=== PATIENT | female | born 1950 | race Caucasian/White ===

== ENCOUNTER 2022-01-26 11:25 | Outpatient (CLI) | payer MEDICARE, SELFPAY ==
--- NOTE | 2022-01-26 11:30 | CRLHL7_ITS ---
For Patients: As a result of the Century Cures Act, medical imaging exams and procedure reports are released immediately into your electronic medical record. You may view this report before your referring provider. If you have questions, please contact your health care provider. RIGHT BREAST SCREENING MAMMOGRAM WITH COMPUTER-AIDED DETECTION AND TOMOSYNTHESIS TECHNIQUE: CC and MLO views were obtained. These mammographic images have been obtained using full-field digital technique. These mammographic images were interpreted with the benefit of computer-aided detection. Breast Tomosynthesis was used in this interpretation. COMPARISON FILM: 01/25/2021, 01/13/2020. FINDINGS: There are scattered areas of fibroglandular density. IMPRESSION: There is no radiographic evidence for malignancy. ASSESSMENT: BI-RADS Category 1: Negative RECOMMENDATION: Routine screening mammogram in 1 year. A lay language report of this examination will be provided to the patient. Brooke Reyes M.D. Diagnostic/Breast Radiologist [email or web address]/[email or web address] PT/Dictated by: Brooke Reyes MD @ 01/31/2022 8:31:00 AM (Electronically Signed)
--- OUTSIDE RECORDS SUMMARY | 2022-01-26 11:37 | XMS_ITS | Encounter Summary ---
:1950 Author Organization [place] Address [address] [facility] [address] Care Team Providers Name Role Phone [facility] Primary Care Provider [phone] Marichuy Meyers MD Unavailable Reason for Visit Auth/Cert Specialty Diagnoses / Procedures Referred By Contact Refer red To Contact Gastroenterology Diagnoses Screen for colon cancer Screen for colon cancer [Z12.11] Endoscopy Procedures [facility] COLONOSCOPY W/WO BRUSH/WASH COLONOSCOPY [address] [place] [address] Phone: Fax: Referral ID Status Reason Start Date Expiration Date Visits Requ ested Visits Authorized [id number] 1 1 Encounter Details Date Type Department Care Team Description 01/06/2021 Surgery [facility] Endoscopy Gabriel Bell MD COLONOSCOPY [facility] [address] [facility] [address] [place] [address] [place] [address] (Wo rk) Surgery Details Date/Time Status Location OR Service Patient Class Case Case Trauma Class Type Case? 01/06/21 Posted GI [facility] Gastroenterology Outpatient 8:30 AM Panel 1 Procedure [facility] Anes Op Region Wound Class Commen ts COLONOSCOPY N/A Conscious Sedation Rectum II-Clean Contami nated Surgeon Surgeon Role Service Panel Gabriel Forde MD Primary Gastroenterology 1 Special Needs PS 12/22 ac (fv) documented in this encounter Social History Tobacco Use Types Packs/Day Years Used Date Smoking Tobacco: Former Cigarettes Quit : 07/03/2002 Smokeless Tobacco: Never Alcohol Use Standard Drinks/Week Comments Yes 0 (1 standard drink = 0.6 oz pure alcoho l) rare Sex Assigned at Date Recorded Not on file COVID-19 Exposure Response Date Recorded In the last month, have you been in contact with No / Unsure 01/06/2021 7:38 AM CDT someone who was confirmed or suspected to have Coronavirus / COVID-19? documented as of this encounter Last Filed Vital Signs Vital Sign Reading Time Taken Comments Blood Pressure 100/55 01/06/2021 9:00 AM CDT Pulse 83 01/06/2021 9:00 AM CDT Temperature 36.8 ??C (98.3 ??F) 01/06/2021 8:39 AM CDT Respiratory Rate 12 01/06/2021 9:00 AM CDT Oxygen Saturation 95% 01/06/2021 9:00 AM CDT Inhaled Oxygen Concentration - - Weight 64.4 kg (142 lb) 01/06/2021 8:23 AM CDT Height 149.9 cm (4' 11) 01/06/2021 8:23 AM CDT Body Mass Index 28.68 01/06/2021 8:23 AM CDT documented in this encounter Discharge Instructions Discharge InstructionsShakila Elias RN - 01/06/2021 9:08 AM CDT Images from the original note were not included. Understanding Diverticulosis and Diverticulitis Pouches or diverticula usually occur in the lower part of the colon called the sigmoid. Diverticulitis occurs when the pouches become inflamed. The colon (large intestine) is the last part of the digestive tract. It absorbs water from stool andchanges it from a liquid to a solid. In certain cases, small pouches called diverticula can form in the colon wall. This condition is called diverticulosis. The pouches can become infected. If this happens, it becomes a more serious problem called diverticulitis. These problems can be painful. But they can be managed. Managing Your Condition Diet changes or taking medications are often tried first. These may be enough to bring relief. If the case is bad, surgery may be done. You and your doctor can discuss the plan that is best for you. If You Have Diverticulosis Diet changes are often enough to control symptoms. The main changes are adding fiber (roughage) and drinking more water. Fiber absorbs water as it travels through your colon. This helps your stool staysoft and move smoothly. Water helps this process. If needed, you may be told to take pssy-zad-mmnplev stool softeners. To help relieve pain, antispasmodic medications may be prescribed. If You Have Diverticulitis Treatment depends on how bad your symptoms are. For mild symptoms: You may be put on a liquid diet for a short time. You may also be prescribed antibiotics. If these two steps relieve your symptoms, you may then be prescribed a high-fiber diet. If you still have symptoms, your doctor will discuss further treatment options with you. For severe symptoms: You may need to be admitted to the hospital. There, you can be given IV antibiotics and fluids. Once symptoms are under control, the above treatments may be tried. If these don???tcontrol your condition, your doctor may discuss the option of having surgery with you. [place] to Colon Health Help keep your colon healthy with a diet that includes plenty of high-fiber fruits, vegetables, and whole grains. Drink plenty of liquids like water and juice. Your doctor may also recommend avoiding seeds and nuts. ?? 1993-5944 Megan [facility], [address] [place], [place] [id number]. All rights reserved. This information is not intended as a substitute for professional medical care. Always follow your healthcare professional's instructions. Eating a High-Fiber Diet Fiber is what gives strength and structure to plants. Most grains, beans, vegetables, and fruits contain fiber. Foods rich in fiber are often low in calories and fat, and they fill you up more. They may also reduce your risks for certain health problems. To find out the amount of fiber in canned, packaged, or frozen foods, read the ???Nutrition Facts?? label. It tells you how much fiber is in a serving. Types of Fiber and Their Benefits There are two types of fiber: insoluble and soluble. They both aid digestion and help you maintain ahealthy weight. Insoluble fiber: This is found in whole grains, cereals, certain fruits and vegetables (such as apple skin, corn, and carrots). Insoluble fiber may prevent constipation and reduce the risk of certain types of cancer. Soluble fiber: This type of fiber is in oats, beans, and certain fruits and vegetables (such as strawberries and peas). Soluble fiber can reduce cholesterol (which may help lower the risk of heart disease), and helps control blood sugar levels. Look for High-Fiber Foods Whole-grain breads and cereals: Try to eat 6-8 ounces a day. Include wheat and oat bran cereals, whole-wheat muffins or toast, and corn tortillas in your meals. Fruits: Try to eat 2 cups a day. Apples, oranges, strawberries, pears, and bananas are good sources.(Note: Fruit juice is low in fiber.) Vegetables: Try to eat 3 cups a day. Add asparagus, carrots, broccoli, peas, and corn to your meals. Legumes (beans): One cup of cooked lentils gives you over 15 grams of fiber. Try navy beans, lentils, and chickpeas. Seeds: A small handful of seeds gives you about 3 grams of fiber. Try sunflower seeds. Keep Track of Your Fiber A healthy diet includes 31 grams of fiber a day if you have a 2,000-calorie diet. Keep track of how much fiber you eat. Start by reading food labels. Then eat a variety of foods high in fiber. Ask yourdoctor about supplemental fiber products. ?? [id number] [place] [address]. All rights reserved. This information is not intended as a substitute for professional medical care. Always follow your healthcare professional's instructions. documented in this encounter Medications at Time of Discharge Medication Sig Dispensed Refills Start Date End Date fluticasone-salmeterol INHAL 1 PUFF BY 180 each 1 06/10/19 21 (ADVAIR DISKUS) 250-50 MOUTH TWICE DAILY MCG/DOSE inhalerIndications: RINSE MOUTH AFTER Moderate persistent asthma EACH USE without complication albuterol (PROAIR Inhale 2 puffs 18 g 3 11/11/2020 HFA/PROVENTIL HFA/VENTOLIN into the lungs HFA) 108 (90 Base) MCG/ACT every 6 hours inhalerIndications: Moderate persistent asthma without complication pravastatin (PRAVACHOL) 10 TAKE 1 TABLET BY 90 tablet 3 07/21/2021 MG tabletIndications: MOUTH EVERY Hypercholesteremia EVENING documented as of this encounter H&P Notes Gabriel Forde MD - 01/06/2021 7:56 AM CDT Pre-Endoscopy History and Physical Jennifer Schwab Date of : 1950 Age: [age] year old Date of Procedure: 01/06/2021 Primary care provider: [facility] Type of Endoscopy: Colonoscopy with possible biopsy, possible polypectomy Reason for Procedure: screen Type of Anesthesia Anticipated: Conscious Sedation HPI: Jennifer is a 70 year old female who will be undergoing the above procedure. A history and physical has been performed. The patient's medications and allergies have been reviewed. The risks and benefits of the procedure and the sedation options and risks were discussed with thepatient. All questions were answered and informed consent was obtained. She denies a personal or family history of anesthesia complications or bleeding disorders. Patient Active Problem List Diagnosis ??? Moderate persistent asthma without complication ??? Hypercholesteremia ??? HX: breast cancer ??? Angiosarcoma of breast (H) ??? Family history of colon cancer No past medical history on file. No past surgical history on file. Social History Tobacco Use ??? Smoking status: Former Smoker Quit date: 07/03/2002 Years since quittin.5 ??? Smokeless tobacco: Never Used Substance Use Topics ??? Alcohol use: Yes Comment: rare Family History Problem Relation Age of Onset ??? Colon Cancer Mother 65 ??? Heart Failure Father ??? Cerebrovascular Disease Paternal Grandfather mult ??? Heart Disease Sister 60 ??? Hypertension Sister ??? Diabetes No family hx of Prior to Admission medications Medication Sig Start Date End Date Taking? Authorizing Provider albuterol (PROAIR HFA/PROVENTIL HFA/VENTOLIN HFA) 108 (90 Base) MCG/ACT inhaler Inhale 2 puffs into the lungs every 6 hours 11/11/20 Marichuy Meyers MD fluticasone-salmeterol (ADVAIR DISKUS) 250-50 MCG/DOSE inhaler INHAL 1 PUFF BY MOUTH TWICE DAILY RINSE MOUTH AFTER EACH USE 06/09/20 Marichuy Meyers MD pravastatin (PRAVACHOL) 10 MG tablet TAKE 1 TABLET BY MOUTH EVERY EVENING 06/09/20 Marichuy Meyers MD No Known Allergies REVIEW OF SYSTEMS: 5 point ROS negative except as noted above in HPI, including Gen., Resp., CV, GI & system review. PHYSICAL EXAM: There were no vitals taken for this visit. Estimated body mass index is 32.24 kg/m?? as calculated from the following: Height as of 06/09/20: 1.499 m (4' 11). Weight as of 06/09/20: 72.4 kg (159 lb 9.6 oz). GENERAL APPEARANCE: alert, and oriented MENTAL STATUS: alert AIRWAY EXAM: Mallampatti Class I (visualization of the soft palate, fauces, uvula, anterior and posterior pillars) RESP: lungs clear to auscultation - no rales, rhonchi or wheezes CV: regular rates and rhythm DIAGNOSTICS: Not indicated IMPRESSION ASA Class 2 - Mild systemic disease PLAN: Plan for Colonoscopy with possible biopsy, possible polypectomy. We discussed the risks, benefits and alternatives and the patient wished to proceed. The above has been forwarded to the consulting provider. Signed Electronically by: Gabriel Forde MD January 06, 2021 documented in this encounter Plan of Treatment Not on filedocumented as of this encounter Procedures Procedure Name Priority Date/Time Associated Diagnosis Comme nts COLONOSCOPY 01/06/2021 8:36 AM CDT Screen for colon c ancer Special Needs PS 12/22 ac (fv) COLONOSCOPY Routine 01/06/2021 8:34 AM CDT Resul ts for this procedure are in the results section . documented in this encounter Results COLONOSCOPY (01/06/2021 8:34 AM CDT) [facility] Method Time Signature COLONOSCOPY [facility] RADIOLOGY RESULTS Patient Name: Jennifer Schwab ? Procedure Date: 8:34 AM ? Accou nt Number: [id number] Date of : 1950 ?Admit Type: Out patient Age: 70 ? Gender: Female Attending MD: Gabriel brady MD ?? Total Sedation Time: 16_minutes continuous bedside 1:1 Instrument Name: 222 - Adult Colonoscope Procedure: ?Colonoscopy Indications: ?Screening patient at increased risk: Family history ?of colorectal cancer in multiple 1st-degree ?relatives Providers: ?Gabriel Forde MD ([facility]) Referring MD: ? Medicines: ?Midazo todd 1 mg IV, Fentanyl 50 micrograms IV Complications: ?No immediate complications. Procedure: ?Pre-Anesthesia Assessment: ?- Prior to the procedure, a History and Physical ?was performed, and patient medications and ?allergies were reviewed. The patient is competent. ?The risks and benefits of the procedure and the ?sedation options and risks were discussed with the ?patient. All questions were answered and informed ?consent was obtained. Patient identification and ?proposed procedure were verified by the physician. ?Mental Status Examination: alert and oriented. ?Airway Examination: normal oropharyngeal airway and ?neck mobility. Respiratory Examination: clear to ?auscultation. CV Examination: normal. Prophylactic ?Antibiotics: The patient does not require ?prophylactic antibiotics. Prior Anticoagulants: The ?patient has taken no previous anticoagulant or ?antiplatelet agents. ASA Grade Assessment: II - A ?patient with mild systemic disease. After reviewing ?the risks and benefits, the patient was deemed in ?satisfactory condition to undergo the procedure. ?The anesthesia plan was to use moderate sedation / ?analgesia (conscious sedation). Immediately prior ?to administration of medications, the patient was ?re-assessed for adequacy to receive sedatives. The ?heart rate, respiratory rate, oxygen saturations, ?blood pressure, adequacy of pulmonary ventilation, ?and response to care were monitored throughout the ?procedure. The physical status of the patient was ?re-assessed after the procedure. ?After obtaining informed consent, the colonoscope ?was passed under direct vision. Throughout the ?procedure, the patient's blood pressure, pulse, and ?oxygen saturations were monitored continuously. The ?[employer] Adult Colonoscope, Model # [id number], ?[place] # 222, SN # [id number] was introduced through ?the anus and advanced to the cecum, identified by ?appendiceal orifice and ileocecal valve. The ?colonoscopy was performed without difficulty. The ?patient tolerated the procedure well. The quality ?of the bowel preparat ion was good. ? Findings: ? The perianal and digital rectal examinations were nor mal. ? Many small and large- mouthed diverticula were found in the sigmoid colon. ? The exam was otherwise without abnormality on d irect and retroflexion ? views. ? Impression: ? - Diverticulosis in the sig moid colon. ?- The examination was otherwise normal on direct ?and retroflexion view s. ?- No specimens collec shaun. Recommendation: ? - Repeat colonoscopy in 5 years for surveillance. ? Procedure Code(s): ? --- Professional --- ? G0105, Colorectal cancer screening; colonoscopy on individual at high ? risk Diagnosis Code(s): ? --- Professional --- ? Z80.0, Family history of malignant neoplasm of digest shanique organs CPT copyright 2019 [employer]. All rights reserved. The codes documented in this report are prelimin kaylee and upon ironworker machine operator review may be revised to meet current compliance requirements. Electronically signed by Gabriel Forde MD Gabriel Forde MD 01/06/2021 9:08:19 AM I was physically present for the entire viewing portion of t he exam. Gabriel Forde MD Number of Addenda: 0 Note Initiated On: 01/06/2021 8:34 AM MRN: ?[id number] Procedure Date: ? 01/06/2021 8:34:55 AM Scope Withdrawal Time: 0 hours 7 minutes 37 seconds Total Procedure Duration: 0 hours 14 minutes 57 seconds Estimated Blood Loss: ? Scope In: 8:44:51 AM Scope Out: 8:59:48 AM Specimen (Source) Anatomical Collection Method Collection Time Re ceived Time Location / / Volume Laterality 01/06/2021 8:34 AM CDT Gabriel Forde MD PROCEDURES Performing Organization Address City/State/ZIP Code Phon e Number RADIOLOGY RESULTS documented in this encounter Visit Diagnoses Diagnosis Screen for colon cancer Special screening for malignant neoplasm s, colon documented in this encounter Administered Medications Inactive Administered Medications - up to 3 most recent administrations Medication Order MAR Action Action Date Dose Rate Site 0.9% sodium chloride BOLUS Intravenous, 500 mL, ONCE PRN, at 500 mL/hr, Administe r over 1 Hours, other, hypotension, Starting on Mon01/06/21 at 0755, For 1 d ose, Intra-procedure atropine injection 0.4 mg 0.4 mg, Intravenous, ONCE PRN, Bradycard ia, Starting on Mon01/06/21 at 0755, For 1 dose, Intra-procedure benzocaine 20% (HURRICAINE/TOPEX) 20 % s pray 0.5-2 mL 0.5-2 mL (1-4 spray), Mouth/Throat, ONCE PRN, moderate pain, Starting on Mon01/06/21 at 0755, For 1 dose, [place] throat with 1-4 sp rays 5 minutes prior to procedure., Intra-procedure EPINEPHrine (Anaphylaxis) (ADRENALIN) in jection (vial) 0.1 mg 0.1 mg, Submucosal, ONCE PRN, bleeding, Starting on 01/06/21 at 0755, For 1 dose, Via sclerotherapy injection needle. Not for dire ct undiluted intravenous injection (1mg/ml = 1:1000). Protect from light., Intr a-procedure fentaNYL (PF) (SUBLIMAZE) injection 25 m cg 25 mcg, Intravenous, EVERY 2 MIN PRN, moderate to ruel re pain, when verbally ordered by the prescriber during the procedure, Admini ster over 1-2 Minutes, Starting on Mon01/06/21 at 0800, For 24 hours, Cautio n: may have synergistic effect when used with midazolam (VERSED) . If inadequate response, may repeat up to maximum of 150 mcg total dose). Doses can be exceeded under direct oversight of patient by provider., Intra-procedure fentaNYL (PF) (SUBLIMAZE) injection 25-5 0 mcg Given 01/06/2021 8:43 AM CDT 50 mcg 25-50 mcg, Intravenous, ONCE WITHIN 24 HRS, Administer over 1-2 Minutes, On Mon01/06/21 at 0800, For 1 dose, Caution: may have synergistic effect when used with midazolam (VERSED). If inadequate response, may repeat 25 mcg IV slowly Q 2 minutes PRN pain (Maximum of 150 mcg total dose). Doses can be exceeded under direct oversight of patient by provider., Intra-procedure flumazenil (ROMAZICON) injection 0.2 mg 0.2 mg, Intravenous, EVERY 1 MIN PRN, be nzodiazepine reversal, over sedation, when verbally ordered by the prescriber during the procedur e , Administer over 1 Minutes, Starting on Mon01/06/21 at 075 5, For 48 hours, Give over 15 seconds. If inadequate response after 45 seconds, ma y repeat up to a MAX total dose of 1 mg). Continue monitoring until discharge criteria are met f or a minimum of 2 hours. Irritant. Use with caution in patients o n benzodiazepine therapy., Intra-procedure glucagon injection 0.5 mg 0.5 mg, Intravenous, ONCE PRN, other, gi motility, Sta rting on Mon01/06/21 at 0755, For 1 dose, Intra-procedure lidocaine (LMX4) kit Topical, EVERY 1 HOUR PRN, pain, with VA D insertion, Starting on Mon01/06/21 at 0825, Apply at least 30 minutes prior to VAD insertion in divided doses as needed for size of site for insertion. MAX Dose: 2.5 g (?? of 5 g tube) Do NOT give if patient has a history of allergy to any local anesthetic or any aisha product. Do NOT use both lidocaine intradermal/subcu taneous injection and the lidocaine cream on the same site., Pre-procedure lidocaine 1 % 0.1-1 mL 0.1-1 mL, Other, EVERY 1 HOUR PRN, mild pain with VAD insertion, Starting on Mon01/06/21 at 0825, MAX dose 1 mL subcutan eous OR intradermal along the side of the vein in divided doses as needed for VAD insertion. Do NOT give if patient has a history of allergy to any local anesthet ic or any aisha product. Do NOT use both lidocaine intradermal/subcutaneous injec tion and the lidocaine cream on the same site., Pre-procedure midazolam (VERSED) injection 0.5 mg 0.5 mg, Intravenous, Administer over 1-2 Minutes, EVERY 2 MIN PRN, sedation, when verbally ordered by the prescriber veronique ren the procedure, Starting on Mon01/06/21 at 0800, For 24 hours, Caution: when use d with opioids, may need lower doses. If inadequate response, may repeat until de sired sedative response (Maximum of 5 mg total dose). Doses can be exceeded under direct oversight of patient by provider. This drug may cause significant respirat ory depression. Monitor respiratory status and vital signs carefully for 1 hour after each dose., Intra-procedure midazolam (VERSED) injection 0.5-1 mg Given 01/06/2021 8:43 AM CDT 1 mg 0.5-1 mg, Intravenous, Administer over 1-2 Minutes, ONCE WITHIN 24 HRS, On Mon01/06/21 at 0800, For 1 dose, Caution: when used with opioids, may need lower doses. If inadequate response may repeat 0.5 mg IV slowly Q 2 minutes PRN sedation until desired response (Maximum of 5 mg total dose). Doses can be exceeded under direct oversight of patient by provider. This drug may cause significant respiratory depression. Monitor respiratory status and vital signs carefully for 1 hour after each dose., Intra-procedure ondansetron (ZOFRAN) injection 4 mg 4 mg, Intravenous, ONCE PRN, nausea, vomiting, Adminis ter over 2-5 Minutes, Starting on Mon01/06/21 at 0825, For 1 dose, Give in ENDO pre procedure prep area. Irritant., Pre-procedure simethicone (MYLICON) suspension 133 mg 133 mg, Oral, ONCE PRN, other, gas bubbl es, Starting on Mon01/06/21 at 0755, For 1 dose, Give via endoscope, Intra-procedure sodium chloride (PF) 0.9% PF flush 3 mL Given 01/06/2021 8:43 AM CDT 3 mLs 3 mL, Intracatheter, EVERY 8 HOURS, First dose on Mon01/06/21 at 0830, to lock peripheral IV dormant line, Pre-procedure sodium chloride (PF) 0.9% PF flush 3 mL 3 mL, Intracatheter, EVERY 1 MIN PRN, li ne flush, other, to ensure patency or to lock dormant line, Starting on Mon01/06/21 at 0825, P re-procedure documented in this encounter Active and Recently Administered Medications Times are shown in CDT. Scheduled Medication Order 01/04/2021 01/05/2021 01/06/2021 fentaNYL (PF) (SUBLIMAZE) injection 25-50 mcg (COMPLETED) 842 (Given - Provider: Clotilde Bueno RN) 25-50 mcg, Intravenous, ONCE WITHIN 24 H RS, Administer over 1-2 Minutes, On Mon01/06/21 at 0800, For 1 dose, Caution: may have synergistic effect when used with midazolam (VERSED). If inadequate respon se, may repeat 25 mcg IV slowly Q 2 angelica ragini PRN pain (Maximum of 150 mcg total dose). Doses can be exceeded under direct oversight of patient by provider., Intra-procedure midazolam (VERSED) injection 0.5-1 mg (COMPLETED) 842 (Given - Provider: Clotilde Bueno RN) 0.5-1 mg, Intravenous, Administer over 1 -2 Minutes, ONCE WITHIN 24 HRS, On Mon01/06/21 at 0800, For 1 dose, Caution: when used with opioids, may need lower doses. If inadequate response may repeat 0.5 mg IV slowly Q 2 minutes PRN sedation un til desired response (Maximum of 5 mg total dose). Doses can be exceeded under direct oversight of patient by provider. This drug may cause significant respirator y depression. Monitor respiratory status and vital signs carefully for 1 hour after each dose., Intra-procedure sodium chloride (PF) 0.9% PF flush 3 mL 0843 (Given - Provider: Clotilde Bueno RN) 3 mL, Intracatheter, EVERY 8 HOURS, Firs t dose on Mon01/06/21 at 0830, to lock peripheral IV dormant line, Pre-procedure PRN Medication Order 01/04/2021 01/05/2021 01/06/2021 0.9% sodium chloride BOLUS Intravenous, 500 mL, ONCE PRN, at 500 mL /hr, Administer over 1 Hours, other, hypotension, Starting on Mon01/06/21 at 0755, For 1 dose, Intra-procedure atropine injection 0.4 mg 0.4 mg, Intravenous, ONCE PRN, Bradycard ia, Starting on Mon01/06/21 at 0755, For 1 dose, Intra-procedure benzocaine 20% (HURRICAINE/TOPEX) 20 % spray 0.5-2 mL 0.5-2 mL (1-4 spray), Mouth/Throat, ONCE PRN, moderate pain, Starting on Mon01/06/21 at 0755, For 1 dose, [place] throat with 1-4 sprays 5 minutes prior to procedure., Intra-procedure EPINEPHrine (Anaphylaxis) (ADRENALIN) injection (vial) 0.1 mg 0.1 mg, Submucosal, ONCE PRN, bleeding, Starting on Mon01/06/21 at 0755, For 1 dose, Via sclerotherapy injection needle. Not for direct undiluted intravenous injection (1mg/ml = 1:1000). Protect from light., Intra-procedure fentaNYL (PF) (SUBLIMAZE) injection 25 mcg 25 mcg, Intravenous, EVERY 2 MIN PRN, mo derate to severe pain, when verbally ordered by the prescriber during the procedure, Administer over 1-2 Minutes, Starting on Mon01/06/21 at 0800, For 24 hours, Caution: may have synergistic effect whe n used with midazolam (VERSED) . If inadequate response, may repeat up to maximum of 150 mcg total dose). Doses can be exceeded under direct oversight of patient by provider., Intra-procedure flumazenil (ROMAZICON) injection 0.2 mg 0.2 mg, Intravenous, EVERY 1 MIN PRN, be nzodiazepine reversal, over sedation, when verbally ordered by the prescriber during the procedure , Administer over 1 Minutes, Starting on Mon01/06/21 at 0755, For 48 hours, Give over 15 seconds. If i nadequate response after 45 seconds, may repeat up to a MAX total dose of 1 mg). Continue monitoring until discharge criteria are met for a minimum of 2 hours. Ir ritant. Use with caution in patients on benzodiazepine therapy., Intra-procedure glucagon injection 0.5 mg 0.5 mg, Intravenous, ONCE PRN, other, gi motility, Starting on Mon01/06/21 at 0755, For 1 dose, Intra-procedure lidocaine (LMX4) kit Topical, EVERY 1 HOUR PRN, pain, with VA D insertion, Starting on Mon01/06/21 at 0825, Apply at least 30 minutes prior to VAD insertion in divided doses as needed for size of site for insertion. MAX Dos e: 2.5 g (?? of 5 g tube) Do NOT give if patient has a history of allergy to any local anesthetic or any aisha product. Do NOT use both lidocaine intradermal/subcutaneous injection and the lidocaine cream on the same site., Pre-procedure lidocaine 1 % 0.1-1 mL 0.1-1 mL, Other, EVERY 1 HOUR PRN, mild pain with VAD insertion, Starting on Mon01/06/21 at 0825, MAX dose 1 mL subcutaneous OR intradermal along the side of the vein in divided doses as needed for VAD insertion. Do NOT give if patient has a history of allergy to any local anesthetic or any aisha product. Do NOT use both lidocaine intradermal/subcutaneous injection and the lidocaine cream on the same site., Pre-procedure midazolam (VERSED) injection 0.5 mg 0.5 mg, Intravenous, Administer over 1-2 Minutes, EVERY 2 MIN PRN, sedation, when verbally ordered by the prescriber during the procedure, Starting on Mon01/06/21 at 0800, For 24 hours, Caution: when u sed with opioids, may need lower doses. If inadequate response, may repeat until desired sedative response (Maximum of 5 mg total dose). Doses can be exceeded under direct oversight of patient by provid er. This drug may cause significant resp iratory depression. Monitor respiratory status and vital signs carefully for 1 hour after each dose., Intra-procedure ondansetron (ZOFRAN) injection 4 mg 4 mg, Intravenous, ONCE PRN, nausea, vom iting, Administer over 2-5 Minutes, Starting on Mon01/06/21 at 0825, For 1 dose, Give in ENDO pre procedure prep area. Irritant., Pre-procedure simethicone (MYLICON) suspension 133 mg 133 mg, Oral, ONCE PRN, other, gas bubbl es, Starting on Mon01/06/21 at 0755, For 1 dose, Give via endoscope, Intra-procedure sodium chloride (PF) 0.9% PF flush 3 mL 3 mL, Intracatheter, EVERY 1 MIN PRN, li ne flush, other, to ensure patency or to lock dormant line, Starting on Mon01/06/21 at 0825, Pre-procedure documented in this encounter Care Teams Relationship Advisor Relationship Specialty Start Date End Date [facility] PCP - General Internal Medicine 07/03/19 [place] [address] [place], [place] [address] Marichuy Meeyrs MD Assigned PCP 06/13/19 [address] [facility] [address] [place], [place] [address] documented as of this encounter
--- OUTSIDE RECORDS SUMMARY | 2022-01-26 11:37 | XMS_ITS | Encounter Summary ---
:1950 Author Organization [place] Address [address] [place] [address] Care Team Providers Name Role Phone Clinic - [facility] Primary Care Provider [phone]- [phone] Marichuy Meyers MD Unavailable Reason for Visit Reason Comments Medication Refill Encounter Details Date Type Department Care Team Description 06/29/2021 Refill [facility] Dagoberto Meyers MD Medication Refill [place] [address] [place] [address] [place] [address] [place] [address] [phone] Social History Tobacco Use Types Packs/Day Years Used Date Smoking Tobacco: Former Cigarettes Quit : 07/03/2002 Smokeless Tobacco: Never Alcohol Use Standard Drinks/Week Comments Yes 0 (1 standard drink = 0.6 oz pure alcoho l) rare Sex Assigned at Date Recorded Not on file documented as of this encounter Miscellaneous Notes Telephone Encounter - Evy Cook RN - 07/20/2021 11:45 AM CDT Routing refill request to provider for review/approval because: Has upcoming appointment Next 5 appointments (look out 90 days) Oct 12, 2021 8:00 AM (Arrive by 7:40 AM) Annual Wellness Visit with Marichuy Meyers MD [facility] ([facility] ) [address] [facility] [address] Telephone Encounter - Rajani Viveros - 07/20/2021 11:07 AM CDT Future appointment scheduled. Please fill as able. Telephone Encounter - Jael Hunter RN - 06/30/2021 12:48 PM CDT Routing refill request to provider for review/approval because: Labs not current: no LDL on file Patient needs to be seen because it has been more than 1 year since last office visit. Jael Boyd RN, BSN Addendum Note - Rajani Viveros - 06/29/2021 12:12 AM CDT Addended by: RAJANI VIVEROS on: 07/20/2021 11:07 AM Modules accepted: Orders Addendum Note - Brittni Hernandez APRN CNP - 06/29/2021 12:12 AM CDT Addended by: BRITTNI HERNANDEZ on: 07/21/2021 09:37 AM Modules accepted: Orders documented in this encounter Plan of Treatment Not on filedocumented as of this encounter Visit Diagnoses Diagnosis Hypercholesteremia Pure hypercholesterolemia documented in this encounter Care Teams Continuing Education Dean Relationship Specialty Start Date End Date Clinic - [facility] PCP - General Internal Medicine 07/03/[address] [address] Marichuy Meyers MD Assigned PCP 06/13/[address] [place] [id number] documented as of this encounter
--- OUTSIDE RECORDS SUMMARY | 2022-01-26 11:37 | XMS_ITS | Encounter Summary ---
:1950 Author Organization [place] Address [address] [facility] [place] [address] Care Team Providers Name Role Phone [facility] Primary Care Provider +1- [phone] Marichuy Meyers MD Unavailable Encounter Details Date Type Department Care Team Description 01/03/2021 [facility] Gabriel Forde, Encounter for screening Hospital MD for other viral diseases [address] [place] [address] [facility] [phone] [place], [place] [address] (Wo rk) Social History Tobacco Use Types Packs/Day Years [...] / COVID-19? documented as of this encounter Plan of Treatment Not on filedocumented as of this encounter Procedures Procedure Name Priority Date/Time Associated Diagnosis Comme nts COVID-19 VIRUS Routine 01/03/2021 10:41 AM Encounter for Resul ts for this (CORONAVIRUS) BY CDT screening for other proc edure are in PCR viral diseases the results section. documented in this encounter Results Asymptomatic COVID-19 Virus (Coronavirus) by PCR Nose (01/03/2021 10:41 AM CDT) Analysis Performed At Patho logist Time Signature SARS CoV2 PCR Negative Negative 01/04/2021 [facility] 1:33 PM CDT LABORATORY Comment: NEGATIVE: SARS-CoV-2 (COVID-19) RNA not detected, presumed negative. Specimen Anatomical Collection Method Collection Time Receive d Time (Source) Location / / Volume Laterality Swab NASAL STRUCTURE / Non-blood 01/03/2021 10:41 2020 Unknown Collection / AM CDT 10:41 AM CDT Unknown Narrative [facility] - 01/04/2021 1:33 PM C DT Testing was performed using the lara SARS-CoV-2 assay on the lara Jasper0 System. This test should be ordered for the detection of SARS-CoV-2 in individuals who meet SARS- CoV-2 clinical and/or epidemiological criteria. Test performan ce is unknown in asymptomatic patients. This test is for in vitro diag nostic use under the FDA EUA for laboratories certified under CLIA to perform high and/or moderate complexity testing. This test has not be en FDA cleared or approved. A negative result does not rule out the pr esence of PCR inhibitors in the specimen or target RNA in concentrat ion below the limit of detection for the assay. The possibility of a false negative should be considered if the patient's recent ex posure or clinical presentation suggests COVID-19. This ragini t was validated by the [facility] Infectious Diseases Diag nostic Laboratory. This laboratory is certified under the [facility] Laboratory Improvement Amendments of 1988 (CLIA-88) as qualifie d to perform high and/or moderate complexity laboratory testing. Gabriel Forde MD LAB - MICRO GENERAL ORDERABL ES Performing Organization Address City/State/ZIP Code Phon e Number [facility] [place] [place] [address] [facility], [address] [facility] Infectious [place], [place] [phone] Diseases Diagnostic [phone], [facility] Lab (IDDL) [address] [facility], [address]297 documented in this encounter Visit Diagnoses Diagnosis Encounter for screening for other viral diseases documented in this encounter Care Teams Engraver Tender Relationship Specialty Start Date End Date Clinic - [facility] PCP - General Internal Medicine 07/03/19 [place] [address] [place], [place] [address] Marichuy Meyers MD Assigned PCP 06/13/19 [address] [facility] [address] [place], [place] [address] documented as of this encounter
--- OUTSIDE RECORDS SUMMARY | 2022-01-26 11:37 | XMS_ITS | Clinical Summary ---
:1950 Author Organization [place] Address [address] [facility] [place] [address] Care Team Providers Name Role Phone [facility] Primary Care Provider +1- [phone] Marichuy Meyers MD Unavailable Allergies No known active allergies Medications Medication Sig Dispensed Refills Start Date End Date Status fluticasone-salmeterol INHAL 1 PUFF BY 180 each 1 06/09/2020 Active (ADVAIR DISKUS) 250-50 MOUTH TWICE MCG/DOSE DAILY RINSE inhalerIndications: MOUTH AFTER Moderate persistent EACH USE asthma without complication PROAIR RESPICLICK 108 (90 INHALE 2 PUFFS 1 each 1 2 Active Base) MCG/ACT BY MOUTH EVERY inhalerIndications: 6 HOURS Moderate persistent NEEDED FOR asthma without WHEEZE OR FOR complication SHORTNESS OF BREATH albuterol (PROAIR Inhale 2 puffs 18 g 1 10/13/2021 Active HFA/PROVENTIL into the lungs HFA/VENTOLIN HFA) 108 (90 every 6 hours Base) MCG/ACT inhalerIndications: Moderate persistent asthma without complication pravastatin (PRAVACHOL) TAKE 1 TABLET 90 tablet 0 10/15/2021 Active 10 MG tabletIndications: BY MOUTH EVERY Hypercholesteremia DAY IN THE EVENING Active Problems Problem Noted Date Moderate persistent asthma without complication 2019 Hypercholesteremia 07/04/2019 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 Family history of colon cancer 07/04/2019 Immunizations Name Administration Dates Next Due COVID-19,PF,Moderna 06/21/2020, 05/24/2020 FLUAD(HD)65+ QUAD 12/11/2019 Influenza (intradermal) 01/23/2019 Pneumo Conj 13-V (2010&after) 11/06/2018 Pneumococcal 23 valent 11/09/2019 Pneumococcal, Unspecified 07/03/2009 TDAP Vaccine (Adacel) 11/09/2019 Tdap (Adult) Unspecified Formulation 01/25/2012 Zoster vaccine recombinant adjuvanted (SHINGRIX) 02/10/2020, 12/11/2019 Zoster vaccine, live 03/27/2009 Family History Medical History Relation Comments Heart Failure Father Colon Cancer Maternal Grandmother Colon Cancer Mother Cerebrovascular Disease Paternal Grandfather mult Heart Disease Sister Hypertension Sister Diabetes No family hx of Relation Status Comments Daughter 1 Alive Daughter 2 Alive Father (Age 85) Maternal Grandfather Maternal Grandmother (Age 99) Mother (Age 69) Paternal Grandfather (Age 84) Paternal Grandmother (Age 106) Sister Alive Son Social History Tobacco Use Types Packs/Day Years Used Date Smoking Tobacco: Former Cigarettes Quit : 07/03/2002 Smokeless Tobacco: Never Alcohol Use Standard Drinks/Week Comments Yes 0 (1 standard drink = 0.6 oz pure alcoho l) rare Sex Assigned at Date Recorded Not on file Last Filed Vital Signs Vital Sign Reading Time Taken Comments Blood Pressure 102/61 01/06/2021 9:30 AM CDT Pulse 74 01/06/2021 9:30 AM CDT Temperature 36.8 ??C (98.3 ??F) 01/06/2021 8:39 AM CDT Respiratory Rate 16 01/06/2021 9:30 AM CDT Oxygen Saturation 96% 01/06/2021 9:30 AM CDT Inhaled Oxygen Concentration - - Weight 64.4 kg (142 lb) 01/06/2021 8:23 AM CDT Height 149.9 cm (4' 11) 01/06/2021 8:23 AM CDT Body Mass Index 28.68 01/06/2021 8:23 AM CDT Plan of Treatment Health Maintenance Due Date Last Done Comments ANNUAL REVIEW OF HM ORDERS 1950 ASTHMA [address] PLAN 1950 [address] COLONOGRAPHY 1950 FIT-DNA (Cologuard) 1950 FIT 1950 FLEX SIG 1950 HEPATITIS B IMMUNIZATION (1 1950 of 3 - 3-dose series) HEPATITIS C SCREENING 1966 LUNG CANCER SCREENING 1998 ASTHMA CONTROL TEST 12/10/2020 06/09/2020, 07/04/2019 MEDICARE ANNUAL WELLNESS 06/09/2021 06/09/2020 VISIT COVID-19 Vaccine (5 - 10/20/2021 08/25/2021, 02/02/2021, Booster for Moderna series) 06/21/2020, Addition al history exists FALL RISK ASSESSMENT 10/12/2022 10/12/2021, 06/09/2020, 07/04/2019 MAMMO SCREENING 01/25/2023 01/25/2021, 01/13/2020 ADVANCE CARE PLANNING 06/09/2025 06/09/2020 LIPID 10/05/2026 10/05/2021 DTAP/TDAP/TD IMMUNIZATION 11/08/2029 11/09/2019, 01/25/2012 (3 - Td or Tdap) COLONOSCOPY 01/06/2031 01/06/2021, 01/06/2021 COLORECTAL CANCER SCREENING 01/06/2031 DEXA 08/28/2033 08/28/2018 Pneumococcal Vaccine: 65+ Completed 11/09/2019, 11/06/2018 , Years 07/03/2009 ZOSTER IMMUNIZATION Completed 02/10/2020, 12/11/2019, 03/27/2009 PHQ-2 (once per calendar Completed 10/12/2021, 06/09/2020, year) 07/04/2019 INFLUENZA VACCINE Completed 11/29/2021, 12/09/2020, 12/11/2019, Additional history exists IPV IMMUNIZATION Aged Out No longer eligi ble based on patient 's age to complete this topic MENINGITIS IMMUNIZATION Aged Out No longe r eligible based on patient 's age to complete this topic Insurance Payer Benefit Plan / Subscriber ID Effective Dates Phone Addre ss Type Group BCBS BCBS MEDICARE [id number] 2019-Liya [phone] [address] [address] Medicare [place] 0 [place] [address] Care Teams Metals Sales Representative Relationship Specialty Start Date End Date [facility] PCP - General Internal Medicine 07/03/19 [place] [address] [place] [address] Marichuy Meyers MD Assigned PCP 06/13/19 [address] [facility] [address] [place] [address]
--- OUTSIDE RECORDS SUMMARY | 2022-01-26 11:37 | XMS_ITS | Encounter Summary ---
:1950 Author Organization [place] Address [address] [facility] [place] [address] Care Team Providers Name Role Phone [facility] Primary Care Provider +1- [phone] Marichuy Meyers MD Unavailable Encounter Details Date Type Department Care Team Description 10/05/2021 [facility] Preventative health care Laboratory [address] [place] [address] Social History Tobacco Use Types Packs/Day Years Used Date Smoking Tobacco: Former Cigarettes Quit : 07/03/2002 Smokeless Tobacco: Never Alcohol Use Standard Drinks/Week Comments Yes 0 (1 standard drink = 0.6 oz pure alcoho l) rare Sex Assigned at Date Recorded Not on file COVID-19 Exposure Response Date Recorded In the last 10 days, have you been in contact with No / Unsu re 10/05/2021 8:02 AM CDT someone who was confirmed or suspected to have Coronavirus/COVID-19? documented as of this encounter Plan of Treatment Not on filedocumented as of this encounter Procedures Procedure Name Priority Date/Time Associated Diagnosis Comme nts CBC WITH PLATELETS AND Routine 10/05/2021 8:04 Preventative he alth Results for this DIFFERENTIAL AM CDT care procedure are i n the results section. CBC WITH PLATELETS & Routine 10/05/2021 8:04 Preventative heal th Results for this DIFFERENTIAL AM CDT care procedure are i n the results section. TSH WITH FREE T4 Routine 10/05/2021 8:04 Preventative health R esults for this REFLEX AM CDT care procedure are i n the results section. LIPID PROFILE Routine 10/05/2021 8:04 Preventative health Resu lts for this AM CDT care procedure are i n the results section. COMPREHENSIVE Routine 10/05/2021 8:04 Preventative health Resu lts for this METABOLIC PANEL AM CDT care procedure ar e in the results section. documented in this encounter Results (ABNORMAL) CBC with platelets and differential (10/05/2021 8:04 AM CDT) [facility] Method Time Signature WBC Count 7.8 4.0 - 10/05/2021 [facility] 11.0 8:17 AM CDT 10e3/uL RBC Count 4.49 3.80 - 10/05/2021 [facility] 5.20 8:17 AM CDT 10e6/uL Hemoglobin 15.8 (H) 11.7 - 10/05/2021 [facility] 15.7 g/dL 8:17 AM CDT Hematocrit 44.7 35.0 - 10/05/2021 [facility] 47.0 % 8:17 AM CDT MCV 100 78 - 100 10/05/2021 [facility] fL 8:17 AM CDT MCH 35.2 (H) 26.5 - 10/05/2021 [facility] 33.0 pg 8:17 AM CDT MCHC 35.3 31.5 - 10/05/2021 [facility] 36.5 g/dL 8:17 AM CDT RDW 12.6 10.0 - 10/05/2021 [facility] 15.0 % 8:17 AM CDT Platelet Count 248 150 - 450 10/05/2021 [facility] 10e3/uL 8:17 AM CDT % Neutrophils 65 % 10/05/2021 [facility] 8:17 AM CDT % Lymphocytes 23 % 10/05/2021 [facility] 8:17 AM CDT % Monocytes 8 % 10/05/2021 [facility] 8:17 AM CDT % Eosinophils 4 % 10/05/2021 [facility] 8:17 AM CDT % Basophils 1 % 10/05/2021 [facility] 8:17 AM CDT Absolute 5.0 1.6 - 8.3 10/05/2021 [facility] Neutrophils 10e3/uL 8:17 AM CDT Absolute 1.8 0.8 - 5.3 10/05/2021 [facility] Lymphocytes 10e3/uL 8:17 AM CDT Absolute 0.6 0.0 - 1.3 10/05/2021 [facility] Monocytes 10e3/uL 8:17 AM CDT Absolute 0.3 0.0 - 0.7 10/05/2021 [facility] Eosinophils 10e3/uL 8:17 AM CDT Absolute 0.0 0.0 - 0.2 10/05/2021 [facility] Basophils 10e3/uL 8:17 AM CDT Specimen Anatomical Collection Method / Collection Time Recei neida Time (Source) Location / Volume Laterality Blood BLOOD SPECIMEN / Venipuncture / 10/05/2021 8:04 2021 8:13 Unknown Unknown AM CDT AM CDT Marichuy Meyers MD LAB - BLOOD ORDERABLES Performing Organization Address City/State/ZIP Code Phon [place] [address] Lab [address] [facility] Lab (no room number, 1st floor of clinic) [place] [address], [facility] [address] [facility] Lab (no room number, 1st floor of clinic) Lipid Profile (Chol, Trig, HDL, LDL calc) (10/05/2021 8:04 AM CDT) [facility] Method Time Signature Cholesterol 161 <200 mg/dL 10/06/2021 [facility] 4:10 PM CDT Triglycerides 112 <150 mg/dL 10/06/2021 [facility] 4:10 PM CDT Direct Measure HDL 65 >=50 mg/dL 10/06/2021 [facility] 4:10 PM CDT LDL Cholesterol 74 <=100 10/06/2021 [facility] Calculated mg/dL 4:10 PM CDT Non HDL 96 <130 mg/dL 10/06/2021 [facility] Cholesterol 4:10 PM CDT Patient Fasting > Yes 10/06/2021 [facility] RY 8hrs? 4:10 PM CDT Specimen Anatomical Collection Method / Collection Time Recei neida Time (Source) Location / Volume Laterality Blood BLOOD SPECIMEN / Venipuncture / 10/05/2021 8:04 2021 8:13 Unknown Unknown AM CDT AM CDT Narrative [facility] - 10/06/2021 4:10 PM CDT Cholesterol Desirable: ??<200 mg/dL Triglycerides Normal: ??Less than 150 mg/dL Borderline High: ??150-199 mg/dL High: ??200-499 mg/dL Very High: ??Greater than or equal to 50 0 mg/dL Direct Measure HDL Female: ??Greater than or equal to 50 mg /dL Male: ??Greater than or equal to 40 mg/d L LDL Cholesterol Desirable: ??<100mg/dL Above Desirable: ??100-129 mg/dL Borderline High: ??130-159 mg/dL High: ??160-189 mg/dL Very High: ??>= 190 mg/dL Non HDL Cholesterol Desirable: ??130 mg/dL Above Desirable: ??130-159 mg/dL Borderline High: ??160-189 mg/dL High: ??190-219 mg/dL Very High: ??Greater than or equal to 22 0 mg/dL Marichuy Meyers MD LAB - BLOOD ORDERABLES Performing Organization Address City/[facility] [place] [address] [phone] Acute Care Lab [address] [place] [address]. Room # 2186 [place] [address], [facility] [phone] Room # 2186 [place], [place] [phone] [place] [facility] [address] Lab (no room number, 1st floor of clinic) TSH with free T4 reflex (10/05/2021 8:04 AM CDT) P athologist Signature TSH 1.87 0.40 - 4.00 10/06/2021 [facility] mU/L 4:23 PM CDT Specimen Anatomical Collection Method / Collection Time Recei neida Time (Source) Location / Volume Laterality Blood BLOOD SPECIMEN / Venipuncture / 10/05/2021 8:04 2021 8:13 Unknown Unknown AM CDT AM CDT Marichuy Meyers MD LAB - BLOOD ORDERABLES Performing Organization Address City/State/ZIP [facility] Phon e Number [facility] [place] [address] [phone] Acute Care Lab [address] [facility]. Room # 2186 [place] [address], [facility] [phone] Acute Care Lab [address] [facility]. Room # 2186 (ABNORMAL) Comprehensive metabolic panel (BMP + Alb, Alk Phos, ALT, AST, Total. Bili, TP) (10/05/2021 8:04 AM CDT) P athologist Signature Sodium 140 133 - 144 10/06/2021 [facility] mmol/L 4:21 PM CDT Potassium 4.7 3.4 - 5.3 10/06/2021 [facility] mmol/L 4:21 PM CDT Comment: Specimen slightly hemolyzed, po tassium may be falsely elevated. Chloride 111 (H) 94 - 109 mmol/L 10/06/2021 4:21 PM [facility] CDT Carbon Dioxide (CO2) 20 20 - 32 mmol/L 10/06/2021 4:2 1 PM [facility] CDT Anion Gap 9 3 - 14 mmol/L 10/06/2021 4:21 PM [facility] CDT Urea Nitrogen 12 7 - 30 mg/dL 10/06/2021 4:21 PM [facility] CDT Creatinine 0.53 0.52 - 1.04 mg/dL 10/06/2021 4:21 PM [facility] CDT Calcium 9.3 8.5 - 10.1 mg/dL 10/06/2021 4:21 PM [facility] CDT Glucose 77 70 - 99 mg/dL 10/06/2021 4:21 PM [facility] CDT Alkaline Phosphatase 77 40 - 150 U/L 10/06/2021 4:21 PM [facility] CDT AST 17 0 - 45 U/L 10/06/2021 4:21 PM [facility] CDT Comment: Specimen is hemolyzed which can falsely elevate AST. Analysis of a non-hemolyzed specimen may result in a l ower value. ALT 22 0 - 50 U/L 10/06/2021 4:21 PM CDT [facility] Protein Total 7.1 6.8 - 8.8 g/dL 10/06/2021 4:21 PM CD T [facility] Albumin 3.9 3.4 - 5.0 g/dL 10/06/2021 4:21 PM CDT [facility] Bilirubin Total 0.6 0.2 - 1.3 mg/dL 10/06/2021 4:21 PM CDT [facility] GFR Estimate >90 >60 mL/min/1.73m2 10/06/2021 4:21 PM CDT [facility] Comment: Effective March 16, 2021 eGF Rcr in adults is calculated using the 2020 CKD-EPI creatinine equation which includ es age and gender (Ching et al., NEJM, DOI: 10.1056/LCQCbc6509898) Specimen Anatomical Collection Method / Collection Time Recei neida Time (Source) Location / Volume Laterality Blood BLOOD SPECIMEN / Venipuncture / 10/05/2021 8:04 2021 8:13 Unknown Unknown AM CDT AM CDT Marichuy Meyers MD LAB - BLOOD ORDERABLES Performing Organization Address City/State/[place] [address] [phone] Acute Care Lab [address] [place] [address]. Room # 2186 [place] [address] [address] Acute Care Lab [address] [place] [address]. Room # 2186 documented in this encounter Visit Diagnoses Diagnosis Preventative health care Routine general medical examination at a health care facility documented in this encounter Care Teams Stacking Machine Operator Relationship Specialty Start Date End Date Clinic - [facility] PCP - General Internal Medicine 07/03/19 [place] [address] [place] [address] Marichuy Meyers MD Assigned PCP 06/13/19 [address] [facility] 200 [place], [place] [address] documented as of this encounter
--- OUTSIDE RECORDS SUMMARY | 2022-01-26 11:37 | XMS_ITS | Encounter Summary ---
:1950 Author Organization [place] Address [address] [facility] [place] [address] Care Team Providers Name Role Phone Clinic - Georgette Mccloud [facility] Primary Care Provider +1- [phone] Marichuy Meyers MD Unavailable Reason for Visit Reason Onset Date Comments Refill Request 10/12/2021 Requesting to change ventolin to Proair respiclick Encounter Details Date Type Department Care Team Description 10/12/2021 Refill [facility] Marichuy Meyers, Ref ill Request Clinic Alfreda MORGAN (Requesting to change [address] ventolin to Proair [place] respiclick) [place], [place] [address] [place] [address] (Wo rk) Social History Tobacco Use Types [...] in contact with No / Unsu re 10/09/2021 8:56 AM CDT someone who was confirmed or suspected to have Coronavirus/COVID-19? documented as of this encounter Miscellaneous Notes Telephone Encounter - Isela Estes RN - 10/13/2021 10:10 AM CDT Patient had an appointment with Dr. Meyers 10/12/21 but was cancelled due to provider out. Ok to switch albuterol/Ventolin inhaler to Proair Respiclick? Medication pended. Or should patient be seen first? Please advise, thanks. Telephone Encounter - Nitesh Buchanan MD - 10/13/2021 7:37 AM CDT She has not been seen in the clinic in over 1 year. Patient needs to be seen in follow-up for any refills. Telephone Encounter - Pat Vyas RN - 10/12/2021 11:44 AM CDT Routed to provider to review if albuterol inhaler order can be changed to Proair Respiclick. Pat yVas RN [facility] Telephone Encounter - Teresa Bravo CMA - 10/12/2021 10:35 AM CDT Appointment was canceled today - she'd like to reschedule (I told her we'd call back to reschedule once we have more information on the providers return) Needs refill on Proair Respiclick instead of ventolin inhaler. Rosmery Bravo CMA -[facility] [place] [phone] documented in this encounter Plan of Treatment Not on filedocumented as of this encounter Visit Diagnoses Diagnosis Moderate persistent asthma without compl ication - Primary Unspecified asthma documented in this encounter Care Teams Portable Power Tool Repairer Relationship Specialty Start Date End Date Clinic - [facility] PCP - General Internal Medicine 07/03/[address] [address] Marichuy Meyers MD Assigned PCP 06/13/19 [address] [facility] 200 [place] [address] documented as of this encounter
--- OUTSIDE RECORDS SUMMARY | 2022-01-26 11:37 | XMS_ITS | Encounter Summary ---
:1950 Author Organization [place] Address [address] [facility] [place] [address] Care Team Providers Name Role Phone [facility] Primary Care Provider + [phone] Marichuy Meyers MD Unavailable Encounter Details Date Type Department Care Team Description 10/09/2021 Travel Social History Tobacco Use Types Packs/Day Years [...] filedocumented as of this encounter Visit Diagnoses Not on filedocumented in this encounter Care Teams County Attorney Relationship Specialty Start Date End Date [facility] PCP - General Internal Medicine 07/03/19 [place] [address] [place], [place] [phone] Marichuy Meyers MD Assigned PCP 06/13/19 [address] [facility] [address] [place], [place] [address] documented as of this encounter
--- OUTSIDE RECORDS SUMMARY | 2022-01-26 11:37 | XMS_ITS | Encounter Summary ---
:1950 Author Organization [place] Address [address] [facility] [place] [address] Care Team Providers Name Role Phone [facility] Provider + [phone] Marichuy Meyers MD Unavailable Encounter Details Date Type Department Care Team Description 01/25/2021 Travel Social History Tobacco Use Types Packs/Day Years Used Date Smoking Tobacco: Former Cigarettes Quit : 07/03/2002 Smokeless Tobacco: Never Alcohol Use Standard Drinks/Week Comments Yes 0 (1 standard drink = 0.6 oz pure alcoho l) rare Sex Assigned at Date Recorded Not on file COVID-19 Exposure Response Date Recorded In the last month, have you been in contact with No / Unsure 01/25/2021 10:20 AM CDT someone who was confirmed or suspected to have Coronavirus / COVID-19? documented as of this encounter Plan of Treatment Not on filedocumented as of this encounter Visit Diagnoses Not on filedocumented in this encounter Care Teams Radiologic Technology Program Director Relationship Specialty Start Date End Date [facility] PCP - General Internal Medicine 07/03/19 [place] [address] [place], [place] [phone] Marichuy Meyers MD Assigned PCP 06/13/19 [address] [facility] [place] [address] [place], [place] [phone] documented as of this encounter
--- OUTSIDE RECORDS SUMMARY | 2022-01-26 11:37 | XMS_ITS | Encounter Summary ---
:1950 Author Organization [place] Address [address] [facility] [place] [address] Care Team Providers Name Role Phone Clinic - Georgette Mccloud [facility] Primary Care Provider +1- [phone] Marichuy Meyers MD Unavailable Reason for Visit Reason Comments Med Change Request Encounter Details Date Type Department Care Team Description 10/13/2021 Julio Palomino [facility] Clinic Mario Buchanan, Med Change Request Alfreda MORGAN [address] [place] [place] [address] [place] [address] [phone] Social History Tobacco Use Types Packs/Day Years [...] encounter Miscellaneous Notes Telephone Encounter - Evy Bravo RN - 10/13/2021 11:58 AM CDT See message below. A PA is needed. Or alternative medication. Possibly, Albuterol HFA? documented in this encounter Plan of Treatment Not on filedocumented as of this encounter Visit Diagnoses Diagnosis Moderate persistent asthma without compl ication Unspecified asthma documented in this encounter Care Teams Sound Effects Supervisor Relationship Specialty Start Date End Date [facility] PCP - General Internal Medicine 07/03/19 [place] [address] [place], [place] [phone] Marichuy Meyers MD Assigned PCP 06/13/19 [address] [facility] [place] [place], [place] [phone] documented as of this encounter
--- OUTSIDE RECORDS SUMMARY | 2022-01-26 11:37 | XMS_ITS | Encounter Summary ---
:1950 Author Organization [place] Address [address] [facility] [place] [address] Care Team Providers Name Role Phone Clinic - Georgette Mccloud [facility] Primary Care Provider +1- [phone] Marichuy Meyers MD Unavailable Reason for Visit Reason Comments Medication Refill Encounter Details Date Type Department Care Team Description 10/14/2021 Refill [facility] Brittni Shannon Ma, Medication Refill [place] DESKTOP SUPPORT MANAGER ADVANCED REGISTERED NURSE [address] [place] [address] [place] [address] [place] [address] [phone] Social History Tobacco Use Types Packs/Day Years [...] Telephone Encounter - Isela Estes RN - 10/15/2021 11:19 AM CDT Pending Prescriptions: Disp Refills pravastatin (PRAVACHOL) 10 MG tablet [Pha*90 tab*0 Sig: TAKE 1 TABLET BY MOUTH EVERY DAY IN THE EVENING Medication is being filled for 1 time refill only due to: pt's appt on 10/12/21 cancelled d/t provider out. Will sent [email or web address] message to patient to reschedule appointment. documented in this encounter Plan of Treatment Not on filedocumented as of this encounter Visit Diagnoses Diagnosis Hypercholesteremia Pure hypercholesterolemia documented in this encounter Care Teams Coffee Machine Technician Relationship Specialty Start Date End Date Clinic - [facility] PCP - General Internal Medicine 07/03/19 [place] [address] [place], [place] [phone] Marichuy Meyers MD Assigned PCP 06/13/19 [address] [facility] 200 [place], [place] [address] documented as of this encounter
--- OUTSIDE RECORDS SUMMARY | 2022-01-26 11:37 | XMS_ITS | Encounter Summary ---
:1950 Author Organization [place] Address [address] [facility] [place] [address] Care Team Providers Name Role Phone [facility] Primary Care Provider +1- [phone] Marichuy Meyers MD Unavailable Reason for Visit Auth/Cert Specialty Diagnoses / Procedures Referred By Contact Refer red To Contact Gastroenterology Diagnoses Screen for colon cancer Screen for colon cancer [Z12.11] Endoscopy Procedures HC COLONOSCOPY W/WO BRUSH/WASH COLONOSCOPY [address] [place] [address] Phone: Fax: Referral ID Status Reason Start Date Expiration Date Visits Requ ested Visits Authorized [id number] 1 1 Encounter Details Date Type Department Care Team Description 01/06/2021 Hospital Encounter [facility] Gabriel Forde , Endoscopy Alfreda MORGAN [address] [place], [place] GASTROINTESTINAL [address] [phone] [place], [place] [phone] (Wo rk) Social History Tobacco Use Types [...] needed, you may be told to take xxvs-ejd-wwoquzw stool softeners. To help relieve pain, antispasmodic [...] the option of having surgery with you. [place] [facility] Help keep your colon healthy with a diet that includes plenty of high-fiber fruits, vegetables, and whole grains. Drink plenty of liquids like water and juice. Your doctor may also recommend avoiding seeds and nuts. ?? [phone] [facility], [address] [place] [address]. All rights reserved. This information is not [...] Ask yourdoctor about supplemental fiber products. ?? [phone] [facility], [address] [place] [address]. All rights reserved. This information is not [...] 7:56 AM CDT Pre-Endoscopy History and Physical Jeninfer Schwab Date of : 1950 Age: [age] year old Date of Procedure: 01/06/2021 Primary care provider: Caitlin Lassiter Type of Endoscopy: Colonoscopy with possible biopsy, [...] encounter Results COLONOSCOPY (01/06/2021 8:34 AM CDT) [facility] Method Time Signature COLONOSCOPY [facility] RADIOLOGY RESULTS Patient Name: Jennifer Schwab ? Procedure Date: 1 8:34 AM ? Accou nt Number: [id number] Date of : 1950 ?Admit Type: Out patient Age: 70 ? Gender: Female Attending MD: Gabriel brady MD ?? Total Sedation Time: 16_minutes continuous bedside 1:1 Instrument Name: 222 - Adult Colonoscope Procedure: ?Colonoscopy Indications: ?Screening patient at increased risk: Family history ?of colorectal cancer in multiple 1st-degree ?relatives Providers: ?Gabriel Forde MD ([facility]) Referring MD: ? Medicines: ?Midazo todd 1 [...] and ?oxygen saturations were monitored continuously. The ?Olympus Adult Colonoscope, Model # CF-QI038I, ?[place]ora # 222, SN # [id number] was introduced through ?the anus and advanced [...] of digest shanique organs CPT copyright 2019 [employer] [place] [employer]. All rights reserved. The codes documented in this report are prelimin kaylee and upon gun synchronizer review may be revised to meet current compliance requirements. Electronically signed by Gabriel Forde MD Gabriel Forde MD 01/06/2021 9:08:19 AM I was physically present for the entire viewing portion of t he exam. Gabriel Forde MD Number of Addenda: 0 Note Initiated On: 01/06/2021 8:34 AM MRN: ?[id number] Procedure Date: ? 01/06/2021 8:34:55 AM Scope [...] RESULTS documented in this encounter Visit Diagnoses Not on filedocumented in this encounter Administered Medications Inactive Administered [...] on Mon01/06/21 at 0755, For 1 dose, [place] throat with 1-4 sp rays 5 minutes [...] repeat 25 mcg IV slowly Q 2 agnelica ragini PRN pain (Maximum of 150 mcg total dose). Doses can be exceeded under direct oversight of patient by provider., Intra-procedure midazolam (VERSED) injection 0.5-1 mg (COMPLETED) 842 (Given - Provider: Clotiled Bueno RN) 0.5-1 mg, Intravenous, Administer over [...] on Mon01/06/21 at 0755, For 1 dose, [place] throat with 1-4 sprays 5 minutes prior [...] Pre-procedure documented in this encounter Care Teams Ghost Writer Relationship Specialty Start Date End Date [facility] PCP - General Internal Medicine 07/03/19 [place] [address] [place] [address] Marichuy Meyers MD Assigned PCP 06/13/19 [address] [facility] 200 [place], [place] [phone] documented as of this encounter
--- OUTSIDE RECORDS SUMMARY | 2022-01-26 11:37 | XMS_ITS | Encounter Summary ---
:1950 Author Organization [place] Address [address] [facility] [place] [address] Care Team Providers Name Role Phone [facility] Primary Care Provider + [phone] Marichuy Meyers MD Unavailable Encounter Details Date Type Department Care Team Description 10/05/2021 Travel Social History Tobacco Use Types Packs/Day [...] on filedocumented in this encounter Care Teams Mill Dresser Relationship Specialty Start Date End Date [facility] PCP - General Internal Medicine 07/03/19 [place] [address] [place], [place] [phone] Marichuy Meyers MD Assigned PCP 06/13/19 [address] [facility] [address] [place], [place] [address] documented as of this encounter
--- OUTSIDE RECORDS SUMMARY | 2022-01-26 11:37 | XMS_ITS | Encounter Summary ---
:1950 Author Organization [place] Address [address] [facility] [place] [address] Care Team Providers Name Role Phone [facility] Primary Care Provider +1- [phone] Marichuy Meyers MD Unavailable Reason for Visit Reason Onset Date Comments Orders 06/07/2021 [facility] Encounter Details Date Type Department Care Team Description 06/07/2021 [facility] Marichuy Meyers, Ord ers (labs prior to Clinic Alfreda MORGAN wellness visit) [address] [place], [place] [address] [place], [place] [phone] (Wo rk) Social History Tobacco Use Types Packs/Day Years Used Date Smoking Tobacco: Former Cigarettes Quit : 07/03/2002 Smokeless Tobacco: Never Alcohol Use Standard Drinks/Week Comments Yes 0 (1 standard drink = 0.6 oz pure alcoho l) rare Sex Assigned at Date Recorded Not on file documented as of this encounter Miscellaneous Notes Telephone Encounter - Yasmine Beebe LPN - 06/07/2021 1:33 PM CDT Patient advised and agrees to plan. Telephone Encounter - Marichuy Meyers MD - 06/07/2021 12:53 PM CDT All labs are ordered except the Vit D as I cannot find a diagnosis for which the insurance company will pay. If she wants a Vit D she will have to pay out of pocket, and sign a waver form the computer will not even let me sign the order without a waiver form signed Telephone Encounter - Pat Vyas RN - 06/07/2021 11:44 AM CDT Patient calls, requesting to have labs drawn prior to her Wellness visit 09/07/[address] Meyers. She is requesting to have Vitamin D lab checked as well because she has history of Vitamin D deficiency and would like to have this checked again. Patient has lab only appointment already scheduled for 08/30/21, she only needs a call if there are further questions or if labs cannot be ordered. Pat Vyas RN [facility] documented in this encounter Plan of Treatment Not on filedocumented as of this encounter Results Lipid Profile (Chol, Trig, HDL, LDL calc) (10/05/2021 8:04 AM CDT) [facility] Method Time Signature Cholesterol 161 <200 mg/dL 10/06/2021 [facility] 4:10 PM CDT Triglycerides 112 <150 mg/dL 10/06/2021 [facility] 4:10 PM CDT Direct Measure HDL 65 >=50 mg/dL 10/06/2021 [facility] 4:10 PM CDT LDL Cholesterol 74 <=100 10/06/2021 [facility] Calculated mg/dL 4:10 PM CDT Non HDL 96 <130 mg/dL 10/06/2021 [facility] Cholesterol 4:10 PM CDT Patient Fasting [...] LAB - BLOOD ORDERABLES Performing Organization Address City/[facility] [place] [address] [phone] Acute Care Lab [address] [place] [address]. Room # 2186 [place] [address], [facility] [phone] Room # 2186 [place], [place] [phone] [place] [id number] [address] Lab (no room number, 1st floor of clinic) TSH with free T4 reflex (10/05/2021 8:04 AM CDT) P athologist Signature TSH 1.87 0.40 - 4.00 10/06/2021 [facility] mU/L 4:23 PM CDT Specimen Anatomical Collection Method / Collection Time Recei neida Time (Source) Location / Volume Laterality Blood BLOOD SPECIMEN / Venipuncture / 10/05/2021 8:04 2021 8:13 Unknown Unknown AM CDT AM CDT Marichuy Meyers MD LAB - BLOOD ORDERABLES Performing Organization Address City/State/ZIP Code Phon e Number [facility] [place] [address] [phone] Acute Care Lab [facility]. Room # 2186 [place] [address], [facility] [phone] Acute Care Lab [facility]. Room # 2186 (ABNORMAL) Comprehensive metabolic panel (BMP + Alb, Alk Phos, ALT, AST, Total. Bili, TP) (10/05/2021 8:04 AM CDT) P athologist Signature Sodium 140 133 - 144 10/06/2021 [facility] mmol/L 4:21 PM CDT Potassium 4.7 3.4 - 5.3 10/06/2021 [facility] mmol/L 4:21 PM CDT Comment: Specimen slightly hemolyzed, po tassium may be falsely elevated. Chloride 111 (H) 94 - 109 mmol/L 10/06/2021 4:21 PM [facility] CDT Carbon Dioxide (CO2) 20 20 - 32 mmol/L 10/06/2021 4:2 1 PM [facility] CDT Anion Gap 9 3 - 14 mmol/L 10/06/2021 4:21 PM [facility] CDT Urea Nitrogen 12 7 - 30 mg/dL 10/06/2021 4:21 PM [facility] CDT Creatinine 0.53 0.52 - 1.04 mg/dL 10/06/2021 4:21 PM [facility] CDT Calcium 9.3 8.5 - 10.1 mg/dL 10/06/2021 4:21 PM [facility] CDT Glucose 77 70 - 99 mg/dL 10/06/2021 4:21 PM [facility] CDT Alkaline Phosphatase 77 40 - 150 U/L 10/06/2021 4:21 PM [facility] CDT AST 17 0 - 45 U/L 10/06/2021 4:21 PM [facility] CDT Comment: Specimen is hemolyzed which can falsely elevate AST. Analysis of a non-hemolyzed specimen may result in a l ower value. ALT 22 0 - 50 U/L 10/06/2021 4:21 PM CDT [facility] Protein Total 7.1 6.8 - 8.8 g/dL 10/06/2021 4:21 PM CD T [facility] Albumin 3.9 3.4 - 5.0 g/dL 10/06/2021 4:21 PM CDT [facility] Bilirubin Total 0.6 0.2 - 1.3 mg/dL 10/06/2021 4:21 PM CDT [facility] GFR Estimate >90 >60 mL/min/1.73m2 10/06/2021 4:21 PM CDT [facility] Comment: Effective March 16, 2021 eGF Rcr in adults is calculated using the 2020 CKD-EPI creatinine equation which includ es age and gender (Ching et al., NEJM, DOI: 10.1056/BXJGnk2619613) Specimen Anatomical Collection Method / Collection Time Recei neida Time (Source) Location / Volume Laterality Blood BLOOD SPECIMEN / Venipuncture / 10/05/2021 8:04 2021 8:13 Unknown Unknown AM CDT AM CDT Marichuy Meyers MD LAB - BLOOD ORDERABLES Performing Organization Address City/State/[place] [address] [phone] Acute Care Lab [address] [place] [address]. Room # 2186 [place] [address] [address] Acute Care Lab [address] [place] [address]. 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
--- OUTSIDE RECORDS SUMMARY | 2022-01-26 11:37 | XMS_ITS | Encounter Summary ---
:1950 Author Organization [place] Address [address] [facility] [place] [address] Care Team Providers Name Role Phone [facility] Primary Care [facility] + [phone] Marichuy Meyers MD Unavailable Encounter Details Date Type Department Care Team Description 01/06/2021 Travel Social History Tobacco Use Types Packs/Day [...] on filedocumented in this encounter Care Teams Assistant Professor Of Communication Relationship Specialty Start Date End Date [facility] PCP - General Internal Medicine 07/03/19 [place] [address] [place], [place] [phone] Marichuy Meyers MD Assigned PCP 06/13/19 [address] [facility] [address] [place], [place] [phone] documented as of this encounter
--- OUTSIDE RECORDS SUMMARY | 2022-01-26 11:37 | XMS_ITS | Encounter Summary ---
:1950 Author Organization [place] Address [address] [place] [address] Care Team Providers Name Role Phone [facility] - [place] [facility] Primary Care Provider +1- [phone] Marichuy Meyers MD Unavailable Reason for Visit Diagnostic Imaging Mammo (Routine) - Closed Specialty Diagnoses / Procedures Referred By Contact Refer red To Contact Diagnoses Encounter for screening mammogram for breast cancer Marichuy Meyers MD Procedures MA Screen Right w/Nga *MA Screening Digital Bilateral [address] [place] [address] Referral ID Status Reason Start Date Expiration Date Visits Requ ested Visits Authorized [id number] Closed 11/09/2020 11/09/2021 1 1 Encounter Details Date Type Department Care Team Description 01/25/2021 Ancillary [facility] Marichuy Meyers Encounter for Procedure Clinic Nj Haney MD screening mammogram [address] [facility] [address] for breast cancer [place], [place] [address] [place] [address] 200 [place] [address] Social History Tobacco Use Types Packs/Day Years [...] Name Priority Date/Time Associated Diagnosis Comme nts MA SCREENING RIGHT Routine 01/25/2021 10:55 AM Encounter for R esults for this W/ NGA CDT screening mammogram procedur e are in for breast cancer the result s section. documented in this encounter Results MA Screen Right w/Nga (01/25/2021 10:55 AM CDT) Anatomical Region Laterality Modality Breast Bilateral Mammography Specimen (Source) Anatomical Location Collection Method / Collectio n Time Received Time / Laterality Volume Narrative 01/27/2021 7:31 AM CDT RIGHT FULL FIELD DIGITAL SCREENING MAMMOGRAM WITH TOMOSYNTHESIS Performed on: 01/25/21 Compared to: 01/13/2020 Technique: ??This study was evaluated wi th the assistance of Computer-Aided Detection. ??Breast Tomosynthesis was us ed in interpretation. Findings: The patient is status post lef t mastectomy. The breast has scattered areas of fibroglandular densit y. ??There is no radiographic evidence of malignancy. IMPRESSION: ACR BI-RADS Category 1: Nega tive RECOMMENDED FOLLOW-UP: Annual routine sc reening mammogram The results and recommendations of this examination will be communicated to the patient. Marichuy Meyers MD IMG MAMMOGRAPHY ORDERABLES documented in this encounter Visit Diagnoses Diagnosis Encounter for screening mammogram for br east cancer documented in this encounter Care Teams Rail Director Relationship Specialty Start Date End Date [facility] PCP - General Internal Medicine 07/03/19 [place] [address] [place], [place] [address] Marichuy Meyers MD Assigned PCP 06/13/19 [address] [facility] [address] [place] [address] documented as of this encounter
--- OUTSIDE RECORDS SUMMARY | 2022-01-26 11:38 | XMS_ITS | Encounter Summary ---
:1950 Author Organization [place] Address [address] [facility] [place] [address] Care Team Providers Name Role Phone [facility] Primary Care Provider +1- [phone] Marichuy Meyers MD Unavailable Encounter Details Date Type Department Care Team Description 12/25/2019 Orders [facility] Forde er for screening Endoscopy Alfreda Eason MD for other viral [address] [place] diseases (Primary Dx) [place], [place] GASTROINTESTINAL [phone] [phone] [place], [place] [id number] Social History Tobacco Use Types Packs/Day Years Used Date Smoking Tobacco: Former Cigarettes Quit : 07/03/2002 Smokeless Tobacco: Never Alcohol Use Standard Drinks/Week Comments Yes 0 (1 standard drink = 0.6 oz pure alcoho l) rare Sex Assigned at Date Recorded Not on file documented as of this encounter Plan of Treatment Not on filedocumented as of this encounter Visit Diagnoses Diagnosis Encounter for screening for other viral diseases - Primary documented in this encounter Care Teams Replanting Machine Operator Relationship Specialty Start Date End Date [facility] PCP - General Internal Medicine 07/03/19 [place] [address] [place], [place] [id number] Marichuy Meyers MD Assigned PCP 06/13/[address] [address] documented as of this encounter
--- OUTSIDE RECORDS SUMMARY | 2022-01-26 11:38 | XMS_ITS | Encounter Summary ---
:1950 Author Organization [facility] Address [address] [place] [address] Care Team Providers Name Role Phone Unavailable Primary Care Provider Unavailable Reason for Visit Reason Comments Pre-visit Intake Encounter Details Date Type Department Care Team Description 02/26/2021 Clinical Communication Department of Maite Dennis Pr e-visit Intake Oncology [place] 200 [facility] 200 [place] [address] [phone] Social History Tobacco Use Types Packs/Day Years Used Date Smoking Tobacco: Former Cigarettes 1 30 Smokeless Tobacco: Never Alcohol Use Standard Drinks/Week Comments Yes 3 (1 standard drink = 0.6 oz pure alcoho l) 2-3 vodka/coke's per week Sex Assigned at Date Recorded Not on file documented as of this encounter Plan of Treatment Upcoming Encounters Date Type Specialty Care Team Description 01/27/2022 Clinical Communication Admitting/Central Scheduling 01/31/2022 Appointment Laboratory Medicine Maite Dennis P.A.-C. [address] [place] [phone] 01/31/2022 Appointment Radiology Maite Dennis P.A.-C. [address] [place] [phone] 01/31/2022 Office Visit Oncology Maite Dennis P.A.-C. [address] [place] [address] documented as of this encounter Visit Diagnoses Not on filedocumented in this encounter Additional Health Concerns Assessment Noted Time PHQ-9 Depression Total Score: 1 08/17/2018 6:47 PM CDT documented as of this encounter
--- OUTSIDE RECORDS SUMMARY | 2022-01-26 11:38 | XMS_ITS | Encounter Summary ---
:1950 Author Organization [place] Address [address] [facility] [place] [address] Care Team Providers Name Role Phone Marichuy Meyers MD Unavailable Encounter Details Date Type Department Care Team Description 07/02/2019 Virtual Visit [facility] Mani Lora, DO [address] [facility] [address] [place] [address] [address] [place] [address] [place] [address] [phone] Social History Tobacco Use Types Packs/Day Years Used Date Smoking Tobacco: Never Assessed Sex Assigned at Date Recorded Not on file COVID-19 Exposure Response Date Recorded In the last month, have you been in contact with No / Unsure 07/02/2019 10:26 AM CDT someone who was confirmed or suspected to have Coronavirus / COVID-19? documented as of this encounter Progress Notes Mani Lora, DO - 07/02/2019 12:08 PM CDT Date: 07/02/2019 10:46:38 Clinician: Mani Lora Clinician Patient: Jennifer Schwab Patient : 1950 Patient Address: [address] [place] [address]., [place] [address] Patient Visit Protocol: URI Patient Summary: Jennifer is a 68 year old ( : 1950 ) female who initiated a Visit for cold, sinus infection, or influenza. When asked the question Please sign me up to receive news, health information and promotions from Triage., Jennifer responded Yes. Jennifer states her symptoms started gradually 1 month or more ago. Her symptoms consist of a cough. Symptom details Cough: Jennifer coughs a few times an hour and her cough is not more bothersome at night. Phlegm comes into her throat when she coughs. She believes her cough is caused by post-nasal drip. The color of the phlegm is clear. Jennifer denies having rhinitis, facial pain or pressure, myalgias, sore throat, nasal congestion,malaise, ear pain, enlarged lymph nodes, chills, diarrhea, vomiting, nausea, teeth pain, headache, fever, and wheezing. She also denies taking antibiotic medication for the symptoms, having recent facial or sinus surgery in the past 60 days, and double sickening (worsening symptoms after initial improv ement). She is not experiencing dyspnea. Precipitating events She has not recently been exposed to someone with influenza. Jennifer has been in close contact with the following high risk individuals: people with asthma, heart disease or diabetes and adults 65 or older. Pertinent COVID-19 (Coronavirus) information Jennifer has not traveled internationally or to the areas where COVID-19 (Coronavirus) is widespread, including cruise ship travel in the last 14 days before the start of her symptoms. Jennifer has not had a close contact with a laboratory-confirmed COVID-19 patient within 14 days of symptom onset. She also has not had a close contact with a suspected COVID-19 patient within 14 days of symptom onset. Jennifer does not work or volunteer as healthcare worker or a scanner supervisor and does not work or volunteer in a healthcare facility. She does not live with a healthcare worker. Pertinent medical history Jennifer does not get yeast infections when she takes antibiotics. Jennifer does not need a return to work/school note. Weight: 180 lbs Jennifer does not smoke or use smokeless tobacco. Additional information as reported by the patient (free text): I have asthma and seasonal allergies. Generally experience spring allergies and have had bronchial infections in the past years requiring zi thromax and steroid prescriptions. Weight: 180 lbs MEDICATIONS: pravastatin oral, Advair Diskus inhalation, ALLERGIES: NKDA Clinician Response: Dear Jennifer, Will cover for bacterial and asthma Diagnosis: Acute upper respiratory infection, unspecified Diagnosis ICD: J06.9 Prescription: azithromycin (Zithromax Z-Amari) 250 mg oral tablet 10 tablet, 5 days supply. Take 2 tablets by mouth 1 time per day for 1 day, then 1 tab po qd for next 4 days. Refills: 0, Refill as needed: no, Allow substitutions: yes Prescription: prednisone 20 mg oral tablet 10 tablet, 5 days supply. Take 1 tablet by mouth 2 times per day for 5 days. Refills: 0, Refill as needed: no, Allow substitutions: yes Pharmacy: [id number] - - [address] [place] [address] Addendum created: July 01 13:41:2019 created by: Eligio Ruiz body: it should be 2 pills the first day then one the next 4 days. total 6 pills. thanks documented in this encounter Plan of Treatment Not on filedocumented as of this encounter Visit Diagnoses Not on filedocumented in this encounter Care Teams Maritime Guard Relationship Specialty Start Date End Date Marichuy Meyers MD Assigned PCP 06/13/19 [facility] 200 [place] [address] documented as of this encounter
--- OUTSIDE RECORDS SUMMARY | 2022-01-26 11:38 | XMS_ITS | Encounter Summary ---
:1950 Author Organization [place] Address [address] [facility] [place] [address] Care Team Providers Name Role Phone [facility] Primary Care Provider [phone]- [phone] Marichuy Meyers MD Unavailable Reason for Visit Diagnostic Imaging Mammo (Routine) - Closed Specialty Diagnoses / Procedures Referred By Contact Refer red To Contact Diagnoses Visit for screening mammogram Marichuy Meyers MD Procedures MA Screen Right w/Nga MA Screening Digital Bilateral [address] [facility] [place] [address] [place] [address] Referral ID Status Reason Start Date Expiration Date Visits Requ ested Visits Authorized [id number] Closed 12/25/2019 12/24/2020 1 1 Encounter Details Date Type Department Care Team Description 01/13/2020 Ancillary [facility] Marichuy Meyers Visit for screening Procedure Clinic Nj Haney MD mammogram [id number] [facility] [address] [facility] [place] [address] 200 [place] [address] Social History Tobacco Use Types [...] been in contact with No / Unsure 01/13/2020 10:22 AM CDT someone who was confirmed or suspected to have Coronavirus / COVID-19? documented as of this encounter Plan of Treatment Not on filedocumented as of this encounter Procedures Procedure Name Priority Date/Time Associated Diagnosis Comme nts MA SCREENING RIGHT Routine 01/13/2020 11:05 AM Visit for ree yee Results for this W/ NGA CDT mammogram procedure are i n the results section. documented in this encounter Results MA Screen Right w/Nga (01/13/2020 11:05 AM CDT) Anatomical Region Laterality Modality Breast Bilateral Mammography Specimen (Source) Anatomical Location Collection Method / Collectio n Time Received Time / Laterality Volume Impressions 01/15/2020 2:07 PM CDT IMPRESSION: BI-RADS CATEGORY: 1 - ??Negative RECOMMENDED FOLLOW-UP: Annual Mammograph y. Exam results letter mailed to patient. PALMER GONZALES MD Narrative 01/15/2020 2:07 PM CDT SCREENING MAMMOGRAM, RIGHT, DIGITAL w/CAD AND TOMOSYNTHESIS - 01/13/2020 11:05 AM BREAST SYMPTOMS: No current breast compl aints. COMPARISON: ?? 03/31/2014. BREAST DENSITY: Scattered fibroglandular densities. COMMENTS: No findings of suspicion for m alignancy. Procedure Note Palmer Gonzales MD - 01/15/2020For matting of this note might be different from the original. SCREENING MAMMOGRAM, RIGHT, DIGITAL w/CA D AND TOMOSYNTHESIS - 01/13/2020 11:05 AM BREAST SYMPTOMS: No current breast compl aints. COMPARISON: 03/31/2014. BREAST DENSITY: Scattered fibroglandular densities. COMMENTS: No findings of suspicion for m alignancy. IMPRESSION: BI-RADS CATEGORY: 1 - Negati ve RECOMMENDED FOLLOW-UP: Annual Mammograph y. Exam results letter mailed to patient. PALMER GONZALES MD Marichuy Meyers MD IMG MAMMOGRAPHY ORDERABLES documented in this encounter Visit Diagnoses Diagnosis Visit for screening mammogram Other screening mammogram documented in this encounter Care Teams Swatch Clerk Relationship Specialty Start Date End Date [facility] PCP - General Internal Medicine 07/03/[address] [address] Marichuy Meyers MD Assigned PCP 06/13/19 [address] [facility] 200 [place] [address] documented as of this encounter
--- OUTSIDE RECORDS SUMMARY | 2022-01-26 11:38 | XMS_ITS | Encounter Summary ---
:1950 Author Organization [place] Address [address] [facility] [place] [address] Care Team Providers Name Role Phone [facility] Primary Care Provider + [phone] Marichuy Meyers MD Unavailable Encounter Details Date Type Department Care Team Description 05/24/2020 [facility] [address] [place] [address] Social History Tobacco Use Types Packs/Day Years [...] on filedocumented in this encounter Care Teams Commercial Energy Rater Relationship Specialty Start Date End Date [facility] PCP - General Internal Medicine 07/03/19 [place] [address] [facility] [place], [place] [address] Marichuy Meyers MD Assigned PCP 06/13/19 [address] [facility] 200 [place] [address] documented as of this encounter
--- OUTSIDE RECORDS SUMMARY | 2022-01-26 11:38 | XMS_ITS | Encounter Summary ---
:1950 Author Organization [facility] Address [address] [place] [address] Care Team Providers Name Role Phone Unavailable Primary Care Provider Unavailable Reason for Referral MRI/CAT/PET Scan (Routine) - Closed Specialty Diagnoses / Procedures Referred By Contact Refer red To Contact Radiology Diagnoses Angiosarcoma Soft Tissue (HCC) Maite Dennis P.A.-C. [facility] Procedures CT Chest without IV Contrast [place] CT TH[facility]AX [facility] 200 [place], [place] [address] Referral ID Status Reason Start Date Expiration Date Visits Requ ested Visits Authorized [id number] Closed 09/27/2019 09/26/2020 1 1 CULTURE SPECIALIST Reason for Visit MRI/CAT/PET Scan (Routine) - Closed Specialty Diagnoses / Procedures Referred By Contact Refer red To Contact Radiology Diagnoses Angiosarcoma Soft Tissue (HCC) Maite Dennis P.A.-C. [facility] Procedures CT Chest without IV Contrast [place] CT [facility] [address] [place], [place] [address] Referral ID Status Reason Start Date Expiration Date Visits Requ ested Visits Authorized [id number] Closed 09/27/2019 09/26/2020 1 1 Encounter Details Date Type Department Care Team Description 06/05/2020 Hospital Encounter Department of Maite Dennis, Angios arcoma Soft Radiology, James Patel Tissue ([facility], in [address] [place] [address] [place] [address] [place], [place] [phone] (Work) [phone] Social History Tobacco Use Types Packs/Day Years Used Date Smoking Tobacco: Former Cigarettes 1 30 Smokeless Tobacco: Never Alcohol Use Standard Drinks/Week Comments Yes 3 (1 standard drink = 0.6 oz pure alcoho l) 2-3 vodka/coke's per week Sex Assigned at Date Recorded Not on file documented as of this encounter Medications at Time of Discharge Medication Sig Dispensed Refills Start Date End Date albuterol inhaler Inhale 2 puffs as 0 04/03/2014 needed. fluticasone (FLONASE Administer 1 puff into 0 ALLERGY RELIEF) 50 affected nostril(s) 2 mcg/actuation nasal (two) times a day. spray fluticasone-salmeterol Inhale 1 Inhaler 2 0 01/17 (ADVAIR DISKUS) 250-50 (two) times a day. mcg/dose diskus inhaler jgznmuhpsdor-ilmqbejm-N Take 1 tablet by mouth 0 W-ujljmubz-xzymqo daily. (CENTRUM SILVER) 0.4-300-250 mg-mcg-mcg tablet pravastatin (PRAVACHOL) TAKE 1 TABLET BY MOUTH 0 05/21/2020 10 mg tablet EVERY EVENING aspirin 81 mg chewable Chew 1 tablet (81 mg 0 03/01/2021 tablet total) daily. pravastatin (PRAVACHOL) Take 10 mg by mouth at 0 07/14/2016 03/01/2021 20 mg tablet bedtime. documented as of this encounter Plan of Treatment Upcoming Encounters Date Type Specialty Care Team Description 01/27/2022 Clinical Communication Admitting/Central Scheduling 01/31/2022 Appointment Laboratory Medicine Maite Dennis P.A.-C. [address] [place] [address] 01/31/2022 Appointment Radiology Maite Dennis P.A.-C. [address] [place] [phone] 01/31/2022 Office Visit Oncology Maite Dennis P.A.-C. [address] [place] [address] documented as of this encounter Procedures Procedure Name Priority Date/Time Associated Comments Diagnosis CT CHEST WITHOUT RAD - Routine 06/05/2020 8:30 Angiosarcoma Soft Re sults for this IV CONTRAST (most inpatients AM AGRICULTURE SPECIALIST Tissue (HCC) procedure a re in and all the results outpatients) section. documented in this encounter Results CT Chest without IV Contrast (06/05/2020 8:30 AM AGRICULTURE SPECIALIST) Anatomical Region Laterality Modality Chest, Thoracic RST LOS, Thoracic ARZ N/A Co mputed Tomography, Computed LOS, Thoracic FLA LOS Tomography Specimen (Source) Anatomical Collection Method Collection Time Re ceived Time Location / / Volume Laterality 06/05/2020 9:47 AM AGRICULTURE SPECIALIST Impressions 06/05/2020 9:57 AM AGRICULTURE SPECIALIST 1. Mild interval increase in right axillary lymph nodes, although still subcentimeter in short axis and nonspeci fic. 2. Otherwise similar chest CT compared t o 09/23/2019. Narrative 06/05/2020 9:57 AM AGRICULTURE SPECIALIST EXAM: CT CHEST WITHOUT IV CONTRAST COMPARISON: 09/23/2019 FINDINGS: Left mastectomy postoperative changes ap pear similar. Similar sclerosis in the anterolateral left 6th and 7th ribs jose cent to the postoperative site. Right axillary lymph nodes have mildly increas ed in size from prior exam, although still subcentimeter measuring up to 7 mm in short axis (series 3/image 109). No thoracic lymphadenopathy by size criteri a. Small pulmonary nodules, for instance la teral right middle lobe micronodule (less than 3 mm, 3/249) and left lower l obe micronodule (3/360), appear unchanged. No new pulmonary nodule or ma ss. Mild scarring along the anterolateral left lung appears similar. Mild bilateral mosaic attenuation. Right middle lobe calcified pulmonary gr anuloma. Mild diffuse central bronchial wall thickening. Moderate coronary atherosclerotic calcif ication. Mitral annulus calcification. Negative adrenal glands. Small splenule. Mild hypertrophic degenerative thoracic spine. Multilevel endplate irregularity with mild anterior wedging of mid to lower thoracic vertebral bodies appears similar. Thank you for this consultation. 3D maximum intensity projection (MIP) im ages were created on a dependent workstation as ordered by the treating p rovixi and reviewed by the radiologist to increase sensitivity for detection of pulmonary nodules. Procedure Note Willy Manning M.D. - 06/05/2020Forma tting of this note might be different from the original. EXAM: CT CHEST WITHOUT IV CONTRAST COMPARISON: 09/23/2019 FINDINGS: Left mastectomy postoperative changes ap pear similar. Similar sclerosis in the anterolateral left 6th and 7th ribs jose cent to the postoperative site. Right axillary lymph nodes have mildly increas ed in size from prior exam, although still subcentimeter measuring up to 7 mm in short axis (series 3/image 109). No thoracic lymphadenopathy by size criteri a. Small pulmonary nodules, for instance la teral right middle lobe micronodule (less than 3 mm, 3/249) and left lower l obe micronodule (3/360), appear unchanged. No new pulmonary nodule or ma ss. Mild scarring along the anterolateral left lung appears similar. Mild bilateral mosaic attenuation. Right middle lobe calcified pulmonary gr anuloma. Mild diffuse central bronchial wall thickening. Moderate coronary atherosclerotic calcif ication. Mitral annulus calcification. Negative adrenal glands. Small splenule. Mild hypertrophic degenerative thoracic spine. Multilevel endplate irregularity with mild anterior wedging of mid to lower thoracic vertebral bodies appears similar. Thank you for this consultation. 3D maximum intensity projection (MIP) im ages were created on a dependent workstation as ordered by the treating p rosara and reviewed by the radiologist to increase sensitivity for detection of pulmonary nodules. IMPRESSION: 1. Mild interval increase in right axill kaylee lymph nodes, although still subcentimeter in short axis and nonspeci fic. 2. Otherwise similar chest CT compared t o 09/23/2019. Maite Dennis P.A.-C. 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
--- OUTSIDE RECORDS SUMMARY | 2022-01-26 11:38 | XMS_ITS | Encounter Summary ---
:1950 Author Organization [facility] Address [address] [place] [address] Care Team Providers Name Role Phone Unavailable Primary Care Provider Unavailable Encounter Details Date Type Department Care Team Description 03/01/2021 Hospital Encounter Department of Maite Dennis Angios [facility] Soft Laboratory Medicine P.A.-C. Tissue (HCC) and Pathology, [address] [place] [address], in [place], [place] [phone] [place] [address] [place], [place] (Work) [phone] Social History Tobacco Use Types Packs/Day Years [...] (two) times a day. mcg/dose diskus inhaler [id number]-BH Take 1 tablet by mouth 0 -lycopene-lutein daily. (CENTRUM SILVER) 0.4-300-250 mg-mcg-mcg tablet pravastatin (PRAVACHOL) TAKE 1 TABLET BY MOUTH 0 05/21/2020 10 mg tablet EVERY EVENING documented as of this encounter Plan of Treatment Upcoming Encounters Date Type Specialty Care Team Description 01/27/2022 Clinical Communication Admitting/Central Scheduling 01/31/2022 Appointment Laboratory Medicine Maite Dennis P.A.-C. [address] [place] [phone] 01/31/2022 Appointment Radiology Maite Dennis P.A.-C. [address] [place] [phone] 01/31/2022 Office Visit Oncology Maite Dennis P.A.-C. [address] [place] [phone] documented as of this encounter Procedures Procedure Name Priority Date/Time Associated Diagnosis Comme nts CBC WITH DIFFERENTIAL, Routine 03/01/2021 10:04 Angiosarcoma S oft Results for this B AM SKEINS YARN EXAMINER Tissue (HCC) procedure are i n the results section. COMPREHENSIVE Routine 03/01/2021 10:04 Angiosarcoma Soft Resul ts for this METABOLIC PANEL, S/P AM SKEINS YARN EXAMINER Tissue (HCC) procedu re are in the results section. documented in this encounter Results Comprehensive Metabolic Panel (03/01/2021 10:04 AM SKEINS YARN EXAMINER) P athologist Signature Potassium, S 4.7 3.6 - 5.2 03/01/2021 DTL mmol/L 11:11 AM SKEINS YARN EXAMINER Sodium, S 141 135 - 145 03/01/2021 DTL mmol/L 11:11 AM SKEINS YARN EXAMINER Chloride, S 106 98 - 107 03/01/2021 DTL mmol/L 11:11 AM SKEINS YARN EXAMINER Bicarbonate, S 25 22 - 29 03/01/2021 DTL mmol/L 11:11 AM SKEINS YARN EXAMINER Anion Gap 10 7 - 15 03/01/2021 DTL 11:11 AM SKEINS YARN EXAMINER BUN (Blood Urea 11 6 - 21 03/01/2021 DTL Nitrogen), S mg/dL 11:11 AM SKEINS YARN EXAMINER Creatinine 0.83 0.59 - 03/01/2021 DTL 1.04 mg/dL 11:11 AM SKEINS YARN EXAMINER eGFR-Non 71 >=60 03/01/2021 DTL Black/ mL/min/BSA 11:11 AM SKEINS YARN EXAMINER [place] Comment: ----ADDITIONAL INFORMATION---- Estimated GFR calculated using the 2009 CKD_EPI creatinine equation. eGFR-Black/ 81 >=60 mL/min/BSA 2020 11:11 AM SKEINS YARN EXAMINER DTL Comment: ----ADDITIONAL INFORMATION---- Estimated GFR calculated using the 2009 CKD_EPI creatinine equation. Calcium, Total, S 9.8 8.8 - 10.2 mg/dL 03/01/2021 11:1 1 AM SKEINS YARN EXAMINER DTL Glucose, S 99 70 - 140 mg/dL 03/01/2021 11:11 AM SKEINS YARN EXAMINER DTL Protein, Total, S 6.5 6.3 - 7.9 g/dL 03/01/2021 11:11 AM SKEINS YARN EXAMINER DTL Albumin, S 4.7 3.5 - 5.0 g/dL 03/01/2021 11:11 AM SKEINS YARN EXAMINER DTL Aspartate Aminotransferase 16 8 - 43 U/L 03/01/2021 1 1:11 AM SKEINS YARN EXAMINER DTL (AST), S Alkaline Phosphatase, S 68 35 - 104 U/L 03/01/2021 11 :11 AM SKEINS YARN EXAMINER DTL Alanine Aminotransferase (ALT), 14 7 - 45 U/L 021 11:11 AM SKEINS YARN EXAMINER DTL S Bilirubin, Total, S 0.5 <=1.2 mg/dL 03/01/2021 11:11 A M SKEINS YARN EXAMINER DTL Specimen Anatomical Collection Method Collection Time Receive d Time (Source) Location / / Volume Laterality Blood (Blood, 03/01/2021 10:04 03/01/2021 Venous) AM SKEINS YARN EXAMINER 10:43 AM SKEINS YARN EXAMINER Maite Dennis P.A.-C. LAB BLOOD ADD-ON Performing Organization Address City/State/ZIP Code Phon e Number [facility] - [address] [place], [place] [address] [facility] [place] [address] Laboratories-[facility] [address] (ABNORMAL) CBC with Differential, Blood (03/01/2021 10:04 AM SKEINS YARN EXAMINER) [facility] Method Time Signature Hemoglobin 14.9 11.6 - 03/01/2021 DTL 15.0 g/dL 11:15 AM SKEINS YARN EXAMINER Hematocrit 44.6 35.5 - 03/01/2021 DTL 44.9 % 11:15 AM SKEINS YARN EXAMINER Erythrocytes 4.39 3.92 - 03/01/2021 DTL 5.13 11:15 AM SKEINS YARN EXAMINER x10(12)/L MCV 101.6 (H) 78.2 - 03/01/2021 DTL 97.9 fL 11:15 AM SKEINS YARN EXAMINER RBC Distrib Width 12.8 12.2 - 03/01/2021 DTL 16.1 % 11:15 AM SKEINS YARN EXAMINER Platelet Count 265 157 - 371 03/01/2021 DTL x10(9)/L 11:15 AM SKEINS YARN EXAMINER Leukocytes 6.8 3.4 - 9.6 03/01/2021 DTL x10(9)/L 11:15 AM SKEINS YARN EXAMINER Neutrophils 4.38 1.56 - 03/01/2021 DTL 6.45 11:15 AM SKEINS YARN EXAMINER x10(9)/L Lymphocytes 1.72 0.95 - 03/01/2021 DTL 3.07 11:15 AM SKEINS YARN EXAMINER x10(9)/L Monocytes 0.52 0.26 - 03/01/2021 DTL 0.81 11:15 AM SKEINS YARN EXAMINER x10(9)/L Eosinophils 0.15 0.03 - 03/01/2021 DTL 0.48 11:15 AM SKEINS YARN EXAMINER x10(9)/L Basophils 0.04 0.01 - 03/01/2021 DTL 0.08 11:15 AM SKEINS YARN EXAMINER x10(9)/L Specimen Anatomical Collection Method Collection Time Receive d Time (Source) Location / / Volume Laterality Blood (Blood, 03/01/2021 10:04 03/01/2021 Venous) AM SKEINS YARN EXAMINER 10:41 AM SKEINS YARN EXAMINER Maite Dennis P.A.-C. 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
--- OUTSIDE RECORDS SUMMARY | 2022-01-26 11:38 | XMS_ITS | Encounter Summary ---
:1950 Author Organization [facility] Address [address] [place] [address] Care Team Providers Name Role Phone Unavailable Primary Care Provider Unavailable Reason for Referral Outpatient (Routine) - Closed Specialty Diagnoses / Procedures Referred By Contact Refer red To Contact Oncology Maite Dennis P.A.- C. [facility] [address] [place] [phone] Referral ID Status Reason Start Date Expiration Date Visits Requ ested Visits Authorized [id number] Closed 06/16/2020 06/16/2021 1 1 MRI/CAT/PET Scan (Routine) - Closed Specialty Diagnoses / Procedures Referred By Contact Refer red To Contact Radiology Diagnoses Angiosarcoma Soft Tissue (HCC) Maite Dennis P.A.-C. [facility] Procedures CT Chest without IV Contrast LA CT THORAX WO CNTRST LA 3D WO IND WORKSTATION [address] [place] [phone] Referral ID Status Reason Start Date Expiration Date Visits Requ ested Visits Authorized [id number] Closed 06/16/2020 06/16/2021 1 1 Reason for Visit Outpatient (Routine) - Closed Specialty Diagnoses / Procedures Referred By Contact Refer red To Contact Oncology Maite Dennis P.A.- C. [place] [address] [place] [address] [phone] Referral ID Status Reason Start Date Expiration Date Visits Requ ested Visits Authorized [id number] Closed 09/27/2019 09/26/2020 1 1 Encounter Details Date Type Department Care Team Description 06/05/2020 Office Visit Department of Oncology Maite Dennis Ang iosarcoma Soft in [place], [place] Tissue (HCC) (Primary [place] [address] [facility] Dx) [address] [place] [phone] Social History Tobacco Use Types Packs/Day Years Used Date Smoking Tobacco: Former Cigarettes 1 30 Smokeless Tobacco: Never Alcohol Use Standard Drinks/Week Comments Yes 3 (1 standard drink = 0.6 oz pure alcoho l) 2-3 vodka/coke's per week Sex Assigned at Date Recorded Not on file documented as of this encounter Last Filed Vital Signs Vital Sign Reading Time Taken Comments Blood Pressure 103/69 06/05/2020 10:32 AM HAIR STYLIST Pulse 72 06/05/2020 10:32 AM HAIR STYLIST Temperature 37.3 ??C (99.1 ??F) 06/05/2020 10:32 AM HAIR STYLIST Respiratory Rate 16 06/05/2020 10:32 AM HAIR STYLIST Oxygen Saturation 96% 06/05/2020 10:32 AM HAIR STYLIST Inhaled Oxygen Concentration - - Weight 73.1 kg (161 lb 2.5 oz) 06/05/2020 10:32 AM HAIR STYLIST Height 149.7 cm (4' 10.94) 06/05/2020 10:32 AM HAIR STYLIST Body Mass Index 32.62 06/05/2020 10:32 AM HAIR STYLIST documented in this encounter Progress Notes Maite Dennis P.A.-C. - 06/05/2020 10:40 AM CST SUBJECTIVE PRIMARY ONCOLOGIST: OkunCaio rowell M.D. Witter, Amy E, P.A.-C. COLLABORATING PROVIDER: Dr. 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 Here for surveillance visit. HISTORY OF PRESENT ILLNESS: Ms. Schwab is a .69 y.o. female with the following oncologic history: Oncology History Angiosarcoma Soft Tissue (HCC) 12/2015 Initial Diagnosis Radiation-associated Angiosarcoma of the left breast. 2003: Status post left lumpectomy and radiation therapy, six months of tamoxifen, and five years of aromatase inhibitor. No chemotherapy. July 2015: bumped her left breast and developed a bruise. November 2015: Lump continued to increase as well as a separate lesion in the left breast. 12/2015 Biopsy/Pathology A biopsy of the left breast was positive for angiosarcoma (reviewed here). 12/28/2015 Clinical Stage Angiosarcoma Soft Tissue (HCC) Staging form: Soft Tissue Sarcoma, AJCC V7 - Clinical stage from 12/28/2015: Stage Unknown (TX, NX, M0) Specimen type: Biopsy / Limited Resection Histopathologic type: Angiosarcoma, NOS Laterality: Left 01/2016 - 05/24/2016 Chemotherapy Single-agent Taxol at 80 mg/m2 times 12 doses with response. 05/03/2016 - 06/06/2016 Radiation Therapy 25/25 fractions for a total dose of 5000 cGy to the left breast area. 07/14/2016 Surgery and Procedures left breast simple mastectomy. This was negative for residual sarcoma. INTERVAL HISTORY: Accompanied today by her . Interval History: This patient was last seen in the Medical Oncology [facility] on September 23, 2019 by me. Since thattime, she has been doing well. They have pretty much been isolating for the past year due to COVID. She did recently receive her 1st COVID vaccine injections. Reports her appetite and oral intake as stable. She denies any fevers, chills, night sweats, unintentional weight loss, or any new or enlarging masses anywhere. ROS: Pertinent items are noted in HPI; all other systems were reviewed and were negative. OBJECTIVE VITAL SIGNS: Vitals: 06/05/20 1032 BP: 103/69 BP Location: Right arm Patient Position: Sitting Cuff Size: Large Pulse: 72 Resp: 16 Temp: 37.3 ??C TempSrc: Tympanic SpO2: 96% Weight: 73.1 kg Height: 149.7 cm No data recorded PHYSICAL EXAM: General: 69 y.o. year old female, in no acute distress. Vital signs as noted above. Lungs: Clear to auscultation bilaterally Heart: Regular rate and rhythm, S1, S2. No peripheral edema Chest wall: no visible opening at prior site of an open wound along left lateral chest wall about mid-axillary line. ECOG score [0-1] LABS: Reviewed in patients chart. Results from today (06/05/20) are unremarkable. IMAGING: Ct Chest Without Iv Contrast Result Date: 06/05/2020 Impression: 1. Mild interval increase in right axillary lymph nodes, although still subcentimeter inshort axis and nonspecific. 2. Otherwise similar chest CT compared to 09/23/2019. ASSESSMENT / PLAN #1 Angiosarcoma Soft Tissue (HCC) It was my pleasure seeing Ms. Schwab in clinic today. We were able to review her recent labs and restaging scans. The lab results were unremarkable. Her scans show no evidence of disease. The interval mild increase in size of her right axillary lymph nodes can be explained by her recent COVID19 vaccination. PLAN: We will plan to see her back in approximately 9-12 months with repeat labs, imaging and office visit. Since 2018 we have moved to just doing CT scans of her chest as she does not tolerate the MRI imaging/positioning. This had been discussed with Dr. Pop in the past. She is aware that if the CT scan does show something concerning, then we will proceed with the MRI for further evaluation. Multiple questions were answered. Ms. Schwab has our contact information to get in touch with us with any issues, questions or concernsthat may arise. No orders of the defined types were placed in this encounter. PATIENT EDUCATION Ready to learn, no apparent learning barriers were identified; learning preferences include listening. Explained diagnosis and treatment plan; patient expressed understanding of the content. ADMINISTRATIVE BILLING I personally spent a total [30] minutes with regard to this patient in preparation, seeing the patient and providing counseling and discussion and/or coordination of care as described above. documented in this encounter Plan of Treatment Upcoming Encounters Date Type Specialty Care Team Description 01/27/2022 Clinical Communication Admitting/Central Scheduling 01/31/2022 Appointment Laboratory Medicine Maite Dennis P.A.-C. [address] [place] [phone] 01/31/2022 Appointment Radiology Maite Dennis P.A.-C. [address] [place] [phone] 01/31/2022 Office Visit Oncology Maite Dennis P.A.-C. [address] [place] [phone] Scheduled Referrals Name Type Priority Associated Diagnoses Order S [facility] Oncology office Outpatient Referral Routine Expec shaun: visit (clinic) 03/06/2021 (Approximate), Expires: 06/17/2023 documented as of this encounter Results CT Chest without IV Contrast (03/01/2021 11:18 AM HAIR STYLIST) Anatomical Region Laterality Modality Chest, Thoracic RST LOS, Thoracic ARZ N/A Co mputed Tomography, Computed LOS, Thoracic FLA LOS Tomography Specimen (Source) Anatomical Collection Method Collection Time Re ceived Time Location / / Volume Laterality 03/01/2021 11:27 AM HAIR STYLIST Impressions 03/01/2021 11:43 AM HAIR STYLIST Stable exam. No evidence of recurrent or metastatic disease in the chest. Narrative 03/01/2021 11:43 AM HAIR STYLIST EXAM: CT CHEST WITHOUT IV CONTRAST COMPARISON: 06/05/2020. FINDINGS: Stable postsurgical changes of left mast ectomy and chest wall tumor resection. No evidence of local recurrence. No change in size or appearance of sever al subcentimeter right axillary lymph nodes. A few small left axillary nodes a re also stable. No definite axillary lymphadenopathy. A few tiny 1-2 mm micronodules in the ri ght middle lobe (series 3, image 261) and in the left lower lobe (series 3, im ages 360, 365, and 408) are unchanged compared with the earliest prior exam fr om 01/18/2016. Calcified granuloma in the right middle lobe. No new lung nodul es or infiltrates. Mild bronchial thickening. Radiation fibrosis in the pe riphery of the left lung anteriorly. No mediastinal or hilar lymphadenopathy. No pleural effusions. Moderate coronary artery calcification. Mild mitral annulus calcification. Degenerative changes thoracic spine. No suspicious bone lesions. 3D maximum intensity projection (MIP) im ages were created on a dependent workstation as ordered by the treating p rovider and reviewed by the radiologist to increase sensitivity for detection of pulmonary nodules. Procedure Note Otf Miranda M.D. - 03/01/2021Formatt ing of this note might be different from the original. EXAM: CT CHEST WITHOUT IV CONTRAST COMPARISON: 06/05/2020. FINDINGS: Stable postsurgical changes of left mast ectomy and chest wall tumor resection. No evidence of local recurrence. No change in size or appearance of sever al subcentimeter right axillary lymph nodes. A few small left axillary nodes a re also stable. No definite axillary lymphadenopathy. A few tiny 1-2 mm micronodules in the ri ght middle lobe (series 3, image 261) and in the left lower lobe (series 3, im ages 360, 365, and 408) are unchanged compared with the earliest prior exam fr om 01/18/2016. Calcified granuloma in the right middle lobe. No new lung nodul es or infiltrates. Mild bronchial thickening. Radiation fibrosis in the pe riphery of the left lung anteriorly. No mediastinal or hilar lymphadenopathy. No pleural effusions. Moderate coronary artery calcification. Mild mitral annulus calcification. Degenerative changes thoracic spine. No suspicious bone lesions. 3D maximum intensity projection (MIP) im ages were created on a dependent workstation as ordered by the treating p rovider and reviewed by the radiologist to increase sensitivity for detection of pulmonary nodules. IMPRESSION: Stable exam. No evidence of recurrent or metastatic disease in the chest. Maite Dennis P.A.-C. IMG CT PROCEDURES Comprehensive Metabolic Panel (03/01/2021 10:04 AM HAIR STYLIST) athologist Signature Potassium, S 4.7 3.6 - 5.2 03/01/2021 DTL mmol/L 11:11 AM HAIR STYLIST Sodium, S 141 135 - 145 03/01/2021 DTL mmol/L 11:11 AM HAIR STYLIST Chloride, S 106 98 - 107 03/01/2021 DTL mmol/L 11:11 AM HAIR STYLIST Bicarbonate, S 25 22 - 29 03/01/2021 DTL mmol/L 11:11 AM HAIR STYLIST Anion Gap 10 7 - 15 03/01/2021 DTL 11:11 AM HAIR STYLIST BUN (Blood Urea 11 6 - 21 03/01/2021 DTL Nitrogen), S mg/dL 11:11 AM HAIR STYLIST Creatinine 0.83 0.59 - 03/01/2021 DTL 1.04 mg/dL 11:11 AM HAIR STYLIST eGFR-Non 71 >=60 03/01/2021 DTL Black/ mL/min/BSA 11:11 AM HAIR STYLIST [place] Comment: ----ADDITIONAL INFORMATION---- Estimated GFR calculated using the 2009 CKD_EPI creatinine equation. eGFR-Black/ 81 >=60 mL/min/BSA 2020 11:11 AM HAIR STYLIST DTL Comment: ----ADDITIONAL INFORMATION---- Estimated GFR calculated using the 2009 CKD_EPI creatinine equation. Calcium, Total, S 9.8 8.8 - 10.2 mg/dL 03/01/2021 11:1 1 AM HAIR STYLIST DTL Glucose, S 99 70 - 140 mg/dL 03/01/2021 11:11 AM HAIR STYLIST DTL Protein, Total, S 6.5 6.3 - 7.9 g/dL 03/01/2021 11:11 AM HAIR STYLIST DTL Albumin, S 4.7 3.5 - 5.0 g/dL 03/01/2021 11:11 AM HAIR STYLIST DTL Aspartate Aminotransferase 16 8 - 43 U/L 03/01/2021 1 1:11 AM HAIR STYLIST DTL (AST), S Alkaline Phosphatase, S 68 35 - 104 U/L 03/01/2021 11 :11 AM HAIR STYLIST DTL Alanine Aminotransferase (ALT), 14 7 - 45 U/L 021 11:11 AM HAIR STYLIST DTL S Bilirubin, Total, S 0.5 <=1.2 mg/dL 03/01/2021 11:11 A M HAIR STYLIST DTL Specimen Anatomical Collection Method Collection Time Receive d Time (Source) Location / / Volume Laterality Blood (Blood, 03/01/2021 10:04 03/01/2021 Venous) AM HAIR STYLIST 10:43 AM HAIR STYLIST Maite Dennis P.A.-C. LAB BLOOD ADD-ON Performing Organization Address City/State/ZIP Code Phon e Number [facility] - [address] [place], [place] [address] [facility] [place] [address] Laboratories-[facility] [address] [facility] (ABNORMAL) CBC with Differential, Blood (03/01/2021 10:04 AM HAIR STYLIST) [facility] gist Method Time Signature Hemoglobin 14.9 11.6 - 03/01/2021 DTL 15.0 g/dL 11:15 AM HAIR STYLIST Hematocrit 44.6 35.5 - 03/01/2021 DTL 44.9 % 11:15 AM HAIR STYLIST Erythrocytes 4.39 3.92 - 03/01/2021 DTL 5.13 11:15 AM HAIR STYLIST x10(12)/L MCV 101.6 (H) 78.2 - 03/01/2021 DTL 97.9 fL 11:15 AM HAIR STYLIST RBC Distrib Width 12.8 12.2 - 03/01/2021 DTL 16.1 % 11:15 AM HAIR STYLIST Platelet Count 265 157 - 371 03/01/2021 DTL x10(9)/L 11:15 AM HAIR STYLIST Leukocytes 6.8 3.4 - 9.6 03/01/2021 DTL x10(9)/L 11:15 AM HAIR STYLIST Neutrophils 4.38 1.56 - 03/01/2021 DTL 6.45 11:15 AM HAIR STYLIST x10(9)/L Lymphocytes 1.72 0.95 - 03/01/2021 DTL 3.07 11:15 AM HAIR STYLIST x10(9)/L Monocytes 0.52 0.26 - 03/01/2021 DTL 0.81 11:15 AM HAIR STYLIST x10(9)/L Eosinophils 0.15 0.03 - 03/01/2021 DTL 0.48 11:15 AM HAIR STYLIST x10(9)/L Basophils 0.04 0.01 - 03/01/2021 DTL 0.08 11:15 AM HAIR STYLIST x10(9)/L Specimen Anatomical Collection Method Collection Time Receive d Time (Source) Location / / Volume Laterality Blood (Blood, 03/01/2021 10:04 03/01/2021 Venous) AM HAIR STYLIST 10:41 AM HAIR STYLIST Maite Dennis P.A.-C. LAB BLOOD ADD-ON Performing Organization Address City/State/ZIP Code Phon e Number [facility] - [address] [place], [place] [address] [facility] [place] [address] Laboratories-[facility] [address] documented in this encounter Visit Diagnoses Diagnosis Angiosarcoma Soft Tissue (HCC) - Primary Angiosarcoma Soft Tissue (HCC) documented in this encounter Additional Health Concerns Assessment Noted Time PHQ-9 Depression Total Score: 1 08/17/2018 6:47 PM CDT documented as of this encounter
--- OUTSIDE RECORDS SUMMARY | 2022-01-26 11:38 | XMS_ITS | Encounter Summary ---
:1950 Author Organization [facility] Address [address] [facility] [place] [address] Care Team Providers Name Role Phone Clinic - [facility]orgette bar[facility] Primary Care Provider [phone] Marichuy Meyers MD Unavailable Reason for Visit Reason Comments Medication Refill Encounter Details Date Type Department Care Team Description 05/20/2020 [facility] Dagoberto Meyers MD Medication Refill [place] [address] [place] [address] [place] [address] [place] [address] [place] [address] [phone] Social History Tobacco Use Types Packs/Day Years Used Date Smoking Tobacco: Former Cigarettes Quit : 07/03/2002 Smokeless Tobacco: Never Alcohol Use Standard Drinks/Week Comments Yes 0 (1 standard drink = 0.6 oz pure alcoho l) rare Sex Assigned at Date Recorded Not on file documented as of this encounter Miscellaneous Notes Telephone Encounter - Samantha Triana RN - 05/21/2020 1:51 PM CST Pending Prescriptions: Disp Refills ADVAIR DISKUS 250-50 MCG/DOSE inhaler [Pha* 1 Sig: INHAL 1 PUFF BY MOUTH TWICE DAILY RINSE MOUTH AFTER EACH USE pravastatin (PRAVACHOL) 10 MG tablet [Phar*90 tab*1 Sig: TAKE 1 TABLET BY MOUTH EVERY EVENING Routing refill request to provider for review/approval because: Medication is reported/historical Next 5 appointments (look out 90 days) Jun 09, 2020 10:20 AM PHYSICAL with Marichuy Meyers MD [facility] ([facility] [place] ) [facility] [phone] 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 documented in this encounter Plan of Treatment Not on filedocumented as of this encounter Visit Diagnoses Diagnosis Moderate persistent asthma without compl ication - Primary Unspecified asthma Hypercholesteremia Pure hypercholesterolemia documented in this encounter Care Teams Neurophysiology Tech Relationship Specialty Start Date End Date [facility] PCP - General Internal Medicine 07/03/19 [facility] [address] [place], [place] [phone] Marichuy Meyers MD Assigned PCP 06/13/19 [address] [facility] [address] [place] [address] documented as of this encounter
--- OUTSIDE RECORDS SUMMARY | 2022-01-26 11:38 | XMS_ITS | Encounter Summary ---
:1950 Author Organization [facility] Address [address] [place] [address] Care Team Providers Name Role Phone Unavailable Primary Care Provider Unavailable Reason for Referral MRI/CAT/PET Scan (Routine) - Closed Specialty Diagnoses / Procedures Referred By Contact Refer red To Contact Radiology Diagnoses Angiosarcoma Soft Tissue (HCC) Maite Dennis P.A.-C. [facility] Procedures CT Chest without IV Contrast SC CT THORAX WO CNTRST SC 3D WO IND WORKSTATION [address] [place] [address] Referral ID Status Reason Start Date Expiration Date Visits Requ ested Visits Authorized [id number] Closed 06/16/2020 06/16/2021 1 1 RUMENT ASSEMBLER Reason for Visit MRI/CAT/PET Scan (Routine) - Closed Specialty Diagnoses / Procedures Referred By Contact Refer red To Contact Radiology Diagnoses Angiosarcoma Soft Tissue (HCC) Maite Dennis P.A.-C. [facility] Procedures CT Chest without IV Contrast SC CT THORAX WO CNTRST SC 3D WO IND WORKSTATION [address] [place] [address] Referral ID Status Reason Start Date Expiration Date Visits Requ ested Visits Authorized [id number] Closed 06/16/2020 06/16/2021 1 1 Encounter Details Date Type Department Care Team Description 03/01/2021 Hospital Encounter Department of Maite Dennis, Faviola loooma Soft Radiology, James Patel Tissue ([facility]) [facility], in [address] [place] [address] [place] [phone] [place], [place] [phone] (Work) [phone] Social History Tobacco Use Types Packs/Day Years [...] (two) times a day. mcg/dose diskus inhaler znetvehpbjjn-uihnbesq-MD Take 1 tablet by mouth 0 -lycopene-lutein daily. (CENTRUM SILVER) 0.4-300-250 mg-mcg-mcg tablet pravastatin (PRAVACHOL) TAKE 1 TABLET BY MOUTH 0 05/21/2020 10 mg tablet EVERY EVENING documented as of this encounter Plan of Treatment Upcoming Encounters Date Type Specialty Care Team Description 01/27/2022 Clinical Communication Admitting/Central Scheduling 01/31/2022 Appointment Laboratory Medicine Maite Dennis P.A.-C. [address] [place] [phone] 01/31/2022 Appointment Radiology Maite Dennis P.A.-C. [address] [place] [phone] 01/31/2022 Office Visit Oncology Maite Dennis P.A.-C. [address] [place] [address] documented as of this encounter Procedures Procedure Name Priority Date/Time Associated Comments Diagnosis CT CHEST WITHOUT RAD - Routine 03/01/2021 11:18 Angiosarcoma Soft R esults for this IV CONTRAST (most inpatients AM INSTRUMENT ASSEMBLER Tissue (HCC) procedure a re in and all the results outpatients) section. documented in this encounter Results CT Chest without IV Contrast (03/01/2021 11:18 AM INSTRUMENT ASSEMBLER) Anatomical Region Laterality Modality Chest, Thoracic RST LOS, Thoracic ARZ N/A Co mputed Tomography, Computed LOS, Thoracic FLA LOS Tomography Specimen (Source) Anatomical Collection Method Collection Time Re ceived Time Location / / Volume Laterality 03/01/2021 11:27 AM INSTRUMENT ASSEMBLER Impressions 03/01/2021 11:43 AM INSTRUMENT ASSEMBLER Stable exam. No evidence of recurrent or metastatic disease in the chest. Narrative 03/01/2021 11:43 AM INSTRUMENT ASSEMBLER EXAM: CT CHEST WITHOUT IV CONTRAST COMPARISON: [...] workstation as ordered by the treating p constance and reviewed by the radiologist to increase sensitivity for detection of pulmonary nodules. IMPRESSION: Stable exam. No evidence of recurrent or metastatic disease in the chest. Maite Dennis P.A.-C. 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
--- OUTSIDE RECORDS SUMMARY | 2022-01-26 11:38 | XMS_ITS | Encounter Summary ---
:1950 Author Organization [facility] Address [address] [place] [address] Care Team Providers Name Role Phone Unavailable Primary Care Provider Unavailable Encounter Details Date Type Department Care Team Description 06/05/2020 Hospital Encounter Department of Maite Dennis [facility] Soft Laboratory Medicine P.A.-C. Tissue (HCC) and Pathology, [address] [place] [address], in [place], [place] [address] [place] [address] [place], [place] (Work) [phone] [phone] Social History Tobacco Use Types Packs/Day Years [...] (two) times a day. mcg/dose diskus inhaler osxhomnbnknq-zasmnnhe-C Take 1 tablet by mouth 0 P-knwqemms-nodhlu daily. (CENTRUM SILVER) 0.4-300-250 mg-mcg-mcg tablet pravastatin [...] Appointment Laboratory Medicine Maite Dennis P.A.-C. [address] [place] [phone] 01/31/2022 Appointment Radiology Maite Dennis P.A.-C. [address] [place] [phone] 01/31/2022 Office Visit Oncology Maite Dennis P.A.-C. 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 CBC WITH DIFFERENTIAL, Routine 06/05/2020 7:40 Angiosarcoma So ft Results for this B AM CHIEF OF PEDIATRIC UROLOGY Tissue (HCC) procedure are i n the results section. 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 documented in this encounter Results 25-Hydroxyvitamin D2 and D3 (06/05/2020 7:40 AM CHIEF OF PEDIATRIC UROLOGY) athologist Signature 25-Hydroxy D2 <4.0 ng/mL 06/06/2020 [facility] 12:05 AM CHIEF OF PEDIATRIC UROLOGY 25-Hydroxy D3 66 ng/mL 06/06/2020 [facility] 12:05 AM CHIEF OF PEDIATRIC UROLOGY 25-Hydroxy D 66 ng/mL 06/06/2020 [facility] Total 12:05 AM CHIEF OF PEDIATRIC UROLOGY Comment: Interpretation: 51-80 ng/mL (increased r isk of hypercalciuria) ----REFERENCE VALUE---- 25-HYDROXY D TOTAL (D2+D3) Optimum level s in the healthy population are 20-50, patients with bone disease may benefit from higher levels within this r dilia. ----ADDITIONAL INFORMATION---- This test was developed and its performa nce characteristics determined by [facility] in a manner consistent with CLIA requirements. This test has not been cleared or approved by the [place] d and Drug Administration. Specimen Anatomical Collection Method Collection Time Receive d Time (Source) Location / / Volume Laterality Blood (Blood, 06/05/2020 7:40 AM 06/06/19 21 Venous) [facility]OLOGY 10:03 AM CHIEF OF PEDIATRIC UROLOGY Maite Dennis P.A.-C. LAB BLOOD ADD-ON Performing Organization Address City/State/ZIP Code Phon e Number [facility] [address] [place], [place] [address] [place] [address] [place] [address] Laboratory Medicine and Pathology [address] STEVE Lipid Panel (06/05/2020 7:40 AM CHIEF OF PEDIATRIC UROLOGY) athologist Signature Cholesterol, 180 mg/dL 06/05/2020 [facility] Total 8:40 AM [facility] OF PEDIATRIC UROLOGY Comment: ----REFERENCE VALUE---- Desirable: < 200 Borderline high: 200 - 239 High: > or = 240 Triglycerides 113 mg/dL 06/05/2020 8:40 AM [facility]IE[facility] OF PEDIATRIC UROLOGY [facility] Comment: ----REFERENCE VALUE---- Normal: <150 Borderline high: 150-199 High: 200-499 Very high: > or =500 Cholesterol, HDL, S 63 >=50 mg/dL 06/05/2020 8:40 AM [facility] OF PEDIATRIC UROLOGY DTL Calculated LDL 94 mg/dL 06/05/2020 8:40 AM CHIEF OF PEDIATRIC UROLOGY DT L Comment: ----REFERENCE VALUE---- Desirable: <100 Above Desirable: 100-129 Borderline high: 130-159 High: 160-189 Very high: > or =190 Cholesterol, Non-HDL, Calculated 117 mg/dL 021 8:40 AM [facility] OF PEDIATRIC UROLOGY [facility] Comment: ----REFERENCE VALUE---- Desirable: <130 Above Desirable: 130-159 Borderline high: 160-189 High: 190-219 Very high: > or =220 Specimen Anatomical Collection Method Collection Time Receive d Time (Source) Location / / Volume Laterality Blood (Blood, 06/05/2020 7:40 AM 06/06/19 8:01 Venous) CHIE[facility] PEDIATRIC UROLOGY AM CHIEF OF PEDIATRIC UROLOGY Maite Dennis P.A.-C. LAB BLOOD ADD-ON Performing Organization Address City/State/ZIP Code Phon e Number [facility] - [address] [place] [address] [address] [place] [address] [facility] 200 [facility] Comprehensive Metabolic Panel (06/05/2020 7:40 AM CHIEF OF PEDIATRIC UROLOGY) P athologist Signature Potassium, S 4.7 3.6 - 5.2 06/05/2020 [facility] mmol/L 8:40 AM CHIEF OF PEDIATRIC UROLOGY Sodium, S 142 135 - 145 06/05/2020 [facility] mmol/L 8:40 AM [facility] OF PEDIATRIC UROLOGY Chloride, S 106 98 - 107 06/05/2020 [facility] mmol/L 8:40 AM [facility] PEDIATRIC UROLOGY Bicarbonate, S 27 22 - 29 06/05/2020 [facility] mmol/L 8:40 AM [facility] OF PEDIATRIC UROLOGY Anion Gap 9 7 - 15 06/05/2020 [facility] 8:40 AM [facility] PEDIATRIC UROLOGY BUN (Blood Urea 12 6 - 21 06/05/2020 [facility] Nitrogen), S mg/dL 8:40 AM [facility]IE[facility] OF PEDIATRIC UROLOGY Creatinine 0.93 0.59 - 06/05/2020 [facility] 1.04 mg/dL 8:40 AM [facility]IE[facility] OF PEDIATRIC UROLOGY eGFR-Non 62 >=60 06/05/2020 [facility] Black/ mL/min/BSA 8:40 AM CHIEF OF PEDIATRIC UROLOGY Cameroonian Comment: ----ADDITIONAL INFORMATION---- Estimated GFR calculated using the 2009 CKD_EPI creatinine equation. eGFR-Black/ 72 >=60 mL/min/BSA 2020 8:40 AM CHIEF OF PEDIATRIC UROLOGY DTL Comment: ----ADDITIONAL INFORMATION---- Estimated GFR calculated using the 2009 CKD_EPI creatinine equation. Calcium, Total, S 9.9 8.8 - 10.2 mg/dL 06/05/2020 8:40 AM CHIEF OF PEDIATRIC UROLOGY DTL Glucose, S 105 70 - 140 mg/dL 06/05/2020 8:40 AM CHIEF OF PEDIATRIC UROLOGY D TL Protein, Total, S 6.4 6.3 - 7.9 g/dL 06/05/2020 8:40 A M [facility]IE[facility] OF PEDIATRIC UROLOGY DTL Albumin, S 4.4 3.5 - 5.0 g/dL 06/05/2020 8:40 AM CHIEF OF PEDIATRIC UROLOGY D TL Aspartate Aminotransferase (AST), 12 8 - 43 U/L 06/05 8:40 AM CHIEF OF PEDIATRIC UROLOGY DTL S Alkaline Phosphatase, S 76 35 - 104 U/L 06/05/2020 8: 40 AM CHIEF OF PEDIATRIC UROLOGY DTL Alanine Aminotransferase (ALT), S 16 7 - 45 U/L 06/05 8:40 AM [facility]IE[facility] OF PEDIATRIC UROLOGY DTL Bilirubin, Total, S 0.3 <=1.2 mg/dL 06/05/2020 8:40 AM CHIEF OF PEDIATRIC UROLOGY DTL Specimen Anatomical Collection Method Collection Time Receive d Time (Source) Location / / Volume Laterality Blood (Blood, 06/05/2020 7:40 AM 06/06/19 8:01 Venous) CHIEF OF PEDIATRIC UROLOGY AM CHIEF OF PEDIATRIC UROLOGY Maite Dennis P.A.-C. LAB BLOOD ADD-ON Performing Organization Address City/State/ZIP Code Phon e Number [facility] - [address] [place], [place] [address] [place] [address] [facility] [address] (ABNORMAL) CBC with Differential, Blood (06/05/2020 7:40 AM CHIEF OF PEDIATRIC UROLOGY) [facility] gist Method Time Signature Hemoglobin 14.8 11.6 - 06/05/2020 [facility]TL 15.0 g/dL 8:15 AM CHIEF OF PEDIATRIC UROLOGY Hematocrit 45.5 (H) 35.5 - 06/05/2020 DTL 44.9 % 8:15 AM CHIEF OF PEDIATRIC UROLOGY Erythrocytes 4.54 3.92 - 06/05/2020 DTL 5.13 8:15 AM CHIEF OF PEDIATRIC UROLOGY x10(12)/L MCV 100.2 (H) 78.2 - 06/05/2020 DTL 97.9 fL 8:15 AM CHIEF OF PEDIATRIC UROLOGY RBC Distrib Width 12.5 12.2 - 06/05/2020 DTL 16.1 % 8:15 AM CHIEF OF PEDIATRIC UROLOGY Platelet Count 288 157 - 371 06/05/2020 DTL x10(9)/L 8:15 AM CHIEF OF PEDIATRIC UROLOGY Leukocytes 8.6 3.4 - 9.6 06/05/2020 DTL x10(9)/L 8:15 AM CHIEF OF PEDIATRIC UROLOGY Neutrophils 6.27 1.56 - 06/05/2020 DTL 6.45 8:15 AM CHIEF OF PEDIATRIC UROLOGY x10(9)/L Lymphocytes 1.53 0.95 - 06/05/2020 DTL 3.07 8:15 AM CHIEF OF PEDIATRIC UROLOGY x10(9)/L Monocytes 0.57 0.26 - 06/05/2020 DTL 0.81 8:15 AM CHIEF OF PEDIATRIC UROLOGY x10(9)/L Eosinophils 0.15 0.03 - 06/05/2020 DTL 0.48 8:15 AM CHIEF OF PEDIATRIC UROLOGY x10(9)/L Basophils 0.05 0.01 - 06/05/2020 DTL 0.08 8:15 AM CHIEF OF PEDIATRIC UROLOGY x10(9)/L Specimen Anatomical Collection Method Collection Time Receive d Time (Source) Location / / Volume Laterality Blood (Blood, 06/05/2020 7:40 AM 06/06/19 21 8:07 Venous) CHIEF OF PEDIATRIC UROLOGY AM CHIEF OF PEDIATRIC UROLOGY Maite Dennis P.A.-C. 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
--- OUTSIDE RECORDS SUMMARY | 2022-01-26 11:38 | XMS_ITS | Encounter Summary ---
:1950 Author Organization [facility] Address [address] [place] [address]. [place] [address] Care Team Providers Name Role Phone [facility] Primary Care Provider [phone]- [phone] Marichuy Meyers MD Unavailable Reason for Referral Consultation (Routine) - Closed Specialty Diagnoses / Procedures Referred By Contact Refer red To Contact Gastroenterology Diagnoses Special screening for malignant neoplasms, colon Marichuy Meyers MD [facility] [address] [phone] Referral ID Status Reason Start Date Expiration Date Visits Requ ested Visits Authorized [id number] Closed 11/09/2020 11/09/2021 1 1 Scheduling Instructions If EUS or ERCP is selected, it requires clinical review prior to scheduling. Reason for Visit Reason Onset Date Comments Orders 11/09/2020 colonoscopy and mamm ogram Encounter Details Date Type Department Care Team Description 11/09/2020 [facility] Marichuy Meyers, [place] ers (colonoscopy Clinic Alfreda MORGAN and mammogram) [address] [place], [place] [phone] [place], [place] [address] (Wo rk) Social History Tobacco Use Types Packs/Day Years Used Date Smoking Tobacco: Former Cigarettes Quit : 07/03/2002 Smokeless Tobacco: Never Alcohol Use Standard Drinks/Week Comments Yes 0 (1 standard drink = 0.6 oz pure alcoho l) rare Sex Assigned at Date Recorded Not on file documented as of this encounter Miscellaneous Notes Telephone Encounter - Pat Vyas RN - 11/09/2020 3:50 PM CDT Patient advised orders were placed and she will receive a call to schedule the colonoscopy. Pat Vyas RN [facility] Telephone Encounter - Marichuy Meyers MD - 11/09/2020 11:57 AM CDT Ok, Please call her and let her know orders placed for both. Telephone Encounter - Rajani Viveros - 11/09/2020 10:41 AM CDT Patient is calling to get an order for her colonoscopy and mammogram. She has no symptoms but it will be time for her to do this. documented in this encounter Plan of Treatment Scheduled Referrals Name Type Priority Associated Diagnoses Order S chedule Adult Gastro Ref - Referral Routine Special screening for Expected: 11/09/2020 Procedure Only malignant neoplasms, (Appr oximate), colon Expires: 2021 documented as of this encounter Visit Diagnoses Diagnosis Encounter for screening mammogram for east cancer - Primary Special screening for malignant neoplasm s, colon documented in this encounter Care Teams Blow Molding Machine Operator Relationship Specialty Start Date End Date [facility] PCP - General Internal Medicine 07/03/[address] [place] [address] Marichuy Meyers MD Assigned PCP 06/13/[address] [address] documented as of this encounter
--- OUTSIDE RECORDS SUMMARY | 2022-01-26 11:38 | XMS_ITS | Encounter Summary ---
:1950 Author Organization [facility] Address [address] [place] [address] Care Team Providers Name Role Phone [facility] Primary Care Provider + [phone] Marichuy Meyers MD Unavailable Encounter Details Date Type Department Care Team Description 01/13/2020 Travel Social History Tobacco Use Types Packs/Day [...] on filedocumented in this encounter Care Teams Perfect Binder Setter Relationship Specialty Start Date End Date [facility] PCP - General Internal Medicine 07/03/19 [facility] [address] [place] [address] Marichuy Meyers MD Assigned PCP 06/13/19 [address] [facility] [address] [address] [place], [place] [id number] documented as of this encounter
--- OUTSIDE RECORDS SUMMARY | 2022-01-26 11:38 | XMS_ITS | Encounter Summary ---
:1950 Author Organization [facility] Address [address] [place] [address] Care Team Providers Name Role Phone Unavailable Primary Care Provider Unavailable Encounter Details Date Type Department Care Team Description 06/03/2020 Clinical Communication Department of Oncology Maite Dennis, in [facility] sav Patel 200 [facility] [address] [place] [phone] Social History Tobacco Use Types Packs/Day Years [...] Appointment Laboratory Medicine Maite Dennis P.A.-C. [address] [place] [phone] 01/31/2022 Appointment Radiology Maite Dennis P.A.-C. [address] [place] [phone] 01/31/2022 Office Visit Oncology Maite Dennis P.A.-C. [address] [place] [address] documented as of this encounter Visit Diagnoses Not on filedocumented in this encounter Additional Health Concerns Assessment Noted Time PHQ-9 Depression Total Score: 1 08/17/2018 6:47 PM CDT documented as of this encounter
--- OUTSIDE RECORDS SUMMARY | 2022-01-26 11:38 | XMS_ITS | Encounter Summary ---
:1950 Author Organization [facility] Address [address] [place] [address] Care Team Providers Name Role Phone [facility] Primary Care Provider + [phone] Marichuy Meyers MD Unavailable Encounter Details Date Type Department Care Team Description 06/09/2020 Travel Social History Tobacco Use Types Packs/Day Years Used Date Smoking Tobacco: Former Cigarettes Quit : 07/03/2002 Smokeless Tobacco: Never Alcohol Use Standard Drinks/Week Comments Yes 0 (1 standard drink = 0.6 oz pure alcoho l) rare Sex Assigned at Date Recorded Not on file COVID-19 Exposure Response Date Recorded In the last month, have you been in contact with No / Unsure 06/09/2020 10:06 AM CDT someone who was confirmed or suspected to have Coronavirus / COVID-19? documented as of this encounter Plan of Treatment Not on filedocumented as of this encounter Visit Diagnoses Not on filedocumented in this encounter Care Teams Software Engineer Web Applications Relationship Specialty Start Date End Date [facility] PCP - General Internal Medicine 07/03/19 [facility] [address] [place] [place], [place] [phone] Marichuy Meyers MD Assigned PCP 06/13/19 [address] [facility] [address] [place], [place] [phone] documented as of this encounter
--- OUTSIDE RECORDS SUMMARY | 2022-01-26 11:38 | XMS_ITS | Encounter Summary ---
:1950 Author Organization [facility] Address [address] [place] [address] Care Team Providers Name Role Phone [facility] Primary Care Provider + [phone] Marichuy Meyers MD Unavailable Encounter Details Date Type Department Care Team Description 06/22/2020 Documentation Only INTERFACED REPORT Unknown, Provider Social History Tobacco Use Types Packs/Day Years [...] on filedocumented in this encounter Care Teams Advertising Material Distributor Relationship Specialty Start Date End Date [facility] PCP - General Internal Medicine 07/03/19 [place] [address] [place], [place] [phone] Marichuy Meeyrs MD Assigned PCP 06/13/19 [address] [facility] [address] [place], [place] [address] documented as of this encounter
--- OUTSIDE RECORDS SUMMARY | 2022-01-26 11:38 | XMS_ITS | Encounter Summary ---
:1950 Author Organization [facility] Address [address] [facility] [place] [address] Care Team Providers Name Role Phone [facility] Primary Care Provider +1- [phone] Marichuy Meyers MD Unavailable Encounter Details Date Type Department Care Team Description 06/21/2020 [facility] Wyatt Buitrago, Vaccination [facility] [address] [address] [place] [address] [phone] Social History Tobacco Use Types Packs/Day Years [...] on filedocumented in this encounter Care Teams Occasional Caregiver Relationship Specialty Start Date End Date [facility] PCP - General Internal Medicine 07/03/19 [facility] [address] [place] [address] Marichuy Meyers MD Assigned PCP 06/13/19 [address] [facility] 200 [place] [address] documented as of this encounter
--- OUTSIDE RECORDS SUMMARY | 2022-01-26 11:38 | XMS_ITS | Encounter Summary ---
:1950 Author Organization [facility] Address [address] [place] [address] Care Team Providers Name Role Phone Unavailable Primary Care Provider Unavailable Encounter Details Date Type Department Care Team Description 09/23/2019 Hospital Encounter Department of Maite Dennis [facility] Laboratory Medicine P.A.-C. Tissue (HCC) and Pathology, [address] [place] [address], in [place], [place] [address] [place] [address] [place], [place] (Work) [phone] Social History Tobacco Use Types Packs/Day Years [...] (two) times a day. mcg/dose diskus inhaler aspirin 81 mg chewable Chew 1 tablet (81 mg 0 03/01/2021 tablet total) daily. loratadine (CLARITIN) Take 1 tablet by mouth 0 06/05/2020 10 mg tablet at bedtime. LORazepam (ATIVAN) 1 mg Take 1 tablet by mouth 0 03/23/2017 06/05/2020 tablet as needed. pravastatin (PRAVACHOL) Take 10 mg by mouth at 0 07/14/2016 03/01/2021 20 mg tablet bedtime. documented as of this encounter Plan of Treatment Upcoming Encounters Date Type Specialty Care Team Description 01/27/2022 Clinical Communication Admitting/Central Scheduling 01/31/2022 Appointment Laboratory Medicine Maite Dennis P.A.-C. [address] [place] [phone] 01/31/2022 Appointment Radiology Maite Dennis P.A.-C. [address] [place] [phone] 01/31/2022 Office Visit Oncology Maite Dennis P.A.-C. [address] [place] [phone] documented as of this encounter Procedures Procedure Name Priority Date/Time Associated Diagnosis Comme nts HEPATIC FUNCTION Routine 09/23/2019 10:23 Angiosarcoma Soft Re sults for this PANEL, S AM CDT Tissue (HCC) procedure are i n the results section. CBC WITH Routine 09/23/2019 10:23 Angiosarcoma Soft Result s for this DIFFERENTIAL, B AM CDT Tissue (HCC) procedure ar e in the results section. CREATININE WITH Routine 09/23/2019 10:23 Angiosarcoma Soft Res ults for this EGFR, S/P AM CDT Tissue (HCC) procedure are i n the results section. documented in this encounter Results Hepatic Function Panel (09/23/2019 10:23 AM CDT) Patholo gist Method Time Signature Bilirubin, Total, S 0.4 <=1.2 09/23/2019 DTL mg/dL 11:31 AM CDT Bilirubin, Direct, S <0.2 0.0 - 0.3 09/23/2019 DTL mg/dL 11:31 AM CDT Aspartate 14 8 - 43 09/23/2019 DTL Aminotransferase U/L 11:31 AM CDT (AST), S Alanine 25 7 - 45 09/23/2019 DTL Aminotransferase U/L 11:31 AM CDT (ALT), S Alkaline 64 35 - 104 09/23/2019 DTL Phosphatase, S U/L 11:31 AM CDT Albumin, S 4.5 3.5 - 5.0 09/23/2019 DTL g/dL 11:31 AM CDT Protein, Total, S 6.5 6.3 - 7.9 09/23/2019 DTL g/dL 11:31 AM CDT Specimen Anatomical Collection Method Collection Time Receive d Time (Source) Location / / Volume Laterality Blood (Blood, 09/23/2019 10:23 09/23/2019 Venous) AM CDT 11:14 AM CDT Maite Dennis P.A.-C. LAB BLOOD ADD-ON Performing Organization Address City/State/ZIP Code Phon e Number [facility] - 200 [place], [place] [address] [facility] [place] [address] [facility] 200 [facility] Creatinine with Estimated GFR (09/23/2019 10:23 AM CDT) P athologist Signature Creatinine 0.85 0.59 - 09/23/2019 DTL 1.04 mg/dL 11:31 AM CDT eGFR-Non 70 >=60 09/23/2019 DTL Black/ mL/min/BSA 11:31 AM CDT Cameroonian Comment: ----ADDITIONAL INFORMATION---- Estimated GFR calculated using the 2009 CKD_EPI creatinine equation. eGFR-Black/ 80 >=60 mL/min/BSA 2019 11:31 AM CDT DTL Comment: ----ADDITIONAL INFORMATION---- Estimated GFR calculated using the 2009 CKD_EPI creatinine equation. Specimen Anatomical Collection Method Collection Time Receive d Time (Source) Location / / Volume Laterality Blood (Blood, 09/23/2019 10:23 09/23/2019 Venous) AM CDT 11:14 AM CDT Maite Dennis P.A.-C. LAB BLOOD ADD-ON Performing Organization Address City/State/ZIP Code Phon e Number [facility] - 200 [place], [place] [address] [facility] [place] [address] [facility] 200 [facility] (ABNORMAL) CBC with Differential, Blood (09/23/2019 10:23 AM CDT) [facility] Method Time Signature Hemoglobin 14.4 11.6 - 09/23/2019 DTL 15.0 g/dL 11:02 AM CDT Hematocrit 43.2 35.5 - 09/23/2019 DTL 44.9 % 11:02 AM CDT Erythrocytes 4.27 3.92 - 09/23/2019 DTL 5.13 11:02 AM CDT x10(12)/L MCV 101.2 (H) 78.2 - 09/23/2019 DTL 97.9 fL 11:02 AM CDT RBC Distrib Width 12.8 12.2 - 09/23/2019 DTL 16.1 % 11:02 AM CDT Platelet Count 283 157 - 371 09/23/2019 DTL x10(9)/L 11:02 AM CDT Leukocytes 7.4 3.4 - 9.6 09/23/2019 DTL x10(9)/L 11:02 AM CDT Neutrophils 4.99 1.56 - 09/23/2019 DTL 6.45 11:02 AM CDT x10(9)/L Lymphocytes 1.65 0.95 - 09/23/2019 DTL 3.07 11:02 AM CDT x10(9)/L Monocytes 0.56 0.26 - 09/23/2019 DTL 0.81 11:02 AM CDT x10(9)/L Eosinophils 0.15 0.03 - 09/23/2019 DTL 0.48 11:02 AM CDT x10(9)/L Basophils 0.04 0.01 - 09/23/2019 DTL 0.08 11:02 AM CDT x10(9)/L Specimen Anatomical Collection Method Collection Time Receive d Time (Source) Location / / Volume Laterality Blood (Blood, 09/23/2019 10:23 09/23/2019 Venous) AM CDT 10:51 AM CDT Maite Dennis P.A.-C. LAB BLOOD ADD-ON Performing Organization Address City/State/ZIP Code Phon e Number [facility] - [address] [place] [address] [facility] [place] [address] 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
--- OUTSIDE RECORDS SUMMARY | 2022-01-26 11:38 | XMS_ITS | Encounter Summary ---
:1950 Author Organization [facility] Address [address] [facility] [place] [address] Care Team Providers Name Role Phone Marichuy Meyers MD Unavailable Encounter Details Date Type Department Care Team Description 07/02/2019 Travel Social History Tobacco Use Types Packs/Day [...] on filedocumented in this encounter Care Teams Material Specialist Relationship Specialty Start Date End Date Marichuy Meyers MD Assigned PCP 06/13/19 [address] [place] [address] [place], [place] [id number] documented as of this encounter
--- OUTSIDE RECORDS SUMMARY | 2022-01-26 11:38 | XMS_ITS | Encounter Summary ---
:1950 Author Organization [facility] Address [address] [place] [address] Care Team Providers Name Role Phone Unavailable Primary Care Provider Unavailable Reason for Visit Reason Comments COVID Inquiry Encounter Details Date Type Department Care Team Description 03/09/2020 Clinical Communication Department of Oncology Maite Dennis, COVID Inquiry in [facility] [address] [facility] [address] [place] [phone] Social History Tobacco Use Types Packs/Day Years Used Date Smoking Tobacco: Former Cigarettes 1 30 Smokeless Tobacco: Never Alcohol Use Standard Drinks/Week Comments Yes 3 (1 standard drink = 0.6 oz pure alcoho l) 2-3 vodka/coke's per week Sex Assigned at Date Recorded Not on file documented as of this encounter Miscellaneous Notes Telephone Encounter - EduardoRajani Alejandro - 03/09/2020 11:06 AM CST What is the purpose of the call?: Standard Appointment Process Standard Appointment Process Have you tested positive for COVID-19 in the last 20 days OR do you have a pending COVID-19 test because you had symptoms?: No, neither apply What region is the appointment being requested?: More than 20 days [facility], [facility] or [facility] In the past 14 days have you had close contact* with a person who has a LABORATORY CONFIRMED case ofCOVID-19?: No exposure noted. Follow local process (End Screening) Testing Recommendation Endpoint Is testing recommended? : Not recommended to test Plan: Endpoint recommendation: Followed regional OTG *Reminder if sending patient for testing in [facility] or [facility], route encounter to the correct testing pool. 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 [address] [place] [address] [phone] 01/31/2022 Office Visit Oncology Maite Dennis P.A.-CDeven [address] [place] [phone] documented as of this encounter Visit Diagnoses Not on filedocumented in this encounter Additional Health Concerns Assessment Noted Time PHQ-9 Depression Total Score: 1 08/17/2018 6:47 PM CDT documented as of this encounter
--- OUTSIDE RECORDS SUMMARY | 2022-01-26 11:38 | XMS_ITS | Encounter Summary ---
:1950 Author Organization [facility] Address [address] [facility] [place] [address] Care Team Providers Name Role Phone [facility] Primary Care Provider [phone] Marichuy Meyers MD Unavailable Reason for Visit Reason Onset Date Comments Establish Care 07/04/2019 Last mammo DC 08-29-19 wnl per pt (rt breast only-left breast mastectomy). Last colonoscopy DC 05-29-2013 wnl per pt. Mother colon ca. Encounter Details Date Type Department Care Team Description 07/04/2019 Virtual Visit [facility] [place] [facility] Marichuy Meyers Moderate persistent asthma without complication (Primary Dx[facility] Hypercholesteremia; [address] [place] [address] HX: breast ca ncer; [address] [place] Angiosarcoma of breast (H); [place], [place] 200 Family history of colon cancer [phone] [place], [place] [phone] [address] Social History Tobacco Use Types Packs/Day [...] documented as of this encounter Progress Notes Marichuy Meyers MD - 07/04/2019 10:20 AM CDT Subjective Jennifer Schwab is a 68 year old female who is being evaluated via a billable telephone visit. The patient has been notified of following: This telephone visit will be conducted via a call between you and your physician/provider. We have found that certain health care needs can be provided without the need for a physical exam. This service lets us provide the care you need with a short phone conversation. If a prescription is necessary we can send it directly to your pharmacy. If lab work is needed we can place an order for that and you can then stop by our lab to have the test done at a later time. Telephone visits are billed at different rates depending on your insurance coverage. During this emergency period, for some insurers they may be billed the same as an in-person visit. Please reach out to your insurance provider with any questions. If during the course of the call the physician/provider feels a telephone visit is not appropriate, you will not be charged for this service. Patient has given verbal consent for Telephone visit? Yes How would you like to obtain your AVS? Mail a copy Jennifer Schwab complains of Chief Complaint Patient presents with ??? Establish Care ALLERGIES Patient has no known allergies. New Patient/Transfer of Care. Left breast mastectomy/breast CA 52 yo. HPI: 17 years ago she has left breast cancer with lumpectomy, radiation and Tamoxifen. 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 Some days even walking can cause left chest pain related to the scar tissue. She is still followed by [facility]. She has hypercholesterolemia and asthma. Both are under good control. Her mother had colon cancer and her mother had colon cancer. She gets colonoscopies every 5 years. Her children have discussed seeing a scout sniper because of the family history but have not done so yetand may not. She is obese at 180 lbs 4 11. She does not smoke and ETOH is once a month 1-2 drinks. 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 Patient Active Problem List Diagnosis ??? Moderate persistent asthma without complication ??? Hypercholesteremia ??? HX: breast cancer ??? Angiosarcoma of breast (H) ??? Family history of colon cancer History reviewed. No pertinent surgical history. Social History Tobacco Use ??? Smoking status: Former Smoker Last attempt to quit: 07/03/2002 Years since quittin.0 ??? Smokeless tobacco: Never Used Substance Use Topics ??? Alcohol use: Yes Comment: rare Family History Problem Relation Age of Onset ??? Colon Cancer Mother 65 ??? Heart Failure Father ??? Cerebrovascular Disease Paternal Grandfather mult ??? Heart Disease Sister 60 ??? Hypertension Sister ??? Diabetes No family hx of Current Outpatient Medications Medication Sig Dispense Refill ??? albuterol (PROAIR HFA/PROVENTIL HFA/VENTOLIN HFA) 108 (90 Base) MCG/ACT inhaler Inhale 2 puffs into the lungs every 6 hours ??? azithromycin (ZITHROMAX) 250 MG tablet Take 2 tablets (500 mg) by mouth daily for 1 day, THEN 1 tablet (250 mg) daily for 4 days. 6 tablet 0 ??? fluticasone-salmeterol (ADVAIR) 250-50 MCG/DOSE inhaler Inhale 1 puff into the lungs every 12 hours ??? pravastatin (PRAVACHOL) 10 MG tablet Take 1 tablet (10 mg) by mouth daily ??? predniSONE (DELTASONE) 20 MG tablet Take 1 tablet (20 mg) by mouth 2 times daily 10 tablet Reviewed and updated as needed this visit by Provider Review of Systems ROS COMP: Constitutional, HEENT, cardiovascular, pulmonary, GI, , musculoskeletal, neuro, skin, endocrine and psych systems are negative, except as otherwise noted. Objective Reported vitals: There were no vitals taken for this visit. healthy, alert and no distress Psych: Alert and oriented times 3; coherent speech, normal rate and volume, able to articulate logical thoughts, able to abstract reason, no tangential thoughts, no hallucinations or delusions Her affect is bright Assessment/Plan: 1. Moderate persistent asthma without complication under good control Continue current medications. 2. Hypercholesteremia Continue current medications. 3. HX: breast cancer 4. Angiosarcoma of breast (H) Followed by [facility] 5. Family history of colon cancer Children are aware they are at increased risk but do not wish to pursue further consultation No follow-ups on file. Phone call duration: 18 minutes Marichuy Meyers MD documented in this encounter Plan of Treatment Not on filedocumented as of this encounter Visit Diagnoses Diagnosis Moderate persistent asthma without compl ication - Primary Unspecified asthma Hypercholesteremia Pure hypercholesterolemia HX: breast cancer Personal history of malignant neoplasm o f breast Angiosarcoma of breast (H) Family history of colon cancer Family history of malignant neoplasm of gastrointestinal tract documented in this encounter Care Teams Space [employer] Miss[employer] Spacelift Relationship Specialty Start Date End Date Clinic - [facility] PCP - General Internal Medicine 07/03/19 [facility] [address] [place], [place] [phone] Marichuy Meyers MD Assigned PCP 06/13/19 303 [facility] 200 [place], [place] [address] documented as of this encounter
--- OUTSIDE RECORDS SUMMARY | 2022-01-26 11:38 | XMS_ITS | Clinical Summary ---
:1950 Author Organization [facility] Address [address] [place] [address] Care Team Providers Name Role Phone Unavailable Primary Care Provider Unavailable Source Comments Patient records contain information from all sites at [facility]. For routine questions regarding patient records, call [phone] during business hours, M-F 8:00 AM - 5:00 PM Central Time. Record requests for emergency care only can be directed to [phone] at any time.[facility] Allergies Active Allergy Reactions Severity Noted Date Comments Mold Wheezing 07/19/2017 Watery eyes and nose Pollen Extracts Wheezing 07/19/2017 Watery eyes and nose Medications Medication Sig Dispensed Refills Start Date End Date Status fluticasone-salmetero Inhale 1 Inhaler 2 0 6 Active l (ADVAIR DISKUS) (two) times a day. 250-50 mcg/dose diskus inhaler fluticasone (FLONASE Administer 1 puff 0 07/14/2016 Active ALLERGY RELIEF) 50 into affected mcg/actuation nasal nostril(s) 2 (two) spray times a day. albuterol inhaler Inhale 2 puffs as 0 04/03/2014 Active needed. multivitamin-minerals Take 1 tablet by 0 Active -JM-bnegmebp-tdfnfz mouth daily. (CENTRUM SILVER) 0.4-300-250 mg-mcg-mcg tablet pravastatin TAKE 1 TABLET BY 0 05/21/2020 Active (PRAVACHOL) 10 mg MOUTH EVERY EVENING tablet Active Problems Problem Noted Date Non-ST Elevation Myocardial Infarction 08/17/2018 Asthma Mild Intermittent With History Of Tobacco Use 0 08/17/2018 Angiosarcoma Soft Tissue 04/01/2017 Cancer Staging: Clinical stage from 12/27: Stage Unknown (TX, NX, M0) - Signed by Lesli Burch R.N. on 04/15/2017 Malignant Neoplasm Of Unspecified Site Of Laterality U nknown Female Breast 09/24/2003 Immunizations Name Administration Dates Next Due Influenza Split 11/26/2015 Family History Medical History Relation Name Comments Heart failure Father Heart disease Paternal Grandfather Stent Sister Relation Name Status Comments Father Paternal Grandfather Sister Social History Tobacco Use Types Packs/Day Years Used Date Smoking Tobacco: Former Cigarettes 1 30 Smokeless Tobacco: Never Alcohol Use Standard Drinks/Week Comments Yes 3 (1 standard drink = 0.6 oz pure alcoho l) 2-3 vodka/coke's per week Sex Assigned at Date Recorded Not on file Last Filed Vital Signs Vital Sign Reading Time Taken Comments Blood Pressure 103/69 06/05/2020 10:32 AM SCALE MECHANIC Pulse 72 06/05/2020 10:32 AM SCALE MECHANIC Temperature 36.2 ??C (97.2 ??F) 03/01/2021 1:13 PM SCALE MECHANIC Respiratory Rate 16 06/05/2020 10:32 AM SCALE MECHANIC Oxygen Saturation 95% 03/01/2021 1:13 PM SCALE MECHANIC Inhaled Oxygen Concentration - - Weight 65.3 kg (143 lb 15.4 oz) 03/01/2021 1:13 PM SCALE MECHANIC Height 170 cm (5' 6.93) 03/01/2021 1:13 PM SCALE MECHANIC Body Mass Index 22.6 03/01/2021 1:13 PM SCALE MECHANIC Plan of Treatment Upcoming Encounters Date Type Specialty Care Team Description 01/27/2022 Clinical Communication Admitting/Central Scheduling 01/31/2022 Appointment Laboratory Medicine Maite Dennis P.A.-C. [address] [place] [phone] 01/31/2022 Appointment Radiology Maite Dennis P.A.-C. [address] [place] [address] [phone] 01/31/2022 Office Visit Oncology Maite Dennis P.A.-C. [address] [place] [phone] Health Maintenance Due Date Last Done Comments Bone Density Scan (Osteoporosis 1950 Screen) CT Colonography 1950 Cologuard 1950 FIT 1950 Hepatitis C Screening 1950 Mammogram 07/20/2018 07/20/2017, 03/23/2017, 11/02/2016 (Performed elsewhere), Additional history exists Depression Screening (Annual 03/27/2021 PHQ-2) Fall Risk Screen (Annual) 03/27/2021 Office Visit for Blood Pressure 06/05/2021 06/05/2020 Check / Re-check Fasting Glucose for Diabetes 10/05/2024 10/05/2021, 021, Screening 06/05/2020, Additional history exists Lipid (Cholesterol) Screening 10/05/2026 10/05/2021, 2020, 08/18/2018, Additional history exists DTaP,Tdap,and Td Vaccines (3 - Td 11/08/2029 11/09/2019, or Tdap) Colonoscopy 01/06/2031 01/06/2021, 04/02/2012 (Performed elsewhere) Colorectal Cancer Screening 01/06/2031 Pneumococcal vaccine (65+ years) Completed 11/09/2019, , 07/03/2009, Additional history exists Zoster Vaccines Completed 02/10/2020, 12/11/2019, 03/27/2009 Lung Cancer Screening Discontinued 03/01/2021, 06/05/2020, 09/23/2019, Additional history exists Influenza Vaccine Completed 11/30/2021, 12/11/2019, 01/23/2019, Additional history exists COVID-19 Vaccine Completed 12/13/2021, 08/25/2021, 02/02/2021, Additional history exists Medical Devices Implanted Type Area Window Repairer Device Shelf Model / Identifier Expiration Serial / Date Lot Conversions - Default Historical Implant Device Misc Left: Implanted: 07/11/2016 (Quantity not on file) Other Breast Description: Body Location - Breast L. D evice Status Text - MiscOther. titanium marker. 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 See document viewer. Latest Code Status on File Code Status Date Activated Date Inactivated Comments Full Code 08/17/2018 3:01 PM 08/18/2018 2:20 PM Question Answer Comments Full Code: Discussed on admission Healthcare Agents on File Name Relationship Healthcare Agent Communication Relationship Vanessa Deb Holleyamadeo Spouse Health Care Agent Nany Schwab Daughter First Alternate Health Care Agent Julienne Lora Daughter Second Alternate Health Care Agent
--- OUTSIDE RECORDS SUMMARY | 2022-01-26 11:38 | XMS_ITS | Encounter Summary ---
:1950 Author Organization [facility] Address [address] [place] [address] Care Team Providers Name Role Phone Unavailable Primary Care Provider Unavailable Reason for Referral Outpatient (Routine) - Authorized Specialty Diagnoses / Procedures Referred By Contact Refer red To Contact Oncology Maite Dennis P.A.- C. [place] [address] [place] [address] Referral ID Status Reason Start Date Expiration Date Visits V isits Requested Authorized [id number] Authorized 03/07/2021 03/07/2022 1 1 C.O.D. AUDIT CLERK MRI/CAT/PET Scan (Routine) - Authorized Specialty Diagnoses / Procedures Referred By Contact Refer red To Contact Radiology Diagnoses Angiosarcoma Soft Tissue (HCC) Maite Dennis P.A.-C. [place] Procedures CT Chest without IV Contrast [address] [place], [place] [phone] Referral ID Status Reason Start Date Expiration Date Visits V isits Requested Authorized [id number] Authorized 03/07/2021 03/07/2022 1 1 C.O.D. AUDIT CLERK Reason for Visit Outpatient (Routine) - Closed Specialty Diagnoses / Procedures Referred By Contact Refer red To Contact Oncology Maite Dennis P.A.- C[facility] [place] [address] [place] [address] Referral ID Status Reason Start Date Expiration Date Visits Requ ested Visits Authorized [id number] Closed 06/16/2020 06/16/2021 1 1 Encounter Details Date Type Department Care Team Description 03/01/2021 Office Visit Department of Oncology Maite Dennis Ang iosarcoma Soft in [place], [place] Tissue (HCC) (Primary [place] [address] [facility] D[facility]) [address] [place] [phone] Social History Tobacco Use Types Packs/Day Years Used Date Smoking Tobacco: Former Cigarettes 1 30 Smokeless Tobacco: Never Alcohol Use Standard Drinks/Week Comments Yes 3 (1 standard drink = 0.6 oz pure alcoho l) 2-3 vodka/coke's per week Sex Assigned at Date Recorded Not on file documented as of this encounter Last Filed Vital Signs Vital Sign Reading Time Taken Comments Blood Pressure - - Pulse - - Temperature 36.2 ??C (97.2 ??F) 03/01/2021 1:13 PM C.O.D. AUDIT CLERK Respiratory Rate - - Oxygen Saturation 95% 03/01/2021 1:13 PM C.O.D. AUDIT CLERK Inhaled Oxygen Concentration - - Weight 65.3 kg (143 lb 15.4 oz) 03/01/2021 1:13 PM C.O.D. AUDIT CLERK Height 170 cm (5' 6.93) 03/01/2021 1:13 PM C.O.D. AUDIT CLERK Body Mass Index 22.6 03/01/2021 1:13 PM C.O.D. AUDIT CLERK documented in this encounter Progress Notes Maite Dennis P.A.-C. - 03/01/2021 1:20 PM CST SUBJECTIVE PRIMARY ONCOLOGIST: Caio Pop M.D. Witter, Amy E, P.A.-C. COLLABORATING PROVIDER: Dr. 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 Here with surveillance scans. HISTORY OF PRESENT ILLNESS: Ms. Schwab is a .70 y.o. female with the following oncologic history: [...] in the [facility] Oncology [facility] on June 05, 2020 by me. Since that time, she has been doing well. Feels good and the prior open wound has remained closed. She's lost approximately 32 lbs (intentionally) over the past 1.5 years. Reports her appetite and oral intake as stable. She denies any fevers, chills, night sweats, unintentional weight loss, or any new or enlarging masses anywhere. ROS: Pertinent items are noted in HPI; all other systems were reviewed and were negative. OBJECTIVE VITAL SIGNS: Vitals: 03/01/21 1313 Temp: 36.2 ??C TempSrc: Tympanic SpO2: 95% Weight: 65.3 kg Height: 170 cm No data recorded PHYSICAL EXAM: General: 70 y.o. year old female, in no acute distress. Vital signs as noted above. Lungs: Clear to auscultation bilaterally Heart: Regular rate and rhythm, S1, S2. No peripheral edema Chest wall: left chest wall examined. Left breast absent. Prior open wound inferior to left axilla remains healed ECOG score [0] LABS: Reviewed in patients chart. CBC and CMP are unremarkable. IMAGING: CT Chest without IV Contrast Result Date: 03/01/2021 Impression: Stable exam. No evidence of recurrent or metastatic disease in the chest. ASSESSMENT / PLAN #1 Angiosarcoma Soft Tissue (HCC) It was my pleasure seeing Ms. Schwab in clinic today. We were able to review her recent labs and restaging scans. There is no clinical or radiographic evidence of recurrent or metastatic disease. PLAN: We will plan to see her back in approximately 1 year with repeat labs, imaging and office visit. Multiple questions were answered. Ms. Schwab has our contact information to get in touch with us with any issues, questions or concernsthat may arise. Orders Placed This Encounter Procedures ??? CT Chest without IV Contrast ??? Comprehensive Metabolic Panel ??? CBC with Differential, Blood ??? Oncology office visit (clinic) General; [facility]coma PATIENT EDUCATION Ready to learn, no apparent learning barriers were identified; learning preferences include listening. Explained diagnosis and treatment plan; patient expressed understanding of the content. ADMINISTRATIVE BILLING I personally spent a total [30] minutes with regard to this patient in preparation, seeing the patient and providing counseling and discussion and/or coordination of care as described above. C.O.D. AUDIT CLERK documented in this encounter Plan of Treatment Upcoming Encounters Date Type Specialty Care Team Description 01/27/2022 Clinical Communication Admitting/Central Scheduling 01/31/2022 Appointment Laboratory Medicine Maite Dennis P.A.-C. [address] [place] [phone] 01/31/2022 Appointment Radiology Maite Dennis P.A.-C. [address] [place] [phone] 01/31/2022 Office Visit Oncology Maite Dennis P.A.-C. [address] [place] [phone] Scheduled Orders Name Type Priority Associated Diagnoses Order S chedule CT Chest without IV Imaging RAD - Routine (most Angiosarcoma S oft Expected: Contrast inpatients and all Tissue (HCC) 2 outpatients) (Approximate), Expires: 03/07/2022 Comprehensive Lab Routine Angiosarcoma Soft Expected: Metabolic Panel Tissue (HCC) 03/01/2022 (Approximate), Expires: 03/07/2022 CBC with Differential, Lab Routine Angiosarcoma Soft Expected: Blood Tissue (HCC) 03/01/2022 (Approximate), Expires: 06/05/2022 Scheduled Referrals Name Type Priority Associated Diagnoses Order S chedule Oncology office Outpatient Referral Routine Expec shaun: visit (clinic) 03/01/2022 General; Sarcoma (Approximat e), Expires: 06/05/2022 documented as of this encounter Visit Diagnoses Diagnosis Angiosarcoma Soft Tissue (HCC) - Primary documented in this encounter Additional Health Concerns Assessment Noted Time PHQ-9 Depression Total Score: 1 08/17/2018 6:47 PM CDT documented as of this encounter
--- OUTSIDE RECORDS SUMMARY | 2022-01-26 11:38 | XMS_ITS | Encounter Summary ---
:1950 Author Organization [facility] Address [address] [facility] [place] [address] Care Team Providers Name Role Phone Clinic - Georgette Mccloud [facility] Primary Care Provider [phone]- [phone] Marichuy Meyers MD Unavailable Reason for Visit Reason Onset Date Comments Refill Request 11/11/2020 Encounter Details Date Type Department Care Team Description 11/11/2020 [facility] Dagoberto Meyers MD Refill Request [place] [address] [place] [address] [place] [address] [place] [address] [place] [address] [phone] Social History Tobacco Use Types Packs/Day Years Used Date Smoking Tobacco: Former Cigarettes Quit : 07/03/2002 Smokeless Tobacco: Never Alcohol Use Standard Drinks/Week Comments Yes 0 (1 standard drink = 0.6 oz pure alcoho l) rare Sex Assigned at Date Recorded Not on file documented as of this encounter Miscellaneous Notes Telephone Encounter - Clement Stevenson RN - 11/11/2020 12:51 PM CDT Prescription approved per [facility] Refill Protocol. documented in this encounter Plan of Treatment Not on filedocumented as of this encounter Visit Diagnoses Diagnosis Moderate persistent asthma without compl ication - Primary Unspecified asthma documented in this encounter Care Teams Supervisor Cold Rolling Relationship Specialty Start Date End Date Clinic - [facility] PCP - General Internal Medicine 07/03/19 [facility] [address] [facility] [address] [place], [place] [phone] Marichuy Meyers MD Assigned PCP 06/13/19 [address] [facility] 200 [place], [place] [address] documented as of this encounter
--- OUTSIDE RECORDS SUMMARY | 2022-01-26 11:38 | XMS_ITS | Encounter Summary ---
:1950 Author Organization [facility] Address [address] [place] [address] Care Team Providers Name Role Phone Unavailable Primary Care Provider Unavailable Encounter Details Date Type Department Care Team Description 01/20/2021 Orders Only [facility] P[facility] Suki Jeffrey M.D. [address] [place] [phone] (Wo rk) Social History Tobacco Use Types [...] Laboratory Medicine Maite Dennis P.A.-C. [address] [place] [phone] 01/31/2022 Appointment Radiology Maite Dennis P.A.-C. [address] [place] [phone] 01/31/2022 Office Visit Oncology Maite Dennis P.A.-C. [address] [place] [address] documented as of this encounter Visit Diagnoses Not on filedocumented in this encounter Additional Health Concerns Assessment Noted Time PHQ-9 Depression Total Score: 1 08/17/2018 6:47 PM CDT documented as of this encounter
--- OUTSIDE RECORDS SUMMARY | 2022-01-26 11:38 | XMS_ITS | Encounter Summary ---
:1950 Author Organization [facility] Address [address] [facility] [place] [address] Care Team Providers Name Role Phone [facility] Primary Care Provider [phone]- [phone] Marichuy Meyers MD Unavailable Encounter Details Date Type Department Care Team Description 12/07/2020 Orders Only [facility] Gabriel Forde for screening Clinic Pam Eason MD for other viral [address] [place] diseases [place], [place] GASTROINTESTINAL [address] [phone] [place] [address] Social History Tobacco Use Types Packs/Day Years Used Date Smoking Tobacco: Former Cigarettes Quit : 07/03/2002 Smokeless Tobacco: Never Alcohol Use Standard Drinks/Week Comments Yes 0 (1 standard drink = 0.6 oz pure alcoho l) rare Sex Assigned at Date Recorded Not on file documented as of this encounter Plan of Treatment Not on filedocumented as of this encounter Results Asymptomatic COVID-19 Virus (Coronavirus) [...] the lara SARS-CoV-2 assay on the lara 6800 System. This test should be ordered for [...] This ragini t was validated by the [facility] Infectious Diseases Diag nostic Laboratory. This laboratory is certified under the [facility] Laboratory Improvement Amendments of 1988 (CLIA-88) as qualifie d to perform high and/or moderate complexity laboratory testing. Gabriel Forde MD LAB - MICRO GENERAL ORDERABL ES Performing Organization Address City/State/ZIP Code Phon e Number [facility] [place] [place] [id number] Diag. Lab [address] [facility], [address] [facility] Infectious [place], [place] [phone] Diseases Diagnostic [phone] Lab (IDDL) [address] [facility], [address] documented in this encounter Visit Diagnoses Diagnosis Encounter for screening for other viral diseases documented in this encounter Care Teams Project Account Manager Relationship Specialty Start Date End Date [facility] PCP - General Internal Medicine 07/03/[address] [phone] Marichuy Meyers MD Assigned PCP 06/13/19 [address] [facility] 200 [place] [address] documented as of this encounter
--- OUTSIDE RECORDS SUMMARY | 2022-01-26 11:38 | XMS_ITS | Encounter Summary ---
:1950 Author Organization [facility] Address [address] [place] [address] Care Team Providers Name Role Phone Unavailable Primary Care Provider Unavailable Encounter Details Date Type Department Care Team Description 03/01/2021 Abstract [facility] SIRI Siddiqui ea Provider, Historical, [address] [facility] [place] [phone] [place] [address] [address] Social History Tobacco Use Types Packs/Day Years [...] Laboratory Medicine Maite Dennis P.A.-C. [address] [place] [phone] 01/31/2022 Appointment Radiology Maite Dennis P.A.-C. [address] [place] [phone] 01/31/2022 Office Visit Oncology Maite Dennis P.A.-C. [address] [place] [address] documented as of this encounter Visit Diagnoses Not on filedocumented in this encounter Additional Health Concerns Assessment Noted Time PHQ-9 Depression Total Score: 1 08/17/2018 6:47 PM CDT documented as of this encounter
--- OUTSIDE RECORDS SUMMARY | 2022-01-26 11:38 | XMS_ITS | Encounter Summary ---
:1950 Author Organization [facility] Address [address] [place] [address] Care Team Providers Name Role Phone Unavailable Primary Care Provider Unavailable Reason for Visit Reason Comments COVID Inquiry Encounter Details Date Type Department Care Team Description 02/24/2020 Clinical Communication Department of Oncology Maite Dennis, COVID Inquiry in [facility] [address] [facility] [address] [place] [phone] Social History Tobacco Use Types Packs/Day Years Used Date Smoking Tobacco: Former Cigarettes 1 30 Smokeless Tobacco: Never Alcohol Use Standard Drinks/Week Comments Yes 3 (1 standard drink = 0.6 oz pure alcoho l) 2-3 vodka/coke's per week Sex Assigned at Date Recorded Not on file documented as of this encounter Miscellaneous Notes Telephone Encounter - Rajani Clark - 02/24/2020 11:38 AM CST COVID DOS/PASS Screening What is the patient requesting?: Additional Appointments (Continue with screening) Have you tested positive for COVID-19 in the last 30 days (20 days for ARZ) or do you have a pendingCOVID-19 test because you had symptoms?: No (Continue with screening) Have you had close contact* with a person who has a LABORATORY CONFIRMED case of COVID-19 in the past 14 days?: No (Continue with screening) When is the patient asking to be scheduled F2F?: Greater than 30 days in RST, SWWI, SEMN (End screening - run decision tree and schedule as appropriate) Plan: Endpoint recommendation: Followed regional OTG *Reminder if sending patient for testing in [facility] or [facility], an email notification is required. 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 [address] [place] [phone] 01/31/2022 Appointment Radiology Maite Dennis P.A.-C. [address] [place] [phone] 01/31/2022 Office Visit Oncology Maite Dennis P.A.-C. [address] [place] [phone] documented as of this encounter Visit Diagnoses Not on filedocumented in this encounter Additional Health Concerns Assessment Noted Time PHQ-9 Depression Total Score: 1 08/17/2018 6:47 PM CDT documented as of this encounter
--- OUTSIDE RECORDS SUMMARY | 2022-01-26 11:38 | XMS_ITS | Encounter Summary ---
:1950 Author Organization [facility] Address [address] [facility] [place] [address] Care Team Providers Name Role Phone Clinic - StevensonGeorgette barrett [facility] Primary Care Provider +1- [phone] Marichuy Meyers MD Unavailable Reason for Visit Reason Onset Date Comments Medication Question 07/04/2019 Encounter Details Date Type Department Care Team Description 07/04/2019 [facility] Marichuy Meyers, [facility] ication Question Clinic Alfreda MORGAN [address] [place] [address] [place], [place] [phone] [place] [address] (Wo rk) Social History Tobacco [...] / COVID-19? documented as of this encounter Miscellaneous Notes Telephone Encounter - Pat Vyas RN - 07/05/2019 11:01 AM CDT Contacted patient, she didn't have fax number for pharmacy with her virtual visit yesterday and zainab would call back so we could enter this information for her. [facility] added to pharmacy information for patient. Telephone Encounter - Brittni Shannon APRN CNP - 07/04/2019 4:28 PM CDT Can we check with patient I am not sure Telephone Encounter - Tamara Logan - 07/04/2019 11:24 AM CDT Patient calling back with information on her pharmacys [facility] fax number documented in this encounter Plan of Treatment Not on filedocumented as of this encounter Visit Diagnoses Not on filedocumented in this encounter Care Teams Inspector Outside [employer] Distribution Relationship Specialty Start Date End Date Clinic - [facility] PCP - General Internal Medicine 07/03/19 [place] [address] [place], [place] [address] Marichuy Meyers MD Assigned PCP 06/13/19 [address] [facility] 200 [place], [place] [phone] documented as of this encounter
--- OUTSIDE RECORDS SUMMARY | 2022-01-26 11:38 | XMS_ITS | Encounter Summary ---
:1950 Author Organization [place] Address [address] [facility] [address] Care Team Providers Name Role Phone [facility] [place] Primary Care Provider [phone] Marichuy Meyers MD Unavailable Reason for Visit Reason Comments Medicare Visit is fasting but labs already doneh Encounter Details Date Type Department Care Team Description 06/09/2020 Office Visit [facility] Marichuy Meyers critical access hospital care (Primary Dx); Clinic Alfreda Haney MD Hypercholesteremia; [address] Moderate pers istent asthma without complication; [address] [place] Angiosarcoma of breast (H) [place], [place] [id number] [place], [place] [phone] [id number] Social History Tobacco Use Types Packs/Day Years [...] Sign Reading Time Taken Comments Blood Pressure 136/79 06/09/2020 10:24 AM CDT Pulse 68 06/09/2020 10:24 AM CDT Temperature 36.8 ??C (98.3 ??F) 06/09/2020 10:24 AM CDT Respiratory Rate 16 06/09/2020 10:24 AM CDT Oxygen Saturation 98% 06/09/2020 10:24 AM CDT Inhaled Oxygen Concentration - - Weight 72.4 kg (159 lb 9.6 oz) 06/09/2020 10:24 AM CDT Height 149.9 cm (4' 11) 06/09/2020 10:24 AM CDT Body Mass Index 32.24 06/09/2020 10:24 AM CDT documented in this encounter Progress Notes Marichuy Meyers MD - 06/09/2020 10:20 AM CDT SUBJECTIVE: Jennifer Schwab is a 69 year old female who presents for Preventive Visit. Patient has been advised of split billing requirements and indicates understanding: Yes Are you in the first 12 months of your Medicare coverage? No Healthy Habits: In general, how would you rate your overall health? Excellent Frequency of exercise: None Do you usually eat at least 4 servings of fruit and vegetables a day, include whole grains & fiber and avoid regularly eating high fat or junk foods? Yes Taking medications regularly: Yes Medication side effects: Not applicable Ability to successfully perform activities of daily living: No assistance needed Home Safety: No safety concerns identified Hearing Impairment: No hearing concerns In the past 6 months, have you been bothered by leaking of urine? No In general, how would you rate your overall mental or emotional health? Excellent PHQ-2 Total Score: 0 Additional concerns today: No Do you feel safe in your environment? Yes Have you ever done Advance Care Planning? (For example, a Health Directive, POLST, or a discussion with a medical provider or your loved ones about your wishes): Yes, advance care planning is on file. Fall risk Fallen 2 or more times in the past year?: No Any fall with injury in the past year?: No Cognitive Screening 1) Repeat 3 items (Leader, Season, Table) 2) Clock draw: NORMAL 3) 3 item recall: Recalls 3 objects Results: 3 items recalled: COGNITIVE IMPAIRMENT LESS LIKELY Mini-CogTM Copyright Shahrzad Doshi. Licensed by the author for use in [facility]; reprintedwith permission (soob@[facility]). All rights reserved. Do you have sleep apnea, excessive snoring or daytime drowsiness?: no Reviewed and updated as needed this visit by clinical staff Tobacco Allergies Meds Med Hx Surg Hx Fam Hx Soc Hx Reviewed and updated as needed this visit by Provider Social History Tobacco Use ??? Smoking status: Former Smoker Quit date: 07/03/2002 Years since quittin.9 ??? Smokeless tobacco: Never Used Substance Use Topics ??? Alcohol use: Yes Comment: rare Alcohol Use 06/06/2020 Prescreen: >3 drinks/day or >7 drinks/week? No Current providers sharing in care for this patient include: Patient Care Team: [facility] as PCP - General (Internal Medicine) Marichuy Meyers MD as Assigned PCP [facility] The following health maintenance items are reviewed in Epic and correct as of today: Health Maintenance Topic Date Due ??? ASTHMA ACTION PLAN Never done ??? COLORECTAL CANCER SCREENING Never done ??? HEPATITIS C SCREENING Never done ??? LIPID Never done ??? ASTHMA CONTROL TEST 01/03/2020 ??? FALL RISK ASSESSMENT 07/03/2020 ??? COVID-19 Vaccine (2 of 2 - Moderna series) 06/21/2020 ??? MEDICARE ANNUAL WELLNESS VISIT 06/09/2021 ??? MAMMO SCREENING 01/12/2022 ??? ADVANCE CARE PLANNING 06/09/2025 ??? DTAP/TDAP/TD IMMUNIZATION (3 - Td) 11/08/2029 ??? DEXA 08/28/2033 ??? PHQ-2 Completed ??? INFLUENZA VACCINE Completed ??? Pneumococcal Vaccine: Pediatrics (0 to 5 Years) and At-Risk Patients (6 to 64 Years) Completed ??? Pneumococcal Vaccine: 65+ Years Completed ??? ZOSTER IMMUNIZATION Completed ??? IPV IMMUNIZATION Aged Out ??? MENINGITIS IMMUNIZATION Aged Out ??? HEPATITIS B IMMUNIZATION Aged Out BP Readings from Last 3 Encounters: 06/09/20 136/79 Wt Readings from Last 3 Encounters: 06/09/20 72.4 kg (159 lb 9.6 oz) Mammogram Screening - Alternate mammogram schedule due to breast cancer history Review of Systems Constitutional: Negative for chills and fever. HENT: Negative for congestion, ear pain, hearing loss and sore throat. Eyes: Negative for pain and visual disturbance. Respiratory: Negative for cough and shortness of breath. Cardiovascular: Negative for chest pain, palpitations and peripheral edema. Gastrointestinal: Negative for abdominal pain, constipation, diarrhea, heartburn, hematochezia and nausea. Breasts: Negative for tenderness, breast mass and discharge. Genitourinary: Negative for dysuria, frequency, genital sores, hematuria, pelvic pain, urgency, vaginal bleeding and vaginal discharge. Musculoskeletal: Negative for arthralgias, joint swelling and myalgias. Skin: Negative for rash. Neurological: Positive for dizziness. Negative for weakness, headaches and paresthesias. Psychiatric/Behavioral: Negative for mood changes. The patient is not nervous/anxious. OBJECTIVE: BP 136/79 (BP Location: Right arm, Patient Position: Sitting, Cuff Size: Adult Regular) Pulse 68 Temp 98.3 ??F (36.8 ??C) (Oral) Resp 16 Ht 1.499 m (4' 11) Wt 72.4 kg (159 lb 9.6 oz) SpO2 98% BMI 32.24 kg/m?? Estimated body mass index is 32.24 kg/m?? as calculated from the following: Height as of this encounter: 1.499 m (4' 11). Weight as of this encounter: 72.4 kg (159 lb 9.6 oz). Physical Exam GENERAL: healthy, alert and no distress EYES: Eyes grossly normal to inspection, PERRL and conjunctivae and sclerae normal NECK: no adenopathy, no asymmetry, masses, or scars and thyroid normal to palpation RESP: lungs clear to auscultation - no rales, rhonchi or wheezes CV: regular rate and rhythm, normal S1 S2, no S3 or S4, no murmur, click or rub, no peripheral edemaand peripheral pulses strong ABDOMEN: soft, nontender, no hepatosplenomegaly, no masses and bowel sounds normal MS: no gross musculoskeletal defects noted, no edema SKIN: no suspicious lesions or rashes NEURO: Normal strength and tone, mentation intact and speech normal PSYCH: mentation appears normal, affect normal/bright ASSESSMENT / PLAN: 1. Preventative health care 2. Hypercholesteremia fasting lipid panel done at [facility] and normal - pravastatin (PRAVACHOL) 10 MG tablet; TAKE 1 TABLET BY MOUTH EVERY EVENING Dispense: 90 tablet; Refill: 3 3. 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 as calculated from the following: Height as of this encounter: 1.499 m (4' 11). Weight as of this encounter: 72.4 kg (159 lb 9.6 oz). Weight management plan: Discussed healthy diet and exercise guidelines She reports that she quit smoking about 17 years ago. She has never used smokeless tobacco. Appropriate preventive services were discussed with this patient, including applicable screening as appropriate for cardiovascular disease, diabetes, osteopenia/osteoporosis, and glaucoma. As appropriate for age/gender, discussed screening for colorectal cancer, prostate cancer, breast cancer, and cervical cancer. Checklist reviewing preventive services available has been given to the patient. Reviewed patients plan of care and provided an AVS. The Basic Care Plan (routine screening as documented in Health Maintenance) for Jennifer meets the Care Plan requirement. This Care Plan has been established and reviewed with the Patient. Counseling Resources: ATP IV Guidelines Pooled Cohorts Equation Calculator Breast Cancer Risk Calculator Breast Cancer: Medication to Reduce Risk FRAX Risk Assessment ICSI Preventive Guidelines Dietary Guidelines for Americans, 2009 GCW's MyPlate ASA Prophylaxis Lung CA Screening Marichuy Meyers MD [facility] Identified Health Risks: documented in this encounter Plan of Treatment Not on filedocumented as of this encounter Visit Diagnoses Diagnosis Preventative health care - Primary Routine general medical examination at a health care facility Hypercholesteremia Pure hypercholesterolemia Moderate persistent asthma without compl ication Unspecified asthma Angiosarcoma of breast (H) documented in this encounter Care Teams Bias Cutter Relationship Specialty Start Date End Date [facility] PCP - General Internal Medicine 07/03/[address] [id number] Marichuy Meyers MD Assigned PCP 06/13/19 [address] [facility] [address] [place] [address] documented as of this encounter
--- OUTSIDE RECORDS SUMMARY | 2022-01-26 11:39 | XMS_ITS | Encounter Summary ---
:1950 Author Organization [facility] Address [address] [place] [id number] Care Team Providers Name Role Phone Unavailable Primary Care Provider Unavailable Encounter Details Date Type Department Care Team Description 09/20/2019 Clinical Communication Department of Oncology Maite Dennis, in [facility] marketing rotation associate PJacey-CDeven [address] [facility] [address] [place] [phone] Social History Tobacco Use Types Packs/Day Years Used Date Smoking Tobacco: Former Cigarettes 1 30 Alcohol Use Standard Drinks/Week Comments Yes 3 (1 standard drink = 0.6 oz pure alcoho l) 2-3 vodka/coke's per week Sex Assigned at Date Recorded Not on file documented as of this encounter Plan of Treatment Upcoming Encounters Date Type Specialty Care Team Description 01/27/2022 Clinical Communication Admitting/Central Scheduling 01/31/2022 Appointment Laboratory Medicine Maite Dennis PDevenADeven-CDeven [address] [place] [phone] 01/31/2022 Appointment Radiology Maite Dennis P.A.-CDeven [address] [place] [address] [phone] 01/31/2022 Office Visit Oncology Maite Dennis P.A.-C. [address] [place] [address] documented as of this encounter Visit Diagnoses Not on filedocumented in this encounter Additional Health Concerns Assessment Noted Time PHQ-9 Depression Total Score: 1 08/17/2018 6:47 PM CDT documented as of this encounter
--- OUTSIDE RECORDS SUMMARY | 2022-01-26 11:39 | XMS_ITS | Encounter Summary ---
:1950 [facility] Address [address] [place] [address] Care Team Providers Name Role Phone Unavailable Primary Care Provider Unavailable Reason for Referral Outpatient (Routine) - Closed Specialty Diagnoses / Procedures Referred By Contact Refer red To Contact Oncology Maite Dennis P.A.- C. [place] [facility] [address] [place] [phone] Referral ID Status Reason Start Date Expiration Date Visits Requ ested Visits Authorized [id number] Closed 03/29/2019 03/28/2020 1 1 ER HELPER MRI/CAT/PET Scan (Routine) - Closed Specialty Diagnoses / Procedures Referred By Contact Refer red To Contact Radiology Diagnoses Angiosarcoma Soft Tissue (HCC) Maite Dennis P.A.-C. [facility] Procedures CT Chest without IV Contrast [place] [facility] [address] [place], [place] [phone] Referral ID Status Reason Start Date Expiration Date Visits Requ ested Visits Authorized [id number] Closed 03/29/2019 03/28/2020 1 1 ER HELPER Reason for Visit Outpatient (Routine) - Closed Specialty Diagnoses / Procedures Referred By Contact Refer red To Contact Oncology Maite Dennis P.A.- C. [place] [facility] [address] [place], [place] [phone] Referral ID Status Reason Start Date Expiration Date Visits Requ ested Visits Authorized [id number] Closed 09/06/2018 09/06/2019 1 1 Encounter Details Date Type Department Care Team Description 03/25/2019 Office Visit Department of Oncology Maite Dennis Ang iosarcoma Soft in [place], [place] Tissue (HCC) (Primary [place] [address] [facility]) [address] [place] [phone] Social History Tobacco Use Types Packs/Day Years Used Date Smoking Tobacco: Former Cigarettes 1 30 Alcohol Use Standard Drinks/Week Comments Yes 3 (1 standard drink = 0.6 oz pure alcoho l) 2-3 vodka/coke's per week Sex Assigned at Date Recorded Not on file documented as of this encounter Last Filed Vital Signs Vital Sign Reading Time Taken Comments Blood Pressure 140/70 03/25/2019 1:41 PM [facility] Pulse 90 03/25/2019 1:41 PM [facility] Temperature 36.5 ??C (97.7 ??F) 03/25/2019 1:41 PM [facility] Respiratory Rate - - Oxygen Saturation - - Inhaled Oxygen Concentration - - Weight 86.9 kg (191 lb 9.3 oz) 03/25/2019 1:41 PM [facility] Height 149.3 cm (4' 10.78) 03/25/2019 1:41 PM [facility] Body Mass Index 38.98 03/25/2019 1:41 PM [facility] documented in this encounter Progress Notes Maite Dennis P.A.-C. - 03/25/2019 2:40 PM CST PRIMARY ONCOLOGIST: Caio Pop M.D. Witter, Amy E, P.A.-C. COLLABORATING PROVIDER: Dr. 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 This was treated with single agent Taxol and radiation prior to surgical resection in late 2015/early 2016. Currently in observation status. HISTORY OF PRESENT ILLNESS: Ms. Schwab is a .68 y.o. female with the following oncologic history: Angiosarcoma Soft Tissue (HCC) 12/2015 Initial Diagnosis Radiation-associated Angiosarcoma of the left breast. 2004: Status post left lumpectomy and radiation therapy, [...] in [facility] on August 21, 2018 by me. Since that time, she and her moved from [place] to [place], [place] to be closer to [facility] She notes that during the packing and moving her left axilla wound that took 2 years to heal opened up again and her has been doing all the prior treatment that helped it finally heal before. She doesn't often have any pain. She is tired from the whole ordeal of packing up their house themselves and moving. Overall, she feels well. Enjoying living in [place] and being close to family. [facility] [employer]. Reports her appetite and oral intake as stable. She denies any fevers, chills, night sweats, unintentional weight loss, chest pain, dyspnea, cough, sore throat, rhinorrhea, nausea, vomiting, diarrhea, constipation, abdominal pain, extremity pain, peripheral edema or new or enlarging masses anywhere. ROS: Pertinent items are noted in HPI; all other systems were reviewed and were negative. VITAL SIGNS: Vitals: 03/25/19 1341 BP: 140/70 BP Location: Right arm Pulse: 90 Temp: 36.5 ??C TempSrc: Tympanic Weight: 86.9 kg Height: 149.3 cm No data recorded PHYSICAL EXAM: General: 68 y.o. year old female, in no acute distress. Vital signs as noted above. Mouth: no oral lesions or candidiasis Lungs: Clear to auscultation bilaterally Left axilla: small opening in prior horizontal incision; no signs of infection Heart: Regular rate and rhythm, S1, S2. No peripheral edema Abdomen: soft, non-tender, non-distended, normoactive bowel sounds x 4 quadrants. No palpable masseswere felt. ECOG score [0] LABS: Ref. Range 03/25/2019 10:45 Hemoglobin Latest Ref Range: 11.6 - 15.0 g/dL 14.3 HEMATOCRIT Latest Ref Range: 35.5 - 44.9 % 44.6 Erythrocytes Latest Ref Range: 3.92 - 5.13 x10(12)/L 4.37 MCV Latest Ref Range: 78.2 - 97.9 fL 102.1 (H) RBC Distrib Width Latest Ref Range: 12.2 - 16.1 % 12.7 Platelet Count Latest Ref Range: 157 - 371 x10(9)/L 301 White Blood Cell Count Latest Ref Range: 3.4 - 9.6 x10(9)/L 7.8 Neutrophils Latest Ref Range: 1.56 - 6.45 x10(9)/L 4.98 Lymphocytes Latest Ref Range: 0.95 - 3.07 x10(9)/L 2.02 Monocytes Latest Ref Range: 0.26 - 0.81 x10(9)/L 0.60 Eosinophils Latest Ref Range: 0.03 - 0.48 x10(9)/L 0.19 Basophils Latest Ref Range: 0.01 - 0.08 x10(9)/L 0.05 Sodium, S Latest Ref Range: 135 - 145 mmol/L 146 (H) Potassium, S Latest Ref Range: 3.6 - 5.2 mmol/L 5.2 Chloride, S Latest Ref Range: 98 - 107 mmol/L 107 Bicarbonate, S Latest Ref Range: 22 - 29 mmol/L 26 Anion Gap Latest Ref Range: 7 - 15 13 Bld Urea Nitrog(BUN), S Latest Ref Range: 6 - 21 mg/dL 12 Creatinine, S Latest Ref Range: 0.59 - 1.04 mg/dL 0.89 eGFR-Non Black Latest Ref Range: >=60 mL/min/BSA 66 eGFR-Black Latest Ref Range: >=60 mL/min/BSA 76 Calcium, Total, S Latest Ref Range: 8.8 - 10.2 mg/dL 9.7 Glucose, S Latest Ref Range: 70 - 140 mg/dL 96 Bilirubin, Total, S Latest Ref Range: <=1.2 mg/dL 0.3 Alanine Aminotransferase (ALT), S Latest Ref Range: 7 - 45 U/L 22 Aspartate Aminotransferase (AST), S Latest Ref Range: 8 - 43 U/L 14 Alkaline Phosphatase, S Latest Ref Range: 35 - 104 U/L 65 Protein, Total, S Latest Ref Range: 6.3 - 7.9 g/dL 6.6 Albumin, S Latest Ref Range: 3.5 - 5.0 g/dL 4.6 IMAGING: Ct Chest Without Iv Contrast Result Date: 03/25/2019 Impression: No evidence of metastatic disease in the chest. ASSESSMENT/PLAN: #1 Angiosarcoma Soft Tissue (HCC) It was my pleasure seeing Ms. Schwab and her in clinic today. They have recently moved to [place], [place] from [place]. During the recent packing and moving, her wound that took about 2 years to heal. They are very familiar with the wound care that is necessary. Her does the dressing change 1-2 x / day. She worked with a wound care group in [place] and in [place] when they spent time in [place] during the prior winter months. He feels it has improved since it first opened up again. No signs of infection. No pain or fevers. We will see her back in 6 months and if things continue to look clear, we can extend her to annual visits. We will see her back in September 2019. Multiple questions were answered. Ms. Schwab has our contact information to get in touch with us with any issues, questions or concernsthat may arise. Orders Placed This Encounter Procedures ??? CT Chest without IV Contrast ??? CBC with Differential, Blood ??? Creatinine with Estimated GFR ??? Hepatic Function Panel ??? Oncology office visit (clinic) PATIENT EDUCATION Ready to learn, no apparent learning barriers were identified; learning preferences include listening. Explained diagnosis and treatment plan; patient expressed understanding of the content. ADMINISTRATIVE BILLING I personally spent over half of a total [28] minutes face to face with the patient in counseling anddiscussion and/or coordination of care as described above. ER HELPER documented in this encounter Plan of Treatment Upcoming Encounters Date Type Specialty Care Team Description 01/27/2022 Clinical Communication Admitting/Central Scheduling 01/31/2022 Appointment Laboratory Medicine Maite Dennis P.A.-C. [address] [place] [phone] 01/31/2022 Appointment Radiology Maite Dennis P.A.-C. [address] [place] [phone] 01/31/2022 Office Visit Oncology Maite Dennis P.A.-C. [address] [place] [phone] Scheduled Referrals Name Type Priority Associated Diagnoses Order [facility] Oncology office Outpatient Referral Routine Expec shaun: visit (clinic) 09/23/2019 (Approximate), Expires: 03/29/2022 documented as of this encounter Results CT Chest without IV Contrast (09/23/2019 10:57 AM CDT) Anatomical Region Laterality Modality Chest, Thoracic RST LOS, Thoracic ARZ N/A Co mputed Tomography, Computed LOS, Thoracic FLA LOS Tomography Specimen (Source) Anatomical Collection Method Collection Time Re ceived Time Location / / Volume Laterality 09/23/2019 1:17 PM CDT Impressions 09/23/2019 1:44 PM CDT Stable exam in the chest since 03/25/2019. No evidence of metastatic disease. Narrative 09/23/2019 1:44 PM CDT EXAM: CT CHEST WITHOUT IV CONTRAST COMPARISON: CT chest 03/25/2019, , and 03/22/2018. FINDINGS: Postoperative changes left mastectomy an d left lateral chest wall. Stable sclerosis within the left 6th and 7th ri bs at the resection site. No new chest wall nodularity. Subpleural reticulation in the anterior left mid lung is unchanged. Linear scarring in the lingul a. Small bilateral pulmonary nodules remain unchanged since 03/22/2018. No new nodules. Mild diffuse bronchial wall thi ckening. Mosaic attenuation. Dependent secretions in the distal trachea. No adenopathy. Coronary artery calcifica tion. Calcification of the mitral annulus. Trace pericardial fluid. Hypert rophic degenerative changes in the spine. Hepatic steatosis. 3D maximum intensity projection (MIP) im ages were created on a dependent workstation as ordered by the treating p constance and reviewed by the radiologist to increase sensitivity for detection of pulmonary nodules. Procedure Note Gabriel Schwab M.D. - 09/23/2019Formatt ing of this note might be different from the original. EXAM: CT CHEST WITHOUT IV CONTRAST COMPARISON: CT chest 03/25/2019, , and 03/22/2018. FINDINGS: Postoperative changes left mastectomy an d left lateral chest wall. Stable sclerosis within the left 6th and 7th ri bs at the resection site. No new chest wall nodularity. Subpleural reticulation in the anterior left mid lung is unchanged. Linear scarring in the lingul a. Small bilateral pulmonary nodules remain unchanged since 03/22/2018. No new nodules. Mild diffuse bronchial wall thi ckening. Mosaic attenuation. Dependent secretions in the distal trachea. No adenopathy. Coronary artery calcifica tion. Calcification of the mitral annulus. Trace pericardial fluid. Hypert rophic degenerative changes in the spine. Hepatic steatosis. 3D maximum intensity projection (MIP) im ages were created on a dependent workstation as ordered by the treating p constance and reviewed by the radiologist to increase sensitivity for detection of pulmonary nodules. IMPRESSION: Stable exam in the chest since 9. No evidence of metastatic disease. Maite Dennis P.A.-C. IMG CT PROCEDURES Hepatic Function Panel (09/23/2019 10:23 AM CDT) [facility] Method Time Signature Bilirubin, Total, S 0.4 [...] 09/23/2019 Venous) AM CDT 11:14 AM CDT aMite Dennis P.A.-C. LAB BLOOD ADD-ON Performing Organization Address City/State/ZIP Code Phon e Number [facility] - [address] [place], [place] [address] [place] [address] [facility] 200 [facility] Creatinine with Estimated GFR (09/23/2019 10:23 AM CDT) P athologist Signature Creatinine 0.85 0.59 - 09/23/2019 DTL 1.04 mg/dL 11:31 AM CDT eGFR-Non 70 >=60 09/23/2019 DTL Black/ mL/min/BSA 11:31 AM CDT [place] Comment: ----ADDITIONAL INFORMATION---- Estimated GFR calculated using [...] Organization Address City/State/ZIP Code Phon e Number [facility] - [address] [place], [place] [address] [facility] [place] [address] [facility] [address] [facility] (ABNORMAL) CBC with Differential, Blood (09/23/2019 10:23 AM CDT) [facility] Method Time Signature Hemoglobin 14.4 11.6 [...] Organization Address City/State/ZIP Code Phon e Number [facility] - [address] [place] [address] [facility] [place] [address] [facility] [address] documented in this encounter Visit Diagnoses Diagnosis Angiosarcoma Soft Tissue (HCC) - Primary Angiosarcoma Soft Tissue (HCC) documented in this encounter Additional Health Concerns Assessment Noted Time PHQ-9 Depression Total Score: 1 08/17/2018 6:47 PM CDT documented as of this encounter
--- OUTSIDE RECORDS SUMMARY | 2022-01-26 11:39 | XMS_ITS | Encounter Summary ---
:1950 Author Organization [facility] Address [address] [place] [address] Care Team Providers Name Role Phone Unavailable Primary Care Provider Unavailable Reason for Visit Reason Comments Shortness of Breath asthma, neb given Encounter Details Date Type Department Care Team Description 08/17/2018 - Emergency [facility], Aftab Kelly M.D. [address] [place] [address] Non-ST Elevation 08/18/2018 [facility] Moncho Caballero M.D., Ph.D. [address] [place] [phone] Myocardial Infarction [facility], (HCC) ( Primary Dx) Fifth Floor [address] [place] [phone] Social History Tobacco Use Types Packs/Day Years Used Date Smoking Tobacco: Former Cigarettes 1 30 Alcohol Use Standard Drinks/Week Comments Yes 3 (1 standard drink = 0.6 oz pure alcoho l) 2-3 vodka/coke's per week Sex Assigned at Date Recorded Not on file documented as of this encounter Last Filed Vital Signs Vital Sign Reading Time Taken Comments Blood Pressure 108/65 08/18/2018 12:00 PM CDT Pulse 78 08/18/2018 12:00 PM CDT Temperature 37.1 ??C (98.8 ??F) 08/18/2018 12:00 PM CDT Respiratory Rate 16 08/18/2018 12:00 PM CDT Oxygen Saturation 95% 08/18/2018 12:00 PM CDT Inhaled Oxygen Concentration - - Weight 86.2 kg (190 lb 0.6 oz) 08/18/2018 6:49 AM CDT Height 154 cm (5' 0.63) 08/17/2018 2:00 PM CDT Body Mass Index 36.35 08/17/2018 2:00 PM CDT documented in this encounter Discharge Summaries Miguel Roger M.D. - 08/18/2018 9:54 AM CDT DISCHARGE SUMMARY BRIEF OVERVIEW Discharge Provider: Moncho Caballero M.D. No primary care provider on file. Primary Care Provider Phone Number: None Primary Care Provider Fax Number: None Other Providers: None Admission Date: 08/17/2018 Discharge Date: 08/18/2018 PRINCIPAL DIAGNOSIS Non-ST Elevation Myocardial Infarction (HCC) SECONDARY DIAGNOSES Principal Problem: Non-ST Elevation Myocardial Infarction (HCC) Active Problems: Asthma Mild Intermittent With History Of Tobacco Use (HCC) Resolved Problems: * No resolved hospital problems. * Operative Procedures: Scheduled (Paulino), Completed (Comp) or Canceled (Can) Case IDs Date Procedure Surgeon Location Status [id number] 08/17/18 Coronary Angiography Theron Awan M.D. RST ROMB CCL Comp DISCHARGE DISPOSITION Home or Self Care [1] ACTIVE ISSUES REQUIRING FOLLOW UP -Follow up with your Primary Care Provider in the next 7-10 days to discuss your hospital stay -Continue aspirin 81 mg po daily, continue previous pravastatin -Consider outpatient TTE for evaluation of GATES/SOB -If patient has anginal symptoms consider addition of metoprolol with observation of asthma symptoms -Consider outpatient peak flow monitoring OUTPATIENT FOLLOW UP Future Appointments Date Time Provider Department Center 08/21/2018 10:20 AM Maite Dennis P.A.-C. [facility] RST Spec TEST RESULTS PENDING AT DISCHARGE DETAILS OF HOSPITAL STAY REASON FOR ADMISSION Non-ST Elevation Myocardial Infarction (HCC) HOSPITAL COURSE ??Boyum??is a pleasant 67 year old woman with a history of breast cancer and subsequent radiation-associated angiosarcoma and asthma who presented 08/17 with shortness of breath, chest tightness, andtroponinemia. On the morning prior to admission she noted abrupt onset nausea with one episode of associated emesis prior to developing acute onset chest tightness and shortness of breath that did not improve with home inhalers. EMS was called and on field evaluation she was noted to be hypotensive with systolics in the 80s and hypoxemic with O2 saturation in the 80s as well. She was placed on 15L face mask and brought to [facility] Emergency Department for further evaluation. In the ED, she underwent evaluation which showed a normal BMP/CBC, INR of 1.1, unremarkable CXR, libby D-Dimer of 1128. She subsequently underwent CT-PE which was negative for PE and only showed mild peribronchial thickening attributed to her asthma. She was then admitted to the ischemic cardiology service for further workup. She was loaded with aspirin and clopidogrel in addition to being placed on therapeutic heparin. She underwent coronary angiography on 08/17 which revealed minimal disease and no acute occlusion to require PCI. Post-procedure she was monitored overnight without complication. Patient's symtoms are likleydue to myocardial infarction with no obstructive coronary atherosclerosis. A1c was 5.5%. Lipid panelrevealed Cholesterol, Total, S: 155; Cholesterol, HDL, S: 54 ; Calculated LDL: 78. As no PCI was completed, clopidegral was stopped. She was discharged on aspirin, continued home pravastatin given satisfactory lipid profile. No beta-blockade agent initiated given no CAD on cath, no elevated HR, no hypertension. If she continues to have anginal symptoms as an outpatient she can be initiated on this agent with observation of her asthma symptoms. Given her SOB/GATES without obvious CAD, asthma exacerbation she may benefit from outpatient transthoracic echocardiogram. She was discharged home in stable condition on 08/18. Current Discharge Medication List START taking these medications Details aspirin 81 mg chewable tablet Chew 1 tablet (81 mg total) daily. Refills: 0 Current Discharge Medication List CONTINUE these medications which have NOT CHANGED Details fluticasone (FLONASE ALLERGY RELIEF) 50 mcg/actuation nasal spray Administer 1 puff into affected nostril(s) 2 (two) times a day. fluticasone-salmeterol (ADVAIR DISKUS) 250-50 mcg/dose diskus inhaler Inhale 1 Inhaler 2 (two) timesa day. loratadine (CLARITIN) 10 mg tablet Take 1 tablet by mouth at bedtime. LORazepam (ATIVAN) 1 mg tablet Take 1 tablet by mouth as needed. pravastatin (PRAVACHOL) 20 mg tablet Take 10 mg by mouth at bedtime. Current Discharge Medication List Current Discharge Medication List CONSULTS ORDERED DURING THIS ADMISSION None CONDITION AT DISCHARGE stable Discharge instructions were provided to the patient and caregiver(s). Electronically signed by: Alcon Roger M.D. 08/18/18 9:55 AM CARDIOLOGY ISCHEMIA SERVICE documented in this encounter Medications at Time [...] tablet bedtime. documented as of this encounter Progress Notes Moncho Caballero M.D., Ph.D. - 08/18/2018 10:24 AM CDT SUBJECTIVE This is a supervisory note for Dr. Miguel Roger. HISTORY OF PRESENT ILLNESS Ms. Schwab had a good night. There has been no recurrence of her shortness of breath, and she is looking forward to going home today. OBJECTIVE PHYSICAL EXAMINATION General: The patient was alert, oriented, and sitting comfortably. Vital Signs: Blood pressure 130/69, heart rate 88, respiratory rate 13. Pulmonary: Clear to auscultation. Cardiac: S1, S2. Regular rate and rhythm. ASSESSMENT / PLAN I have seen and examined the patient and agree with the history, physical, and recommendations by Dr. Miguel Roger. #1 Rzy-QW-sfderdjgl myocardial infarction Ms. Schwab underwent a coronary angiogram yesterday and was found to have mild disease in her LAD territory. There were no flow-limiting lesions. At this time, she will continue with ongoing risk factormodification. It is unclear as to why she had a slight troponin elevation. Her clinical picture doesnot fit with stress-induced cardiomyopathy. She does state that she has been under extreme stress recently and had been rushing around for her oncology appointments. At this point, we will continue with a baby aspirin as well as a statin. She does not need clopidogrel. #2 Asthma She will continue on her home regimen of medications. #3 History of breast cancer She will follow up with Oncology as an outpatient next week. All questions were answered to the complete satisfaction of the patient and her family. CT CT Job ID: [id number] Miguel Roger M.D. - 08/18/2018 9:32 AM CDT CARDIOLOGY PROGRESS NOTE SUBJECTIVE Today is hospital day no one for Ms. Schwab. She was seen at bedside on cardiology floor. Patient is doing well. Denies chest pain, shortness of breath. Feels that she continues to have someasthma symptoms for which she is taking p.r.n. albuterol MDI with some relief. She has no cough. Procedural site is with minimal discomfort. Events: -coronary angiogram nonobstructive coronary artery disease no intervention needed -no telemetry events overnight -A1c, lipid panel pending OBJECTIVE VITAL SIGNS Vitals: 08/18/18 0845 BP: 130/69 Pulse: 94 Resp: 19 Temp: 37 ??C SpO2: 94% FiO2 (%): [21 %] 21 % PEEP (cmH2O): [0 cm H20] 0 cm H20 MI SUP: [10 cm H20] 10 cm H20 Mean Airway Pressure: [0 cm H2O] 0 cm H2O Intake/Output Summary (Last 24 hours) at 08/18/18932 Last data filed at 08/18/18 09 Gross per 24 hour Intake 757.14 ml Output 1200 ml Net -442.86 ml PHYSICAL EXAM General: no acute distress, resting comfortably, alert, interactive, cooperative Heart: RRR, no murmurs, rubs, gallops Lungs: CTAB, no wheezing, crackles, rhonchi. No increased respiratory effort. Abdomen: soft, non-tender, no rebound or guarding Skin: Right groin puncture site without hemorrhage nor hematoma. Vitals reviewed. LABS/DIAGNOSTICS I have reviewed labs, xray, ultrasound and diagnostics. Last 2 results Lab Units 08/18/18 0625 08/17/18 0844 WBC x10(9)/L 7.9 8.3 HEMOGLOBIN g/dL 11.8 14.8 PLATELETS AUTO x10(9)/L 246 314 MCV fL 99.2* 100.2* RBC DISTRIBUTION WIDTH AUTO % 12.9 12.7 Last 2 results Lab Units 08/18/18 0608/17/18 0845 08/17/18 0844 SODIUM P mmol/L -- -- 142 POC SODIUM mmol/L -- 142 -- SODIUM mmol/L 141 -- -- POTASSIUM P mmol/L -- -- 3.8 POTASSIUM mmol/L 4.4 -- -- CHLORIDE P mmol/L -- -- 107 CHLORIDE mmol/L 107 -- -- BUN P mg/dL -- -- 17 BUN mg/dL 18 -- -- CREATININE mg/dL 0.80 -- -- CREATININE P mg/dL -- -- 0.85 CRTS1 EGFR NON BLACK mL/min/BSA 75 -- -- CREP2 EGFR P mL/min/BSA -- -- 70 Estimated Creatinine Clearance: 65.6 mL/min (by C-G formula based on SCr of 0.8 mg/dL). Recent Labs 08/18/18 06 CALCIUM 8.9 ASSESSMENT / PLAN Ms. 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 ?? At this time, her symptoms are somewhat atypical, however given her troponinemia, elevated D-dimer, negative CT-PE, and risk factors including family history and previous radiation patient underwent coronary angiogram on 08/17 which demonstrated mild diffuse CAD, worst lesion 30% stenosis of mid LAD. No PCI was completed. Patient did well overnight, without return of symptoms. This is unlikely a asthma exacerbation and has been ruled out for PE. Current explanation appears to be myocardial infarction with no obstructivecoronary atherosclerosis. We will withhold ongoing clopidogrel, continue previous statin therapy, continue Aspirin 81 mg (new this admission). ?? #1 Non-ST Elevation Myocardial Infarction (HCC), presumed type 1 -Pt asymptomatic this morning, no CP, no SOB. Right groin angiogram site without hematoma -Modifiable risk factors: Dicussed diet. Pt non smoker. A1c 5.5%. Lipids: Cholesterol, Total, S: 155 Cholesterol, HDL, S: 54 Calculated LDL: 78 Triglycerides: 114 Non HDL Cholesterol: 101 -D/c clopidogrel, UFH infusion stopped post procedure -continue ASA 81 mg po daily -Continue home pravastatin -Coronary angiogram 08/17 -Awaiting A1C and lipid panel ?? #2 Asthma??(no PFTs on file) -No tachypnea, no accessory muscle use. Increased use of albuterol inhaler -Continue home loratadine, fluticasone nasal, and fluticasone inhaler -PRN albuterol MDI -Mild peribronchial thickening on CT, consistent with known asthma, if febrile or increased sputum production consider procalcitonin and/or empiric treatment with antibiotic therapy ?? F: PO E: Replete as necessary N: general diet VTE prophylaxis: Off therapeutic UFH infusion, will transition home today. Will start DVT px if not dismissed today Code status: Full Code Disposition: Home with expected discharge date 08/18/2018 Alcon Roger M.D. PGY-1 Resident, Pager [phone] documented in this encounter H&P Notes Moncho Caballero M.D., Ph.D. - 08/17/2018 4:23 PM CDT SUBJECTIVE This is also a supervisory note for Dr. Leo rAnold. CHIEF COMPLAINT/REASON FOR VISIT Shortness of breath. HISTORY OF PRESENT ILLNESS Mrs. Schwab is a 67-year-old female with a previous history of breast cancer treated with radiation therapy. She subsequently developed radiation-induced angiosarcoma of the breast and required additional radiation therapy. She also has a prior history of asthma. The patient had come in for evaluation of her malignancy and developed acute onset shortness of breath this morning. The symptoms lasted fora few hours, and she was evaluated in the Emergency Room. There, her initial troponin was 13 followed by a subsequent level of 35. The patient has a family history that is positive for coronary artery disease in her father as well as her sister. She has not had any prior coronary events. During this episode, she had tried using her asthma inhalers, but got no relief. There is no history of PND, orthopnea, presyncope, or syncope. OBJECTIVE PHYSICAL EXAMINATION General: The patient was alert, oriented, and sitting comfortably. Vitals: Blood pressure 128/82, heart rate 71, respiratory rate 20. Pulmonary Exam: Clear to auscultation. Cardiac Exam: S1, S2. Regular rate and rhythm. Abdominal Exam: Soft. Bowel sounds are present. Extremity Exam: Peripheral pulses were present. ASSESSMENT / PLAN I have seen and examined the patient and agree with the history, physical, and recommendations by Dr. Arnold. #1 Qye-HY-bqnyizpfv myocardial infarction Mrs. Schwab's symptoms are suspicious for an angina equivalent. Given the positive enzymes, she will benefit from assessment of her coronary arteries. In the interim period, she is being started on aspirin, clopidogrel, and intravenous heparin. The risks, benefits, complications, and alternatives of a c oronary angiogram and possible stent placement were discussed with the patient. We talked about the risk of heart attack, stroke, , bleeding, infection, and renal failure amongst others. She agrees to proceed. The patient had a granola bar approximately 1-1/2 hours ago, and we will therefore do the procedure without using moderate sedation. She is comfortable in proceeding. #2 Asthma She will continue on her home regimen of antihistamines and her steroids as well as p.r.n. bronchodilators. #3 History of breast cancer She will follow up with Oncology as an outpatient. It is likely that her family history, combined with a personal history of radiation treatment on the left side of the chest, may have contributed to the development of coronary artery disease. She would be a good candidate for a drug-eluting stent if indicated. There is no bleeding history. Additional recommendations will be made once her coronary anatomy has been defined. CT CT Job ID: [id number] Leo Arnold M.D. - 08/17/2018 1:30 PM CDT Ischemic Cardiology Admission Note ?? Supervising Mid Teacher: Dr. Moncho Caballero Service pager: [phone] ?? SUBJECTIVE CHIEF COMPLAINT/REASON FOR VISIT Shortness of Breath ?? HISTORY OF PRESENT ILLNESS/PAST CARDIAC HISTORY #1 Non-ST Elevation Myocardial Infarction (HCC) ?? Ms. Schwab is a 67 y.o. 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 ?? Approximately 8:00 a.m., this morning, she was preparing for an evaluation as an outpatient for Oncology. She notes that she is currently in [place] for a standard 3 month appointment with Oncology. However she noted this morning that she developed acute onset shortness of breath and difficulty breathing that had been shortly preceded by an episode of nausea and nonbloody, nonbilious emesis x1. After this she had significant difficulty breathing and notified her , at that time she attemptedto use her daily inhaler and subsequently followed up quickly with a rescue inhaler without significant effect prompting activation of EMS. ?? Upon EMS arrival, she was placed on 15L face mask and given a nebulizer before being gradually weaned to NC. She was noted on arrival in the field to have systolics in the 80s and an O2 sat in the 80s.She was then taken to [facility] ED for further evaluation. ?? In the ED, she underwent workup which was remarkable for an elevated D-Dimer to 1128, troponin of 13with positive delta to 35, NT-Pro BNP of 120, and EKG showing mildly prolonged QTc. She underwent CT-PE for her elevated d-dimer and shortness of breath which was negative for PE however did reveal mild lower lobe predominant peribronchiolar thickening. ABG was relatively unremarkable with a pH of 7.33 and a normal CO2 with a bicarb of 21. ?? On the floor, she was asymptomatic and hemodynamically stable breathing well on room air. She noted that in the past she has had these episodes of exertional chest pain that feels like a crampy sensation almost like a ???vice??? that wrap around her left lower chest and occasionally extending to her mid sternum. She denies any jaw pain or left arm pain during these episodes. She also notes that she has a strong family history of heart disease including a sister with a previous coronary stent, fatherwith heart failure, and a paternal grandfather with heart disease. She notes that she has never had symptoms like this before and that her symptoms this morning were associated with 1 episode of nonbilious, nonbloody emesis. She notes that the last time she ate was approximately 1 hour prior to arriving on the floor where she had a granola bar in the emergency department. She denies history of clotting, easy bleeding, any neurologic symptoms including headache, tingling, numbness, weakness associated with these. She notes that she has difficulty with vision with associated floaters and is currentlyundergoing evaluation for possible cataracts. She notes that she has recently completed a course of amoxicillin for tooth discomfort that is being closely followed by her home dentist. ?? On discussion of code status, she notes that she was open to chest compressions, shock, intubation if required in the periprocedural setting and she notes that she has advanced directives on file whichwere filed in 2016 and note that she would not want life-sustaining treatment if she were to be in aterminal state or irreversible coma. She notes that her , Vanessa, as her alternate decision maker. ?? The following portions of the patient's history were reviewed and updated as appropriate: allergies,current medications, family history, medical history, social history, surgical history and problem list. ?? REVIEW OF SYSTEMS As per HPI, otherwise a complete 10 point review of systems was completed and negative. MEDICAL HISTORY -Breast cancer and subsequent radiation associated angiosarcoma s/p Taxol therapy -Asthma SURGICAL HISTORY Lumpectomy SOCIAL HISTORY Reports that she has quit smoking. She has a 30.00 pack-year smoking history. She does not have any smokeless tobacco history on file. She reports that she drinks about 1.8 oz of alcohol per week . Shereports that she does not use drugs. ?? FAMILY HISTORY Significant coronary artery disease noted in paternal grandfather, father, sister. ? Medications Current Facility-Administered Medications: ??? [MAR Hold] acetaminophen tablet 500 mg (TYLENOL), 500 mg, oral, Q6H PRN, Leo Arnold M.D. ??? [MAR Hold] docusate sodium capsule 100 mg (COLACE), 100 mg, oral, BID PRN, Leo Arnold M.D. ??? fentaNYL injection 50 mcg (SUBLIMAZE), 50 mcg, intravenous, Q2 Min PRN, Matt Cormier M.B., B.Ch., B.A.O. ??? flumazenil injection 0.2 mg (ROMAZICON), 0.2 mg, intravenous, Once PRN, Matt Cormier M.B., B.Ch., B.A.O. ??? [MAR Hold] fluticasone furoate-vilanterol 100-25 mcg/actuation inhaler 1 puff (BREO ELLIPTA DISKUS), 1 puff, inhalation, Daily, Leo Arnold M.D. ??? [MAR Hold] fluticasone propionate 50 mcg/actuation nasal spray 1 spray (FLONASE), 1 spray, each nostril, Daily, Leo Arnold M.D. ??? [COMPLETED] heparin (porcine) 1,000 unit/mL injection 5,300 Units, 60 Units/kg (Dosing Weight), intravenous, Once, 5,300 Units at 08/17/18 1321 AND heparin (porcine) 1,000 unit/mL injection 5,300 Units, 60 Units/kg (Dosing Weight), intravenous, PRN AND heparin (porcine) 1,000 unit/mL inject ion 2,600 Units, 30 Units/kg (Dosing Weight), intravenous, PRN AND heparin (porcine) 100 Units/mL in D5W 250 mL infusion, 0-40 Units/kg/hr (Dosing Weight), intravenous, Continuous, Jarek Chacon P.A.-C., M.S., Last Rate: 10.6 mL/hr at 08/17/18 1400, 12 Units/kg/hr at 08/17/18 1400 ??? [MAY Hold] loratadine tablet 10 mg (CLARITIN), 10 mg, oral, Daily at bedtime, Leo Arnold M.D. ??? midazolam (PF) injection 0.25 mg (VERSED), 0.25 mg, intravenous, Q2 Min PRN, Matt Cormier M.Jerome., B.Ch., B.A.O. ??? midazolam (PF) injection 0.5 mg (VERSED), 0.5 mg, intravenous, Once PRN, Matt Cormier M.Jerome., B.Ch., B.A.O. ??? midazolam (PF) injection 0.5 mg (VERSED), 0.5 mg, intravenous, Q2 Min PRN, Matt Cormier M.B.,B.Ch., B.A.O. ??? midazolam (PF) injection 1 mg (VERSED), 1 mg, intravenous, Q2 Min PRN, Matt Cormier M.B., B.Ch., B.A.O. ??? NaCl 0.9% infusion, 20 mL/hr, intravenous, Once PRN, Matt Cormier M.Jerome., B.Ch., B.A.O. ??? naloxone injection 0.2 mg (NARCAN), 0.2 mg, intravenous, Once PRN, Matt Cormier M.Jerome., B.Ch., B.A.O. ??? [MAY Hold] nitroglycerin SL tablet 0.4 mg (NITROSTAT), 0.4 mg, sublingual, Q5 Min PRN, Royal Kelly M.D. ??? ondansetron (PF) injection 4 mg (ZOFRAN), 4 mg, intravenous, Once PRN, Matt Cormier M.B., B.Ch., B.A.O. ??? [MAY Hold] pravastatin tablet 10 mg (PRAVACHOL), 10 mg, oral, Daily at bedtime, Leo Arnold M.D. ??? [MAY Hold] sodium chloride 0.9 % injection 10 mL, 10 mL, intravenous, PRN, Jarek Chacon P.A.-C., M.S. ??? [MAY Hold] sodium chloride 0.9 % injection 10 mL, 10 mL, intravenous, PRN, Leo Arnold M.D. ??? sodium chloride 0.9 % injection 10 mL, 10 mL, intravenous, PRN, Matt Cormier M.B., B.Ch., B.A.O. ??? [MAY Hold] sodium chloride 0.9 % injection 3 mL, 3 mL, intravenous, PRN, Jarek Chacon P.A.-C.,M.S. ??? [MAY Hold] sodium chloride 0.9 % injection 3 mL, 3 mL, intravenous, Q12H PAULINO, Jarek Chacon, P.A.-C., M.S., 3 mL at 08/17/18 0912 ??? [MAY Hold] sodium chloride 0.9 % injection 3 mL, 3 mL, intravenous, PRN, Leo Arnold M.D. ??? [MAY Hold] sodium chloride 0.9 % injection 3 mL, 3 mL, intravenous, Q12H PAUILNO, Leo Arnold M.D. ??? sodium chloride 0.9 % injection 3 mL, 3 mL, intravenous, PRN, Matt Cormier M.B., B.Ch., B.A.O. ??? sodium chloride 0.9 % injection 3 mL, 3 mL, intravenous, Q12H PAULINOGenia Alan M, M.B., B.Ch., B.A.O. ?? OBJECTIVE Vitals Temperature: [36.6 ??C-36.8 ??C] 36.8 ??C Heart Rate: [71-92] 86 Resp Rate: [8-23] 23 Blood Pressure: (81-136)/(38-86) 128/82 SpO2: [89 %-97 %] 96 % Flow Rate (L/min): [2 L/min] 2 L/min Pulse Rate: [71-93] 71 ?? Exam General: 67 y.o. year old female, appearing stated age, well developed, well nourished in no acute distress. Sitting upright in chair, speaking in full sentences. Skin: Warm, dry, intact Eyes: PERRLA, EOM intact, no scleral icterus. No conjunctival injection ENT: Mucous membranes moist, no oral lesions. Good dentition, normocephalic, atraumatic Lymph: No submandibular or supraclavicular lymphadenopathy Heart: Regular rate and rhythm, no murmur rub or gallop. Positive peripheral pulses. No peripheral extremity edema. No pain on palpation with stethoscope Lungs: Clear to auscultation bilaterally and throughout. Respirations even and non-labored. On room air. No cough. Abdomen: Soft, non-distended, non-tender to palpation throughout. No rebound or guarding. No splenomegaly Musculoskeletal/Joints: Bilateral upper and lower extremity strength 5/5, limited ROM of left shoulder. No joint erythema, swelling, tenderness. Mental: Alert and oriented to person place time and situation. Good historian. Neuro: A&O x3, cranial nerves 2-12 grossly intact, able to move all 4 extremities against gravity. ? ASSESSMENT / PLAN Ms. 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 ?? At this time, her symptoms are somewhat atypical, however given her troponinemia, elevated D-dimer, negative CT-PE, and risk factors including family history and previous radiation exposure my concern at this time is for possible type 1 NSTEMI. Somewhat complicating the picture is her noted hypotension on EMS arrival which could also present a possible type 2 NSTEMI with demand ischemia resulting in her troponinemia. At this time we will plan for cardiac catheterization to evaluate her coronary anatomy and for possible intervention if necessary. ?? Plan for Today: -Coronary angiogram -Clopidogrel load -Consider TTE ?? #1 Non-ST Elevation Myocardial Infarction (HCC), presumed type 1 -ASA, clopidogrel, heparin, pravastatin -Coronary angiogram 08/17 -AM A1c/Lipid panel ?? #2 Asthma (no PFTs on file) -Continue home loratadine, fluticasone nasal, and fluticasone inhaler -PRN albuterol-ipratropium -Mild peribronchial thickening on CT, consistent with known asthma, if febrile or increased sputum production consider procalcitonin and/or empiric treatment with antibiotic therapy ?? Diet: NPO VTE Prophylaxis: Therapeutic anticoagulation with heparin Code Status was reviewed, wishes to be Full Code. Discussed on admission. Alternate decision maker is , Vanessa Disposition: Home self-care, cardiac rehab consult Please do not hesitate to page the Ischemic Cardiology Service pager at [phone] with questions. ?? Leo Arnold M.D. 08/17/18 documented in this encounter Procedure Notes Royal Kelly M.D. - 08/17/2018 1:08 PM CDTAssociated Order(s): CRITICAL CARE Procedure Critical Care Performed by: ROYAL KELLY Authorized by: ROYAL KELLY Critical care provider statement: Critical care total time (minutes): 35 Critical care time was exclusive of: Separately billable procedures and treating other patients andteaching time Critical care was necessary to treat or prevent imminent or life-threatening deterioration of the following conditions: Cardiac failure Critical care was time spent personally by me on the following activities: Blood draw for specimens, ordering and performing treatments and interventions, ordering and review of laboratory studies, ordering and review of radiographic studies, development of treatment plan with patient or surrogate, evaluation of patient's response to treatment, review of old charts, pulse oximetry and re- evaluation of patient's condition Royal Kelly M.D. 08/17/18 1308 documented in this encounter Consult Notes Bailee Gudino R.N. - 08/18/2018 12:15 PM CDT Reason for phone call: Referral to cardiac rehab program Liaison spoke with the patient/family to discuss cardiac rehab referral. 1. Participation in a Phase II cardiac rehabilitation program is recommended. Patient was informed about what cardiac rehabilitation has to offer and why it is beneficial. The plan of care for the rehabilitation program consists of risk factor modification, monitored and supervised exercise and assistance in the recovery process with ongoing education and support. Patient will discuss participation in cardiac rehabilitation program with local physician who can provide referral if participation is recommended. 2. Eligibility: [place] 3. Exceptions/exclusions: None 4. Referral: Patient will consider participating in a cardiac rehabilitation program. Patient was provided with contact information for local programs. 5. Appropriate information will be sent to the receiving cardiac rehabilitation program as applicable. Recommend that patient check with his/her insurance company to verify coverage of the cost of cardiac rehabilitation program visits. documented in this encounter Nursing Notes Radha Austin R.N. - 08/18/2018 12:09 PM CDT CARDIOVASCULAR - ADULT ??? Maintains optimal cardiac output and hemodynamic stability Adequate for Discharge ??? Achieve stable or improve cardiac rhythm Adequate for Discharge DISCHARGE PLANNING ??? Patient discharge needs identified Adequate for Discharge INFECTION - ADULT ??? Absence of infection during hospitalization Adequate for Discharge KNOWLEDGE DEFICIT ??? Patient/family/caregiver demonstrates understanding of disease process, treatment plan, medications, and discharge instructions Adequate for Discharge METABOLIC/FLUID AND ELECTROLYTES - ADULT ??? Electrolytes maintained within normal limits Adequate for Discharge ??? Hemodynamic stability and optimal renal function maintained Adequate for Discharge ??? Glucose maintained within prescribed range Adequate for Discharge PAIN - ADULT ??? PT VERBALIZES/DEMONSTRATES ADEQUATE COMFORT LEVEL OR BASELINE Adequate for Discharge RESPIRATORY - ADULT ??? Achieves optimal ventilation and oxygenation Adequate for Discharge SAFETY ADULT ??? Maintain a safe environment Adequate for Discharge SAFETY ADULT - RISK FOR FALL AND OR FALL INJURY ??? Patient remains free from fall/fall injury Adequate for Discharge SKIN/TISSUE INTEGRITY ??? Skin/Tissue integrity maintained or improved Adequate for Discharge ??? Oral and Nasal mucous membranes remain intact Adequate for Discharge Shift Goals: Clinical Goals for the Shift: Pt will remain free of chest pain Identify possible barriers to meeting goals/advancing plan of care: None End of Shift Summary: AVS and education provided to pt and spouse. Pt was able to teach back all material. Right femoral site was assessed with no hematoma present. Wendy Brandt R.N. - 08/18/2018 5:48 AM CDT Shift Goals: Clinical Goals for the Shift: pt will be free from chest pain throughout shift Identify possible barriers to meeting goals/advancing plan of care: NSTEMI, CAD End of Shift Summary: pt remained free of chest pain and hemodynamically stable throughout shift, ptslept comfortably in bed most of the night. RN will continue to monitor and assess. documented in this encounter ED Notes Jarek Chacon P.A.-C., M.S. - 08/17/2018 9:38 AM CDT SUBJECTIVE CHIEF COMPLAINT/REASON FOR VISIT Shortness of Breath (asthma, neb given) HISTORY OF PRESENT ILLNESS Jennifer Schwab is a pleasant 67 y.o. female with a history of Breast cancer status post chemotherapy and radiation therapy in who presents to [facility] emergency room via ambulance after experiencing shortness of breath. Patient states that she is here from out of town to have an appointment with Oncology to follow up. She states this was a long time scheduled appointment. She explains that she has had some nasal congestion for the past week or 2. She states however that when shegot up today she felt that this was worse. She states that she took her normal inhalers and was noting more shortness of breath. She states that she felt slightly lightheaded. She states that this shortness of breath worsened even with nebulizer. She states that she felt like she was getting better and called for help. She states she did notice some pressure in the middle the chest with all this. Shestates that that seems better now. EMS reports that when they arrived the patient had a blood pressure that was in the 80 systolic and her oxygen saturation was in the 80s. They state that she came up initially with 15 L face mask, but after the nebulizer she improved to a nasal cannula. Patient denies any history of blood clots. She denies any recent leg pain or swelling. She denies any trauma or falls. She denies any fever, chills, or night sweats, other than a week or 2 ago when she felt warm andsweaty for a couple of days. She states she has been able to eat and drink normally. She denies any nausea, vomiting, or abdominal pain. She denies any complaints with her bowel or bladder habits. REVIEW OF SYSTEMS Constitutional: Negative for appetite change, chills, diaphoresis, fatigue and fever. HENT: Positive for congestion. Negative for rhinorrhea. Eyes: Negative for visual disturbance. Respiratory: Positive for chest tightness and shortness of breath. Negative for cough. Cardiovascular: Negative for chest pain and leg swelling. Gastrointestinal: Negative for abdominal pain, constipation, diarrhea, nausea and vomiting. Genitourinary: Negative for dysuria and flank pain. Musculoskeletal: Negative for myalgias and extremity pain. Skin: Negative for rash. Neurological: Positive for light-headedness. Negative for dizziness and headaches. OBJECTIVE Initial Vitals Temperature Pulse Rate Heart Rate Resp Rate Blood Pressure SpO2 08/17/18 0830 08/17/18 0828 08/17/18 0830 08/17/18 0830 08/17/18 0830 08/17/18 0828 36.6 ??C 93 92 17 136/82 (!) 89 % Pain Score 08/17/18 0830 0 - No pain PHYSICAL EXAMINATION Constitutional: She appears well-developed and well-nourished. No distress. HENT: Head: Normocephalic and atraumatic. No signs of injury. Nose: No nasal discharge. Mouth/Throat: Oropharynx is clear and moist. Mucous membranes are moist. Eyes: Conjunctivae are normal. Cardiovascular: Normal rate and regular rhythm. Edema: no edema noted Pulmonary/Chest: Effort normal and breath sounds normal. There is normal air entry. No respiratory distress. Abdominal: Soft. Bowel sounds are normal. There is no tenderness. Musculoskeletal: She exhibits no edema. Neurological: She is alert and oriented to person, place, and time. Skin: Skin is warm and dry. She is not diaphoretic. Nursing note and vitals reviewed. ASSESSMENT/PLAN Impression and Plan Please see the above interview and exam. Here, the patient is better than she was in the field. She does continue to have a mild hypoxia in is left on 2 L nasal cannula, which improved her to the low 90s. We will begin with chest x- ray, laboratory studies including VBG, cardiac biomarkers, BNP, and a D-dimer. The D-dimer was elevated above any just was cut off, so ordered a CT pulmonary angiogram looking for PE. CT showed no pulmonary embolism and did show some mild peribronchial thickening. Patientfelt that this would not be likely to anything infectious. Her superficial oxygen had been discontinued. She was walked around by the nurses and was no longer hypoxic Even with ambulation. However, her2nd troponin showed a significant delta. We therefore felt this may be consistent with an NSTEMI. A 2nd EKG was ordered and did not show acute changes. Ordered oral aspirin and a heparin nomogram at a moderate intensity. Discussed patient with ischemic Cardiology, who graciously accepted patient in admission. Patient transported to the [facility] without further noted incident.. Final Diagnoses: as of Aug 17 1656 Non-ST Elevation Myocardial Infarction (HCC) Jarek Chacon P.A.-C., M.S. 08/17/188 Royal Kelly M.D. - 08/17/2018 9:09 AM CDT I have personally seen and examined this patient. I have fully participated in the care of this patient. I have reviewed all clinical information including history, physical exam, orders, and plan. I agree with the note of the BARREL LOADER/PA. This is a very pleasant 67 y.o. female who presents to the Emergency Department at the [facility] with wheezing and shortness of breath. She received albuterol nebulizer during EMS transfport and is much improved per EMS. On exam her lungs are clear to auscultation she issaturating 93%. Her respiratory rate is normal. Her blood gas reveals no evidence of respiratory acidosis. We will check CBC to look for severe leukocytosis or anemia. We will check electrolytes to look for acute electrolyte abnormality, metabolic acidosis, or renal failure. We ordered a chest x-ray to look for focal infiltrate, pneumothorax, or mass. Check d-dimer as screening test for pulmonary embolism. We will use age-adjusted d-dimer to interpret the result. We ordered a troponin to screen for cardiac ischemia. ED Course as of Aug 20 818MonAugust 17, 2018 1306 Evidence of NSTEMI with elevated troponins. Will start heparin and admit to ischemic heart disease. Final Diagnoses: as Aug 20 818 Non-ST Elevation Myocardial Infarction (HCC) Royal Kelly M.D. 08/20/18 0820 documented in this encounter Miscellaneous Notes Hospital Course - Miguel Roger M.D. 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 On the morning prior to admission she noted abrupt onset nausea with one episode of associated emesis prior to developing acute onset chest tightness and shortness of breath that did not improve with home inhalers. EMS was called and on field evaluation she was noted to be hypotensive with systolics in the 80s and hypoxemic with O2 saturation in the 80s as well. She was placed on 15L face mask and brought to [facility] Emergency Department for further evaluation. In the ED, she underwent evaluation which showed a normal BMP/CBC, INR of 1.1, unremarkable CXR, libby D-Dimer of 1128. She subsequently underwent CT-PE which was negative for PE and only showed mild peribronchial thickening attributed to her asthma. She was then admitted to the ischemic cardiology service for further workup. She was loaded with aspirin and clopidogrel in addition to being placed on therapeutic heparin. She underwent coronary angiography on 08/17 which revealed minimal disease and no acute occlusion to require PCI. Post-procedure she was monitored overnight without complication. Patient's symtoms are likleydue to myocardial infarction with no obstructive coronary atherosclerosis. A1c was 5.5%. Lipid panelrevealed Cholesterol, Total, S: 155; Cholesterol, HDL, S: 54 ; Calculated LDL: 78. As no PCI was completed, clopidegral was stopped. She was discharged on aspirin, continued home pravastatin given satisfactory lipid profile. No beta-blockade agent initiated given no CAD on cath, no elevated HR, no hypertension. If she continues to have anginal symptoms as an outpatient she can be initiated on this agent with observation of her asthma symptoms. Given her SOB/GATES without obvious CAD, asthma exacerbation she may benefit from outpatient transthoracic echocardiogram. She was discharged home in stable condition on 08/18. documented in this encounter Plan of Treatment Upcoming Encounters Date Type Specialty Care Team Description 01/27/2022 Clinical Communication Admitting/Central Scheduling 01/31/2022 Appointment Laboratory Medicine Maite Dennis P.A.-C. [address] [place] [phone] 01/31/2022 Appointment Radiology Maite Dennis P.A.-C. [address] [place] [phone] 01/31/2022 Office Visit Oncology Maite Dennis P.A.-C. [address] [place] [phone] documented as of this encounter Procedures Procedure Name Priority Date/Time Associated Comments Diagnosis LIPID PANEL, S STAT 08/18/2018 6:25 Results fo r AM CDT this procedure are in the results section. CBC WITHOUT STAT 08/18/2018 6:25 Results for DIFFERENTIAL, B AM CDT this procedu re are in the results section. HEMOGLOBIN A1C, B STAT 08/18/2018 6:25 Results for AM CDT this procedure are in the results section. BASIC METABOLIC PANEL, STAT 08/18/2018 6:25 Re sults for S/P AM CDT this procedure are in the results section. HEPARIN LEVEL ANTI-XA Timed 08/17/2018 7:30 Res ults for ASSAY, P PM CDT this procedure are in the results section. CARDIAC Routine 08/17/2018 4:37 Non-ST Elevation Results for CATHETERIZATION PM CDT Myocardial this procedu re Infarction (HCC) are in the results section. ACT, POCT, B Routine 08/17/2018 4:31 Results for PM CDT this procedure are in the results section. ADULT OXYGEN THERAPY Routine 08/17/2018 3:01 PM CDT ADULT OXYGEN THERAPY Routine 08/17/2018 3:01 PM CDT ADULT OXYGEN THERAPY Routine 08/17/2018 3:01 PM CDT CRITICAL CARE Routine 08/17/2018 1:08 Results for PM CDT this procedure are in the results section. ECG STAT 08/17/2018 Results for 12:55 PM CDT this procedure are in the results section. TROPONIN T, 2H/6H, 5TH Timed 08/17/2018 Resul ts for GEN, P 11:42 AM CDT this procedure are in the results section. CT CHEST ANGIOGRAM AND RAD - Semiurgent 08/17/2018 R esults for PULMONARY ARTERIES (Fast; most ED 10:35 AM CDT this pr ocedure WITH IV CONTRAST patients; some are in th e inpatients) results section. DX CHEST AP OR PA AND RAD - Semiurgent 08/17/2018 9:04 Results for LATERAL 2 VIEWS (Fast; most ED AM CDT this proce dure patients; some are in the inpatients) results section. ABG AND LYTES CG8+, Routine 08/17/2018 8:45 Resul ts for POCT, B AM CDT this procedure are in the results section. TROPONIN T, BASELINE, STAT 08/17/2018 8:44 Res ults for 5TH GEN, P AM CDT this procedure are in the results section. BLOOD GAS, POCT, B STAT 08/17/2018 8:44 Result s for AM CDT this procedure are in the results section. NT-PRO B-TYPE STAT 08/17/2018 8:44 Results for NATRIURETIC PEPTIDE AM CDT this pro cedure (BNP), S are in the results section. PROTHROMBIN TIME (PT), STAT 08/17/2018 8:44 Re sults for P AM CDT this procedure are in the results section. D-DIMER, P STAT 08/17/2018 8:44 Results for AM CDT this procedure are in the results section. CBC WITH DIFFERENTIAL, STAT 08/17/2018 8:44 Re sults for B AM CDT this procedure are in the results section. TYPE AND SCREEN Routine 08/17/2018 8:44 Results f or AM CDT this procedure are in the results section. BASIC METABOLIC PANEL, STAT 08/17/2018 8:44 Re sults for S/P AM CDT this procedure are in the results section. ECG STAT 08/17/2018 8:38 Results for AM CDT this procedure are in the results section. PULSE OXIMETRY, STAT 08/17/2018 8:33 CONTINUOUS AM CDT PULSE OXIMETRY, STAT 08/17/2018 8:33 CONTINUOUS AM CDT documented in this encounter Results (ABNORMAL) CBC without Differential (08/18/2018 6:25 AM CDT) [facility] Method Time Signature Hemoglobin 11.8 11.6 - 08/18/2018 [facility] 15.0 g/dL 7:05 AM CDT LABORATORIES [facility] Hematocrit 36.2 35.5 - 08/18/2018 [facility] 44.9 % 7:05 AM CDT [facility] Erythrocytes 3.65 (L) 3.92 - 08/18/2018 [facility] 5.13 7:05 AM CDT LABORATORIES - x10(12)/L [facility] MCV 99.2 (H) 78.2 - 08/18/2018 [facility] 97.9 fL 7:05 AM CDT [facility] RBC Distrib 12.9 12.2 - 08/18/2018 [facility] Width 16.1 % 7:05 AM CDT [facility] Platelet Count 246 157 - 371 08/18/2018 [facility] x10(9)/L 7:05 AM CDT LABORATORIES [facility] Leukocytes 7.9 3.4 - 9.6 08/18/2018 [facility] x10(9)/L 7:05 AM CDT [facility] Specimen Anatomical Collection Method Collection Time Receive d Time (Source) Location / / Volume Laterality Blood (Blood, 08/18/2018 6:25 AM 08/19/19 19 6:56 Venous) CDT AM CDT Jarek Chacon P.A.-C. LAB BLOOD ADD-ON Performing Organization Address City/[facility]/ZIP Code Phon e Number [facility] LABORATORIES - [address] [place] [phone] [facility] Hemoglobin A1c (08/18/2018 6:25 AM CDT) Analysis Performed At Patho logist Time Signature Hemoglobin A1c, 5.5 4.0 - 5.6 08/18/2018 [facility] B % 7:42 AM CDT [facility] Specimen Anatomical Collection Method Collection Time Receive d Time (Source) Location / / Volume Laterality Blood (Blood, 08/18/2018 6:25 AM 08/19/19 19 6:56 Venous) CDT AM CDT Moncho Caballero M.D., Ph.D. LAB BLOOD ADD-ON Performing Organization Address City/[facility] Code Phon e Number [facility] LABORATORIES - [address] [place] [phone] [facility] Lipid Panel (08/18/2018 6:25 AM CDT) P athologist Signature Cholesterol, 155 mg/dL 08/18/2018 [facility] Total 7:46 AM CDT [facility] Comment: ----REFERENCE VALUE---- Desirable: < 200 Borderline high: 200 - 239 High: > or = 240 Triglycerides 114 mg/dL 08/18/2018 7:46 AM CDT [facility] Comment: ----REFERENCE VALUE---- Normal: <150 Borderline high: 150-199 High: 200-499 Very high: > or =500 Cholesterol, HDL, S 54 >=50 mg/dL 08/18/2018 7:46 AM CDT [facility] Calculated LDL 78 mg/dL 08/18/2018 7:46 AM CDT [facility] Comment: ----REFERENCE VALUE---- Desirable: <100 Above Desirable: 100-129 Borderline high: 130-159 High: 160-189 Very high: > or =190 Cholesterol, Non-HDL, 101 mg/dL 08/18/2018 7:4 6 AM CDT [facility] [place] [facility] Comment: ----REFERENCE VALUE---- Desirable: <130 Above Desirable: 130-159 Borderline high: 160-189 High: 190-219 Very high: > or =220 Specimen Anatomical Collection Method Collection Time Receive d Time (Source) Location / / Volume Laterality Blood (Blood, 08/18/2018 6:25 AM 08/19/19 19 6:55 Venous) CDT AM CDT Moncho Caballero M.D., Ph.D. LAB BLOOD ADD-ON Performing Organization Address City/State/ZIP Code Phon e Number [facility] LABORATORIES - [address] [place], [place] [address] [facility] BMP (Basic Metabolic Panel) (08/18/2018 6:25 AM CDT) Analysis Performed At Patho logist Time Signature Potassium, S 4.4 3.6 - 5.2 08/18/2018 [facility] mmol/L 7:46 AM CDT LABORATORIES [facility] Sodium, S 141 135 - 145 08/18/2018 [facility] mmol/L 7:46 AM T LABORATORIES [facility] Chloride, S 107 98 - 107 08/18/2018 [facility] mmol/L 7:46 AM CDT LABORATORIES [facility] Bicarbonate, S 23 22 - 29 08/18/2018 [facility] mmol/L 7:46 AM T LABORATORIES [facility] Anion Gap 11 7 - 15 08/18/2018 [facility] 7:46 AM T LABORATORIES [facility] BUN (Blood Urea 18 6 - 21 08/18/2018 [facility] Nitrogen), S mg/dL 7:46 AM T [facility] Creatinine 0.80 0.59 - 08/18/2018 [facility] 1.04 mg/dL 7:46 AM CDT LABORATORIES [facility] eGFR-Non 75 >=60 08/18/2018 [facility] Black/ mL/min/BSA 7:46 AM CDT LABORATORIES [facility] Comment: ----ADDITIONAL INFORMATION---- Estimated GFR calculated using the 2009 CKD_EPI creatinine equation. eGFR-Black/ 87 >=60 mL/min/BSA 08/18/2018 7:46 [facility] [place] CDT LABORATORIES [facility] Comment: ----ADDITIONAL INFORMATION---- Estimated GFR calculated using the 2009 CKD_EPI creatinine equation. Calcium, Total, S 8.9 8.8 - 10.2 mg/dL 08/18/2018 7:46 AM [facility] CDT [facility] Glucose, S 104 70 - 140 mg/dL 08/18/2018 7:46 AM [facility] CDT LABORATORIES - [facility] S Specimen Anatomical Collection Method Collection Time Receive d Time (Source) Location / / Volume Laterality Blood (Blood, 08/18/2018 6:25 AM 08/19/19 19 6:55 Venous) CDT AM CDT Moncho Caballero M.D., Ph.D. LAB BLOOD ADD-ON Performing Organization Address City/[facility] Code Phon e Number [facility] LABORATORIES - [address] Heparin Anti-Xa Assay (08/17/2018 7:30 PM CDT) P athologist Signature Heparin <0.10 IU/mL 08/17/2018 [facility] Anti-Xa, P 8:10 PM CDT [facility] Comment: UFH therapeutic range: ?? 0.30-0.70 IU/mL LMWH therapeutic range: 0.50-1.00 IU/mL 0.50-1.00 IU/mL for twice daily dosing ? ? 1.00-2.00 IU/mL for once daily dosing (sample obtained 4-6 hours following sub cutaneous injection) LMWH prophylactic range:0.10-0.30 IU/mL ----ADDITIONAL INFORMATION---- Heparin Anti-Xa is used to measure hepar in concentrations in patients receiving low molecular weig ht heparin (LMWH) or unfractionated heparin (UFH). Specimen Anatomical Collection Method Collection Time Receive d Time (Source) Location / / Volume Laterality Blood (Blood, 08/17/2018 7:30 PM 08/18/19 19 7:46 Venous) CDT PM CDT Royal Kelly M.D. LAB BLOOD NON ADD-ON Performing Organization Address City/[facility]/ZIP Code Phon e Number [facility] - [address] [phone] [facility] CORONARY ANGIOGRAPHY (08/17/2018 4:37 PM CDT) Anatomical Region Laterality Modality X-Ray Angiography Specimen (Source) Anatomical Collection Method Collection Time Re ceived Time Location / / Volume Laterality Biopsy 08/17/2018 4:03 PM CDT Narrative 08/17/2018 5:50 PM CDT This result has an attachment that is no t available. See PDF For Result Procedure Note Theron Awan M.D. - 08/17/2018Fo rmatting of this note might be different from the original. See PDF For Result Moncho Caballero M.D., Ph.D. CV CARDIAC CATH PROCEDUR ES (ABNORMAL) ACT (Activated Clotting Time), POCT (08/17/2018 4:31 PM CDT) P athologist Signature Activated 160 (H) 84 - 139 08/17/[address] Clotting Time, sec 4:36 PM CDT [facility] POCT INPATIENT LABS Specimen Anatomical Collection Method Collection Time Receive d Time (Source) Location / / Volume Laterality Blood 08/17/2018 4:31 PM 9 4:36 CDT PM CDT Unknown Provider LAB POCT ORDERABLES - DEVICE Performing Organization Address City/State/ZIP Code Phon e Number POC RST [facility] INPATIENT LABS [address] [facility] [place] [address] Critical Care (08/17/2018 1:08 PM CDT) Narrative Royal Kelly M.D. - 08/17/2018 1: 08 PM CDT Royal Kelly M.D. ? 08/17/2018 ??1:08 PM Critical Care Performed by: ROYAL KELLY Authorized by: ROYAL KELLY Critical care provider statement: ??Critical care total time (minutes): ? ?35 ??Critical care time was exclusive of: ??Separately billable procedures and treating other patients and teaching marcin selin ??Critical care was necessary to treat or prevent imminent or life-threatening deterioration of the [facility] conditions: ??Cardiac failure ??Critical care was time spent personal ly by me on the following activities: ??Blood draw for specimens, ordering and performing treatments and interventions, ordering and review o f laboratory studies, ordering and review of radiographic studies, developm ent of treatment plan with patient or surrogate, evaluation of patient's re sponse to treatment, review of old charts, pulse oximetry and re-evaluation of patient's condition Royal Kelly M.D. PROCEDURE/MINOR SURGICAL ORD ERABLES ECG 12 Lead (08/17/2018 12:55 PM CDT) P athologist Signature Ventricular Rate 79 BPM MUSE ECG/Min MI Interval 170 ms MUSE QRSD Interval 68 ms MUSE QT Interval 394 ms MUSE QTC Interval 451 ms MUSE P [place] 54 degrees MUSE R [place] 7 degrees MUSE T Wave [place] 50 degrees MUSE Specimen Anatomical Collection Method Collection Time Receive d Time (Source) Location / / Volume Laterality 08/17/2018 12:55 08/17/2018 1:52 PM CDT PM CDT Impressions MUSE - 08/17/2018 1:52 PM CDT Normal sinus rhythm Low voltage QRS in chest leads Low anterior forces When compared with ECG of 17-AUG-2018 08 :38, QTc has shortened Narrative This result has an attachment that is no t available. Procedure Note Alon Costa M.D. - 08/17/2018Fo rmatting of this note might be different from the original. IMPRESSION: Normal sinus rhythm Low voltage QRS in chest leads Low anterior forces When compared with ECG of 17-AUG-2018 08 :38, QTc has shortened Jarek Chacon P.A.-C. ECG ORDERABLES Performing Organization Address City/State/ZIP Code Phon e Number MUSE MUSE NA (ABNORMAL) Troponin T, 2H/6H, 5th Gen (08/17/2018 11:42 AM CDT) Patholo gist Method Time Signature Troponin T, 2 35 (H) <=10 ng/L 08/17/2018 [facility] hr, 5th gen 12:18 PM CDT LABORATORIES [facility] 2H Delta 22 ng/L 08/17/2018 [facility] 12:18 PM CDT LABORATORIES [facility] 2H Delta Changing 08/17/2018 [facility] Interp 12:18 PM CDT LABORATORIES [facility] Comment: Evaluate for acute myocardial i njury Troponin T, 6 hr, 23 (H) <=10 ng/L 08/17/2018 3:50 PM [facility] 5th gen CDT LABORATORIES - [facility] 6H Delta 10 ng/L 08/17/2018 3:50 PM [facility] CDT LABORATORIES [facility] 6H Delta Interp Not Changing 08/17/2018 3:50 PM [facility] CDT LABORATORIES - [facility] Specimen Anatomical Collection Method Collection Time Receive d Time (Source) Location / / Volume Laterality Blood (Blood, 08/17/2018 11:42 08/17/2018 Venous) AM CDT 11:46 AM CDT Narrative [facility] LABORATORIES - [facility] - 08/17/2018 3:50 PM CDT Specimen Information: Specimen ID: [id number] Specimen Type: Blood Specimen Collection Start Date: 08/18/19 11:42 AM Specimen Received Date: 08/17/2018 11:46 AM Specimen ID: [id number] Specimen Type: Blood Specimen Collection Start Date: 08/18/19 ??3:17 PM Specimen Received Date: 08/17/2018 ??3:2 2 PM Jarek Chacon P.A.-C. LAB BLOOD TROPONIN Performing Organization Address City/State/ZIP Code Phon e Number [facility] - [address] [place] [address] [facility] CT Chest Angiogram and Pulmonary Arteries with IV Contrast (08/17/2018 10:35 AM CDT) Anatomical Region Laterality Modality Chest, Cardiovascular RST LOS, Thoracic ARZ LOS, N/A Computed Tomography Thoracic FLA LOS Specimen (Source) Anatomical Collection Method Collection Time Re ceived Time Location / / Volume Laterality 08/17/2018 10:45 AM CDT Impressions 08/17/2018 10:52 AM CDT IMPRESSION: 1. No pulmonary embolism. 2. Mild peribronchiolar thickening with lower lobe predominance. This may represent underlying mild inflammatory o r infectious process. Narrative 08/17/2018 10:52 AM CDT EXAM: CT CHEST ANGIOGRAM AND PULMONARY ARTERIES WITH IV CONTRAST COMPARISON: Compared to CT dated 08/17/19 19. FINDINGS: Moderate aortic and major bran ch vessel calcifications. Moderate to severe coronary artery calcifications. H eart size normal. Trace pericardial effusion is unchanged. Mild aortic valve calcifications. No pulmonary arterial filling defect. Normal three-vessel aort ic arch. No mediastinal hematoma. Small hiatal hernia. Mild lower lobe predominant peribronchio lar thickening. No focal lung consolidation. No pleural effusion or pn eumothorax. Appearance is unchanged from yesterday's study. Left mastectomy and axillary lymph node dissection. No suspicious osseous lytic or blastic lesion. Mild elevation left h emidiaphragm. Procedure Note Shahid Shelby M.D. - 08/17/2018For matting of this note might be different from the original. EXAM: CT CHEST ANGIOGRAM AND PULMONARY A RTERIES WITH IV CONTRAST COMPARISON: Compared to CT dated 08/17/19 19. FINDINGS: Moderate aortic and major bran ch vessel calcifications. Moderate to severe coronary artery calcifications. H eart size normal. Trace pericardial effusion is unchanged. Mild aortic valve calcifications. No pulmonary arterial filling defect. Normal three-vessel aort ic arch. No mediastinal hematoma. Small hiatal hernia. Mild lower lobe predominant peribronchio lar thickening. No focal lung consolidation. No pleural effusion or pn eumothorax. Appearance is unchanged from yesterday's study. Left mastectomy and axillary lymph node dissection. No suspicious osseous lytic or blastic lesion. Mild elevation left h emidiaphragm. IMPRESSION: 1. No pulmonary embolism. 2. Mild peribronchiolar thickening with lower lobe predominance. This may represent underlying mild inflammatory o r infectious process. Jarek Chacon P.A.-C. IMG CT PROCEDURES DX Chest AP or PA and Lateral 2 Views (08/17/2018 9:04 AM CDT) Anatomical Region Laterality Modality Chest, Thoracic RST LOS, Thoracic ARZ LOS, Thoracic N/A Digital Radiography FLA LOS Specimen (Source) Anatomical Collection Method Collection Time Re ceived Time Location / / Volume Laterality 08/17/2018 9:05 AM CDT Impressions 08/17/2018 9:06 AM CDT IMPRESSION: ??Left mastectomy. Calcified and mildly tortuous aorta. Chest otherwise negative. Narrative 08/17/2018 9:06 AM CDT EXAM: ??DX CHEST AP OR PA AND LATERAL 2 VIEWS Procedure Note Elissa Salinas M.D. - 08/17/2018Form atting of this note might be different from the original. EXAM: DX CHEST AP OR PA AND LATERAL 2 EWS IMPRESSION: Left mastectomy. Calcified a nd mildly tortuous aorta. Chest otherwise negative. Jarek Chacon P.A.-C. IMG DIAGNOSTIC IMAGING PROCE DURES (ABNORMAL) Blood Gas and Electrolytes CG8+, Point of Care, [place] Inpatient, Vascular Access Maxillofacial Surgeon (08/17/2018 8:45 AM CDT) athologist Signature Sample Site, Venstick 08/17/2018 POC [facility] LAB POCT 9:00 AM CDT SERVICES Comment: ----ADDITIONAL INFORMATION---- Performed at the Point of Care pH, POCT 7.33 (L) 7.35 - 7.45 08/17/2018 9:00 AM CDT POC [facility] LAB SERVICES Comment: ----ADDITIONAL INFORMATION---- Performed at the Point of Care pCO2, POCT 40 32 - 45 mm Hg 08/17/2018 9:00 AM CDT PO C [facility] LAB SERVICES Comment: ----ADDITIONAL INFORMATION---- Performed at the Point of Care pO2, POCT 39 (L) 83 - 108 mm Hg 08/17/2018 9:00 AM CDT PO C [facility] SERVICES Comment: ----ADDITIONAL INFORMATION---- Performed at the Point of Care Base, POCT -5 (L) -2 - 3 mmol/L 08/17/2018 9:00 AM CDT PO C [facility] SERVICES Comment: ----ADDITIONAL INFORMATION---- Performed at the Point of Care HCO3, POCT 21 (L) 22 - 26 mmol/L 08/17/2018 9:00 AM CDT P OC [facility] SERVICES Comment: ----ADDITIONAL INFORMATION---- Performed at the Point of Care Sodium, POCT, B 142 135 - 145 mmol/L 08/17/2018 9:0 0 AM CDT POC [facility] SERVICES Comment: ----ADDITIONAL INFORMATION---- Performed at the Point of Care Potassium, POCT, B 3.7 3.6 - 5.2 mmol/L 08/17/2018 9:0 0 AM CDT POC [facility] SERVICES Comment: ----ADDITIONAL INFORMATION---- Performed at the Point of Care Calcium, Ionized, 4.90 4.65 - 5.30 08/17/2018 9:00 AM P OC [facility] LAB POCT, B mg/dL CDT SERVICES Comment: ----ADDITIONAL INFORMATION---- Performed at the Point of Care pH POCT 7.33 (L) 7.35 - 7.45 08/17/2018 9:00 AM CDT POC [facility] SERVICES Comment: ----ADDITIONAL INFORMATION---- Performed at the Point of Care Glucose, POCT, B 174 (H) 70 - 140 mg/dL 08/17/2018 9:00 AM CDT POC [facility] LAB SERVICES Comment: ----ADDITIONAL INFORMATION---- Performed at the Point of Care Hematocrit, POCT, B 44.0 35.5 - 44.9 % 08/17/2018 9: 00 AM CDT POC [facility] LAB SERVICES Comment: ----ADDITIONAL INFORMATION---- Performed at the Point of Care Specimen Anatomical Collection Method Collection Time Receive d Time (Source) Location / / Volume Laterality Blood 08/17/2018 8:45 AM 9 9:01 CDT AM CDT Unknown Provider LAB POCT ORDERABLES - DEVICE Performing Organization Address [facility] Phon e Number POC [facility] LAB SERVICES [address] [place] [address] Type and Screen (with reflex Antibody ID) (08/17/2018 8:44 AM CDT) [facility] Method Time Signature ABORh O Pos Not 08/17/2018 [facility] applicable 5:41 PM LABORATORIES - CDT [facility] Antibody Negative Negative 08/17/2018 [facility] Screen 5:56 PM LABORATORIES - CDT [facility] Type & [id number] 08/17/2018 [facility] Screen 5:41 PM LABORATORIES - Expiration CDT [facility] Testing [place] DEFAULT 08/17/2018 [facility] Location 5:22 PM LABORATORIES - CDT [facility] Specimen Anatomical Collection Method Collection Time Receive d Time (Source) Location / / Volume Laterality Blood (Blood, 08/17/2018 8:44 AM 08/18/19 19 5:22 Venous) CDT PM CDT Moncho Caballero M.D., Ph.D. LAB BLOOD BANK TEST ORDE JOY Performing Organization Address City/[facility]/ZIP Code Phon e Number [facility] LABORATORIES - [address] [place], [place] [address] [facility] PT (Prothrombin Time) with INR (08/17/2018 8:44 AM CDT) [facility] [employer] Method Time Signature Prothrombin 11.7 9.4 - 12.5 08/17/2018 [facility] Time, P sec 8:57 AM CDT LABORATORIES - [facility] INR 1.1 0.9 - 1.1 08/17/2018 [facility] 8:57 AM CDT [facility] Comment: ----ADDITIONAL INFORMATION---- Standard intensity warfarin therapeutic range: 2.0 to 3.0 ?? High intensity warfarin therapeutic rang e: 2.5 to 3.5 Specimen Anatomical Collection Method Collection Time Receive d Time (Source) Location / / Volume Laterality Blood (Blood, 08/17/2018 8:44 AM 08/18/19 8:49 Venous) CDT AM CDT Jarek Chacon P.A.-C. LAB BLOOD ADD-ON Performing Organization Address [facility] Phon e Number [facility] LABORATORIES - [address] [phone] [facility] (ABNORMAL) D-Dimer (08/17/2018 8:44 AM CDT) P athologist Signature D-Dimer, P 1128 (H) <=500 08/17/2018 [facility] ng/mL FEU 8:59 AM CDT [facility] Comment: D-dimer concentrations increase with age . ??For DVT/PE exclusion, in addition to clinical pre-test probabi lity, age-adjusted D-dimer cut-offs are suggested for patients >50 years old. For additional information refer to the D-dimer assay i n the Laboratory Test Catalog (LTC) and/or [employer] (MARCIO) . ----ADDITIONAL INFORMATION---- D-dimer values less than or equal to 500 ng/mL fibrinogen equivalent units (FEU) may be used in co njunction with clinical pre-test probability to exclude deep vein thrombosis (DVT) and/or pulmonary emboli sm (PE). Specimen Anatomical Collection Method Collection Time Receive d Time (Source) Location / / Volume Laterality Blood (Blood, 08/17/2018 8:44 AM 08/18/19 19 8:49 Venous) CDT AM CDT Jarek Chacon P.A.-C. LAB BLOOD ADD-ON Performing Organization Address [facility] Phon e Number [facility] LABORATORIES - [address] [phone] [facility] (ABNORMAL) Troponin T, Baseline, 5th gen (08/17/2018 8:44 AM CDT) Analysis Performed At Patho logist Time Signature Troponin T, 13 (H) <=10 ng/L 08/17/2018 [facility] Baseline, 5th 9:10 AM CDT LABORATORIES - gen [facility] Specimen Anatomical Collection Method Collection Time Receive d Time (Source) Location / / Volume Laterality Blood (Blood, 08/17/2018 8:44 AM 08/18/19 19 8:49 Venous) CDT AM CDT Jarek Chacon P.A.-C. LAB BLOOD TROPONIN Performing Organization Address [facility] Phon e Number [facility] LABORATORIES - [address] [phone] [facility] NT-Pro B-Type Natriuretic Peptide (BNP) (08/17/2018 8:44 AM CDT) athologist Signature NT-Pro BNP 120 5 - 202 08/17/2018 [facility] pg/mL 9:22 AM CDT [facility] Comment: NT-proBNP values less than 300 pg/mL hav e a 99% negative predictive value for excluding acute congestive heart jose elias lure. A cutoff of 1200 pg/mL for patients with an eGFR<60 yields a diagno stic sensitivity and specificity of 89% and 72% for acute congestive heart f ailure. ??A diagnostic NT-proBNP cutoff of 900 pg/mL has been suggested i n adults 50-75 years of age in the absence of renal failure. Specimen Anatomical Collection Method Collection Time Receive d Time (Source) Location / / Volume Laterality Blood (Blood, 08/17/2018 8:44 AM 08/18/19 19 8:49 Venous) CDT AM CDT Jarek Chacon P.A.-C. LAB BLOOD ADD-ON Performing Organization Address City/[facility] Phon e Number [facility] LABORATORIES - [address] (ABNORMAL) BMP (Basic Metabolic Panel) (08/17/2018 8:44 AM CDT) Patholo gist Method Time Signature Potassium, P 3.8 3.6 - 5.2 08/17/2018 [facility] mmol/L 9:05 AM CDT [facility] Sodium, P 142 135 - 145 08/17/2018 [facility] mmol/L 9:05 AM CDT [facility] Chloride, P 107 98 - 107 08/17/2018 [facility] mmol/L 9:05 AM CDT [facility] Bicarbonate, P 21 (L) 22 - 29 08/17/2018 [facility] mmol/L 9:05 AM T [facility] Anion Gap, P 14 7 - 15 08/17/2018 [facility] 9:05 AM T [facility] BUN (Blood Urea 17 6 - 21 08/17/2018 [facility] Nitrogen), P mg/dL 9:05 AM [facility] Creatinine 0.85 0.59 - 08/17/2018 [facility] 1.04 mg/dL 9:05 AM T [facility] eGFR-Black/Afri 81 >=60 08/17/2018 [facility] can [place] mL/min/BSA 9:05 AM T [facility] Comment: ----ADDITIONAL INFORMATION---- Estimated GFR calculated using the 2009 CKD_EPI creatinine equation. eGFR Non-Black/ 70 >=60 mL/min/BSA 08/17/2018 9:05 AM [facility] [place] T [facility] Comment: ----ADDITIONAL INFORMATION---- Estimated GFR calculated using the 2009 CKD_EPI creatinine equation. Calcium, Total, P 9.2 8.8 - 10.2 08/17/2018 9:05 AM [facility] mg/dL CDT [facility] S Glucose, P 181 (H) 70 - 140 mg/dL 08/17/2018 9:05 AM [facility] Specimen Anatomical Collection Method Collection Time Receive d Time (Source) Location / / Volume Laterality Blood (Blood, 08/17/2018 8:44 AM 08/18/19 19 8:49 Venous) CDT AM CDT Jarek Chacon P.A.-C. LAB BLOOD ADD-ON Performing Organization Address City/State/ZIP Code Phon e Number [facility] LABORATORIES - [address] [place], [place] [address] [facility] (ABNORMAL) CBC with Differential (08/17/2018 8:44 AM CDT) [facility] Method Time Signature Hemoglobin 14.8 11.6 - 08/17/2018 [facility] 15.0 g/dL 8:53 AM [facility] Hematocrit 44.8 35.5 - 08/17/2018 [facility] 44.9 % 8:53 AM CDT [facility] Erythrocytes 4.47 3.92 - 08/17/2018 [facility] 5.13 8:53 AM CDT LABORATORIES - x10(12)/L [facility] MCV 100.2 (H) 78.2 - 08/17/2018 [facility] 97.9 fL 8:53 AM CDT LABORATORIES - [facility] RBC Distrib 12.7 12.2 - 08/17/2018 [facility] Width 16.1 % 8:53 AM CDT LABORATORIES - [facility] Platelet Count 314 157 - 371 08/17/2018 [facility] x10(9)/L 8:53 AM CDT LABORATORIES - [facility] Leukocytes 8.3 3.4 - 9.6 08/17/2018 [facility] x10(9)/L 8:53 AM CDT LABORATORIES - [facility] Neutrophils 6.23 1.56 - 08/17/2018 [facility] 6.45 8:53 AM CDT LABORATORIES - x10(9)/L [facility] Lymphocytes 1.60 0.95 - 08/17/2018 [facility] 3.07 8:53 AM CDT LABORATORIES - x10(9)/L [facility] Monocytes 0.26 0.26 - 08/17/2018 [facility] 0.81 8:53 AM CDT LABORATORIES - x10(9)/L [facility] Eosinophils 0.15 0.03 - 08/17/2018 [facility] 0.48 8:53 AM CDT LABORATORIES - x10(9)/L [facility] Basophils <0.03 0.01 - 08/17/2018 [facility] 0.08 8:53 AM CDT LABORATORIES - x10(9)/L [facility] Specimen Anatomical Collection Method Collection Time Receive d Time (Source) Location / / Volume Laterality Blood (Blood, 08/17/2018 8:44 AM 08/18/19 19 8:49 Venous) CDT AM CDT Jarek Chacon P.A.-C. LAB BLOOD ADD-ON Performing Organization Address City/State/ZIP Code Phon e Number [facility] LABORATORIES - [address] [place] [phone] [facility] Blood Gas, Venous, POCT (08/17/2018 8:44 AM CDT) Analysis Performed At Patho logist Time Signature ABG and Collected DEFAULT 08/17/2018 [facility] Lytes, POCT, 8:44 AM CDT LABORATORIES - B [facility] Specimen Anatomical Collection Method Collection Time Receive d Time (Source) Location / / Volume Laterality Blood (Other, 08/17/2018 8:44 AM 08/18/19 19 8:44 Specify in CDT AM CDT Comments) Jarek Chacon P.A.-C. LAB POCT ORDERABLES - DEVICE Performing Organization Address City/[facility]/ZIP Code Phon e Number [facility] LABORATORIES - [address] [place], [place] [address] [facility] ECG 12 Lead (08/17/2018 8:38 AM CDT) P athologist Signature Ventricular Rate 86 BPM MUSE ECG/Min MI Interval 160 ms MUSE QRSD Interval 76 ms MUSE QT Interval 406 ms MUSE QTC Interval 485 ms MUSE P [place] 56 degrees MUSE R [place] 21 degrees MUSE T Wave [place] 56 degrees MUSE Specimen Anatomical Collection Method Collection Time Receive d Time (Source) Location / / Volume Laterality 08/17/2018 8:38 AM 9 8:55 CDT AM CDT Impressions MUSE - 08/17/2018 8:55 AM CDT Normal sinus rhythm Prolonged QT When compared with ECG of 18-JAN-2016 13 :55, QT has lengthened Narrative This result has an attachment that is no t available. Procedure Note Alon Costa M.D. - 08/17/2018Fo rmatting of this note might be different from the original. IMPRESSION: Normal sinus rhythm Prolonged QT When compared with ECG of 18-JAN-2016 13 :55, QT has lengthened Jarek Chacon P.A.-C. ECG ORDERABLES Performing Organization Address City/[facility]/ZIP Code Phon e Number MUSE MUSE NA documented in this encounter Visit Diagnoses Diagnosis Non-ST Elevation Myocardial Infarction ( HCC) - Primary Non-ST Elevation Myocardial Infarction ( HCC) Asthma Mild Intermittent With History Of Tobacco Use (HCC) Non-ST Elevation Myocardial Infarction ( HCC) documented in this encounter Admitting Diagnoses Diagnosis Non-ST Elevation Myocardial Infarction ( HCC) documented in this encounter Administered Medications Inactive Administered Medications - up to 3 most recent administrations Medication Order MAR Action Action Date Dose Rate Site acetaminophen tablet 1,000 mg Given 08/18/2018 3:47 AM CDT 1,000 mg (TYLENOL) 1,000 mg, oral, Every 6 hours PRN, mild pain or score 1-3 of 10, moderate pain or score 4-6 of 10, headaches, Starting on Mon08/17/18 at 1915 Given 08/17/2018 8:40 PM CDT 1,000 mg aspirin chewable tablet 324 mg Given 08/17/2018 1:14 PM CDT 324 mg 324 mg, oral, Once, On Mon08/17/18 at 1257, For 1 dose aspirin chewable tablet 81 mg Given 08/18/2018 8:58 AM CDT 81 mg 81 mg, oral, Daily, First dose on Mon08/18/18 at 0900 benzocaine-menthol 15-3.6 mg per lozenge 1 lozenge (CEPACOL) 1 lozenge, oral, Every 2 hour PRN, sore throat, Starti ng on Mon08/17/18 at 1617 clopidogrel tablet 600 mg (PLAVIX) Given 08/17/2018 3:18 PM CDT 600 mg 600 mg, oral, Once, On Mon08/17/18 at 1445, For 1 dose clopidogrel tablet 75 mg (PLAVIX) Given 08/18/2018 8:58 AM CDT 75 mg 75 mg, oral, Daily, First dose on Mon08/18/18 at 0900 fluticasone furoate-vilanterol 100-25 Given 08/18/2018 8:58 AM C DT 1 puff mcg/actuation inhaler 1 puff (BREO ELLIPTA DISKUS) 1 puff, inhalation, Daily (RT), First dose on Mon08/18/18 at 0800, fluticasone/vilanterol diskus 100/25 mcg was interchanged for fluticasone/salmeterol MDI 250/50 mcg fluticasone propionate 50 mcg/actuation Given 08/18/2018 8:58 AM CDT 1 spray nasal spray 1 spray (FLONASE) 1 spray, each nostril, Daily, First dose on Mon08/18/18 at 0900 heparin (porcine) 1,000 unit/mL Given 08/17/2018 1:21 PM CDT 5,3 00 Units injection 5,300 Units 5,300 Units (rounded from 5,280 Units = 60 Units/kg ? 88 kg Dosing weight), intravenous, Once, On Mon08/17/18 at 1250, For 1 dose, Initial Loading Dose, Intensity type: Moderate heparin (porcine) 100 Rate/Dose Verify 08/17/2018 3:00 12.045 Units /kg/hr 10.6 mL/hr Units/mL in D5W 250 PM CDT mL infusion 0-40 Units/kg/hr ? 88 kg Dosing weight (0-35.2 mL/hr), intravenous, Continuous, Starting on Mon08/17/18 at 1250, Premix ba,000 Units in 250 mL, Intensity type: Moderate, Start infusion at: 12 units/kg/hr, antiXa level: Less than 0.1: IV push loading dose 60 units/kg; Continue infusion; Increase IV rate 4 units/kg/hour; Repeat antiXa: 6 hours, antiXa level: 0.1-0.19: IV push loading dose 30 units/kg; Continue infusion; Increase IV rate 2 units/kg/hour; Repeat antiXa: 6 hours, antiXa level: 0.2-0.5: No loading dose; Continue infusion; No change in IV rate; Repeat antiXa: 1st level, recheck at 6 hours then 2nd check and beyond, Next a.m., antiXa level: 0.51-0.6: No loading dose; Continue infusion; Decrease IV rate 1 unit/kg/hour; Repeat antiXa: 6 hours after rate change, antiXa level: 0.61-0.9: No loading dose; Stop infusion for 1 hour; Decrease IV rate 2 units/kg/hour; Repeat antiXa: 6 hours after Heparin resumed, antiXa level: 0.91 or greater: No loading dose; Stop infusion for 2 hours; Decrease IV rate 4 units/kg/hour; Repeat antiXa: 6 hours after Heparin resumed Rate/Dose Verify 08/17/2018 2:00 PM CDT 12 Units/kg/hr 10.6 mL/hr New Bag 08/17/2018 1:23 PM CDT 12 Units/kg/hr 10.6 mL/hr iohexol 350 mg iodine/mL solution 1-200 mL Given 08/17/2018 10:29 AM CDT 100 mL (OMNIPAQUE) 1-200 mL, intravenous, Once in imaging, contrast, Starting on Mon08/17/18 at 1028, For 1 dose, Imaging Protocol Orders, Dose per Radiant Medication Guidelines ipratropium-albuterol 0.5-2.5 mg/3 mL ne bulizer solution 3 mL (DUO-NEB) 3 mL, nebulization, 4 times daily PRN, w heezing, shortness of breath, Starting on Mon08/17/18 at 1616 loratadine tablet 10 mg (CLARITIN) Given 08/17/2018 8:40 PM CDT 10 mg 10 mg, oral, Daily at bedtime, First dose on Mon08/17/18 at 2100 melatonin tablet 3 mg 3 mg, oral, Bedtime PRN, sleep, Starting on Mon 9 at 1617 nitroglycerin SL tablet 0.4 mg (NITROSTA T) 0.4 mg, sublingual, Every 5 min PRN, yunier st pain, Starting on Mon08/17/18 at 1312, For 3 doses, May administer up to 3 dose s per episode. Dissolve under the tongue. Do NOT crush, chew, split or swallow tablet. pravastatin tablet 10 mg (PRAVACHOL) Given 08/17/2018 8:40 PM CDT 10 mg 10 mg, oral, Daily at bedtime, First dose on Mon08/17/18 at 2100 sodium chloride (PF) 0.9 % injection 1-1 00 mL Given 08/17/2018 10:29 AM CDT 30 mL 1-100 mL, intravenous, Once, On Mon08/17/18 at 1029, For 1 dose, Imaging Protocol Orders sodium chloride 0.9 % injection 10 mL 10 mL, intravenous, As needed, line care, Starting on Mon08/17/18 at 0832, Peripheral Intravenous Catheter and Rapid Infusion Cat heter, prior to blood sampling, post blood transfusion or post blood samplin g sodium chloride 0.9 % injection 3 mL 3 mL, intravenous, As needed, line care, Starting on Mon08/17/18 at 0832, Prior to and following infusion and between multi ple consecutive infusions: sodium chloride 0.9 % injection sodium chloride 0.9 % injection 3 mL Given 08/18/2018 8:59 AM CDT 3 mL 3 mL, intravenous, Every 12 hours scheduled, First dose on Mon08/17/18 at 0900, Peripheral Intravenous Catheter and Rapid Infusion Catheter, when no infusion to maintain patency Given 08/17/2018 9:12 AM CDT 3 mL sodium chloride 0.9 % injection 3 mL Given 08/17/2018 8:40 PM CDT 3 mL 3 mL, intravenous, Every 12 hours scheduled, First dose on Mon08/17/18 at 2100, Peripheral Intravenous Catheter and Rapid Infusion Catheter, when no infusion to maintain patency documented in this encounter Active and Recently Administered Medications Times are shown in CDT. Scheduled Medication Order 08/16/2018 08/17/2018 08/18/2018 aspirin chewable tablet 324 mg (COMPLETED) 1314 (Given - Provider: Charlotte Latham R.N.) 324 mg, oral, Once, On Mon08/17/18 at 1257, For 1 dose aspirin chewable tablet 81 mg 08 58 (Given - Provider: Radha Austin R.N.) 81 mg, oral, Daily, First dose on Mon08/18/18 at 0900 clopidogrel tablet 600 mg (PLAVIX) (COMPLETED) 1518 (Given - Provider: Radha Austin R.N.) 600 mg, oral, Once, On Mon08/17/18 at 1445, For 1 dose clopidogrel tablet 75 mg (PLAVIX) 0858 (Given - Provider: Radha Austin R.N.) 75 mg, oral, Daily, First dose on 08/18/18 at 0900 fluticasone furoate-vilanterol 100-25 mc g/actuation inhaler 1 puff (BREO ELLIPTA DISKUS) 1528 (MAY Hold - Provider: Niko keenan Provider, Automatic - Reason: Patient not available)1746 (MAY Unhold - Provider: Transfer Provider, Automatic) 0858 (Given - Provider: Radha Austin R.N.) 1 puff, inhalation, Daily (RT), First do se on 08/18/18 at 0800, fluticasone/vilanterol diskus 100/25 mcg was interchanged for fluticasone/salmeterol MDI 250/50 mcg fluticasone propionate 50 mcg/actuation nasal spray 1 spray (FLONASE) 1528 (MAY Hold - Provider: Transfer Provider, Automatic - Reason: Patient not available)1746 (MAY Unhold - Provider: Transfer Provider, Automatic) 0858 (Given - Provider: Radha Austin R.N.) 1 spray, each nostril, Daily, First dose on 08/18/18 at 0900 heparin (porcine) 1,000 unit/mL injection 5,300 Units (COMPL ETED) 1321 (Given - Provider: Charlotte Latham R.N.) 5,300 Units (rounded from 5,280 Units = 60 Units/kg ? 88 kg Dosing weight), intravenous, Once, On Mon08/17/18 at 1250, For 1 dose, Initial Loading Dose, Intensity type: Moderate loratadine tablet 10 mg (CLARITIN) 1528 ([facility] Hold - Provider: Transfer Provider, Automatic - Reason: Patient not available)1746 ([facility] Unhold - Provider: Transfer Provider, Automatic)204 (Given - Provider: Wendy Brandt R.NDeven) 10 mg, oral, Daily at bedtime, First dose on Mon08/17/18 at 2100 pravastatin tablet 10 mg (PRAVACHOL) 152 8 ([facility] Hold - Provider: Transfer Provider, Automatic - Reason: Patient not available)174 ([facility] Unhold - Provider: Transfer Provider, Automatic)2039 (Given - Provider: Wendy Brandt RDevenNDeven) 10 mg, oral, Daily at bedtime, First dose on Mon08/17/18 at 2100 sodium chloride (PF) 0.9 % injection 1-100 mL (COMPLETED) 1029 (Given - Provider: Alayna Jaime RDevenNDeven) 1-100 mL, intravenous, Once, On 08/17 at 1029, For 1 dose, Imaging Protocol Orders sodium chloride 0.9 % injection 3 mL 091 2 (Given - Provider: Charlotte Latham R.N.)1528 ([facility] Hold - Provider: Transfer Provider, Automatic - Reason: Patient not available)1746 ([facility] Unhold - Provider: Transfer Provider, Automatic) 0859 (Given - Provider: Radha Austin R.NDeven) 3 mL, intravenous, Every 12 hours schedu led, First dose on Mon08/17/18 at 0900, Peripheral Intravenous Catheter and Rapid Infusion Catheter, when no infusion to maintain patency 2041 (Not Given - Provider: Wendy Brandt RCurt - Reason: Other - Comment: only 1 IV) sodium chloride 0.9 % injection 3 mL 152 8 ([facility] Hold - Provider: Transfer Provider, Automatic - Reason: Patient not available)1746 ([facility] Unhold - Provider: Transfer Provider, Automatic)2040 (Given - Provider: Wendy Brandt R.N.) 0936 (Not Given - Provider: Radha Austin R.N. - Reason: Order parameters not met) 3 mL, intravenous, Every 12 hours schedu led, First dose on Mon08/17/18 at 2100, Peripheral Intravenous Catheter and Rapid Infusion Catheter, when no infusion to maintain patency Continuous Medication Order 08/16/2018 08/17/2018 08/18/2018 heparin (porcine) 100 Units/mL in D5W 250 mL infusion (CANCE LED) 1323 (New Bag - Provider: Charlotte Latham R.N.)1400 (Rate/Dose Verify - Provider: Maria Eugenia Murillo R.N.)1401 (Continue to Inpatient Floor - Provider: Maria Eugenia Murillo R.N.)1500 (Rate/Dose Verify - Provider: Radha Austin R.N.) 0-40 Units/kg/hr ? 88 kg Dosing weight (0-35.2 mL/hr), intravenous, Continuous, Starting on Mon08/17/18 at 1250, Premix ba,000 Units in 250 mL, Intensity type: Moderate, Start infusion at: 12 unit 2104 (Not Given - Provider: Wendy Brandt R.N. - Reason: Other - Comment: this medication was not running when 1900 RN started shift) s/kg/hr, antiXa level: Less than 0.1: IV push loading dose 60 units/kg; Continue infusion; Increase IV rate 4 units/kg/hour; Repeat antiXa: 6 hours, antiXa level: 0.1-0.19: IV push loading dose 30 units /kg; Continue infusion; Increase IV rate 2 units/kg/hour; Repeat antiXa: 6 hours, antiXa level: 0.2-0.5: No loading dose; Continue infusion; No change in IV rate; Repeat antiXa: 1st level, recheck at 6 hours then 2nd check and beyond, Next a. m., antiXa level: 0.51-0.6: No loading dose; Continue infusion; Decrease IV rate 1 unit/kg/hour; Repeat antiXa: 6 hours after rate change, antiXa level: 0.61-0.9: No loading dose; Stop infusion for 1 ho ur; Decrease IV rate 2 units/kg/hour; Repeat antiXa: 6 hours after Heparin resumed, antiXa level: 0.91 or greater: No loading dose; Stop infusion for 2 hours; Dec rease IV rate 4 units/kg/hour; Repeat antiXa: 6 hours after Hepa rin resumed PRN Medication Order 08/16/2018 08/17/2018 08/18/2018 acetaminophen tablet 1,000 mg (TYLENOL) 204 (Given - Provider: Wendy Brandt RDevenNDeven) 0347 (Given - Provider: Wendy Brandt R Curt) 1,000 mg, oral, Every 6 hours PRN, mild pain or score 1-3 of 10, moderate pain or score 4-6 of 10, headaches, Starting on Mon08/17/18 at 1915 benzocaine-menthol 15-3.6 mg per lozenge 1 lozenge (CEPACOL) 1 lozenge, oral, Every 2 hour PRN, sore throat, Starti ng on Mon08/17/18 at 1617 docusate sodium capsule 100 mg (COLACE) 1528 (MAY Hold - Provider: Transfer Provider, Automatic - Reason: Patient not available)1746 (MAY Unhold - Provider: Transfer Provider, Automatic) 100 mg, oral, 2 times daily PRN, constip ation, Starting Mon08/17/18 at 1500, Do NOT crush or chew. iohexol 350 mg iodine/mL solution (OMNIPAQUE) (CANCELED) 1629 (Given - Provider: Miles Watkins, B.Ch., B.A.O.) As needed, Starting Mon08/17/18 at 1629, Intraprocedure (CV) iohexol 350 mg iodine/mL solution 1-200 mL (OMNIPAQUE) (COMP LETED) 1029 (Given - Provider: Alayna Jaime R.N. - Comment: lot [id number]) 1-200 mL, intravenous, Once in imaging, contrast, Starting on Mon08/17/18 at 1028, For 1 dose, Imaging Protocol Orders, Dose per Radiant Medication Guidelines ipratropium-albuterol 0.5-2.5 mg/3 mL nebulizer solution 3 mL (D UO-NEB) 3 mL, nebulization, 4 times daily PRN, w daija hummelness of breath, Starting on Mon08/17/18 at 1616 lidocaine 10 mg/mL (1 %) injection (XYLOCAINE) (CANCELED) 1610 (Given - Provider: Miles Watkins, B.Ch., B.A.O.) As needed, Starting Mon08/17/18 at 1610, Intraprocedure (CV) melatonin tablet 3 mg 3 mg, oral, Bedtime PRN, sleep, Starting on Mon08/17/18 at 1617 nitroglycerin SL tablet 0.4 mg (NITROSTAT) 1528 ([facility] Hold - Provider: Transfer Provider, Automatic - Reason: Patient not available)1746 ([facility] Unhold - Provider: Transfer Provider, Automatic) 0.4 mg, sublingual, Every 5 min PRN, yunier st pain, Starting on Mon08/17/18 at 1312, For 3 doses, May administer up to 3 doses per episode. Dissolve under the tongue. Do NOT crush, chew, split or swallow tablet. sodium chloride 0.9 % injection 10 mL 15 28 ([facility] Hold - Provider: Transfer Provider, Automatic - Reason: Patient not available)1746 ([facility] Unhold - Provider: Transfer Provider, Automatic) 10 mL, intravenous, As needed, line care , Starting on Mon08/17/18 at 0832, Peripheral Intravenous Catheter and Rapid Infusion Catheter, prior to blood sampling, post blood transfusion or post blood sampling sodium chloride 0.9 % injection 10 mL 15 28 ([facility] Hold - Provider: Transfer Provider, Automatic - Reason: Patient not available)1746 ([facility] Unhold - Provider: Transfer Provider, Automatic) 10 mL, intravenous, As needed, line care , Starting Mon08/17/18 at 1500, Peripheral Intravenous Catheter and Rapid Infusion Catheter, prior to blood sampling, post blood transfusion or post blood sampling sodium chloride 0.9 % injection 3 mL 152 8 ([facility] Hold - Provider: Transfer Provider, Automatic - Reason: Patient not available)1746 ([facility] Unhold - Provider: Transfer Provider, Automatic) 3 mL, intravenous, As needed, line care, Starting on Mon08/17/18 at 0832, Prior to and following infusion and between multiple consecutive infusions: sodium chloride 0.9 % injection sodium chloride 0.9 % injection 3 mL 152 8 ([facility] Hold - Provider: Transfer Provider, Automatic - Reason: Patient not available)1746 ([facility] Unhold - Provider: Transfer Provider, Automatic) 3 mL, intravenous, As needed, line care, Starting Mon08/17/18 at 1500, Prior to and following infusion and between multiple consecutive infusions: sodium chloride 0.9 % injection documented in this encounter Additional Health Concerns Assessment Noted Time PHQ-9 Depression Total Score: 1 08/17/2018 6:47 PM CDT documented as of this encounter
--- OUTSIDE RECORDS SUMMARY | 2022-01-26 11:39 | XMS_ITS | Encounter Summary ---
:1950 Author Organization [facility] Address [address] [place] [address] Care Team Providers Name Role Phone Unavailable Primary Care Provider Unavailable Encounter Details Date Type Department Care Team Description 03/25/2019 Hospital Encounter Department of Radiology, Roger Dennis, Sarcoma (HCC) [place], in P.A.-. [place], [place] [address] [facility] [address] [place] [phone] Social History Tobacco Use Types Packs/Day Years [...] Appointment Laboratory Medicine Maite Dennis P.A.-C. [address] [place] [phone] 01/31/2022 Appointment Radiology Maite Dennis P.A.-C. [address] [place] [phone] 01/31/2022 Office Visit Oncology Maite Dennis P.A.-C. [address] [place] [phone] documented as of this encounter Procedures Procedure Name Priority Date/Time Associated Comments Diagnosis CT CHEST WITHOUT RAD - Routine 03/25/2019 11:19 Sarcoma (HCC) Resul ts for this IV CONTRAST (most inpatients AM [employer]M [employer]NAGER procedure a re in and all the results outpatients) section. documented in this encounter Results CT Chest without IV Contrast (03/25/2019 11:19 AM [employer]M MANAGER) Anatomical Region Laterality Modality Chest, Thoracic RST LOS, Thoracic ARZ N/A Co mputed Tomography, Computed LOS, Thoracic FLA LOS Tomography Specimen (Source) Anatomical Collection Method Collection Time Re ceived Time Location / / Volume Laterality 03/25/2019 11:21 AM [employer]M [employer]NAGER Impressions 03/25/2019 11:30 AM [employer]M MANAGER No evidence of metastatic disease in the chest. Narrative 03/25/2019 11:30 AM [employer]M MANAGER EXAM: CT CHEST WITHOUT IV CONTRAST 3D maximum intensity projection (MIP) im ages were created on a dependent workstation as ordered by the treating p rovider and reviewed by the radiologist to increase sensitivity for detection of pulmonary nodules. COMPARISON: CT chests 08/17/2018 and 12/14. FINDINGS: Tiny bilateral pulmonary nodul es are unchanged since 12/14/2017 and should be benign. No new nodules. Mild s ubpleural radiation fibrosis in the left lung anterolaterally. Strands of fibrosi s in the lower lungs. Scattered nodes in the chest without daija nopathy. Stable PO changes of a left mastectomy with additional PO changes in the left lower lateral chest wall. Mild cortical sclerosis of the anterolateral left 6th rib at the site of the chest wall resection is stable. Coronary artery calcification. Hypertrop hic and degenerative changes in the spine. Procedure Note Joey Schultz M.D. - 03/25/2019Form atting of this note might be different from the original. EXAM: CT CHEST WITHOUT IV CONTRAST 3D maximum intensity projection (MIP) im ages were created on a dependent workstation as ordered by the treating p rovider and reviewed by the radiologist to increase sensitivity for detection of pulmonary nodules. COMPARISON: CT chests 08/17/2018 and 12/14. FINDINGS: Tiny bilateral pulmonary nodul es are unchanged since 12/14/2017 and should be benign. No new nodules. Mild s ubpleural radiation fibrosis in the left lung anterolaterally. Strands of fibrosi s in the lower lungs. Scattered nodes in the chest without daija nopathy. Stable PO changes of a left mastectomy with additional PO changes in the left lower lateral chest wall. Mild cortical sclerosis of the anterolateral left 6th rib at the site of the chest wall resection is stable. Coronary artery calcification. Hypertrop hic and degenerative changes in the spine. IMPRESSION: No evidence of metastatic disease in the chest. Maite Dennis P.A.-C. 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
--- OUTSIDE RECORDS SUMMARY | 2022-01-26 11:39 | XMS_ITS | Encounter Summary ---
:1950 Author Organization [facility] Address [address] [place] [address] Care Team Providers Name Role Phone Unavailable Primary Care Provider Unavailable Reason for Referral MRI/CAT/PET Scan (Routine) - Closed Specialty Diagnoses / Procedures Referred By Contact Refer red To Contact Radiology Diagnoses Angiosarcoma Soft Tissue (HCC) Maite Dennis P.A.-C. [facility] Procedures CT Chest without IV Contrast AR CT THORAX WO CNTRST [address] [place], [place] [phone] Referral ID Status Reason Start Date Expiration Date Visits Requ ested Visits Authorized [id number] Closed 03/29/2019 03/28/2020 1 1 Reason for Visit MRI/CAT/PET Scan (Routine) - Closed Specialty Diagnoses / Procedures Referred By Contact Refer red To Contact Radiology Diagnoses Angiosarcoma Soft Tissue (HCC) Maite Dennis P.A.-C. [facility] Procedures CT Chest without IV Contrast AR CT THORAX WO CNTRST [address] [place], [place] [phone] Referral ID Status Reason Start Date Expiration Date Visits Requ ested Visits Authorized [id number] Closed 03/29/2019 03/28/2020 1 1 Encounter Details Date Type Department Care Team Description 09/23/2019 Hospital Encounter Department of Maite Dennis Angios arcoma Soft Radiology, James Patel Tissue ([facility]) [facility], in [address] [place], [place] 200 [facility] [phone] [place], [place] [phone] (Work) [phone] Social History Tobacco Use Types Packs/Day Years [...] (two) times a day. mcg/dose diskus inhaler [id number] Take 1 tablet by mouth 0 D-jdrzriyr-vxfbmy daily. (CENTRUM SILVER) 0.4-300-250 mg-mcg-mcg tablet aspirin 81 mg chewable Chew 1 tablet [...] Laboratory Medicine Maite Dennis P.A.-C. [address] [place] [phone] 01/31/2022 Appointment Radiology Maite Dennis P.A.-C. [address] [place] [phone] 01/31/2022 Office Visit Oncology Maite Dennis P.A.-C. [address] [place] [phone] documented as of this encounter Procedures Procedure Name Priority Date/Time Associated Comments Diagnosis CT CHEST WITHOUT RAD - Routine 09/23/2019 10:57 Angiosarcoma Soft R esults for this IV CONTRAST (most inpatients AM CDT Tissue (HCC) procedure a re in and [...] WITHOUT IV CONTRAST COMPARISON: CT chest 03/25/2019, 019, and 03/22/2018. FINDINGS: Postoperative changes left mastectomy [...] WITHOUT IV CONTRAST COMPARISON: CT chest 03/25/2019, 019, and 03/22/2018. FINDINGS: Postoperative changes left mastectomy [...] disease. Maite Dennis P.A.-C. 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
--- OUTSIDE RECORDS SUMMARY | 2022-01-26 11:39 | XMS_ITS | Encounter Summary ---
:1950 Author Organization [facility] Address [address] [place] [address] Care Team Providers Name Role Phone Unavailable Primary Care Provider Unavailable Encounter Details Date Type Department Care Team Description 03/25/2019 Hospital Encounter Department of Laboratory Roger Dennis, Sarcoma (HCC) Medicine and Pathology, .[facility], in [address] [place] [address] [place] [phone] [place] [address] [phone] Social History Tobacco Use Types Packs/Day Years [...] Appointment Laboratory Medicine Maite Dennis P.A.-C. [address] [place] [phone] 01/31/2022 Appointment Radiology Maite Dennis P.A.-C. [address] [place] [phone] 01/31/2022 Office Visit Oncology Maite Dennis P.A.-C. [address] [place] [phone] documented as of this encounter Procedures Procedure Name Priority Date/Time Associated Comments Diagnosis CBC WITH DIFFERENTIAL, Routine 03/25/2019 10:45 Sarcoma (HCC) Results for this B AM WASTEWATER ANALYST procedure are i n the results section. COMPREHENSIVE Routine 03/25/2019 10:45 Sarcoma (HCC) Results f or this METABOLIC PANEL, S/P AM WASTEWATER ANALYST procedu re are in the results section. documented in this encounter Results (ABNORMAL) Comprehensive Metabolic Panel (03/25/2019 10:45 AM WASTEWATER ANALYST) P athologist Signature Potassium, S 5.2 3.6 - 5.2 03/25/2019 DTL mmol/L 12:04 PM WASTEWATER ANALYST Sodium, S 146 (H) 135 - 145 03/25/2019 DTL mmol/L 12:04 PM WASTEWATER ANALYST Chloride, S 107 98 - 107 03/25/2019 DTL mmol/L 12:04 PM WASTEWATER ANALYST Bicarbonate, S 26 22 - 29 03/25/2019 DTL mmol/L 12:04 PM WASTEWATER ANALYST Anion Gap 13 7 - 15 03/25/2019 DTL 12:04 PM WASTEWATER ANALYST BUN (Blood Urea 12 6 - 21 03/25/2019 DTL Nitrogen), S mg/dL 12:04 PM WASTEWATER ANALYST Creatinine 0.89 0.59 - 03/25/2019 DTL 1.04 mg/dL 12:04 PM WASTEWATER ANALYST eGFR-Non 66 >=60 03/25/2019 DTL Black/ mL/min/BSA 12:04 PM WASTEWATER ANALYST [place] Citizen Comment: ----ADDITIONAL INFORMATION---- Estimated GFR calculated using the 2009 CKD_EPI creatinine equation. eGFR-Black/ 76 >=60 mL/min/BSA 2018 12:04 PM WASTEWATER ANALYST DTL Comment: ----ADDITIONAL INFORMATION---- Estimated GFR calculated using the 2009 CKD_EPI creatinine equation. Calcium, Total, S 9.7 8.8 - 10.2 mg/dL 03/25/2019 12:0 4 PM WASTEWATER ANALYST DTL Glucose, S 96 70 - 140 mg/dL 03/25/2019 12:04 PM WASTEWATER ANALYST DTL Protein, Total, S 6.6 6.3 - 7.9 g/dL 03/25/2019 12:04 PM WASTEWATER ANALYST DTL Albumin, S 4.6 3.5 - 5.0 g/dL 03/25/2019 12:04 PM WASTEWATER ANALYST DTL Aspartate Aminotransferase 14 8 - 43 U/L 03/25/2019 1 2:04 PM WASTEWATER ANALYST DTL (AST), S Alkaline Phosphatase, S 65 35 - 104 U/L 03/25/2019 12 :04 PM WASTEWATER ANALYST DTL Alanine Aminotransferase (ALT), 22 7 - 45 U/L 019 12:04 PM WASTEWATER ANALYST DTL S Bilirubin, Total, S 0.3 <=1.2 mg/dL 03/25/2019 12:04 P M WASTEWATER ANALYST DTL Specimen Anatomical Collection Method Collection Time Receive d Time (Source) Location / / Volume Laterality Blood (Blood, 03/25/2019 10:45 03/25/2019 Venous) AM WASTEWATER ANALYST 11:10 AM WASTEWATER ANALYST Maite Dennis P.A.-C. LAB BLOOD ADD-ON Performing Organization Address City/State/ZIP Code Phon e Number [facility] - 200 [place], [place] [address] [facility] [place] [address] Laboratories-[facility] 200 [facility] (ABNORMAL) CBC with Differential, Blood (03/25/2019 10:45 AM WASTEWATER ANALYST) [facility] Method Time Signature Hemoglobin 14.3 11.6 - 03/25/2019 DTL 15.0 g/dL 11:20 AM WASTEWATER ANALYST Hematocrit 44.6 35.5 - 03/25/2019 DTL 44.9 % 11:20 AM WASTEWATER ANALYST Erythrocytes 4.37 3.92 - 03/25/2019 DTL 5.13 11:20 AM WASTEWATER ANALYST x10(12)/L MCV 102.1 (H) 78.2 - 03/25/2019 DTL 97.9 fL 11:20 AM WASTEWATER ANALYST RBC Distrib Width 12.7 12.2 - 03/25/2019 DTL 16.1 % 11:20 AM WASTEWATER ANALYST Platelet Count 301 157 - 371 03/25/2019 DTL x10(9)/L 11:20 AM WASTEWATER ANALYST Leukocytes 7.8 3.4 - 9.6 03/25/2019 DTL x10(9)/L 11:20 AM WASTEWATER ANALYST Neutrophils 4.98 1.56 - 03/25/2019 DTL 6.45 11:20 AM WASTEWATER ANALYST x10(9)/L Lymphocytes 2.02 0.95 - 03/25/2019 DTL 3.07 11:20 AM WASTEWATER ANALYST x10(9)/L Monocytes 0.60 0.26 - 03/25/2019 DTL 0.81 11:20 AM WASTEWATER ANALYST x10(9)/L Eosinophils 0.19 0.03 - 03/25/2019 DTL 0.48 11:20 AM WASTEWATER ANALYST x10(9)/L Basophils 0.05 0.01 - 03/25/2019 DTL 0.08 11:20 AM WASTEWATER ANALYST x10(9)/L Specimen Anatomical Collection Method Collection Time Receive d Time (Source) Location / / Volume Laterality Blood (Blood, 03/25/2019 10:45 03/25/2019 Venous) AM WASTEWATER ANALYST 11:10 AM WASTEWATER ANALYST Maite Dennis P.A.-C. 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
--- OUTSIDE RECORDS SUMMARY | 2022-01-26 11:39 | XMS_ITS | Encounter Summary ---
:1950 Author Organization [facility] Address [address] [place] [address] Care Team Providers Name Role Phone Unavailable Primary Care Provider Unavailable Reason for Visit Reason Comments COVID Nurse Line Encounter Details Date Type Department Care Team Description 08/14/2019 Clinical Communication Department of Maite Dennis CO VID Nurse Line Oncology in [place], [place] [address] [facility] [address] [place] [phone] Social History Tobacco Use Types Packs/Day Years Used Date Smoking Tobacco: Former Cigarettes 1 30 Alcohol Use Standard Drinks/Week Comments Yes 3 (1 standard drink = 0.6 oz pure alcoho l) 2-3 vodka/coke's per week Sex Assigned at Date Recorded Not on file documented as of this encounter Miscellaneous Notes Telephone Encounter - Tanisha Calix - 08/14/2019 2:29 PM CDT In the past 30 days have you had a swab for COVID that tested positive? no Route reply to: Scheduling Contact Number: documented in this encounter Plan of Treatment Upcoming Encounters Date Type Specialty Care Team Description 01/27/2022 Clinical Communication Admitting/Central Scheduling 01/31/2022 Appointment Laboratory Medicine Maite Dennis P.A.-C. [address] [place] [phone] 01/31/2022 Appointment Radiology Maite Dennis P.A.-C. [address] [place] [phone] 01/31/2022 Office Visit Oncology Maite Dennis P.A.-C. [address] [place] [phone] documented as of this encounter Visit Diagnoses Not on filedocumented in this encounter Additional Health Concerns Assessment Noted Time PHQ-9 Depression Total Score: 1 08/17/2018 6:47 PM CDT documented as of this encounter
--- OUTSIDE RECORDS SUMMARY | 2022-01-26 11:39 | XMS_ITS | Encounter Summary ---
:1950 Author Organization [facility] Address [address] [place] [address] Care Team Providers Name Role Phone Unavailable Primary Care Provider Unavailable Reason for Referral Outpatient (Routine) - Closed Specialty Diagnoses / Procedures Referred By Contact Refer red To Contact Oncology Maite Dennis P.A.- C. [place] [address] [place] [address] Referral ID Status Reason Start Date Expiration Date Visits Requ ested Visits Authorized [id number] Closed 09/27/2019 09/26/2020 1 1 MRI/CAT/PET Scan (Routine) - Closed Specialty Diagnoses / Procedures Referred By Contact Refer red To Contact Radiology Diagnoses Angiosarcoma Soft Tissue (HCC) Maite Dennis P.A.-C. [facility] Procedures CT Chest without IV Contrast [place] CT [facility] 200 [place], [place] [phone] Referral ID Status Reason Start Date Expiration Date Visits Requ ested Visits Authorized [id number] Closed 09/27/2019 09/26/2020 1 1 Reason for Visit Outpatient (Routine) - Closed Specialty Diagnoses / Procedures Referred By Contact Refer red To Contact Oncology Maite Dennis P.A.- C. [place] [address] [place], [place] [phone] Referral ID Status Reason Start Date Expiration Date Visits Requ ested Visits Authorized [id number] Closed 03/29/2019 03/28/2020 1 1 Encounter Details Date Type Department Care Team Description 09/23/2019 Office Visit Department of Oncology Maite Dennis Ang iosarcoma Soft in [place], [place] Tissue (HCC) (Primary [place] [address] [facility]) [address] [place] [phone] Social History Tobacco Use Types Packs/Day Years Used Date Smoking Tobacco: Former Cigarettes 1 30 Smokeless Tobacco: Never Alcohol Use Standard Drinks/Week Comments Yes 3 (1 standard drink = 0.6 oz pure alcoho l) 2-3 vodka/coke's per week Sex Assigned at Date Recorded Not on file documented as of this encounter Last Filed Vital Signs Vital Sign Reading Time Taken Comments Blood Pressure 139/82 09/23/2019 3:22 PM CDT Pulse 79 09/23/2019 3:22 PM CDT Temperature 37.2 ??C (99 ??F) 09/23/2019 3:22 PM CDT Respiratory Rate 16 09/23/2019 3:22 PM CDT Oxygen Saturation 96% 09/23/2019 3:22 PM CDT Inhaled Oxygen Concentration - - Weight 87.5 kg (192 lb 14.4 oz) 09/23/2019 3:22 PM CDT Height 148.8 cm (4' 10.58) 09/23/2019 3:22 PM CDT Body Mass Index 39.52 09/23/2019 3:22 PM CDT documented in this encounter Progress Notes Maite Dennis P.A.-C. - 09/23/2019 3:00 PM CDT PRIMARY ONCOLOGIST: Caio Pop M.D. Witter, Amy E, P.A.-C. COLLABORATING PROVIDER: Dr. Goldstein CHIEF COMPLAINT/PURPOSE OF VISIT: Presents for visit [...] in the [facility] on March 25, 2019 by me. At that time she had an area of her wound that had opened up again after about 2 years of intense wound care. They had sold their house in [place] and were moving to [place] and she was lifting boxes and felt that is what caused her wound to re-open. She and her resumed wound care practices and there is still a very tiny portion that is still open but it is much improved. No signs of any infection. Otherwise, she has been doing great. She has established care with a local primary care provider in the [place], [place] area. This was done by phone due to COVID 19 but does have a local MD now. No complaints for me today. ROS: Pertinent items are noted in HPI; all other systems were reviewed and were negative. VITAL SIGNS: Vitals: 09/23/19 1522 BP: 139/82 BP Location: Right arm Patient Position: Sitting Cuff Size: Regular Pulse: 79 Resp: 16 Temp: 37.2 ??C TempSrc: Tympanic SpO2: 96% Weight: 87.5 kg Height: 148.8 cm No data recorded PHYSICAL EXAM: General: 68 y.o. year old female, in no acute distress. Vital signs as noted above. Lungs: Clear to auscultation bilaterally Heart: Regular rate and rhythm, S1, S2. No peripheral edema Chest wall: tiny, shallow area of open wound at base of incision on left lateral chest wall. No erythema or drainage. ECOG score [0-1] LABS: Ref. Range 09/23/2019 10:23 Hemoglobin Latest Ref Range: 11.6 - 15.0 g/dL 14.4 Hematocrit Latest Ref Range: 35.5 - 44.9 % 43.2 Erythrocytes Latest Ref Range: 3.92 - 5.13 x10(12)/L 4.27 MCV Latest Ref Range: 78.2 - 97.9 fL 101.2 (H) RBC Distrib Width Latest Ref Range: 12.2 - 16.1 % 12.8 Platelet Count Latest Ref Range: 157 - 371 x10(9)/L 283 White Blood Cell Count Latest Ref Range: 3.4 - 9.6 x10(9)/L 7.4 Neutrophils Latest Ref Range: 1.56 - 6.45 x10(9)/L 4.99 Lymphocytes Latest Ref Range: 0.95 - 3.07 x10(9)/L 1.65 Monocytes Latest Ref Range: 0.26 - 0.81 x10(9)/L 0.56 Eosinophils Latest Ref Range: 0.03 - 0.48 x10(9)/L 0.15 Basophils Latest Ref Range: 0.01 - 0.08 x10(9)/L 0.04 Creatinine, S Latest Ref Range: 0.59 - 1.04 mg/dL 0.85 eGFR-Non Black Latest Ref Range: >=60 mL/min/BSA 70 eGFR-Black Latest Ref Range: >=60 mL/min/BSA 80 Bilirubin, Total, S Latest Ref Range: <=1.2 mg/dL 0.4 Bilirubin, Direct, S Latest Ref Range: 0.0 - 0.3 mg/dL <0.2 Alanine Aminotransferase (ALT), S Latest Ref Range: 7 - 45 U/L 25 Aspartate Aminotransferase (AST), S Latest Ref Range: 8 - 43 U/L 14 Alkaline Phosphatase, S Latest Ref Range: 35 - 104 U/L 64 Protein, Total, S Latest Ref Range: 6.3 - 7.9 g/dL 6.5 Albumin, S Latest Ref Range: 3.5 - 5.0 g/dL 4.5 IMAGING: Ct Chest Without Iv Contrast Result Date: 09/23/2019 Impression: Stable exam in the chest since 03/25/2019. No evidence of metastatic disease. ASSESSMENT/PLAN: #1 Angiosarcoma Soft Tissue (HCC) It was my pleasure seeing Ms. Schwab and her in clinic today. We were able to review her recent labs and restaging scan. No clinical or radiographic evidence of recurrent or metastatic disease. PLAN: We will plan to see her back in approximately 6 months with repeat labs, imaging and office visit. Multiple questions were answered. Ms. Schwab has our contact information to get in touch with us with any issues, questions or concernsthat may arise. Orders Placed This Encounter Procedures ??? CT Chest without IV Contrast ??? CBC with Differential, Blood ??? Comprehensive Metabolic Panel ??? Oncology office visit (clinic) PATIENT [...] Laboratory Medicine Maite Dennis P.A.-C. [address] [place] [phone] 01/31/2022 Appointment Radiology Maite Dennis P.A.-C. [address] [place] [phone] 01/31/2022 Office Visit Oncology JeannieMaite P.A.-C. [address] [place] [phone] Scheduled Referrals Name Type Priority Associated Diagnoses Order S [facility] Oncology office Outpatient Referral Routine Expec shaun: visit (clinic) 06/12/2020 (Approximate), Expires: 09/26/2022 documented as of this encounter Results CT Chest without IV Contrast (06/05/2020 8:30 AM INDUSTRIAL RELATIONS DIRECTOR) Anatomical Region Laterality Modality Chest, Thoracic RST LOS, Thoracic ARZ N/A Co mputed Tomography, Computed LOS, Thoracic FLA LOS Tomography Specimen (Source) Anatomical Collection Method Collection Time Re ceived Time Location / / Volume Laterality 06/05/2020 9:47 AM INDUSTRIAL RELATIONS DIRECTOR Impressions 06/05/2020 9:57 AM INDUSTRIAL RELATIONS DIRECTOR 1. Mild interval increase in right axillary lymph nodes, although still subcentimeter in short axis and nonspeci fic. 2. Otherwise similar chest CT compared t o 09/23/2019. Narrative 06/05/2020 9:57 AM INDUSTRIAL RELATIONS DIRECTOR EXAM: CT CHEST WITHOUT IV CONTRAST COMPARISON: [...] 09/23/2019. Maite Dennis P.A.-C. IMG CT PROCEDURES Comprehensive Metabolic Panel (06/05/2020 7:40 AM INDUSTRIAL RELATIONS DIRECTOR) athologist Signature Potassium, S 4.7 3.6 - 5.2 06/05/2020 DTL mmol/L 8:40 AM INDUSTRIAL RELATIONS DIRECTOR Sodium, S 142 135 - 145 06/05/2020 DTL mmol/L 8:40 AM INDUSTRIAL RELATIONS DIRECTOR Chloride, S 106 98 - 107 06/05/2020 DTL mmol/L 8:40 AM INDUSTRIAL RELATIONS DIRECTOR Bicarbonate, S 27 22 - 29 06/05/2020 DTL mmol/L 8:40 AM INDUSTRIAL RELATIONS DIRECTOR Anion Gap 9 7 - 15 06/05/2020 DTL 8:40 AM INDUSTRIAL RELATIONS DIRECTOR BUN (Blood Urea 12 6 - 21 06/05/2020 DTL Nitrogen), S mg/dL 8:40 AM INDUSTRIAL RELATIONS DIRECTOR Creatinine 0.93 0.59 - 06/05/2020 DTL 1.04 mg/dL 8:40 AM INDUSTRIAL RELATIONS DIRECTOR eGFR-Non 62 >=60 06/05/2020 DTL Black/ mL/min/BSA 8:40 AM INDUSTRIAL RELATIONS DIRECTOR [place] Comment: ----ADDITIONAL INFORMATION---- Estimated GFR calculated using the 2009 CKD_EPI creatinine equation. eGFR-Black/ 72 >=60 mL/min/BSA 2020 8:40 AM INDUSTRIAL RELATIONS DIRECTOR DTL Comment: ----ADDITIONAL INFORMATION---- Estimated GFR calculated using the 2009 CKD_EPI creatinine equation. Calcium, Total, S 9.9 8.8 - 10.2 mg/dL 06/05/2020 8:40 AM INDUSTRIAL RELATIONS DIRECTOR DTL Glucose, S 105 70 - 140 mg/dL 06/05/2020 8:40 AM INDUSTRIAL RELATIONS DIRECTOR D TL Protein, Total, S 6.4 6.3 - 7.9 g/dL 06/05/2020 8:40 A M INDUSTRIAL RELATIONS DIRECTOR DTL Albumin, S 4.4 3.5 - 5.0 g/dL 06/05/2020 8:40 AM INDUSTRIAL RELATIONS DIRECTOR D TL Aspartate Aminotransferase (AST), 12 8 - 43 U/L 06/05 8:40 AM INDUSTRIAL RELATIONS DIRECTOR DTL S Alkaline Phosphatase, S 76 35 - 104 U/L 06/05/2020 8: 40 AM INDUSTRIAL RELATIONS DIRECTOR DTL Alanine Aminotransferase (ALT), S 16 7 - 45 U/L 06/05 8:40 AM INDUSTRIAL RELATIONS DIRECTOR DTL Bilirubin, Total, S 0.3 <=1.2 mg/dL 06/05/2020 8:40 AM INDUSTRIAL RELATIONS DIRECTOR DTL Specimen Anatomical Collection Method Collection Time Receive d Time (Source) Location / / Volume Laterality Blood (Blood, 06/05/2020 7:40 AM 06/06/19 8:01 Venous) INDUSTRIAL RELATIONS DIRECTOR AM INDUSTRIAL RELATIONS DIRECTOR Maite Dennis P.A.-C. LAB BLOOD ADD-ON Performing Organization Address City/State/ZIP Code Phon e Number [facility] - 200 [place], [place] [address] [facility] [place] [address] Laboratories-[facility] 200 [facility] (ABNORMAL) CBC with Differential, Blood (06/05/2020 7:40 AM INDUSTRIAL RELATIONS DIRECTOR) [facility] gist Method Time Signature Hemoglobin 14.8 11.6 - 06/05/2020 DTL 15.0 g/dL 8:15 AM INDUSTRIAL RELATIONS DIRECTOR Hematocrit 45.5 (H) 35.5 - 06/05/2020 DTL 44.9 % 8:15 AM INDUSTRIAL RELATIONS DIRECTOR Erythrocytes 4.54 3.92 - 06/05/2020 DTL 5.13 8:15 AM INDUSTRIAL RELATIONS DIRECTOR x10(12)/L MCV 100.2 (H) 78.2 - 06/05/2020 DTL 97.9 fL 8:15 AM INDUSTRIAL RELATIONS DIRECTOR RBC Distrib Width 12.5 12.2 - 06/05/2020 DTL 16.1 % 8:15 AM INDUSTRIAL RELATIONS DIRECTOR Platelet Count 288 157 - 371 06/05/2020 DTL x10(9)/L 8:15 AM INDUSTRIAL RELATIONS DIRECTOR Leukocytes 8.6 3.4 - 9.6 06/05/2020 DTL x10(9)/L 8:15 AM INDUSTRIAL RELATIONS DIRECTOR Neutrophils 6.27 1.56 - 06/05/2020 DTL 6.45 8:15 AM INDUSTRIAL RELATIONS DIRECTOR x10(9)/L Lymphocytes 1.53 0.95 - 06/05/2020 DTL 3.07 8:15 AM INDUSTRIAL RELATIONS DIRECTOR x10(9)/L Monocytes 0.57 0.26 - 06/05/2020 DTL 0.81 8:15 AM INDUSTRIAL RELATIONS DIRECTOR x10(9)/L Eosinophils 0.15 0.03 - 06/05/2020 DTL 0.48 8:15 AM INDUSTRIAL RELATIONS DIRECTOR x10(9)/L Basophils 0.05 0.01 - 06/05/2020 DTL 0.08 8:15 AM INDUSTRIAL RELATIONS DIRECTOR x10(9)/L Specimen Anatomical Collection Method Collection Time Receive d Time (Source) Location / / Volume Laterality Blood (Blood, 06/05/2020 7:40 AM 06/06/19 21 8:07 Venous) INDUSTRIAL RELATIONS DIRECTOR AM INDUSTRIAL RELATIONS DIRECTOR Maite Dennis P.A.-C. LAB BLOOD ADD-ON Performing Organization Address City/State/ZIP Code Phon e Number [facility] - [address] [place], [place] [address] [facility] [place] [address] [facility] [address] documented in this encounter Visit Diagnoses Diagnosis Angiosarcoma Soft Tissue (HCC) - Primary Angiosarcoma Soft Tissue (HCC) documented in this encounter Additional Health Concerns Assessment Noted Time PHQ-9 Depression Total Score: 1 08/17/2018 6:47 PM CDT documented as of this encounter
--- OUTSIDE RECORDS SUMMARY | 2022-01-26 11:40 | XMS_ITS | Encounter Summary ---
:1950 Author Organization [facility] Address [address] [place] [address] Care Team Providers Name Role Phone Unavailable Primary Care Provider Unavailable Encounter Details Date Type Department Care Team Description 10/06/2016 - Hospital Encounter HX RST PREV HYPERBARIC Maria EugeniaHank hernandez, 10/13/2016 PREV M.D. [address] [place] [address] Social History Tobacco Use Types Packs/Day Years [...] (two) times a day. mcg/dose diskus inhaler loratadine (CLARITIN) Take 1 tablet by mouth 0 06/05/2020 10 mg tablet at bedtime. multivitamin,tx-mineral Take 1 tablet by mouth 0 09/20/2016 08/17/2018 s (SUPER THERA GARY M) daily. tablet pravastatin (PRAVACHOL) Take 10 mg by mouth at 0 07/14/2016 03/01/2021 20 mg tablet bedtime. documented as of this encounter Plan of Treatment Upcoming Encounters Date Type Specialty Care Team Description 01/27/2022 Clinical Communication Admitting/Central Scheduling 01/31/2022 Appointment Laboratory Medicine Maite Dennis P.A.-C. [address] [place] [phone] 01/31/2022 Appointment Radiology Maite Dennis P.A.-C. [address] [place] [phone] 01/31/2022 Office Visit Oncology Maite Dennis P.A.-C. [address] [place] [phone] documented as of this encounter Visit Diagnoses Not on filedocumented in this encounter
--- OUTSIDE RECORDS SUMMARY | 2022-01-26 11:40 | XMS_ITS | Encounter Summary ---
:1950 Author Organization [facility] Address [address] [place] [address] Care Team Providers Name Role Phone Unavailable Primary Care Provider Unavailable Encounter Details Date Type Department Care Team Description 10/06/2016 - Hospital Encounter HX RST PREV HYPERBARIC Lesli Young , 10/13/2016 [facility] [address] [place] [address] Social History Tobacco Use Types Packs/Day Years [...] Appointment Laboratory Medicine Maite Dennis P.A.-C. [address] [place] [phone] 01/31/2022 Appointment Radiology Maite Dennis P.A.-C. [address] [place] [phone] 01/31/2022 Office Visit Oncology Maite Dennis P.A.-C. [address] [place] [phone] documented as of this encounter Visit Diagnoses Not on filedocumented in this encounter
--- OUTSIDE RECORDS SUMMARY | 2022-01-26 11:40 | XMS_ITS | Encounter Summary ---
:1950 Author Organization [facility] Address [address] [place] [address] Care Team Providers Name Role Phone Unavailable Primary Care Provider Unavailable Encounter Details Date Type Department Care Team Description 10/05/2016 - Hospital Encounter HX RST PREV Samanta Lyle 10/12/2016 HYPERBARIC AHP A, R.N., ACHRN Social History Tobacco Use Types Packs/Day Years [...] Appointment Laboratory Medicine Maite Dennis P.A.-C. [address] [place] [phone] 01/31/2022 Appointment Radiology Maite Dennis P.A.-C. [address] [place] [phone] 01/31/2022 Office Visit Oncology Maite Dennis P.A.-C. [address] [place] [phone] documented as of this encounter Visit Diagnoses Not on filedocumented in this encounter
--- OUTSIDE RECORDS SUMMARY | 2022-01-26 11:40 | XMS_ITS | Encounter Summary ---
:1950 Author Organization [facility] Address [address] [place] [address] Care Team Providers Name Role Phone Unavailable Primary Care Provider Unavailable Reason for Referral Outpatient (Routine) - Closed Specialty Diagnoses / Procedures Referred By Contact Refer red To Contact Oncology Maite Dennis P.A.- C. [address] [phone] Referral ID Status Reason Start Date Expiration Date Visits Requ ested Visits Authorized [id number] Closed 04/02/2018 04/02/2019 1 1 N RESOURCES SUPERVISOR Reason for Visit Outpatient (Routine) - Closed Specialty Diagnoses / Procedures Referred By Contact Refer red To Contact Oncology Maite Dennis P.A.- C. [address] [phone] Referral ID Status Reason Start Date Expiration Date Visits Requ ested Visits Authorized [id number] Closed 12/20/2017 12/20/2018 1 1 Encounter Details Date Type Department Care Team Description 03/22/2018 Office Visit Department of Oncology Maite Dennis Ang iosarcoma Soft in [place], Jorge Tissue (HCC) (Primary [address] Dx) [address] [place] [phone] Social History Tobacco Use Types Packs/Day Years Used Date Smoking Tobacco: Unknown Sex Assigned at Date Recorded Not on file documented as of this encounter Last Filed Vital Signs Vital Sign Reading Time Taken Comments Blood Pressure 140/80 03/22/2018 1:05 PM HUMAN RESOURCES SUPERVISOR Pulse 98 03/22/2018 1:05 PM HUMAN RESOURCES SUPERVISOR Temperature 37.4 ??C (99.3 ??F) 03/22/2018 1:05 PM HUMAN RESOURCES SUPERVISOR Respiratory Rate - - Oxygen Saturation - - Inhaled Oxygen Concentration - - Weight 88 kg (194 lb 0.1 oz) 03/22/2018 1:05 PM HUMAN RESOURCES SUPERVISOR Height - - Body Mass Index 39.27 12/14/2017 9:28 AM CDT documented in this encounter Progress Notes Maite Dennis P.A.-C. - 03/22/2018 1:20 PM CST PRIMARY ONCOLOGIST: Caio Pop M.D. Witter, Amy E, P.A.-C. COLLABORATING PROVIDER: Dr. 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 This was treated with single agent Taxol and radiation prior to surgical resection in late 2015/early 2016. Currently on observation status. HISTORY OF PRESENT ILLNESS: Ms. Schwab is a .67 y.o. female with the following oncologic history: [...] was negative for residual sarcoma. INTERVAL HISTORY: Ms. 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 This was treated with single agent Taxol and radiation prior to surgical resection in late 2015/early 2016. Currently on observation status. Accompanied today by her . Interval History: This patient was last seen in the [facility] on December 14 2017 by me. Since that time, she has been doing very well. She continues to work with her home speech language specialist regarding the very slow to heal left sided axillary wound that has taken a long time to the close. Both she and her believe there awfully close to having this resolved. [place] for a speech language specialist in [place] to assist her while she is down there. No other physical complaints to offer today. Reports her appetite and oral intake as no. She denies any fevers, chills, night sweats, unintentional weight loss, chest pain, dyspnea, cough, sore throat, rhinorrhea, nausea, vomiting, diarrhea, constipation, abdominal pain, extremity pain, peripheral edema or new or enlarging masses anywhere. ROS: Pertinent items are noted in HPI; all other review of systems were negative. VITAL SIGNS: Vitals: 03/22/18 1305 BP: 140/80 Pulse: 98 Temp: 37.4 ??C TempSrc: Tympanic Weight: 88 kg No Data Recorded PHYSICAL EXAM: General: 67 y.o. year old female, in no acute distress. Vital signs as noted above. Mouth: no oral lesions or candidiasis Neck: no palpable masses Lungs: Clear to auscultation bilaterally Breasts: left is surgically absent. No palpable masses in Right breast. No masses palpable in left chest wall or axilla. Heart: Regular rate and rhythm, S1, S2. Abdomen: soft, non-tender, non-distended, normoactive bowel sounds x 4 quadrants. No palpable masseswere felt. Skin: clean/dry/intact. No rashes or open wounds. Extremities: no cyanosis, clubbing or edema were noted. ECOG score 0 DIAGNOSTICS: I reviewed the imaging studies and agree with the interpretation as recorded. I reviewed the pertinent laboratory and diagnostic data. LABS: No results found for this or any previous visit (from the past 72 hour(s)). IMAGING: Ct Chest Without Iv Contrast Result Date: 03/22/2018 Impression: IMPRESSION: 1. No evidence of recurrent or metastatic disease in the chest. 2. No significant change since 12/14/2017. ASSESSMENT/PLAN: #1 Angiosarcoma Soft Tissue (HCC) I was happy to share with Mrs. Schwab in her that the CT scan shows no evidence of recurrenceor any other pulmonary metastatic disease. We will see her back in July [address] scan in clinic visit. At that point she will be 2 years out from her surgery and we can extend her appointments to every 6 months if scans are clear. She is going to spend the winter months done in [place]. She will let us know if she needs anything while she is away. Multiple questions were answered. They have our contact information to get in touch with us with any issues, questions or concerns that may arise in the interim. Orders Placed This Encounter Procedures ??? CT Chest without IV Contrast ??? Oncology office visit (clinic) PATIENT EDUCATION Ready to learn, no apparent learning barriers were identified; learning preferences include listening. Explained diagnosis and treatment plan; patient expressed understanding of the content. ADMINISTRATIVE BILLING I personally spent over half of a total 30 minutes face to face with the patient in counseling and discussion and/or coordination of care as described above. N RESOURCES SUPERVISOR documented in this encounter Plan of Treatment Upcoming Encounters Date Type Specialty Care Team Description 01/27/2022 Clinical Communication Admitting/Central Scheduling 01/31/2022 Appointment Laboratory Medicine Maite Dennis P.A.-C. [address] [place] [phone] 01/31/2022 Appointment Radiology Maite Dennis P.A.-C. [address] [place] [phone] 01/31/2022 Office Visit Oncology Maite Dennis P.A.-C. [address] [place] [phone] Scheduled Referrals Name Type Priority Associated Diagnoses Order S [facility] Oncology office Outpatient Referral Routine Expec shaun: visit (clinic) 08/01/2018 (Approximate), Expires: 04/02/2021 documented as of this encounter Results CT Chest without IV Contrast (08/16/2018 3:10 PM CDT) Anatomical Region Laterality Modality Chest, Thoracic RST LOS, Thoracic ARZ LOS, Thoracic N/A Computed Tomography FLA LOS Specimen (Source) Anatomical Collection Method Collection Time Re ceived Time Location / / Volume Laterality 08/16/2018 3:30 PM CDT Impressions 08/16/2018 3:41 PM CDT IMPRESSION: No evidence of recurrent tumor or metastatic disease in the chest. Narrative 08/16/2018 3:41 PM CDT EXAM: CT CHEST WITHOUT IV CONTRAST COMPARISON: CT chest 03/22/2018 and 07/19. FINDINGS: Tiny nodules in the right apex medially (series 3, image 37), superior right middle lobe laterally (image 137) and left lower lobe posteriorly (image 193) are unchanged since 07/19/2017. No n ew nodules. Mild subpleural radiation fibrosis in the left lung anterolaterall y. Strands of fibrosis right lower lung. Scattered nodes in the chest without daija nopathy. Coronary artery calcification. Mitral annulus calcification. Stable PO changes of a left mastectomy and additional PO changes in the left latera l chest wall. Mild cortical sclerosis of the anterolateral left sixth rib at the site of chest wall resection is stable and may be PO/post radiation change. Hyp ertrophic changes thoracic spine. Procedure Note Joey Schultz M.D. - 08/16/2018Form atting of this note might be different from the original. EXAM: CT CHEST WITHOUT IV CONTRAST COMPARISON: CT chest 03/22/2018 and 07/19. FINDINGS: Tiny nodules in the right apex medially (series 3, image 37), superior right middle lobe laterally (image 137) and left lower lobe posteriorly (image 193) are unchanged since 07/19/2017. No n ew nodules. Mild subpleural radiation fibrosis in the left lung anterolaterall y. Strands of fibrosis right lower lung. Scattered nodes in the chest without daija nopathy. Coronary artery calcification. Mitral annulus calcification. Stable PO changes of a left mastectomy and additional PO changes in the left latera l chest wall. Mild cortical sclerosis of the anterolateral left sixth rib at the site of chest wall resection is stable and may be PO/post radiation change. Hyp ertrophic changes thoracic spine. IMPRESSION: No evidence of recurrent [place] or or metastatic disease in the chest. Maite Dennis P.A.-C. IMRosario CT PROCEDURES documented in this encounter Visit Diagnoses Diagnosis Angiosarcoma Soft Tissue (HCC) - Primary Angiosarcoma Soft Tissue (HCC) documented in this encounter
--- OUTSIDE RECORDS SUMMARY | 2022-01-26 11:40 | XMS_ITS | Encounter Summary ---
:1950 Author Organization [facility] Address [address] [place] [address] Care Team Providers Name Role Phone Unavailable Primary Care Provider Unavailable Encounter Details Date Type Department Care Team Description 09/30/2016 - Hospital Encounter HX RST PREV HYPERBARIC Jim Rodrigues rt, 10/07/2016 PREV MPerez, M.S. [address] [place] [address] Social History Tobacco Use Types Packs/Day Years [...] Laboratory Medicine Maite Dennis P.A.-C. [address] [place] [phone] 01/31/2022 Appointment Radiology Maite Dennis P.A.-C. [address] [place] [phone] 01/31/2022 Office Visit Oncology Maite Dennis P.A.-C. [address] [place] [phone] documented as of this encounter Visit Diagnoses Not on filedocumented in this encounter
--- OUTSIDE RECORDS SUMMARY | 2022-01-26 11:40 | XMS_ITS | Encounter Summary ---
:1950 Author Organization [facility] Address [address] [place] [address] Care Team Providers Name Role Phone Unavailable Primary Care Provider Unavailable Encounter Details Date Type Department Care Team Description 10/05/2016 - Hospital Encounter HX RST PREV HYPERBARIC Maria EugeniaHank hernandez, 10/12/2016 PREV M.D. [address] [place] [address] Social History Tobacco Use Types Packs/Day Years [...] Laboratory Medicine Maite Dennis P.A.-C. [address] [place] [phone] 01/31/2022 Appointment Radiology Maite Dennis P.A.-C. [address] [place] [phone] 01/31/2022 Office Visit Oncology Maite Dennis P.A.-C. [address] [place] [phone] documented as of this encounter Visit Diagnoses Not on filedocumented in this encounter
--- OUTSIDE RECORDS SUMMARY | 2022-01-26 11:40 | XMS_ITS | Encounter Summary ---
:1950 Author Organization [facility] Address [address] [place] [address] Care Team Providers Name Role Phone Unavailable Primary Care Provider Unavailable Encounter Details Date Type Department Care Team Description 10/03/2016 - Hospital Encounter HX RST PREV HYPERBARIC Ivonne Aguirre R, 10/10/2016 [facility] R.N. [address] [place] [address] Social History Tobacco Use Types Packs/Day Years [...] Appointment Laboratory Medicine Maite Dennis P.A.-C. [address] [place] [phone] 01/31/2022 Appointment Radiology Maite Dennis P.A.-C. [address] [place] [phone] 01/31/2022 Office Visit Oncology Maite Dennis P.A.-C. [address] [place] [phone] documented as of this encounter Visit Diagnoses Not on filedocumented in this encounter
--- OUTSIDE RECORDS SUMMARY | 2022-01-26 11:40 | XMS_ITS | Encounter Summary ---
:1950 Author Organization [facility] Address [address] [place] [address] Care Team Providers Name Role Phone Unavailable Primary Care Provider Unavailable Encounter Details Date Type Department Care Team Description 08/16/2018 Hospital Encounter Department of Maite Dennis, [facility] Soft Radiology, Peewee Patel Tissue ([facility], in [address] [place] [phone] [place], [place] [phone] (Work) [phone] Social History Tobacco Use Types Packs/Day Years Used Date Smoking Tobacco: Unknown Sex Assigned at Date Recorded Not on file documented as of this encounter Medications at Time of Discharge Medication Sig Dispensed Refills Start Date End Date albuterol inhaler Inhale 2 puffs as 0 04/03/2014 needed. fluticasone (FLONASE Administer 1 puff 0 07/15/19 17 ALLERGY RELIEF) 50 into affected mcg/actuation nasal spray nostril(s) 2 (two) times a day. fluticasone-salmeterol Inhale 1 Inhaler 2 0 01/17 (ADVAIR DISKUS) 250-50 (two) times a day. mcg/dose diskus inhaler cholecalciferol (VITAMIN Take 1 capsule by 0 11/2608/17/2018 D3) 5,000 Unit capsule mouth daily. glucosamine-chondroitin Take 3 tablets by 0 12/2108/17/2018 500-400 mg per tablet mouth daily. loratadine (CLARITIN) 10 Take 1 tablet by 0 07/1406/05/2020 mg tablet mouth at bedtime. LORazepam (ATIVAN) 1 mg Take 1 tablet by 0 201606/05/2020 tablet mouth as needed. multivitamin,tx-minerals Take 1 tablet by 0 09/2008/17/2018 (SUPER THERA GARY M) mouth daily. tablet pravastatin (PRAVACHOL) Take 10 mg by mouth 0 03/01/2021 20 mg tablet at bedtime. documented as of this encounter Plan of Treatment Upcoming Encounters Date Type Specialty Care Team Description 01/27/2022 Clinical Communication Admitting/Central Scheduling 01/31/2022 Appointment Laboratory Medicine Maite Dennis P.A.-Shalonda [address] [place] [phone] 01/31/2022 Appointment Radiology Maite Dennis P.A.-C. 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
--- OUTSIDE RECORDS SUMMARY | 2022-01-26 11:40 | XMS_ITS | Encounter Summary ---
:1950 Author Organization [facility] Address [address] [place] [address] Care Team Providers Name Role Phone Unavailable Primary Care Provider Unavailable Encounter Details Date Type Department Care Team Description 11/20/2017 Abstract DATA ABSTRACTION Provider, Historical Social History Tobacco Use Types Packs/Day Years Used Date Smoking Tobacco: Unknown Sex Assigned at Date Recorded Not on file documented as of this encounter Plan of Treatment Upcoming Encounters Date Type Specialty Care Team Description 01/27/2022 Clinical Communication Admitting/Central Scheduling 01/31/2022 Appointment Laboratory Medicine Maite Dennis P.A.-C. [address] [place] [phone] 01/31/2022 Appointment Radiology Maite Dennis P.A.-C. [address] [place] [phone] 01/31/2022 Office Visit Oncology Maite Dennis P.A.-C. [address] [place] [phone] documented as of this encounter Visit Diagnoses Not on filedocumented in this encounter
--- OUTSIDE RECORDS SUMMARY | 2022-01-26 11:40 | XMS_ITS | Encounter Summary ---
:1950 Author Organization [facility] Address [address] [place] [address] Care Team Providers Name Role Phone Unavailable Primary Care Provider Unavailable Encounter Details Date Type Department Care Team Description 09/29/2016 - Hospital Encounter HX RST PREV HYPERBARIC Jim Rodrigues rt, 10/06/2016 PREV MPerez, M.S. [address] [place] [address] Social History Tobacco Use Types Packs/Day Years [...] Laboratory Medicine Maite Dennis P.A.-C. [address] [place] [phone] 01/31/2022 Appointment Radiology Maite Dennis P.A.-C. [address] [place] [phone] 01/31/2022 Office Visit Oncology Maite Dennis P.A.-C. [address] [place] [phone] documented as of this encounter Visit Diagnoses Not on filedocumented in this encounter
--- OUTSIDE RECORDS SUMMARY | 2022-01-26 11:40 | XMS_ITS | Encounter Summary ---
:1950 Author Organization [facility] Address [address] [place] [address] Care Team Providers Name Role Phone Unavailable Primary Care Provider Unavailable Reason for Visit MRI/CAT/PET Scan (Routine) - Canceled Specialty Diagnoses / Procedures Referred By Contact Refer red To Contact Radiology Diagnoses Angiosarcoma Soft Tissue (HCC) Caio Pop M.D. [facility] Procedures CT Chest without and with IV Contrast NV CT THORAX WO/W CNTRST HC CT THORAX WO/W CNTRST NV CT THORAX WO/W CNTRST [address] [place] [phone] Referral ID Status Reason Start Date Expiration Date Visits V isits Requested Authorized [id number] Canceled 10/18/2017 10/18/2018 1 1 Encounter Details Date Type Department Care Team Description 12/14/2017 Hospital Encounter Department of Caio Pop [facility] Soft Radiology, Peewee Richardson M.D. Tissue (HCC) [facility], in [address] [place] [address] [place] [phone] [place], [place] [phone] (Work) [phone] Social History Tobacco Use Types Packs/Day Years [...] Appointment Laboratory Medicine Maite Dennis P.A.-C. [address] [place] [phone] 01/31/2022 Appointment Radiology Maite Dennis P.A.-C. [address] [place] [phone] 01/31/2022 Office Visit Oncology Maite Dennis P.A.-C. 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 documented in this encounter Results CT Chest without IV Contrast (12/14/2017 7:14 AM CDT) Anatomical Region Laterality Modality Chest, Thoracic RST LOS, Thoracic ARZ LOS, Thoracic N/A Computed Tomography FLA LOS Specimen (Source) Anatomical Collection Method Collection Time Re ceived Time Location / / Volume Laterality 12/14/2017 8:18 AM CDT Impressions 12/14/2017 8:28 AM CDT IMPRESSION: No evidence of focal recurrent or metastatic disease in the chest. Narrative 12/14/2017 8:28 AM CDT EXAM: CT CHEST WITHOUT IV CONTRAST 3D maximum intensity projections(MIPS)/v olume renderings on a dependent workstation. COMPARISON: 07/19/2012 FINDINGS: Left anterior chest wall surgi jim changes including mastectomy. Stable adjacent parenchymal to pleural scarring adjacent to the left chest wall surgical site. Since 01/18/2016, stable tiny pulmonary nodules including 2 mm left lower lobe nodule image 191 series 2 and 1 mm right middle lobe nodule image 123. Additional findings: Aortic, coronary ar roxann, aortic valve and mitral annulus calcification. Stable tiny focal calcifi cation the peripheral wall the distal esophagus image 214. Chest otherwise neg ative. Procedure Note Cm King M.D. - 12/14/2017Fo rmatting of this note might be different from the original. EXAM: CT CHEST WITHOUT IV CONTRAST 3D maximum intensity projections(MIPS)/v olume renderings on a dependent workstation. COMPARISON: 07/19/2012 FINDINGS: Left anterior chest wall surgi jim changes including mastectomy. Stable adjacent parenchymal to pleural scarring adjacent to the left chest wall surgical site. Since 01/18/2016, stable tiny pulmonary nodules including 2 mm left lower lobe nodule image 191 series 2 and 1 mm right middle lobe nodule image 123. Additional findings: Aortic, coronary ar roxann, aortic valve and mitral annulus calcification. Stable tiny focal calcifi cation the peripheral wall the distal esophagus image 214. Chest otherwise neg ative. IMPRESSION: No evidence of focal recurre nt or metastatic disease in the chest. 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
--- OUTSIDE RECORDS SUMMARY | 2022-01-26 11:40 | XMS_ITS | Encounter Summary ---
:1950 Author Organization [facility] Address [address] [place] [address] Care Team Providers Name Role Phone Unavailable Primary Care Provider Unavailable Encounter Details Date Type Department Care Team Description 07/20/2017 Ancillary Procedure Department of Plastic and Reconstructive Surgery Social History Tobacco Use Types Packs/Day Years Used Date Smoking Tobacco: Former Sex Assigned at Date Recorded Not on file documented as of this encounter Plan of Treatment Upcoming Encounters Date Type Specialty Care Team Description 01/27/2022 Clinical Communication Admitting/Central Scheduling 01/31/2022 Appointment Laboratory Medicine Maite Dennis P.A.-C. [address] [place] [phone] 01/31/2022 Appointment Radiology Maite Dennis P.A.-C. [address] [place] [phone] 01/31/2022 Office Visit Oncology Maite Dennis P.A.-C. [address] [place] [phone] documented as of this encounter Procedures Procedure Name Priority Date/Time Associated Diagnosis Comme nts PLASTIC AND RECON Routine 07/20/2017 12:00 PM Res ults for this SURGERY IMAGE EXAM CDT procedure are in the results section. documented in this encounter Results PLASTIC AND RECON SURGERY IMAGE EXAM (07/20/2017 12:00 PM CDT) Specimen (Source) Anatomical Collection Method Collection Time Re ceived Time Location / / Volume Laterality 07/20/2017 12:00 PM CDT Narrative [facility] - 07/20/2017 12:33 PM CDT This order has been created and auto-finalized to support the import of images acquired without order. The clini jim documentation to support these images can be found on the encounter farzana t produced images. Provider Not In System IMG NON RAD IMAGING PROCEDUR ES Performing Organization Address City/State/ZIP Code Phon e Number I[facility] I[facility] NA documented in this encounter Visit Diagnoses Not on filedocumented in this encounter
--- OUTSIDE RECORDS SUMMARY | 2022-01-26 11:40 | XMS_ITS | Encounter Summary ---
:1950 Author Organization [facility] Address [address] [place] [address] Care Team Providers Name Role Phone Unavailable Primary Care Provider Unavailable Encounter Details Date Type Department Care Team Description 10/03/2016 - Hospital Encounter HX RST PREV HYPERBARIC Maria EugeniaHank hernandez, 10/10/2016 PREV M.D. [address] [place] [address] Social History Tobacco Use Types Packs/Day Years [...] Laboratory Medicine Maite Dennis P.A.-C. [address] [place] [phone] 01/31/2022 Appointment Radiology Maite Dennis P.A.-C. [address] [place] [phone] 01/31/2022 Office Visit Oncology Maite Dennis P.A.-C. [address] [place] [phone] documented as of this encounter Visit Diagnoses Not on filedocumented in this encounter
--- OUTSIDE RECORDS SUMMARY | 2022-01-26 11:40 | XMS_ITS | Encounter Summary ---
:1950 Author Organization [facility] Address [address] [place] [address] Care Team Providers Name Role Phone Unavailable Primary Care Provider Unavailable Encounter Details Date Type Department Care Team Description 10/04/2016 - Hospital Encounter HX RST PREV HYPERBARIC Maria EugeniaHank hernandez, 10/11/2016 PREV M.D. [address] [place] [address] Social History Tobacco Use Types Packs/Day Years [...] Laboratory Medicine Maite Dennis P.A.-C. [address] [place] [phone] 01/31/2022 Appointment Radiology Maite Dennis P.A.-C. [address] [place] [phone] 01/31/2022 Office Visit Oncology Maite Dennis P.A.-C. [address] [place] [address] [phone] documented as of this encounter Visit Diagnoses Not on filedocumented in this encounter
--- OUTSIDE RECORDS SUMMARY | 2022-01-26 11:40 | XMS_ITS | Encounter Summary ---
:1950 Author Organization [facility] Address [address] [place] [id number] Care Team Providers Name Role Phone Unavailable Primary Care Provider Unavailable Encounter Details Date Type Department Care Team Description 04/01/2017 Abstract Division of Hematology in Lesli Hernandez R.N. [place], [place] [address] [place] [address] 200 [place] [phone] Social History Tobacco Use Types Packs/Day Years Used Date Smoking Tobacco: Never Assessed Sex Assigned at Date Recorded Not on file documented as of this encounter Plan of Treatment Upcoming Encounters Date Type Specialty Care Team Description 01/27/2022 Clinical Communication Admitting/Central Scheduling 01/31/2022 Appointment Laboratory Medicine Maite Dennis P.A.-C. [address] [place] [phone] 01/31/2022 Appointment Radiology Maite Dennis P.A.-C. [address] [place] [phone] 01/31/2022 Office Visit Oncology Maite Dennis P.A.-C. [address] [place] [phone] documented as of this encounter Visit Diagnoses Not on filedocumented in this encounter
--- OUTSIDE RECORDS SUMMARY | 2022-01-26 11:40 | XMS_ITS | Encounter Summary ---
:1950 Author Organization [facility] Address [address] [place] [address] Care Team Providers Name Role Phone Unavailable Primary Care Provider Unavailable Encounter Details Date Type Department Care Team Description 08/17/2018 Clinical Communication Department of Oncology Maite Dennis, in [facility] sav P.ADeven-C. [address] [facility] [address] [place] [phone] Social History Tobacco Use Types Packs/Day Years Used Date Smoking Tobacco: Former Cigarettes 1 30 Alcohol Use Standard Drinks/Week Comments Yes 3 (1 standard drink = 0.6 oz pure alcoho l) 2-3 vodka/coke's per week Sex Assigned at Date Recorded Not on file documented as of this encounter Miscellaneous Notes Telephone Encounter - Carlos Donato R.N. - 08/21/2018 8:43 AM CDT I attempted to reach Pat and left voicemail to return my call. She did reschedule her appt with Maite for today at 10:20. She was discharged from the ED on 08/18 after a possible SD. Telephone Encounter - JeannieMaite luo P.A.-C. - 08/17/2018 9:46 AM CDT Noted. Will have RN check in on patient the beginning of next week. We will eventually need to reschedule her appointment here. Maite Deleon Telephone Encounter - Akosua Monge - 08/17/2018 8:11 AM CDT Do we have a valid auth to speak with caller? Yes, Vanessa Reason for call: Pt calls to inform you that pt was having shortness of breath and some nausea. They are on the way to [place] by ambulance currently. Husbands cell number is [phone]. He stated if you would like to call that is the best number toreach them. We canceled pt appt for this am, he stated he is unsure what the plan is once they get to the ER. Is it okay to leave a voicemail on answering machine? yes Is it okay to send a patient online message with your reply? no Thank you, Akosua Appointment Office [phone] ~Please reply to the RST ONC SCHEDULING~ documented in this encounter Plan of Treatment Upcoming Encounters Date Type Specialty Care Team Description 01/27/2022 Clinical Communication Admitting/Central Scheduling 01/31/2022 Appointment Laboratory Medicine Maite Dennis P.A.-C. [address] [place] [phone] 01/31/2022 Appointment Radiology Maite Dennis P.A.-C. [address] [place] [address] [phone] 01/31/2022 Office Visit Oncology Maite Dennis P.A.-C. [address] [place] [address] [phone] documented as of this encounter Visit Diagnoses Not on filedocumented in this encounter Additional Health Concerns Assessment Noted Time PHQ-9 Depression Total Score: 1 08/17/2018 6:47 PM CDT documented as of this encounter
--- OUTSIDE RECORDS SUMMARY | 2022-01-26 11:40 | XMS_ITS | Encounter Summary ---
:1950 Author Organization [facility] Address [address] [place] [address] Care Team Providers Name Role Phone Unavailable Primary Care Provider Unavailable Encounter Details Date Type Department Care Team Description 10/04/2016 - Hospital Encounter HX RST PREV Whitney Moser, 10/11/2016 HYPERBARIC AHP R.N. [address] [place] [address] Social History Tobacco Use Types Packs/Day Years [...] Appointment Laboratory Medicine Maite Dennis P.A.-C. [address] [place] [phone] 01/31/2022 Appointment Radiology Maite Dennis P.A.-C. [address] [place] [address] [phone] 01/31/2022 Office Visit Oncology Maite Dennis P.A.-C. [address] [place] [phone] documented as of this encounter Visit Diagnoses Not on filedocumented in this encounter
--- OUTSIDE RECORDS SUMMARY | 2022-01-26 11:40 | XMS_ITS | Encounter Summary ---
:1950 Author Organization [facility] Address [address] [place] [address] Care Team Providers Name Role Phone Unavailable Primary Care Provider Unavailable Reason for Visit Reason Comments Shortness of Breath asthma, neb given Encounter Details Date Type Department Care Team Description 08/17/2018 [facility] [place] [address] [facility] [address] [place] [phone] (Wo rk) Social History Tobacco Use Types Packs/Day Years Used Date Smoking Tobacco: Former Cigarettes 1 30 Alcohol Use Standard Drinks/Week Comments Yes 3 (1 standard drink = 0.6 oz pure alcoho l) 2-3 vodka/coke's per week Sex Assigned at Date Recorded Not on file documented as of this encounter Last Filed Vital Signs Vital Sign Reading Time Taken Comments Blood Pressure 133/70 08/17/2018 5:00 PM CDT Pulse 68 08/17/2018 5:00 PM CDT Temperature 36.8 ??C (98.2 ??F) 08/17/2018 2:00 PM CDT Respiratory Rate 23 08/17/2018 3:00 PM CDT Oxygen Saturation 97% 08/17/2018 5:00 PM CDT Inhaled Oxygen Concentration - - Weight 86.9 kg (191 lb 9.3 oz) 08/17/2018 2:00 PM CDT Height 154 cm (5' 0.63) 08/17/2018 [...] Case IDs Date Procedure Surgeon Location Status [id number] 08/17/18 Coronary Angiography Theron Awan M.D. RST [...] Non-ST Elevation Myocardial Infarction (HCC) HOSPITAL COURSE ??Josselin??is a pleasant 67 year old woman with [...] on 15L face mask and brought to Emergency Department for further evaluation. In the [...] and recommendations by Dr. Miguel Roger. #1 Bnq-EV-ljxiarqol myocardial infarction Ms. Schwab underwent a coronary [...] and her family. CT CT Job ID: [id number] Miguel Roger M.D. - 08/18/2018 9:32 AM [...] (cmH2O): [0 cm H20] 0 cm H20 OK SUP: [10 cm H20] 10 cm H20 Mean Airway Pressure: [0 cm H2O] 0 cm H2O Intake/Output Summary (Last 24 hours) at 08/18/18 0901 Last data filed at 08/18/18 0904 Gross per 24 hour Intake 757.14 ml [...] diagnostics. Last 2 results Lab Units 08/18/18 0608/17/18 0844 WBC x10(9)/L 7.9 8.3 HEMOGLOBIN g/dL 11.8 14.8 PLATELETS AUTO x10(9)/L 246 314 MCV fL 99.2* 100.2* RBC DISTRIBUTION WIDTH AUTO % 12.9 12.7 Last 2 results Lab Units 08/18/18 0625 08/17/18 0845 08/17/18 0844 SODIUM P mmol/L -- [...] SCr of 0.8 mg/dL). Recent Labs 08/18/18 0625 CALCIUM 8.9 ASSESSMENT / PLAN Ms. Schwab??is [...] 08/18/2018 Alcon Roger M.D. PGY-1 Resident, Pager [phone] documented in this encounter H&P Notes Moncho Caballero M.D., Ph.D. - 08/17/2018 4:23 PM CDT SUBJECTIVE This is also a supervisory note for Dr. Leo Arnold. CHIEF COMPLAINT/REASON FOR VISIT Shortness of breath. [...] physical, and recommendations by Dr. Arnold. #1 Ijm-MA-pdocpmfot myocardial infarction Mrs. Schwab's symptoms are suspicious [...] has been defined. CT CT Job ID: [id number] Leo Arnold M.D. - 08/17/2018 1:30 PM CDT Ischemic Cardiology Admission Note ?? Supervising Station Operator: Dr. Moncho Caballero Service pager: [phone] ?? SUBJECTIVE CHIEF COMPLAINT/REASON FOR VISIT Shortness of Breath ?? HISTORY OF PRESENT ILLNESS/PAST CARDIAC HISTORY #1 Non-ST Elevation Myocardial Infarction (HCC) ?? Ms. Schwab is a 67 y.o. 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 ?? Approximately 8:00 a.m., this morning, she was preparing for an evaluation as an outpatient for Oncology. She notes that she is currently in [place] for a standard 3 month appointment with [...] in the 80s.She was then taken to ED for further evaluation. ?? In the [...] sister. ? Medications Current Facility-Administered Medications: ??? [MAY Hold] acetaminophen tablet 500 mg (TYLENOL), 500 [...] PRN, Matt Cormier M.B., B.Ch., B.A.O. ??? midazolam (PF) injection 0.5 mg (VERSED), 0.5 mg, intravenous, Once PRN, Matt Cormier M.B., B.Ch., B.A.O. ??? midazolam (PF) injection 0.5 mg (VERSED), 0.5 mg, intravenous, Q2 Min PRN, Matt Cormier M.B.,B.Ch., B.A.O. ??? midazolam (PF) injection 1 mg (VERSED), 1 mg, intravenous, Q2 Min PRN, Matt Cormier M.B., B.Ch., B.A.O. ??? NaCl 0.9% infusion, 20 mL/hr, intravenous, Once PRN, Matt Cormier M.B., B.Ch., B.A.O. ??? naloxone injection 0.2 mg (NARCAN), 0.2 mg, intravenous, Once PRN, Matt Cormier M.B., B.Ch., B.A.O. ??? [MAY Hold] nitroglycerin SL tablet 0.4 mg (NITROSTAT), 0.4 mg, sublingual, Q5 Min PRN, Royal Kelyl M.D. ??? ondansetron (PF) injection 4 mg (ZOFRAN), 4 mg, intravenous, Once PRN, Matt Cormier M.B., B.Ch., B.A.O. ??? [MAY Hold] pravastatin tablet 10 mg (PRAVACHOL), 10 mg, oral, Daily at bedtime, Leo Arnold M.D. ??? [MAY Hold] sodium chloride 0.9 % injection 10 mL, 10 mL, intravenous, PRN, Jarek Chacon, P.A.-C., M.S. ??? [MAY Hold] sodium chloride 0.9 % injection 10 mL, 10 mL, intravenous, PRN, Leo Arnold M.D. ??? sodium chloride 0.9 % injection 10 mL, 10 mL, intravenous, PRN, Matt Cormier M.B., B.Ch., B.A.O. ??? [MAY Hold] sodium chloride 0.9 % injection 3 mL, 3 mL, intravenous, PRN, Jarek Chacon, P.A.-C.,M.S. ??? [MAY Hold] sodium chloride 0.9 % injection 3 mL, 3 mL, intravenous, Q12H PAULINO, Jarek Chacon, P.A.-C., M.S., 3 mL at 08/17/18 0912 ??? [MAY Hold] sodium chloride 0.9 % injection 3 mL, 3 mL, intravenous, PRN, Leo Arnold M.D. ??? [MAY Hold] sodium chloride 0.9 % injection 3 mL, 3 mL, intravenous, Q12H PAULINO, Leo Arnold M.D. ??? sodium chloride 0.9 [...] page the Ischemic Cardiology Service pager at [phone] with questions. ?? Leo Arnold M.D. 08/17/18 [...] referral if participation is recommended. 2. Eligibility: [place] 3. Exceptions/exclusions: None 4. Referral: Patient will [...] status post chemotherapy and radiation therapy in 2016/2016 who presents to [place] emergency room via ambulance after experiencing shortness [...] Myocardial Infarction (HCC) Jarek Chacon P.A.-C., M.S. 08/17/181657 Royal Kelly M.D. - 08/17/2018 9:09 AM CDT I have personally seen and examined this patient. I have fully participated in the care of this patient. I have reviewed all clinical information including history, physical exam, orders, and plan. I agree with the note of the [employer]. This is a very pleasant 67 y.o. [...] to ischemic heart disease. Final Diagnoses: as of Aug 20 818 Non-ST Elevation Myocardial Infarction (HCC) Royal Kelly M.D. 08/20/18 0820 documented in this encounter Miscellaneous Notes Hospital Course - Miguel Roger M.D. - 08/17/2018 3:48 PM CDT ??Josselin??is a pleasant 67 year old woman with [...] on 15L face mask and brought to Emergency Department for further evaluation. In the [...] Appointment Laboratory Medicine Maite Dennis P.A.-C. [address] [place] [phone] 01/31/2022 Appointment Radiology Maite Dennis P.A.-C. [address] [place] [phone] 01/31/2022 Office Visit Oncology Maite Dennis P.A.-C. [address] [place] [phone] documented as of this encounter Procedures Procedure [...] CBC without Differential (08/18/2018 6:25 AM CDT) [facility] gist Method Time Signature Hemoglobin 11.8 11.6 - 08/18/2018 [facility] 15.0 g/dL 7:05 AM CDT [facility] Hematocrit 36.2 35.5 - 08/18/2018 [facility] 44.9 % 7:05 AM T [facility] Erythrocytes 3.65 (L) 3.92 - 08/18/2018 [facility] 5.13 7:05 AM CDT LABORATORIES - x10(12)/L [facility] MCV 99.2 (H) 78.2 - 08/18/2018 [facility] 97.9 fL 7:05 AM CDT [facility] RBC Distrib 12.9 12.2 - 08/18/2018 [facility] Width 16.1 % 7:05 AM T [facility] Platelet Count 246 157 - 371 08/18/2018 [facility] x10(9)/L 7:05 AM T [facility] Leukocytes 7.9 3.4 - 9.6 08/18/2018 [facility] x10(9)/L 7:05 AM CDT [facility] Specimen Anatomical Collection Method Collection Time Receive d Time (Source) Location / / Volume Laterality Blood (Blood, 08/18/2018 6:25 AM 08/19/19 19 6:56 Venous) CDT AM CDT Jarek Chacon P.A.-C. LAB BLOOD ADD-ON Performing Organization Address City/State/ZIP Code Phon e Number [facility] LABORATORIES - [address] [place], [place] [address] [facility] Hemoglobin A1c (08/18/2018 6:25 AM CDT) Analysis Performed At [facility] logist Time Signature Hemoglobin A1c, 5.5 4.0 - 5.6 08/18/2018 [facility] B % 7:42 AM CDT [facility] Specimen Anatomical Collection Method Collection Time Receive d Time (Source) Location / / Volume Laterality Blood (Blood, 08/18/2018 6:25 AM 08/19/19 19 6:56 Venous) CDT AM CDT Moncho Caballero M.D., Ph.D. LAB BLOOD ADD-ON Performing Organization Address City/State/ZIP Code Phon e Number [facility]ORATORIES - [address] [place], [place] [address] [facility] Lipid Panel (08/18/2018 6:25 AM CDT) P athologist Signature Cholesterol, 155 mg/dL 08/18/2018 [facility] Total 7:46 AM CDT [facility] Comment: ----REFERENCE VALUE---- Desirable: < 200 Borderline high: 200 - 239 High: > or = 240 Triglycerides 114 mg/dL 08/18/2018 7:46 AM CDT [facility] Comment: ----REFERENCE VALUE---- Normal: <150 Borderline high: 150-199 High: 200-499 Very high: > or =500 Cholesterol, HDL, S 54 >=50 mg/dL 08/18/2018 7:46 AM CDT [facility] Calculated LDL 78 mg/dL 08/18/2018 7:46 AM CDT MA [facility] Comment: ----REFERENCE VALUE---- Desirable: <100 Above Desirable: 100-129 Borderline high: 130-159 High: 160-189 Very high: > or =190 Cholesterol, Non-HDL, 101 mg/dL 08/18/2018 7:4 6 AM CDT [facility] [place] [facility] Comment: ----REFERENCE VALUE---- Desirable: <130 [...] City/State/ZIP Code Phon e Number [facility] - [address] [place], [place] [address] [facility] BMP (Basic Metabolic Panel) (08/18/2018 6:25 AM CDT) Analysis Performed At Patho logist Time Signature Potassium, S 4.4 3.6 - 5.2 08/18/2018 [facility] mmol/L 7:[address] [facility] Sodium, S 141 135 - 145 08/18/2018 [facility] mmol/L 7:[address] [facility] Chloride, S 107 98 - 107 08/18/2018 [facility] mmol/L 7:[address] [facility] Bicarbonate, S 23 22 - 29 08/18/2018 [facility] mmol/L 7:[address] [facility] Anion Gap 11 7 - 15 08/18/2018 [facility] 7:[address] [facility] BUN (Blood Urea 18 6 - 21 08/18/2018 [facility] Nitrogen), S mg/dL 7:46 AM T [facility] Creatinine 0.80 0.59 - 08/18/2018 [facility] 1.04 mg/dL 7:[address] [facility] eGFR-Non 75 >=60 08/18/2018 [facility] Black/ mL/min/BSA 7:46 AM CDT LABORATORIES [facility] Comment: ----ADDITIONAL INFORMATION---- Estimated GFR calculated using the 2009 CKD_EPI creatinine equation. eGFR-Black/ 87 >=60 mL/min/BSA 08/18/2018 7:46 [facility] CDT [facility] Comment: ----ADDITIONAL INFORMATION---- Estimated GFR calculated using the 2009 CKD_EPI creatinine equation. Calcium, Total, S 8.9 8.8 - 10.2 mg/dL 08/18/2018 7:46 AM [facility] CDT [facility] Glucose, S 104 70 - 140 mg/dL 08/18/2018 7:46 [facility] Specimen Anatomical Collection Method Collection Time Receive d Time (Source) Location / / Volume Laterality Blood (Blood, 08/18/2018 6:25 AM 08/19/19 19 6:55 Venous) CDT AM CDT Moncho Caballero M.D., Ph.D. LAB BLOOD ADD-ON Performing Organization Address [facility] Phon e Number [facility] - [address] Heparin Anti-Xa Assay (08/17/2018 7:30 PM CDT) P athologist Signature Heparin <0.10 IU/mL 08/17/2018 [facility] Anti-Xa, P 8:10 PM CDT LABORATORIES - [facility] Comment: UFH therapeutic range: ?? [...] LAB BLOOD NON ADD-ON Performing Organization Address [facility] Phon e Number [facility] - [address] CORONARY ANGIOGRAPHY (08/17/2018 4:37 PM CDT) Anatomical [...] ST Clotting Time, sec 4:36 PM CDT [facility] INPATIENT LABS Specimen Anatomical Collection Method Collection Time Receive d Time (Source) Location / / Volume Laterality Blood 08/17/2018 4:31 PM 9 4:36 CDT PM CDT Unknown Provider LAB POCT ORDERABLES - DEVICE Performing Organization Address City/State/ZIP Code Phon e Number POC [facility] INPATIENT LABS [address] [facility] [address] Critical Care (08/17/2018 1:08 PM CDT) Narrative Royal Kelly M.D. - 08/17/2018 1: 08 PM CDT Royal Kelly M.D. ? 08/17/2018 ??1:08 PM Critical Care Performed by: ROYAL KELLY Authorized by: ROYAL KELLY Critical care provider statement: ??Critical care total time (minutes): ? ?35 ??Critical care time was exclusive of: ??Separately billable procedures and treating other patients and teaching marcin e ??Critical care was necessary to treat or prevent imminent or life-threatening deterioration of the fo llowing conditions: ??Cardiac failure ??Critical care was time [...] Signature Ventricular Rate 79 BPM MUSE ECG/Min OK Interval 170 ms MUSE QRSD Interval 68 ms MUSE QT Interval 394 ms MUSE QTC Interval 451 ms MUSE P [place] 54 degrees MUSE R [place] 7 degrees MUSE T Wave [place] 50 degrees MUSE Specimen Anatomical Collection Method [...] 2H/6H, 5th Gen (08/17/2018 11:42 AM CDT) [facility] gist Method Time Signature Troponin T, 2 35 (H) <=10 ng/L 08/17/2018 [facility] hr, 5th gen 12:18 PM CDT [facility] 2H Delta 22 ng/L 08/17/2018 [facility] 12:18 PM CDT [facility] 2H Delta Changing 08/17/2018 [facility] Interp 12:18 PM CDT [facility] Comment: Evaluate for acute myocardial i njury Troponin T, 6 hr, 23 (H) <=10 ng/L 08/17/2018 3:50 PM [facility] 5th gen CDT [facility] 6H Delta 10 ng/L 08/17/2018 3:50 PM [facility] CDT [facility] 6H Delta Interp Not Changing 08/17/2018 3:50 PM [facility] CDT [facility] Specimen Anatomical Collection Method Collection Time Receive d Time (Source) Location / / Volume Laterality Blood (Blood, 08/17/2018 11:42 08/17/2018 Venous) AM CDT 11:46 AM CDT Narrative [facility] - 08/17/2018 3:50 PM CDT Specimen Information: Specimen ID: [id number] Specimen Type: Blood Specimen Collection Start Date: 08/18/19 11:42 AM Specimen Received Date: 08/17/2018 11:46 AM Specimen ID: [id number] Specimen Type: Blood Specimen Collection Start Date: 08/18/19 ??3:17 PM Specimen Received Date: 08/17/2018 ??3:2 2 PM Jarek Chacon P.A.-C. LAB BLOOD TROPONIN Performing Organization Address City/State/ZIP Code Phon e Number [facility] LABORATORIES - [address] [place], [place] [address] [facility] CT Chest Angiogram and Pulmonary [...] IV CONTRAST COMPARISON: Compared to CT dated 08/17/19. FINDINGS: Moderate aortic and major bran ch [...] IV CONTRAST COMPARISON: Compared to CT dated 08/17/19. FINDINGS: Moderate aortic and major bran ch [...] Gas and Electrolytes CG8+, Point of Care, [place], Vascular Access [employer] (08/17/2018 8:45 AM CDT) athologist Signature Sample [...] 140 mg/dL 08/17/2018 9:00 AM CDT [facility] Comment: ----ADDITIONAL INFORMATION---- Performed at the Point of Care Hematocrit, POCT, B 44.0 35.5 - 44.9 % 08/17/2018 9: 00 AM CDT [facility] Comment: ----ADDITIONAL INFORMATION---- Performed at the Point of Care Specimen Anatomical Collection Method Collection Time Receive d Time (Source) Location / / Volume Laterality Blood 08/17/2018 8:45 AM 9 9:01 CDT AM CDT Unknown Provider LAB POCT ORDERABLES - DEVICE Performing Organization Address [facility] Phon e Number [facility]OC [facility] [address] [place] [address] Type and Screen (with reflex Antibody ID) (08/17/2018 8:44 AM CDT) [facility] Method Time Signature ABORh O Pos Not 08/17/2018 [facility] applicable 5:41 PM LABORATORIES - CDT [facility] Antibody Negative Negative 08/17/2018 [facility] Screen 5:56 PM LABORATORIES - CDT [facility] Type & [id number] 08/17/2018 [facility] Screen 5:41 PM LABORATORIES - Expiration CDT [facility] Testing Birgit DEFAULT 08/17/2018 [facility] Location 5:22 PM LABORATORIES - CDT [facility] Specimen Anatomical Collection Method Collection Time Receive d Time (Source) Location / / Volume Laterality Blood (Blood, 08/17/2018 8:44 AM 08/18/19 19 5:22 Venous) CDT PM CDT Moncho Caballero M.D., Ph.D. LAB BLOOD BANK TEST ORDE RABLES Performing Organization Address [facility] Phon e Number [facility] LABORATORIES - [address] [place], [place] [address] [facility] PT (Prothrombin Time) with INR (08/17/2018 8:44 AM CDT) [facility] Method Time Signature Prothrombin 11.7 9.4 - 12.5 08/17/2018 [facility] Time, P sec 8:[address] [facility] INR 1.1 0.9 - 1.1 08/17/2018 [facility] 8:[address] [facility] Comment: ----ADDITIONAL INFORMATION---- Standard intensity warfarin therapeutic range: 2.0 to 3.0 ?? High intensity warfarin therapeutic rang e: 2.5 to 3.5 Specimen Anatomical Collection Method Collection Time Receive d Time (Source) Location / / Volume Laterality Blood (Blood, 08/17/2018 8:44 AM 08/18/19 19 8:49 Venous) CDT AM CDT Jarek Chacon P.A.-C. LAB BLOOD ADD-ON Performing Organization Address City/[facility] Code Phon e Number [facility] LABORATORIES - [address] [place], [place] [address] [facility] (ABNORMAL) D-Dimer (08/17/2018 8:44 AM CDT) P athologist Signature D-Dimer, P 1128 (H) <=500 08/17/2018 [facility] ng/mL FEU 8:[address] [facility] Comment: D-dimer concentrations increase with age . [...] P.A.-C. LAB BLOOD ADD-ON Performing Organization Address City/State/[facility] Code Phon e Number [facility] LABORATORIES - [address] [place], [place] [address] [facility] (ABNORMAL) Troponin T, Baseline, 5th gen (08/17/2018 8:44 AM CDT) Analysis Performed At Patho logist Time Signature Troponin T, 13 (H) <=10 ng/L 08/17/2018 [facility] Baseline, 9:10 AM CDT LABORATORIES - [facility] Specimen Anatomical Collection Method Collection Time Receive d Time (Source) Location / / Volume Laterality Blood (Blood, 08/17/2018 8:44 AM 08/18/19 19 8:49 Venous) CDT AM CDT Jarek Chacon P.A.-C. LAB BLOOD TROPONIN Performing Organization Address [facility] Phon e Number [facility] LABORATORIES - [address] [place] [address] [facility] NT-Pro B-Type Natriuretic Peptide (BNP) (08/17/2018 8:44 AM CDT) athologist Signature NT-Pro BNP 120 5 - 202 08/17/2018 [facility] pg/mL 9:22 AM CDT LABORATORIES - [facility] Comment: NT-proBNP values less than [...] P.A.-C. LAB BLOOD ADD-ON Performing Organization Address [facility] Phon e Number [facility] LABORATORIES - [address] [place] [address] [facility] (ABNORMAL) BMP (Basic Metabolic Panel) (08/17/2018 8:44 AM CDT) [facility] Time Signature Potassium, P 3.8 3.6 - 5.2 08/17/2018 [facility] mmol/L 9:05 AM CDT LABORATORIES - [facility] Sodium, P 142 135 - 145 08/17/2018 [facility] mmol/L 9:05 AM CDT LABORATORIES - [facility] Chloride, P 107 98 - 107 08/17/2018 [facility] mmol/L 9:05 AM CDT LABORATORIES - [facility] Bicarbonate, P 21 (L) 22 - 29 08/17/2018 [facility] mmol/L 9:[address] [facility] Anion Gap, P 14 7 - 15 08/17/2018 [facility] 9:[address] [facility] BUN (Blood Urea 17 6 - 21 08/17/2018 [facility] Nitrogen), P mg/dL 9:05 AM CDT [facility] Creatinine 0.85 0.59 - 08/17/2018 [facility] 1.04 mg/dL 9:05 AM CDT [facility] eGFR-Black/Afri 81 >=60 08/17/2018 [facility] can Hungarian mL/min/BSA 9:[address] [facility] Comment: ----ADDITIONAL INFORMATION---- Estimated GFR calculated using the 2009 CKD_EPI creatinine equation. eGFR Non-Black/ 70 >=60 mL/min/BSA 08/17/2018 9:05 AM [facility] Hungarian CDT [facility] Comment: ----ADDITIONAL INFORMATION---- Estimated GFR calculated using the 2009 CKD_EPI creatinine equation. Calcium, Total, P 9.2 8.8 - 10.2 08/17/2018 9:05 AM [facility] mg/dL CDT [facility] Glucose, P 181 (H) 70 - 140 mg/dL 08/17/2018 9:05 AM [facility] CDT [facility] Specimen Anatomical Collection Method Collection Time Receive d Time (Source) Location / / Volume Laterality Blood (Blood, 08/17/2018 8:44 AM 08/18/19 19 8:49 Venous) CDT AM CDT Jarek Chacon P.A.-C. LAB BLOOD ADD-ON Performing Organization Address City/State/ZIP Code Phon e Number [facility] LABORATORIES - [address] [place] [address] [facility] (ABNORMAL) CBC with Differential (08/17/2018 8:44 AM CDT) [facility] Method Time Signature Hemoglobin 14.8 11.6 - 08/17/2018 [facility] 15.0 g/dL 8:53 AM CDT [facility] Hematocrit 44.8 35.5 - 08/17/2018 [facility] 44.9 % 8:53 AM CDT [facility] Erythrocytes 4.47 3.92 - 08/17/2018 [facility] 5.13 8:53 AM CDT LABORATORIES - x10(12)/L [facility] MCV 100.2 (H) 78.2 - 08/17/2018 [facility] 97.9 fL 8:53 AM CDT [facility] RBC Distrib 12.7 12.2 - 08/17/2018 [facility] Width 16.1 % 8:53 AM CDT LABORATORIES - [facility] Platelet Count 314 157 - 371 08/17/2018 [facility] x10(9)/L 8:53 AM CDT LABORATORIES - [facility] Leukocytes 8.3 3.4 - 9.6 08/17/2018 [facility] x10(9)/L 8:53 AM CDT LABORATORIES - [facility] Neutrophils 6.23 1.56 - 08/17/2018 [facility] 6.45 8:53 AM CDT LABORATORIES - x10(9)/L [facility] Lymphocytes 1.60 0.95 - 08/17/2018 [facility] 3.07 8:53 AM CDT LABORATORIES - x10(9)/L [facility] Monocytes 0.26 0.26 - 08/17/2018 [facility] 0.81 8:53 AM CDT LABORATORIES - x10(9)/L [facility] CENTER Eosinophils 0.15 0.03 - 08/17/2018 [facility] 0.48 8:53 AM CDT LABORATORIES - x10(9)/L [facility] Basophils <0.03 0.01 - 08/17/2018 [facility] 0.08 8:53 AM CDT LABORATORIES - x10(9)/L [facility] Specimen Anatomical Collection Method Collection Time Receive d Time (Source) Location / / Volume Laterality Blood (Blood, 08/17/2018 8:44 AM 08/18/19 19 8:49 Venous) CDT AM CDT Jarek Chacon P.A.-C. LAB BLOOD ADD-ON Performing Organization Address City/State/ZIP Code Phon e Number [facility] - [address] [place], [place] [address] [facility] Blood Gas, Venous, POCT (08/17/2018 8:44 AM CDT) Analysis Performed At Patho logist Time Signature ABG and Collected DEFAULT 08/17/2018 [facility] Lytes, POCT, 8:44 AM CDT LABORATORIES - B [facility] Specimen Anatomical Collection Method Collection Time Receive d Time (Source) Location / / Volume Laterality Blood (Other, 08/17/2018 8:44 AM 08/18/19 19 8:44 Specify in CDT AM CDT Comments) Jarek Chacon P.A.-C. LAB POCT ORDERABLES - DEVICE Performing Organization Address City/State/ZIP Code Phon e Number [facility] - [address] [place], [place] [address] [facility] ECG 12 Lead (08/17/2018 8:38 AM CDT) P athologist Signature Ventricular Rate 86 BPM MUSE ECG/Min OK Interval 160 ms MUSE QRSD Interval 76 ms MUSE QT Interval 406 ms MUSE QTC Interval 485 ms MUSE P [place] 56 degrees MUSE R [place] 21 degrees MUSE T Wave [place] 56 degrees MUSE Specimen Anatomical Collection Method [...] Primary Non-ST Elevation Myocardial Infarction ( HCC) Non-ST Elevation Myocardial Infarction ( HCC) documented [...] 10.6 mL/hr iohexol 350 mg iodine/mL solution (OMNIP AQUE) Given 08/17/2018 4:29 PM CDT 35 mL As needed, Starting on Mon08/17/18 at 1629, Intraprocedure (CV) iohexol 350 mg iodine/mL solution 1-200 mL Given 08/17/2018 10:29 AM CDT 100 mL (OMNIPAQUE) 1-200 mL, intravenous, Once in imaging, contrast, Starting on Mon08/17/18 at 1028, For 1 dose, Imaging Protocol Orders, Dose per Radiant Medication Guidelines ipratropium-albuterol 0.5-2.5 mg/3 mL ne bulizer solution 3 mL (DUO-NEB) 3 mL, nebulization, 4 times daily PRN, w estephanie, shortness of breath, Starting on Mon08/17/18 at 1616 lidocaine 10 mg/mL (1 %) injection Given 08/17/2018 4:10 PM CDT 10 mL Right Groin (XYLOCAINE) As needed, Starting on Mon08/17/18 at 1610, Intraprocedure (CV) loratadine tablet 10 mg (CLARITIN) Given 08/17/2018 [...] on Mon08/18/18 at 0900 fluticasone furoate-vilanterol 100-25 mc g/actuation [...] Mon08/18/18 at 0900 heparin (porcine) 1,000 unit/mL injection 5,300 Units (COMPL ETED) 1321 (Given - Provider: Charlotte Latham R.N.) 5,300 Units (rounded from 5,280 Units = 60 Units/kg ? 88 kg Dosing weight), intravenous, Once, On Mon08/17/18 at 1250, For 1 dose, Initial Loading Dose, Intensity type: Moderate loratadine tablet 10 mg (CLARITIN) 1528 ([facility] Hold - Provider: Transfer Provider, Automatic - Reason: Patient not available)1746 ([facility] Unhold - Provider: Transfer Provider, Automatic)204 (Given - Provider: Wendy Brandt RCurt) 10 mg, oral, Daily at bedtime, First dose on Mon08/17/18 at 2100 pravastatin tablet 10 mg (PRAVACHOL) 152 8 ([facility] Hold - Provider: Transfer Provider, Automatic - Reason: Patient not available)174 ([facility] Unhold - Provider: Transfer Provider, Automatic)204 (Given - Provider: Wendy Brandt RCurt) 10 mg, oral, Daily at bedtime, First dose on Mon08/17/18 at 2100 sodium chloride (PF) 0.9 % injection 1-100 mL (COMPLETED) 1029 (Given - Provider: Alayna Jaime RDevenNDeven) 1-100 mL, intravenous, Once, On 08/17 at 1029, For 1 dose, Imaging Protocol Orders sodium chloride 0.9 % injection 3 mL 091 2 (Given - Provider: Charlotte Latham R.N.)1528 ([facility] Hold - Provider: Transfer Provider, Automatic - Reason: Patient not available)1746 ([facility] Unhold - Provider: Transfer Provider, Automatic) 0859 (Given - Provider: Radha Austin RCurt) 3 mL, intravenous, Every 12 hours schedu led, First dose on Mon08/17/18 at 0900, Peripheral Intravenous Catheter and Rapid Infusion Catheter, when no infusion to maintain patency 2041 (Not Given - Provider: Wendy Brandt R.N. - Reason: Other - Comment: only 1 IV) sodium chloride 0.9 % injection 3 mL 152 8 ([facility] Hold - Provider: Transfer Provider, Automatic - Reason: Patient not available)1746 ([facility] Unhold - Provider: Transfer Provider, Automatic)2040 (Given [...] 08/17/2018 08/18/2018 acetaminophen tablet 1,000 mg (TYLENOL) 2039 (Given - Provider: Wendy Brandt RDevenNDeven) 034 (Given - Provider: Wendy Brandt R Curt) [...] Miles Watkins, B.Ch., B.A.O.) As needed, Starting on Mon08/17/18 at 1629, Intraprocedure (CV) iohexol 350 mg iodine/mL solution 1-200 mL (OMNIPAQUE) (COMP LETED) 1029 (Given - Provider: Alayna Jaime R.N. - Comment: lot [id number]) 1-200 mL, intravenous, Once in imaging, contrast, [...] Miles Watkins, B.Ch., B.A.O.) As needed, Starting on Mon08/17/18 at 1610, Intraprocedure (CV) melatonin tablet 3 mg 3 mg, oral, Bedtime PRN, sleep, Starting on Mon08/17/18 at 1617 nitroglycerin SL tablet 0.4 mg (NITROSTAT) 1528 ([facility] Hold - Provider: Transfer Provider, Automatic - Reason: Patient not available)1746 ([facility] Unhold - Provider: Transfer Provider, Automatic) 0.4 mg, sublingual, Every 5 min PRN, yunier st pain, Starting on Mon08/17/18 at 1312, For 3 doses, May administer up to 3 doses per episode. Dissolve under the tongue. Do NOT crush, chew, split or swallow tablet. sodium chloride 0.9 % injection 10 mL 15 28 ([facility] Hold - Provider: Transfer Provider, Automatic - Reason: Patient not available)1746 ([facility] Unhold - Provider: Transfer Provider, Automatic) 10 mL, intravenous, As needed, line care , Starting on Mon08/17/18 at 0832, Peripheral Intravenous Catheter and Rapid Infusion Catheter, prior to blood sampling, post blood transfusion or post blood sampling sodium chloride 0.9 % injection 10 mL 15 28 ([facility] Hold - Provider: Transfer Provider, Automatic - Reason: Patient not available)1746 ([facility] Unhold - Provider: Transfer Provider, Automatic) 10 mL, intravenous, As needed, line care , Starting Mon08/17/18 at 1500, Peripheral Intravenous Catheter and Rapid Infusion Catheter, prior to blood sampling, post blood transfusion or post blood sampling sodium chloride 0.9 % injection 3 mL 152 8 ([facility] Hold - Provider: Transfer Provider, Automatic - Reason: Patient not available)1746 ([facility] Unhold - Provider: Transfer Provider, Automatic) 3 mL, intravenous, As needed, line care, Starting on Mon08/17/18 at 0832, Prior to and following infusion and between multiple consecutive infusions: sodium chloride 0.9 % injection sodium chloride 0.9 % injection 3 mL 152 8 ([facility] Hold - Provider: Transfer Provider, Automatic - Reason: Patient not available)1746 ([facility] Unhold - Provider: Transfer Provider, Automatic) 3 mL, intravenous, As needed, line care, Starting Mon08/17/18 at 1500, Prior to and following infusion and between multiple consecutive infusions: sodium chloride 0.9 % injection documented in this encounter Additional Health Concerns Assessment Noted Time PHQ-9 Depression Total Score: 1 08/17/2018 6:47 PM CDT documented as of this encounter
--- OUTSIDE RECORDS SUMMARY | 2022-01-26 11:40 | XMS_ITS | Encounter Summary ---
:1950 Author Organization [facility] Address [address] [place] [address] Care Team Providers Name Role Phone Unavailable Primary Care Provider Unavailable Encounter Details Date Type Department Care Team Description 10/06/2016 Telemedicine Department of Plastic and Reconstructive Surgery Social History Tobacco Use Types Packs/Day Years Used Date Smoking Tobacco: Never Assessed Sex Assigned at Date Recorded Not on file documented as of this encounter Plan of Treatment Upcoming Encounters Date Type Specialty Care Team Description 01/27/2022 Clinical Communication Admitting/Central Scheduling 01/31/2022 Appointment Laboratory Medicine Maite Dennis P.A.-C. [address] [place] [address] [phone] 01/31/2022 Appointment Radiology Maite Dennis P.A.-C. [address] [place] [phone] 01/31/2022 Office Visit Oncology Maite Dennis P.A.-C. [address] [place] [phone] documented as of this encounter Procedures Procedure Name Priority Date/Time Associated Diagnosis Comme nts PLASTIC AND RECON Routine 10/06/2016 12:00 AM Res ults for this SURGERY IMAGE EXAM CDT procedure are in the results section. documented in this encounter Results PLASTIC AND RECON SURGERY IMAGE EXAM (10/06/2016 12:00 AM CDT) Specimen (Source) Anatomical Location Collection Method / Collectio n Time Received Time / Laterality Volume Narrative IIMS - 10/06/2016 4:52 PM CDT This order has been created [...]
--- OUTSIDE RECORDS SUMMARY | 2022-01-26 11:40 | XMS_ITS | Encounter Summary ---
:1950 Author Organization [facility] Address [address] [place] [address] Care Team Providers Name Role Phone Unavailable Primary Care Provider Unavailable Reason for Referral Outpatient (Routine) - Closed Specialty Diagnoses / Procedures Referred By Contact Refer red To Contact Oncology Caio Pop M.D. [facility] [address] [place] [phone] Referral ID Status Reason Start Date Expiration Date Visits Requ ested Visits Authorized [id number] Closed 10/18/2017 10/18/2018 1 1 Scheduling Instructions Patient is requesting or . Reason for Visit Reason Onset Date Comments Appointment 10/17/2017 Encounter Details Date Type Department Care Team Description 10/17/2017 Clinical Communication Department of Oncology Maite Dennis, Appointment in [facility] sav Patel [address] [place] [address] [place] [phone] Social History Tobacco Use Types Packs/Day Years Used Date Smoking Tobacco: Unknown Sex Assigned at Date Recorded Not on file documented as of this encounter Miscellaneous Notes Telephone Encounter - Caio Pop M.D. - 10/17/2017 5:27 PM CDT Clinical exam instead of MRI of chest is fine. Still need CT chest Telephone Encounter - Klarissa Jimenez - 10/17/2017 8:32 AM CDT Pt called for her follow up. Pt is asking does she need MRI and CT scan or can she just have a CT scan at this visit. Please advise and submit orders Thank you Klarissa Liang: Pt is looking for dates of 12/14 12/15 12/18 and 12/19 And does she need to see radiation? documented in this encounter Plan of Treatment Upcoming Encounters Date Type Specialty Care Team Description 01/27/2022 Clinical Communication Admitting/Central Scheduling 01/31/2022 Appointment Laboratory Medicine Maite Dennis P.A.-C. [address] [place] [phone] 01/31/2022 Appointment Radiology Maite Dennis P.A.-C. [address] [place] [phone] 01/31/2022 Office Visit Oncology Maite Dennis P.A.-C. [address] [place] [phone] Scheduled Referrals Name Type Priority Associated Diagnoses Order S [facility] Oncology office Outpatient Referral Routine Expec shaun: visit (clinic) 12/14/2017 (Approximate), Expires: 10/18/2020 documented as of this encounter Visit Diagnoses Diagnosis Angiosarcoma Soft Tissue (HCC) - Primary documented in this encounter
--- OUTSIDE RECORDS SUMMARY | 2022-01-26 11:40 | XMS_ITS | Encounter Summary ---
:1950 Author Organization [facility] Address [address] [place] [address] Care Team Providers Name Role Phone Unavailable Primary Care Provider Unavailable Encounter Details Date Type Department Care Team Description 09/30/2016 - Hospital Encounter HX RST PREV Whitney Moser, 10/07/2016 HYPERBARIC [facility] R.N. [address] [place] [phone] Social History Tobacco Use Types Packs/Day Years [...] Appointment Laboratory Medicine Maite Dennis P.A.-C. [address] [place] [phone] 01/31/2022 Appointment Radiology Maite Dennis P.A.-C. [address] [place] [address] [phone] 01/31/2022 Office Visit Oncology Maite Dennis P.A.-C. [address] [place] [phone] documented as of this encounter Visit Diagnoses Not on filedocumented in this encounter
--- OUTSIDE RECORDS SUMMARY | 2022-01-26 11:40 | XMS_ITS | Encounter Summary ---
:1950 Author Organization [facility] Address [address] [place] [address] Care Team Providers Name Role Phone Unavailable Primary Care Provider Unavailable Reason for Referral Outpatient (Routine) - Closed Specialty Diagnoses / Procedures Referred By Contact Refer jonah To Contact Oncology Maite Dennis P.A.- C. [address] [phone] Referral ID Status Reason Start Date Expiration Date Visits Requ ested Visits Authorized [id number] Closed 12/20/2017 12/20/2018 1 1 Reason for Visit Outpatient (Routine) - Closed Specialty Diagnoses / Procedures Referred By Contact Willa mckenzie To Contact Oncology Caio Pop M.D. [address] [phone] Referral ID Status Reason Start Date Expiration Date Visits Requ ested Visits Authorized [id number] Closed 10/18/2017 10/18/2018 1 1 Encounter Details Date Type Department Care Team Description 12/14/2017 Office Visit Department of Oncology Maite Dennis Mal ignant Neoplasm Of Breast Female (HCC) (Primary Dx); in Jorge Genao Angiosarcoma Soft Tissue (HCC) [address] [place], [place] [phone] Social History Tobacco Use Types Packs/Day Years Used Date Smoking Tobacco: Unknown Sex Assigned at Date Recorded Not on file documented as of this encounter Last Filed Vital Signs Vital Sign Reading Time Taken Comments Blood Pressure - - Pulse - - Temperature - - Respiratory Rate - - Oxygen Saturation - - Inhaled Oxygen Concentration - - Weight 86.2 kg (190 lb 0.6 oz) 12/14/2017 9:28 AM CDT Height 149.7 cm (4' 10.94) 12/14/2017 9:28 AM CDT Body Mass Index 38.46 12/14/2017 9:28 AM CDT documented in this encounter Progress Notes Maite Dennis P.A.-C. - 12/14/2017 9:40 AM CDT PRIMARY ONCOLOGIST: Caio Pop M.D. COLLABORATING PROVIDER: Dr. Goldstein CHIEF COMPLAINT/PUPROSE OF VISIT: Presents for routine follow-up visit in the Sarcoma clinic. HISTORY OF PRESENT ILLNESS: Ms. Schwab is [...] sarcoma. INTERVAL HISTORY: Ms. Schwab presents for routine 5 month follow-up appointment. Accompanied today by her . Interval History: This patient was last seen in the Medical Oncology [facility] on July 20, 2017 by me. Since that time, she has been doing well. She is still seeing Wound Care but has graduated to every other weekvisits. She has been struggling with wound healing since her surgery. Per both her and Sissy, she is really close to being completely healed. She hopes to get declared healed prior to returning to [place] for the winter. She is also hoping that she does not need to find a wound care clinic in [place] for the winter. Reports her appetite and oral intake as too good. She denies any fevers, chills, night sweats, unintentional weight loss, chest pain, dyspnea, cough, sore throat, rhinorrhea, nausea, vomiting, diarrhea, constipation, abdominal pain, extremity pain, peripheral edema or new or enlarging masses anywhere. ROS: Pertinent items are noted in HPI; all other review of systems were negative. VITAL SIGNS: Vitals: 12/14/17 0928 Weight: 86.2 kg Height: 149.7 cm PHYSICAL EXAM: General: 67 y.o. year old female, in no acute distress. Vital signs as noted above. Mouth: no oral lesions or candidiasis Neck: no palpable masses Lungs: Clear to auscultation bilaterally Chest wall: no palpable masses. There is a very small area of small pinpoint opening covered with a 2x2 dressing. Breasts: no palpable masses in right breast; left breast is surgically absent. Heart: Regular rate and rhythm, S1, S2. Abdomen: soft, non-tender, non-distended, normoactive bowel sounds x 4 quadrants. No palpable masseswere felt. Skin: clean/dry/intact. No rashes or open wounds. Extremities: FROM of all extremities, no cyanosis, clubbing or edema were noted. ECOG score 0 DIAGNOSTICS: I reviewed the imaging studies and agree with the interpretation as recorded. I reviewed the pertinent laboratory and diagnostic data. LABS: No results found for this or any previous visit (from the past 72 hour(s)). IMAGING: Ct Chest Without Iv Contrast Result Date: 12/14/2017 Impression: IMPRESSION: No evidence of focal recurrent or metastatic disease in the chest. 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 Schwab and her . We would recommend onemore 4 month visit in early March 2018 before they leave for [place]. If imaging is clear then awa is clinically doing well, she will not need to find an oncologist to see while they are in [place] from late March through June 2018. We would then see her back in late June or early July 2018. At that time, we can consider extending her visits out to 6 months if things are still good. They arein agreement with this plan. They have our contact information to get in touch with us with any issues, questions or concerns that may arise in the interim. We have moved to just doing CT scans of her chest as she does not tolerate the MRI imaging/positioning. This had been discussed with Dr. Pop in the past. She is aware that if the CT scan does show something concerning, then we will proceed with the MRI for further evaluation. I told her that the CT scan does not replace the need for yearly mammogram for the right breast. She said she will pursue a mammogram with her home primary care provider. In the interim, I did provide her with new scripts for breast prosthesis and mastectomy garment. Orders Placed This Encounter Procedures ??? L8015 DME Breast Prosthesis external, garment with mastectomy form, post mastectomy; ??? DME Medical Justification: Breast Prosthesis external, garment with mastectomy form, post mastectomy ??? L8030 DME Breast Prosthesis silicone or equal, without integral adhesive; ??? DME Medical Justification: Breast Prosthesis silicone or equal, without integral adhesive ??? CT Chest without IV Contrast ??? [...] Laboratory Medicine Maite Dennis P.A.-C. [address] [place] [phone] 01/31/2022 Appointment Radiology Maite Dennis P.A.-C. [address] [place] [phone] 01/31/2022 Office Visit Oncology Maite Dennis P.A.-C. [address] [place] [phone] Scheduled Referrals Name Type Priority [facility] Outpatient Referral Routine Expec shaun: visit (clinic) 03/28/2018 (Approximate), Expires: 12/20/2020 documented as of this encounter Results CT Chest without IV Contrast (03/22/2018 10:54 AM MANAGER ORANGE) Anatomical Region Laterality Modality Chest, Thoracic RST LOS, Thoracic ARZ LOS, Thoracic N/A Computed Tomography FLA LOS Specimen (Source) Anatomical Collection Method Collection Time Re ceived Time Location / / Volume Laterality 03/22/2018 11:16 AM MANAGER [facility]ANGE Impressions 03/22/2018 11:26 AM MANAGER [facility]ANGE IMPRESSION: 1. No evidence of recurrent or metastati c disease in the chest. 2. No significant change since 8. Narrative 03/22/2018 11:26 AM MANAGER ORANGE EXAM: CT CHEST WITHOUT IV CONTRAST 3D maximum intensity projection (MIP) im ages were created on a dependent workstation as ordered by the treating p constance and reviewed by the radiologist to increase sensitivity for detection of pulmonary nodules. COMPARISON: Chest CT 12/14/2017. FINDINGS: Tiny pulmonary nodules are unchanged inc luding a 2 mm nodule in the right apex (series 3 image 30), 2 mm nodule in the posterior left lower lobe (3/185) and 1 to 2 mm nodule in the lateral right midd le lobe (3/130). Calcified granuloma right middle lobe. Mild scarring in the left upper lobe, wh ich is likely due to radiation fibrosis. Mosaic attenuation in both lungs, which is likely secondary to air trapping. Mild central bronchial wall thickening. No pleural effusion. No thoracic lymphadenopathy by size crit eria. Arterial calcification including the coronary arteries. Mild mitral annul us calcification. Stable tiny focus of calcification within the wall of the dis valencia esophagus (3/215). Postoperative changes of left mastectomy. Mild hypertrophic changes in the spine. Tiny splenule. Negative adrenal glands. Procedure Note Derek Roger M.D. - 03/22/2018Form atting of this note might be different from the original. EXAM: CT CHEST WITHOUT IV CONTRAST 3D maximum intensity projection (MIP) im ages were created on a dependent workstation as ordered by the treating p constance and reviewed by the radiologist to increase sensitivity for detection of pulmonary nodules. COMPARISON: Chest CT 12/14/2017. FINDINGS: Tiny pulmonary nodules are unchanged inc luding a 2 mm nodule in the right apex (series 3 image 30), 2 mm nodule in the posterior left lower lobe (3/185) and 1 to 2 mm nodule in the lateral right midd le lobe (3/130). Calcified granuloma right middle lobe. Mild scarring in the left upper lobe, wh ich is likely due to radiation fibrosis. Mosaic attenuation in both lungs, which is likely secondary to air trapping. Mild central bronchial wall thickening. No pleural effusion. No thoracic lymphadenopathy by size crit eria. Arterial calcification including the coronary arteries. Mild mitral annul us calcification. Stable tiny focus of calcification within the wall of the dis valencia esophagus (3/215). Postoperative changes of left mastectomy. Mild hypertrophic changes in the spine. Tiny splenule. Negative adrenal glands. IMPRESSION: 1. No evidence of recurrent or metastati c disease in the chest. 2. No significant change since 8. Maite Dennis P.A.-C. IMG CT PROCEDURES documented in this encounter Visit Diagnoses Diagnosis Malignant Neoplasm Of Unspecified Site O f Laterality Unknown Female Breast (HCC) - Primary Angiosarcoma Soft Tissue (HCC) Malignant Neoplasm Of Unspecified Site O f Laterality Unknown Female Breast (HCC) Angiosarcoma Soft Tissue (HCC) documented in this encounter
--- OUTSIDE RECORDS SUMMARY | 2022-01-26 11:40 | XMS_ITS | Encounter Summary ---
:1950 Author Organization [facility] Address [address] [place] [address] Care Team Providers Name Role Phone Unavailable Primary Care Provider Unavailable Encounter Details Date Type Department Care Team Description 12/21/2016 Telemedicine Department of Plastic and Reconstructive Surgery Social History Tobacco Use Types Packs/Day Years Used Date Smoking Tobacco: Never Assessed Sex Assigned at Date Recorded Not on file documented as of this encounter Plan of Treatment Upcoming Encounters Date Type Specialty Care Team Description 01/27/2022 Clinical Communication Admitting/Central Scheduling 01/31/2022 Appointment Laboratory Medicine Maite Dennis P.A.-C. [address] [place] [address] [phone] 01/31/2022 Appointment Radiology Maite Dennis P.A.-C. [address] [place] [address] [phone] 01/31/2022 Office Visit Oncology Maite Dennis P.A.-C. [address] [place] [phone] documented as of this encounter Procedures Procedure Name Priority Date/Time Associated Diagnosis Comme nts PLASTIC AND RECON Routine 12/21/2016 12:00 PM Res ults for this SURGERY IMAGE EXAM CDT procedure are in the results section. documented in this encounter Results PLASTIC AND RECON SURGERY IMAGE EXAM (12/21/2016 12:00 PM CDT) Specimen (Source) Anatomical Collection Method Collection Time Re ceived Time Location / / Volume Laterality 12/21/2016 12:00 PM CDT Narrative IIMS - 12/21/2016 3:51 PM CDT This order has been created [...]
--- OUTSIDE RECORDS SUMMARY | 2022-01-26 11:40 | XMS_ITS | Encounter Summary ---
:1950 Author Organization [facility] Address [address] [place] [address] Care Team Providers Name Role Phone Unavailable Primary Care Provider Unavailable Encounter Details Date Type Department Care Team Description 03/24/2017 Telemedicine Department of Plastic and Reconstructive Surgery Social History Tobacco Use Types Packs/Day Years Used Date Smoking Tobacco: Never Assessed Sex Assigned at Date Recorded Not on file documented as of this encounter Plan of Treatment Upcoming Encounters Date Type Specialty Care Team Description 01/27/2022 Clinical Communication Admitting/Central Scheduling 01/31/2022 Appointment Laboratory Medicine Maite Dennis P.A.-C. [address] [place] [phone] 01/31/2022 Appointment Radiology Maite Dennis P.A.-C. [address] [place] [address] [phone] 01/31/2022 Office Visit Oncology Maite Dennis P.A.-C. [address] [place] [phone] documented as of this encounter Procedures Procedure Name Priority Date/Time Associated Diagnosis Comme nts PLASTIC AND RECON Routine 03/24/2017 12:00 PM Res ults for this SURGERY IMAGE EXAM SYSTEMS PROTECTION TECHNICIAN procedure are in the results section. documented in this encounter Results PLASTIC AND RECON SURGERY IMAGE EXAM (03/24/2017 12:00 PM SYSTEMS PROTECTION TECHNICIAN) Specimen (Source) Anatomical Collection Method Collection Time Re ceived Time Location / / Volume Laterality 03/24/2017 12:00 PM SYSTEMS PROTECTION TECHNICIAN Narrative IIMS - 03/24/2017 12:36 PM SYSTEMS PROTECTION TECHNICIAN This order has been created and auto-finalized [...]
--- OUTSIDE RECORDS SUMMARY | 2022-01-26 11:40 | XMS_ITS | Encounter Summary ---
:1950 Author Organization [facility] Address [address] [place] [address] Care Team Providers Name Role Phone Unavailable Primary Care Provider Unavailable Encounter Details Date Type Department Care Team Description 03/22/2018 Hospital Encounter Department of Maite Dennis, Malign ant Neoplasm Of Breast Female (HCC); Radiology, Peewee Patel Angiosarcoma Soft Tissue (HCC) Building, in [address] [place] [phone] [place], [place] [phone] (Work) [phone] Social History Tobacco Use Types Packs/Day Years [...] Laboratory Medicine Maite Dennis P.A.-C. [address] [place] [address] [phone] 01/31/2022 Appointment Radiology Maite Dennis P.A.-C. [address] [place] [address] [phone] 01/31/2022 Office Visit Oncology Maite Dennis P.A.-C. [address] [place] [address] [phone] documented as of this encounter Procedures Procedure Name Priority Date/Time Associated Comments Diagnosis CT CHEST WITHOUT RAD - Routine 03/22/2018 10:54 Malignant Result s for this IV CONTRAST (most inpatients AM POLITICAL SCIENCE CHAIR Neoplasm Of procedure a re in and all Breast Female the results outpatients) (HCC) section. Angiosarcoma Soft Tissue (HCC) documented in this encounter Results CT Chest without IV Contrast (03/22/2018 10:54 AM POLITICAL SCIENCE CHAIR) Anatomical Region Laterality Modality Chest, Thoracic RST LOS, Thoracic ARZ LOS, Thoracic N/A Computed Tomography FLA LOS Specimen (Source) Anatomical Collection Method Collection Time Re ceived Time Location / / Volume Laterality 03/22/2018 11:16 AM POLITICAL SCIENCE CHAIR Impressions 03/22/2018 11:26 AM POLITICAL SCIENCE CHAIR IMPRESSION: 1. No evidence of recurrent or metastati c disease in the chest. 2. No significant change since 8. Narrative 03/22/2018 11:26 AM POLITICAL SCIENCE CHAIR EXAM: CT CHEST WITHOUT IV CONTRAST 3D [...] the wall of the dis valencia esophagus (). Postoperative changes of left mastectomy. Mild hypertrophic [...]
--- OUTSIDE RECORDS SUMMARY | 2022-01-26 11:41 | XMS_ITS | Encounter Summary ---
:1950 Author Organization [facility] Address [address] [place] [address] Care Team Providers Name Role Phone Unavailable Primary Care Provider Unavailable Encounter Details Date Type Department Care Team Description 09/16/2016 - Hospital Encounter HX RST PREV HYPERBARIC Ivonne Aguirre R, 09/23/2016 [facility]HP R.N. [address] [place] [address] Social History Tobacco Use Types Packs/Day Years [...] Appointment Laboratory Medicine Maite Dennis P.A.-C. [address] [place] [phone] 01/31/2022 Appointment Radiology Maite Dennis P.A.-C. [address] [place] [address] [phone] 01/31/2022 Office Visit Oncology Maite Dennis P.A.-C. [address] [place] [address] [phone] documented as of this encounter Visit Diagnoses Not on filedocumented in this encounter
--- OUTSIDE RECORDS SUMMARY | 2022-01-26 11:41 | XMS_ITS | Encounter Summary ---
:1950 Author Organization [facility] Address [address] [place] [address] Care Team Providers Name Role Phone Unavailable Primary Care Provider Unavailable Encounter Details Date Type Department Care Team Description 09/09/2016 - Hospital Encounter HX RST PREV HYPERBARIC Luan [place]ward, 09/16/2016 PREV M.DDeven Social History Tobacco Use Types Packs/Day Years [...] 0 06/05/2020 10 mg tablet at bedtime. pravastatin (PRAVACHOL) Take 10 mg by mouth at 0 07/14/2016 03/01/2021 20 mg tablet bedtime. documented as of this encounter Plan of Treatment Upcoming Encounters Date Type Specialty Care Team Description 01/27/2022 Clinical Communication Admitting/Central Scheduling 01/31/2022 Appointment Laboratory Medicine Maite Dennis P.A.-C. [address] [place] [address] [phone] 01/31/2022 Appointment Radiology Maite Dennis P.A.-C. [address] [place] [phone] 01/31/2022 Office Visit Oncology Maite Dennis P.A.-C. [address] [place] [address] [phone] documented as of this encounter Visit Diagnoses Not on filedocumented in this encounter
--- OUTSIDE RECORDS SUMMARY | 2022-01-26 11:41 | XMS_ITS | Encounter Summary ---
:1950 Author Organization [facility] Address [address] [place] [address] Care Team Providers Name Role Phone Unavailable Primary Care Provider Unavailable Encounter Details Date Type Department Care Team Description 09/14/2016 - Hospital Encounter HX RST PREV HYPERBARIC Luan Woodward, 09/21/2016 PREV M.DDeven Social History Tobacco Use Types [...] Communication Admitting/Central Scheduling 01/31/2022 Appointment Laboratory Medicine Miate Dennis P.A.-C. [address] [place] [address] [phone] 01/31/2022 Appointment Radiology Maite Dennis P.A.-C. [address] [place] [address] [phone] 01/31/2022 Office Visit Oncology Maite Dennis P.A.-C. [address] [place] [address] [phone] documented as of this encounter Visit Diagnoses Not on filedocumented in this encounter
--- OUTSIDE RECORDS SUMMARY | 2022-01-26 11:41 | XMS_ITS | Encounter Summary ---
:1950 Author Organization [facility] Address [address] [place] [address] Care Team Providers Name Role Phone Unavailable Primary Care Provider Unavailable Encounter Details Date Type Department Care Team Description 09/15/2016 - Hospital Encounter HX RST PREV Samanta Lyle 09/22/2016 HYPERBARIC P A, R.N., ACHRN Social History Tobacco Use [...] Appointment Laboratory Medicine Maite Dennis P.A.-C. [address] [place] [phone] 01/31/2022 Appointment Radiology Maite Dennis P.A.-C. [address] [place] [phone] 01/31/2022 Office Visit Oncology Maite Dennis P.A.-C. [address] [place] [phone] documented as of this encounter Visit Diagnoses Not on filedocumented in this encounter
--- OUTSIDE RECORDS SUMMARY | 2022-01-26 11:41 | XMS_ITS | Encounter Summary ---
:1950 Author Organization [facility] Address [address] [place] [address] Care Team Providers Name Role Phone Unavailable Primary Care Provider Unavailable Encounter Details Date Type Department Care Team Description 09/23/2016 Telemedicine Department of Plastic and Reconstructive Surgery Social History Tobacco Use Types Packs/Day Years Used Date Smoking Tobacco: Never Assessed Sex Assigned at Date Recorded Not on file documented as of this encounter Plan of Treatment Upcoming Encounters Date Type Specialty Care Team Description 01/27/2022 Clinical Communication Admitting/Central Scheduling 01/31/2022 Appointment Laboratory Medicine Maite Dennis P.A.-C. [address] [place] [address] [phone] 01/31/2022 Appointment Radiology Maite Dennis P.A.-C. [address] [place] [address] [phone] 01/31/2022 Office Visit Oncology Maite Dennis P.A.-C. [address] [place] [phone] documented as of this encounter Procedures Procedure Name Priority Date/Time Associated Diagnosis Comme nts PLASTIC AND RECON Routine 09/23/2016 12:00 AM Res ults for this SURGERY IMAGE EXAM CDT procedure are in the results section. documented in this encounter Results PLASTIC AND RECON SURGERY IMAGE EXAM (09/23/2016 12:00 AM CDT) Specimen (Source) Anatomical Location Collection Method / Collectio n Time Received Time / Laterality Volume Narrative 09/23/2016 3:57 PM CDT This order has been created and auto-finalized to support the import of images acquired without order. The clini jim documentation to support these images can be found on the encounter farzana t produced images. Provider Not In System IMG NON RAD IMAGING PROCEDUR ES documented in this encounter Visit Diagnoses Not on filedocumented in this encounter
--- OUTSIDE RECORDS SUMMARY | 2022-01-26 11:41 | XMS_ITS | Encounter Summary ---
:1950 Author Organization [facility] Address [address] [place] [address] Care Team Providers Name Role Phone Unavailable Primary Care Provider Unavailable Encounter Details Date Type Department Care Team Description 09/29/2016 Telemedicine Department of Plastic and Reconstructive Surgery Social History Tobacco Use Types Packs/Day Years Used Date Smoking Tobacco: Never Assessed Sex Assigned at Date Recorded Not on file documented as of this encounter Plan of Treatment Upcoming Encounters Date Type Specialty Care Team Description 01/27/2022 Clinical Communication Admitting/Central Scheduling 01/31/2022 Appointment Laboratory Medicine Maite Dennis P.A.-C. [address] [place] [address] [phone] 01/31/2022 Appointment Radiology Maite Dennis P.A.-C. [address] [place] [address] [phone] 01/31/2022 Office Visit Oncology Maite Dennis P.A.-C. [address] [place] [phone] documented as of this encounter Procedures Procedure Name Priority Date/Time Associated Diagnosis Comme nts PLASTIC AND RECON Routine 09/29/2016 12:00 AM Res ults for this SURGERY IMAGE EXAM CDT procedure are in the results section. documented in this encounter Results PLASTIC AND RECON SURGERY IMAGE EXAM (09/29/2016 12:00 AM CDT) Specimen (Source) Anatomical Location Collection Method / Collectio n Time Received Time / Laterality Volume Narrative 09/29/2016 3:58 PM CDT This order has been created [...]
--- OUTSIDE RECORDS SUMMARY | 2022-01-26 11:41 | XMS_ITS | Encounter Summary ---
:1950 Author Organization [facility] Address [address] [place] [address] Care Team Providers Name Role Phone Unavailable Primary Care Provider Unavailable Encounter Details Date Type Department Care Team Description 09/26/2016 - Hospital Encounter HX RST PREV HYPERBARIC Jim Rodrigues rt, 10/03/2016 PREV MPerez, M.S. [address] [place] [address] Social History Tobacco Use Types Packs/Day Years [...] Laboratory Medicine Maite Dennis P.A.-C. [address] [place] [phone] 01/31/2022 Appointment Radiology Maite Dennis P.A.-C. [address] [place] [phone] 01/31/2022 Office Visit Oncology Maite Dennis P.A.-C. [address] [place] [phone] documented as of this encounter Visit Diagnoses Not on filedocumented in this encounter
--- OUTSIDE RECORDS SUMMARY | 2022-01-26 11:41 | XMS_ITS | Encounter Summary ---
:1950 Author Organization [facility] Address [address] [place] [address] Care Team Providers Name Role Phone Unavailable Primary Care Provider Unavailable Encounter Details Date Type Department Care Team Description 09/23/2016 - Hospital Encounter HX RST PREV Mauriec Riley 09/30/2016 PREV Anai Deshpande [address] [place] [address] Social History Tobacco Use Types Packs/Day Years [...] Laboratory Medicine Maite Dennis P.A.-C. [address] [place] [phone] 01/31/2022 Appointment Radiology Maite Dennis P.A.-C. [address] [place] [phone] 01/31/2022 Office Visit Oncology Maite Dennis P.A.-C. [address] [place] [address] [phone] documented as of this encounter Visit Diagnoses Not on filedocumented in this encounter
--- OUTSIDE RECORDS SUMMARY | 2022-01-26 11:41 | XMS_ITS | Encounter Summary ---
:1950 Author Organization [facility] Address [address] [place] [address] Care Team Providers Name Role Phone Unavailable Primary Care Provider Unavailable Encounter Details Date Type Department Care Team Description 09/13/2016 - Hospital Encounter HX RST PREV HYPERBARIC Lesli Young , 09/20/2016 [facility] [address] [place] [address] Social History Tobacco Use Types Packs/Day Years [...] Laboratory Medicine Maite Dennis P.A.-C. [address] [place] [address] [phone] 01/31/2022 Appointment Radiology Maite Dennis P.A.-C. [address] [place] [address] [phone] 01/31/2022 Office Visit Oncology Maite Dennis P.A.-C. [address] [place] [phone] documented as of this encounter Visit Diagnoses Not on filedocumented in this encounter
--- OUTSIDE RECORDS SUMMARY | 2022-01-26 11:41 | XMS_ITS | Encounter Summary ---
:1950 Author Organization [facility] Address [address] [place] [address] Care Team Providers Name Role Phone Unavailable Primary Care Provider Unavailable Encounter Details Date Type Department Care Team Description 09/20/2016 - Hospital Encounter HX RST PREV HYPERBARIC Ivonne Aguirre R, 09/27/2016 [facility] R.N. [address] [place] [address] Social History Tobacco Use Types Packs/Day Years [...] Appointment Laboratory Medicine Maite Dennis P.A.-C. [address] [place] [phone] 01/31/2022 Appointment Radiology Maite Dennis P.A.-C. [address] [place] [address] [phone] 01/31/2022 Office Visit Oncology Maite Dennis P.A.-C. [address] [place] [address] [phone] documented as of this encounter Visit Diagnoses Not on filedocumented in this encounter
--- OUTSIDE RECORDS SUMMARY | 2022-01-26 11:41 | XMS_ITS | Encounter Summary ---
:1950 Author Organization [facility] Address [address] [place] [address] Care Team Providers Name Role Phone Unavailable Primary Care Provider Unavailable Encounter Details Date Type Department Care Team Description 09/20/2016 - Hospital Encounter HX RST PREV Maurice Riley 09/27/2016 PREV Anai Deshpande [address] [place] [address] Social History Tobacco Use Types Packs/Day Years Used Date Smoking Tobacco: Never Assessed Sex Assigned at Date Recorded Not on file documented as of this encounter Last Filed Vital Signs Vital Sign Reading Time Taken Comments Blood Pressure 115/66 09/21/2016 12:03 PM CDT Pulse 82 09/21/2016 12:03 PM CDT Temperature - - Respiratory Rate 16 09/21/2016 11:38 AM CDT Oxygen Saturation - - Inhaled Oxygen Concentration - - Weight 83.8 kg (184 lb 11.9 oz) 09/21/2016 8:27 AM CDT Height 149 cm (4' 10.66) 09/21/2016 8:27 AM CDT Body Mass Index 37.75 09/21/2016 8:27 AM CDT documented in this encounter Medications at Time [...] Laboratory Medicine Maite Dennis P.A.-C. [address] [place] [phone] 01/31/2022 Appointment Radiology Maite Dennis P.A.-C. [address] [place] [address] [phone] 01/31/2022 Office Visit Oncology Maite Dennis P.A.-C. [address] [place] [address] [phone] documented as of this encounter Visit Diagnoses Not on filedocumented in this encounter
--- OUTSIDE RECORDS SUMMARY | 2022-01-26 11:41 | XMS_ITS | Encounter Summary ---
:1950 Author Organization [facility] Address [address] [place] [address] Care Team Providers Name Role Phone Unavailable Primary Care Provider Unavailable Encounter Details Date Type Department Care Team Description 09/08/2016 - Hospital Encounter HX RST PREV Whitney Moser, 09/15/2016 HYPERBARIC [facility] R.N. [address] [place] [address] Social History Tobacco Use Types Packs/Day Years [...] Appointment Laboratory Medicine Maite Dennis P.A.-C. [address] [place] [phone] 01/31/2022 Appointment Radiology Maite Dennis P.A.-C. [address] [place] [address] [phone] 01/31/2022 Office Visit Oncology Maite Dennis P.A.-C. [address] [place] [address] [phone] documented as of this encounter Visit Diagnoses Not on filedocumented in this encounter
--- OUTSIDE RECORDS SUMMARY | 2022-01-26 11:41 | XMS_ITS | Encounter Summary ---
:1950 Author Organization [facility] Address [address] [place] [address] Care Team Providers Name Role Phone Unavailable Primary Care Provider Unavailable Encounter Details Date Type Department Care Team Description 09/23/2016 - Hospital Encounter HX RST PREV HYPERBARIC Ivonne Aguirre R, 09/30/2016 [facility] R.N. [address] [place] [address] Social History Tobacco Use Types Packs/Day Years [...] Appointment Laboratory Medicine Maite Dennis P.A.-C. [address] [place] [phone] 01/31/2022 Appointment Radiology Maite Dennis P.A.-C. [address] [place] [address] [phone] 01/31/2022 Office Visit Oncology Maite Dennis P.A.-C. [address] [place] [address] [phone] documented as of this encounter Visit Diagnoses Not on filedocumented in this encounter
--- OUTSIDE RECORDS SUMMARY | 2022-01-26 11:41 | XMS_ITS | Encounter Summary ---
:1950 Author Organization [facility] Address [address] [place] [address] Care Team Providers Name Role Phone Unavailable Primary Care Provider Unavailable Encounter Details Date Type Department Care Team Description 09/14/2016 - Hospital Encounter HX RST PREV Whitney Moser, 09/21/2016 HYPERBARIC [facility] R.N. [address] [place] [address] Social History Tobacco Use Types Packs/Day Years [...] Laboratory Medicine Maite Dennis P.A.-C. [address] [place] [phone] 01/31/2022 Appointment Radiology Maite Dennis P.A.-C. [address] [place] [address] [phone] 01/31/2022 Office Visit Oncology Maite Dennis P.A.-C. [address] [place] [phone] documented as of this encounter Visit Diagnoses Not on filedocumented in this encounter
--- OUTSIDE RECORDS SUMMARY | 2022-01-26 11:41 | XMS_ITS | Encounter Summary ---
:1950 Author Organization [facility] Address [address] [place] [address] Care Team Providers Name Role Phone Unavailable [...] Appointment Laboratory Medicine Maite Dennis P.A.-C. [address] [place] [address] [phone] 01/31/2022 Appointment Radiology Maite Dennis P.A.-C. [address] [place] [address] [phone] 01/31/2022 Office Visit Oncology Maite Dennis P.A.-C. [address] [place] [address] [phone] documented as of this encounter Visit Diagnoses Not on filedocumented in this encounter
--- OUTSIDE RECORDS SUMMARY | 2022-01-26 11:41 | XMS_ITS | Encounter Summary ---
:1950 Author Organization [facility] Address [address] [place] [address] Care Team Providers Name Role Phone Unavailable Primary Care Provider Unavailable Encounter Details Date Type Department Care Team Description 09/22/2016 - Hospital Encounter HX RST PREV HYPERBARIC Rowena, Amb er 09/29/2016 Kita TAPIA.P., R.N. [address] [place] [address] Social History Tobacco Use Types Packs/Day Years [...] Laboratory Medicine Maite Dennis P.A.-C. [address] [place] [phone] 01/31/2022 Appointment Radiology Maite Dennis P.A.-C. [address] [place] [address] [phone] 01/31/2022 Office Visit Oncology Maite Dennis P.A.-C. [address] [place] [address] [phone] documented as of this encounter Visit Diagnoses Not on filedocumented in this encounter
--- OUTSIDE RECORDS SUMMARY | 2022-01-26 11:41 | XMS_ITS | Encounter Summary ---
:1950 Author Organization [facility] Address [address] [place] [address] Care Team Providers Name Role Phone Unavailable Primary Care Provider Unavailable Encounter Details Date Type Department Care Team Description 09/28/2016 - Hospital Encounter HX RST PREV Art Chowdhury 10/05/2016 HYPERBARIC PREV Anai Norris [address] [place] [address] Social History Tobacco Use Types Packs/Day Years [...] Laboratory Medicine Maite Dennis P.A.-C. [address] [place] [phone] 01/31/2022 Appointment Radiology Maite Dennis P.A.-C. [address] [place] [phone] 01/31/2022 Office Visit Oncology Maite Dennis P.A.-C. [address] [place] [address] [phone] documented as of this encounter Visit Diagnoses Not on filedocumented in this encounter
--- OUTSIDE RECORDS SUMMARY | 2022-01-26 11:41 | XMS_ITS | Encounter Summary ---
:1950 Author Organization [facility] Address [address] [place] [address] Care Team Providers Name Role Phone Unavailable Primary Care Provider Unavailable Encounter Details Date Type Department Care Team Description 09/28/2016 - Hospital Encounter HX RST PREV Samanta Lyle 10/05/2016 HYPERBARIC P A, R.N., ACHRN Social History [...] Appointment Laboratory Medicine Maite Dennis P.A.-C. [address] [place] [phone] 01/31/2022 Appointment Radiology Maite Dennis P.A.-C. [address] [place] [phone] 01/31/2022 Office Visit Oncology Maite Dennis P.A.-C. [address] [place] [phone] documented as of this encounter Visit Diagnoses Not on filedocumented in this encounter
--- OUTSIDE RECORDS SUMMARY | 2022-01-26 11:41 | XMS_ITS | Encounter Summary ---
:[address] [facility] Address [address] [place] [address] Care Team Providers Name Role Phone Unavailable Primary Care Provider Unavailable Encounter Details Date Type Department Care Team Description 09/28/2016 - Hospital Encounter HX RST PREV Art Chowdhury 10/05/2016 HYPERBARIC PREV Anai [place] [address] [place] [address] Social History Tobacco Use Types Packs/Day Years [...] Laboratory Medicine Maite Dennis P.A.-C. [address] [place] [phone] 01/31/2022 Appointment Radiology Maite Dennis P.A.-C. [address] [place] [phone] 01/31/2022 Office Visit Oncology Maite Dennis P.A.-C. [address] [place] [address] [phone] documented as of this encounter Visit Diagnoses Not on filedocumented in this encounter
--- OUTSIDE RECORDS SUMMARY | 2022-01-26 11:41 | XMS_ITS | Encounter Summary ---
:1950 Author Organization [facility] Address [address] [place] [address] Care Team Providers Name Role Phone Unavailable Primary Care Provider Unavailable Encounter Details Date Type Department Care Team Description 09/12/2016 - Hospital Encounter HX RST Art Gore 09/19/2016 HYPERBARIC PREV Anai [place] [address] [place] [address] Social History Tobacco Use Types Packs/Day Years [...] Appointment Laboratory Medicine Maite Dennis P.A.-C. [address] [place] [address] [phone] 01/31/2022 Appointment Radiology Maite Dennis P.A.-C. [address] [place] [address] [phone] 01/31/2022 Office Visit Oncology Maite Dennis P.A.-C. [address] [place] [address] [phone] documented as of this encounter Visit Diagnoses Not on filedocumented in this encounter
--- OUTSIDE RECORDS SUMMARY | 2022-01-26 11:41 | XMS_ITS | Encounter Summary ---
:1950 Author Organization [facility] Address [address] [place] [address] Care Team Providers Name Role Phone Unavailable Primary Care Provider Unavailable Encounter Details Date Type Department Care Team Description 09/21/2016 Hospital Encounter HX NO MAPPING Social History Tobacco Use Types Packs/Day Years [...] Laboratory Medicine Maite Dennis P.A.-C. [address] [place] [phone] 01/31/2022 Appointment Radiology Maite Dennis P.A.-C. [address] [place] [phone] 01/31/2022 Office Visit Oncology Maite Dennis P.A.-C. [address] [place] [phone] documented as of this encounter Visit Diagnoses Not on filedocumented in this encounter
--- OUTSIDE RECORDS SUMMARY | 2022-01-26 11:41 | XMS_ITS | Encounter Summary ---
:1950 Author Organization [facility] Address [address] [place] [address] Care Team Providers Name Role Phone Unavailable Primary Care Provider Unavailable Encounter Details Date Type Department Care Team Description 09/19/2016 - Hospital Encounter HX RST PREV Whitney Moser, 09/26/2016 HYPERBARIC AHP R.N. [address] [place] [address] Social History Tobacco Use Types Packs/Day Years [...] Laboratory Medicine Maite Dennis P.A.-C. [address] [place] [phone] 01/31/2022 Appointment Radiology Maite Dennis P.A.-C. [address] [place] [address] [phone] 01/31/2022 Office Visit Oncology Maite Dennis P.A.-C. [address] [place] [phone] documented as of this encounter Visit Diagnoses Not on filedocumented in this encounter
--- OUTSIDE RECORDS SUMMARY | 2022-01-26 11:41 | XMS_ITS | Encounter Summary ---
:[address] [facility] Address [address] [place] [address] Care Team Providers Name Role Phone Unavailable Primary Care Provider Unavailable Encounter Details Date Type Department Care Team Description 09/12/2016 - Hospital Encounter HX RST PREV HYPERBARIC Kassie Calderon, 09/19/2016 [facility] ABHILASH, C.N.P., D.N.P. [address] [place] [phone] Social History Tobacco Use Types Packs/Day Years [...] Laboratory Medicine Maite Dennis P.A.-C. [address] [place] [phone] 01/31/2022 Appointment Radiology Maite Dennis P.A.-C. [address] [place] [address] [phone] 01/31/2022 Office Visit Oncology Maite Dennis P.A.-C. [address] [place] [address] [phone] documented as of this encounter Visit Diagnoses Not on filedocumented in this encounter
--- OUTSIDE RECORDS SUMMARY | 2022-01-26 11:41 | XMS_ITS | Encounter Summary ---
:1950 Author Organization [facility] Address [address] [place] [address] Care Team Providers Name Role Phone Unavailable Primary Care Provider Unavailable Encounter Details Date Type Department Care Team Description 09/16/2016 - Hospital Encounter HX RST PREV Art Chowdhury 09/23/2016 HYPERBARIC PREV Anai [place] [address] [place] [address] Social History Tobacco Use Types Packs/Day Years [...] Laboratory Medicine Maite Dennis P.A.-C. [address] [place] [phone] 01/31/2022 Appointment Radiology Maite Dennis P.A.-C. [address] [place] [phone] 01/31/2022 Office Visit Oncology Maite Dennis P.A.-C. [address] [place] [address] [phone] documented as of this encounter Visit Diagnoses Not on filedocumented in this encounter
--- OUTSIDE RECORDS SUMMARY | 2022-01-26 11:41 | XMS_ITS | Encounter Summary ---
:1950 [address] [facility] Address [address] [place] [address] Care Team Providers Name Role Phone Unavailable Primary Care Provider Unavailable Encounter Details Date Type Department Care Team Description 09/15/2016 - Hospital Encounter HX RST PREV Art Chowdhury 09/22/2016 HYPERBARIC PREV Anai [place] [address] [place] [address] Social History Tobacco Use Types Packs/Day Years [...] Laboratory Medicine Maite Dennis P.A.-C. [address] [place] [phone] 01/31/2022 Appointment Radiology Maite Dennis P.A.-C. [address] [place] [phone] 01/31/2022 Office Visit Oncology Maite Dennis P.A.-C. [address] [place] [address] [phone] documented as of this encounter Visit Diagnoses Not on filedocumented in this encounter
--- OUTSIDE RECORDS SUMMARY | 2022-01-26 11:41 | XMS_ITS | Encounter Summary ---
:1950 Author Organization [facility] Address [address] [place] [address] Care Team Providers Name Role Phone Unavailable Primary Care Provider Unavailable Encounter Details Date Type Department Care Team Description 09/22/2016 - Hospital Encounter HX RST PREV Maurice Riley 09/29/2016 PREV Anai Deshpande [address] [place] [address] Social History Tobacco Use Types Packs/Day Years [...] Laboratory Medicine Maite Dennis P.A.-C. [address] [place] [phone] 01/31/2022 Appointment Radiology Maite Dennis P.A.-C. [address] [place] [phone] 01/31/2022 Office Visit Oncology Maite Dennis P.A.-C. [address] [place] [address] [phone] documented as of this encounter Visit Diagnoses Not on filedocumented in this encounter
--- OUTSIDE RECORDS SUMMARY | 2022-01-26 11:41 | XMS_ITS | Encounter Summary ---
:1950 Author Organization [facility] Address [address] [place] [address] Care Team Providers Name Role Phone Unavailable Primary Care Provider Unavailable Encounter Details Date Type Department Care Team Description 09/22/2016 - Hospital Encounter HX RST PREV Maurice Riley 09/29/2016 PREV Anai Deshpande [address] [place] [address] Social History Tobacco Use Types Packs/Day Years [...] Laboratory Medicine Maite Dennis P.A.-C. [address] [place] [phone] 01/31/2022 Appointment Radiology Maite Dennis P.A.-C. [address] [place] [phone] 01/31/2022 Office Visit Oncology Maite Dennis P.A.-C. [address] [place] [address] [phone] documented as of this encounter Visit Diagnoses Not on filedocumented in this encounter
--- OUTSIDE RECORDS SUMMARY | 2022-01-26 11:41 | XMS_ITS | Encounter Summary ---
:1950 Author Organization [facility] Address [address] [place] [address] Care Team Providers Name Role Phone Unavailable Primary Care Provider Unavailable Encounter Details Date Type Department Care Team Description 09/26/2016 - Hospital Encounter HX RST PREV HYPERBARIC Kassie Calderon, 10/03/2016 [facility] ABHILASH, C.N.P., D.N.P. [address] [place] [address] [phone] Social History Tobacco Use Types Packs/Day Years [...] Laboratory Medicine Maite Dennis P.A.-C. [address] [place] [phone] 01/31/2022 Appointment Radiology Maite Dennis P.A.-C. [address] [place] [address] [phone] 01/31/2022 Office Visit Oncology Maite Dennis P.A.-C. [address] [place] [address] [phone] documented as of this encounter Visit Diagnoses Not on filedocumented in this encounter
--- OUTSIDE RECORDS SUMMARY | 2022-01-26 11:41 | XMS_ITS | Encounter Summary ---
:1950 Author Organization [facility] Address [address] [place] [address] Care Team Providers Name Role Phone Unavailable Primary Care Provider Unavailable Encounter Details Date Type Department Care Team Description 09/13/2016 - Hospital Encounter HX RST PREV Art Chowdhury 09/20/2016 HYPERBARIC PREV Anai [place] [address] [place] [address] Social History Tobacco Use Types Packs/Day Years [...] Laboratory Medicine Maite Dennis P.A.-C. [address] [place] [phone] 01/31/2022 Appointment Radiology Maite Dennis P.A.-C. [address] [place] [phone] 01/31/2022 Office Visit Oncology Maite Dennis P.A.-C. [address] [place] [address] [phone] documented as of this encounter Visit Diagnoses Not on filedocumented in this encounter
--- OUTSIDE RECORDS SUMMARY | 2022-01-26 11:41 | XMS_ITS | Encounter Summary ---
:1950 Author Organization [facility] Address [address] [place] [address] Care Team Providers Name Role Phone Unavailable Primary Care Provider Unavailable Encounter Details Date Type Department Care Team Description 09/29/2016 - Hospital Encounter HX RST PREV Whitney Moser, 10/06/2016 HYPERBARIC [facility] R.N. [address] [place] [address] Social History Tobacco Use Types Packs/Day Years [...] Appointment Laboratory Medicine Maite Dennis P.A.-C. [address] [place] [phone] 01/31/2022 Appointment Radiology Maite Dennis P.A.-C. [address] [place] [address] [phone] 01/31/2022 Office Visit Oncology Maite Dennis P.A.-C. [address] [place] [phone] documented as of this encounter Visit Diagnoses Not on filedocumented in this encounter
--- OUTSIDE RECORDS SUMMARY | 2022-01-26 11:41 | XMS_ITS | Encounter Summary ---
:1950 Author Organization [facility] Address [address] [place] [address] Care Team Providers Name Role Phone Unavailable Primary Care Provider Unavailable Encounter Details Date Type Department Care Team Description 09/09/2016 - Hospital Encounter HX RST PREV HYPERBARIC Lesli Young , 09/16/2016 [facility] Se[facility]al, [facility] [address] [place] [address] Social History Tobacco Use Types Packs/Day Years [...] Appointment Laboratory Medicine Maite Dennis P.A.-C. [address] [place] [phone] 01/31/2022 Appointment Radiology Maite Dennis P.A.-C. [address] [place] [phone] 01/31/2022 Office Visit Oncology Maite Dennis P.A.-C. [address] [place] [phone] documented as of this encounter Visit Diagnoses Not on filedocumented in this encounter
--- OUTSIDE RECORDS SUMMARY | 2022-01-26 11:41 | XMS_ITS | Encounter Summary ---
:1950 Author Organization [facility] Address [address] [place] [address] Care Team Providers Name Role Phone Unavailable Primary Care Provider Unavailable Encounter Details Date Type Department Care Team Description 09/26/2016 Telemedicine Department of Plastic and Reconstructive Surgery Social History Tobacco Use Types Packs/Day Years Used Date Smoking Tobacco: Never Assessed Sex Assigned at Date Recorded Not on file documented as of this encounter Plan of Treatment Upcoming Encounters Date Type Specialty Care Team Description 01/27/2022 Clinical Communication Admitting/Central Scheduling 01/31/2022 Appointment Laboratory Medicine Maite Dennis P.A.-C. [address] [place] [address] [phone] 01/31/2022 Appointment Radiology Maite Dennis P.A.-C. [address] [place] [address] [phone] 01/31/2022 Office Visit Oncology Maite Dennis P.A.-C. [address] [place] [phone] documented as of this encounter Procedures Procedure Name Priority Date/Time Associated Diagnosis Comme nts PLASTIC AND RECON Routine 09/26/2016 12:00 AM Res ults for this SURGERY IMAGE EXAM CDT procedure are in the results section. documented in this encounter Results PLASTIC AND RECON SURGERY IMAGE EXAM (09/26/2016 12:00 AM CDT) Specimen (Source) Anatomical Location Collection Method / Collectio n Time Received Time / Laterality Volume Narrative 10/02/2016 12:26 AM CDT This order has been created and [...]
--- OUTSIDE RECORDS SUMMARY | 2022-01-26 11:41 | XMS_ITS | Encounter Summary ---
:1950 Author Organization [facility] Address [address] [place] [address] Care Team Providers Name Role Phone Unavailable Primary Care Provider Unavailable Encounter Details Date Type Department Care Team Description 09/08/2016 - Hospital Encounter HX RST PREV HYPERBARIC Luan Woodward, 09/15/2016 PREV M.DDeven Social History Tobacco Use Types [...] Appointment Laboratory Medicine Maite Dennis P.A.-C. [address] [place] [address] [phone] 01/31/2022 Appointment Radiology Maite Dennis P.A.-C. [address] [place] [phone] 01/31/2022 Office Visit Oncology Maite Dennis P.A.-C. [address] [place] [address] [phone] documented as of this encounter Visit Diagnoses Not on filedocumented in this encounter
--- OUTSIDE RECORDS SUMMARY | 2022-01-26 11:41 | XMS_ITS | Encounter Summary ---
:1950 Author Organization [facility] Address [address] [place] [address] Care Team Providers Name Role Phone Unavailable Primary Care Provider Unavailable Encounter Details Date Type Department Care Team Description 10/03/2016 Telemedicine Department of Plastic and Reconstructive Surgery Social History Tobacco Use Types Packs/Day Years Used Date Smoking Tobacco: Never Assessed Sex Assigned at Date Recorded Not on file documented as of this encounter Plan of Treatment Upcoming Encounters Date Type Specialty Care Team Description 01/27/2022 Clinical Communication Admitting/Central Scheduling 01/31/2022 Appointment Laboratory Medicine Maite Dennis P.A.-C. [address] [place] [address] [phone] 01/31/2022 Appointment Radiology Maite Dennis P.A.-C. [address] [place] [address] [phone] 01/31/2022 Office Visit Oncology Maite Dennis P.A.-C. [address] [place] [phone] documented as of this encounter Procedures Procedure Name Priority Date/Time Associated Diagnosis Comme nts PLASTIC AND RECON Routine 10/03/2016 12:00 AM Res ults for this SURGERY IMAGE EXAM CDT procedure are in the results section. documented in this encounter Results PLASTIC AND RECON SURGERY IMAGE EXAM (10/03/2016 12:00 AM CDT) Specimen (Source) Anatomical Location Collection Method / Collectio n Time Received Time / Laterality Volume Narrative 10/03/2016 11:57 AM CDT This order has been created [...]
--- OUTSIDE RECORDS SUMMARY | 2022-01-26 11:41 | XMS_ITS | Encounter Summary ---
:1950 Author Organization [facility] Address [address] [place] [address] Care Team Providers Name Role Phone Unavailable Primary Care Provider Unavailable Encounter Details Date Type Department Care Team Description 09/19/2016 - Hospital Encounter HX RST PREV Maurice Riley 09/26/2016 PREV Anai Deshpande [address] [place] [address] Social History Tobacco Use Types Packs/Day Years [...] Laboratory Medicine Maite Dennis P.A.-C. [address] [place] [phone] 01/31/2022 Appointment Radiology Maite Dennis P.A.-C. [address] [place] [phone] 01/31/2022 Office Visit Oncology Maite Dennis P.A.-C. [address] [place] [address] [phone] documented as of this encounter Visit Diagnoses Not on filedocumented in this encounter
--- OUTSIDE RECORDS SUMMARY | 2022-01-26 11:42 | XMS_ITS | Encounter Summary ---
:1950 Author Organization [facility] Address [address] [place] [address] Care Team Providers Name Role Phone Unavailable Primary Care Provider Unavailable Encounter Details Date Type Department Care Team Description 07/14/2016 - Hospital Encounter HX RST UNIT [address] Camila Hilario, 07/15/2016 ENT/GIUSEPPE/GEN [place] Social History Tobacco Use Types Packs/Day Years Used Date Smoking Tobacco: Never Assessed Sex Assigned at Date Recorded Not on file documented as of this encounter Last Filed Vital Signs Vital Sign Reading Time Taken Comments Blood Pressure 115/62 07/15/2016 2:00 PM NIBP - Value from CDT [facility]. Pulse 90 07/15/2016 2:00 PM Value from [facility]. CDT Temperature - - Respiratory Rate 16 07/15/2016 2:00 PM Value from C [facility]. CDT Oxygen Saturation - - Inhaled Oxygen - - Concentration Weight 85 kg (187 lb 6.3 07/14/2016 8:28 AM Vital si gn result oz) CDT from [facility]. Height 149.4 cm (4' 10.82) 07/14/2016 8:28 AM Vital sign result CDT from [facility]. Body Mass Index 38.08 07/14/2016 8:28 AM CDT documented in this encounter Medications [...] Laboratory Medicine Maite Dennis P.A.-C. [address] [place] [address] [phone] 01/31/2022 Appointment Radiology Maite Dennis P.A.-C. [address] [place] [phone] 01/31/2022 Office Visit Oncology Maite Dennis P.A.-C. [address] [place] [address] [phone] documented as of this encounter Procedures Procedure Name Priority Date/Time Associated Diagnosis Comme nts HXGENERAL PATHOLOGY Routine 07/14/2016 9:45 AM Poppy farley for this REPORT CDT procedure are i n the results section. documented in this encounter Results Hx general Pathology Report (07/14/2016 9:45 AM CDT) Specimen Anatomical Collection Method Collection Time Receive d Time (Source) Location / / Volume Laterality 07/14/2016 9:45 AM 7 9:45 CDT AM CDT Narrative [facility] - 07/14/2016 9:45 AM CDT ??07/14/2016 Surgical Pathology ?([id number]) ? Requested By: Camila Hilario M.D. ?? [phone] ? Additional Physician: ??Ruthy Lisa M.D. [id number] ? SLIDE DISPOSITION: ? DIAGNOSIS: ?? A. ??Breast, left, simple mastectomy: ? ?Breast parenchyma with treatment-related changes, negative for residual sarcoma. ?? Calponin and p63 immunohistochemical st ains performed on part A show retained myoepithelial cell expression in the focus of interest. ?? Seen with Drs. Amy Castillo and Gabe Aguirre. ?? Participated in interpretation: Dr. Den Dewey. Pager: [phone]. ?? As the signing pathologist, I verify th at I have examined all relevant slides/materials for the speci men(s) and rendered or confirmed the diagnosis. ? 07/19/2016 15:17 Interpreted by: Nicole Fernandez M.D. [id number] Report electronically signed by Nicole Fernandez M.D. Transcribed by: deanne 07/14/2016 11:47:21 ? PRELIMINARY FROZEN SECTION CONSULTATION : A. ??Breast, left, simple mastectomy: ? ?Breast parenchyma with treatment-related changes, negative for residual sarcoma. ?? HOLD OVER TO CONFIRM. ?? Frozen section histologic interpretatio n performed by: Nicole Fernandez M.D. ?? GROSS DESCRIPTION: A. Received fresh labeled left breast simple mastectomy is a 1265 gram, 22.7 (M-L) x 5.7 (A-P) x 21.6 (S- I) cm oriented modified mastectomy with a 21.8 x 18.6 cm skin e llipse. ??A nipple is present. ??Grossly, there is a 2.4 x 1.6 x 1.3 c m necrotic, cavitary lump site located in the lower outer quadrant, 0. 6 cm to the nearest deep margin which is inked and taken perpend icularly. ??There are multiple (2) skin lesions to include a 3.2 x 1.8 x 0.4 cm brown macule located 4 o'clock, 4.8 cm form lateral skin and a 1.8 x 1.5 x 0.3 cm ill-defined macule located 3 o'clock, 4 .9 cm from lateral skin. ??The breast parenchyma is 80 percent fatty a nd 20 percent fibrous, grossly. ??Automotive Hardware Engineer sections are submitted. ??Research tissue collected, IRB [id number]. ??Grossed by ADRIAN F. ?? BLOCK SUMMARY: Part A: ??Left breast simple mastectomy with soft tissue excision ?1 Lt nipple ?2 Lt cavity to deep ?3 Lt nodule to deep ?4 Lt 4:00 skin lesion 1 ?5 Lt 4:00 skin lesion 2 ?6 Lt 3:00 skin lesion 1 ?7 Adjacent to Lt cavity 1 ?8 Adjacent to Lt cavity 2 ?9 Lt nodule #2 ?? Amy Castillo M.D. ?? Arsalan Aguirre M.D. ?? Procedure Note 06/17/2017 07/14/2016 Surgical Pathology ([id number]) Requested By: Camila Hilario M.D. [phone] Additional Physician: Ruthy da silva M.D. [id number] SLIDE DISPOSITION: DIAGNOSIS: A. Breast, left, simple mastectomy: Divya ast parenchyma with treatment-related changes, negative for residual sarcoma. Calponin and p63 [address] ains performed on part A show retained myoepithelial cell expression in the focus of interest. Seen with Drs. Amy Castillo and Gabe Aguirre. Participated in interpretation: Dr. Den Dewey. Pager: [phone]. As the signing pathologist, I verify th at I have examined all relevant slides/materials for the speci men(s) and rendered or confirmed the diagnosis. 07/19/2016 15:17 Interpreted by: Nicole Fernandez M.D. [id number] Report electronically signed by Nicole Fernandez M.D. Transcribed by: deanne 07/14/2016 11:47:21 PRELIMINARY FROZEN SECTION CONSULTATION : A. Breast, left, simple mastectomy: Divya ast parenchyma with treatment-related changes, negative for residual sarcoma. HOLD OVER TO CONFIRM. Frozen section histologic interpretatio n performed by: Nicole Fernandez M.D. GROSS DESCRIPTION: A. Received fresh labeled left breast simple mastectomy is a 1265 gram, 22.7 (M-L) x 5.7 (A-P) x 21.6 (S- I) cm oriented modified mastectomy with a 21.8 x 18.6 cm skin e llipse. A nipple is present. Grossly, there is a 2.4 x 1.6 x 1.3 cm necrotic, cavitary lump site located in the lower outer quadrant, 0. 6 cm to the nearest deep margin which is inked and taken perpend icularly. There are multiple (2) skin lesions to include a 3.2 x 1.8 x 0.4 cm brown macule located 4 o'clock, 4.8 cm form lateral skin and a 1.8 x 1.5 x 0.3 cm ill-defined macule located 3 o'clock, 4 .9 cm from lateral skin. The breast parenchyma is 80 percent fatty a nd 20 percent fibrous, grossly. Automotive Hardware Engineer sections are henry bmitted. Research tissue collected, IRB [id number]. Grossed by SS. BLOCK SUMMARY: Part A: Left breast simple mastectomy w ith soft tissue excision 1 Lt nipple 2 Lt cavity to deep 3 Lt nodule to deep 4 Lt 4:00 skin lesion 1 5 Lt 4:00 skin lesion 2 6 Lt 3:00 skin lesion 1 7 Adjacent to Lt cavity 1 8 Adjacent to Lt cavity 2 9 Lt nodule #2 Amy Castillo M.D. Arsalan Aguirre M.D. Camila Hilario M.D. LAB PATHOLOGY/CYTOLOGY ORDER ABBEY Performing Organization Address City/State/ZIP Code Phon e Number [facility] - [address] [place] [address] [address] [facility] documented in this encounter Visit Diagnoses Not on filedocumented in this encounter
--- OUTSIDE RECORDS SUMMARY | 2022-01-26 11:42 | XMS_ITS | Encounter Summary ---
:1950 Author Organization [facility] Address [address] [place] [address] Care Team Providers Name Role Phone Unavailable Primary Care Provider Unavailable Encounter Details Date Type Department Care Team Description 08/25/2016 - Hospital Encounter HX RST PREV Maurice Riley 09/01/2016 PREV Anai Deshpande [address] [place] [address] Social History Tobacco Use Types Packs/Day Years [...] Appointment Laboratory Medicine Maite Dennis P.A.-C. [address] [place] [address] [phone] 01/31/2022 Appointment Radiology Maite Dennis P.A.-C. [address] [place] [address] [phone] 01/31/2022 Office Visit Oncology Maite Dennis P.A.-C. [address] [place] [phone] documented as of this encounter Visit Diagnoses Not on filedocumented in this encounter
--- OUTSIDE RECORDS SUMMARY | 2022-01-26 11:42 | XMS_ITS | Encounter Summary ---
:1950 Author Organization [facility] Address [address] [place] [address] Care Team Providers Name Role Phone Unavailable Primary Care Provider Unavailable Encounter Details Date Type Department Care Team Description 01/20/2016 Hospital Encounter HX NO MAPPING Provider, Historical Social History Tobacco Use Types Packs/Day Years Used Date Smoking Tobacco: Never Assessed Sex Assigned at Date Recorded Not on file documented as of this encounter Medications at Time of Discharge Medication Sig Dispensed Refills Start Date End Date albuterol inhaler Inhale 2 puffs as 0 04/03/2014 needed. fluticasone-salmeterol Inhale 1 Inhaler 2 0 01/17 (ADVAIR DISKUS) 250-50 (two) times a day. mcg/dose diskus inhaler documented as of this encounter Plan of Treatment Upcoming Encounters Date Type Specialty Care Team Description 01/27/2022 Clinical Communication Admitting/Central Scheduling 01/31/2022 Appointment Laboratory Medicine Maite Dennis P.A.-C. [address] [place] [phone] 01/31/2022 Appointment Radiology Maite Dennis P.A.-C. [address] [place] [phone] 01/31/2022 Office Visit Oncology Maite Dennis P.A.-C. [address] [place] [phone] documented as of this encounter Visit Diagnoses Not on filedocumented in this encounter
--- OUTSIDE RECORDS SUMMARY | 2022-01-26 11:42 | XMS_ITS | Encounter Summary ---
:1950 Author Organization [facility] Address [address] [place] [address] Care Team Providers Name Role Phone Unavailable Primary Care Provider Unavailable Encounter Details Date Type Department Care Team Description 04/28/2016 Ancillary Procedure Department of Oncology Social History Tobacco Use Types Packs/Day Years Used Date Smoking Tobacco: Never Assessed Sex Assigned at Date Recorded Not on file documented as of this encounter Plan of Treatment Upcoming Encounters Date Type Specialty Care Team Description 01/27/2022 Clinical Communication Admitting/Central Scheduling 01/31/2022 Appointment Laboratory Medicine Maite Dennis P.A.-C. [address] [place] [phone] 01/31/2022 Appointment Radiology Maite Dennis P.A.-C. [address] [place] [phone] 01/31/2022 Office Visit Oncology Maite Dennis P.A.-C. [address] [place] [phone] documented as of this encounter Visit Diagnoses Not on filedocumented in this encounter
--- OUTSIDE RECORDS SUMMARY | 2022-01-26 11:42 | XMS_ITS | Encounter Summary ---
:1950 Author Organization [facility] Address [address] [place] [address] Care Team Providers Name Role Phone Unavailable Primary Care Provider Unavailable Encounter Details Date Type Department Care Team Description 09/07/2016 - Hospital Encounter HX RST PREV HYPERBARIC [place], Amb er 09/14/2016 Kita TAPIA.P., R.N. [address] [place] [address] Social History Tobacco Use Types Packs/Day Years [...] Appointment Laboratory Medicine Maite Dennis P.A.-C. [address] [place] [address] [phone] 01/31/2022 Appointment Radiology Maite Dennis P.A.-C. [address] [place] [address] [phone] 01/31/2022 Office Visit Oncology Maite Dennis P.A.-C. [address] [place] [phone] documented as of this encounter Visit Diagnoses Not on filedocumented in this encounter
--- OUTSIDE RECORDS SUMMARY | 2022-01-26 11:42 | XMS_ITS | Encounter Summary ---
:1950 Author Organization [facility] Address [address] [place] [address] Care Team Providers Name Role Phone Unavailable Primary Care Provider Unavailable Encounter Details Date Type Department Care Team Description 09/02/2016 - Hospital Encounter HX RST PREV HYPERBARIC Luan Woodward, 09/09/2016 PREV M.DDeven Social History Tobacco Use Types [...] Laboratory Medicine Maite Dennis P.A.-C. [address] [place] [address] [phone] 01/31/2022 Appointment Radiology Maite Dennis P.A.-C. [address] [place] [phone] 01/31/2022 Office Visit Oncology Maite Dennis P.A.-C. [address] [place] [address] [phone] documented as of this encounter Visit Diagnoses Not on filedocumented in this encounter
--- OUTSIDE RECORDS SUMMARY | 2022-01-26 11:42 | XMS_ITS | Encounter Summary ---
:1950 Author Organization [facility] Address [address] [place] [address] Care Team Providers Name Role Phone Unavailable Primary Care Provider Unavailable Encounter Details Date Type Department Care Team Description 08/29/2016 - Hospital Encounter HX RST PREV Samanta Lyle 09/05/2016 HYPERBARIC AHP A, R.N., ACHRN Social History [...] Appointment Laboratory Medicine Maite Dennis P.A.-C. [address] [place] [address] [phone] 01/31/2022 Appointment Radiology Maite Dennis P.A.-C. [address] [place] [phone] 01/31/2022 Office Visit Oncology Maite Dennis P.A.-C. [address] [place] [phone] documented as of this encounter Visit Diagnoses Not on filedocumented in this encounter
--- OUTSIDE RECORDS SUMMARY | 2022-01-26 11:42 | XMS_ITS | Encounter Summary ---
:1950 Author Organization [facility] Address [address] [place] [address] Care Team Providers Name Role Phone Unavailable Primary Care Provider Unavailable Encounter Details Date Type Department Care Team Description 09/07/2016 - Hospital Encounter HX RST PREV HYPERBARIC Luan Woodward, 09/14/2016 PREV M.DDeven Social History Tobacco Use Types [...] Appointment Laboratory Medicine Maite Dennis P.A.-C. [address] [place] [address] [phone] 01/31/2022 Appointment Radiology Maite Dennis P.A.-C. [address] [place] [phone] 01/31/2022 Office Visit Oncology Maite eDnnis P.A.-C. [address] [place] [address] [phone] documented as of this encounter Visit Diagnoses Not on filedocumented in this encounter
--- OUTSIDE RECORDS SUMMARY | 2022-01-26 11:42 | XMS_ITS | Encounter Summary ---
:1950 Author Organization [facility] Address [address] [place] [address] Care Team Providers Name Role Phone Unavailable Primary Care Provider Unavailable Encounter Details Date Type Department Care Team Description 08/30/2016 - Hospital Encounter HX RST PREV HYPERBARIC Luan Woodward, 09/06/2016 PREV M.D. Social History Tobacco Use Types Packs/Day Years [...] Appointment Laboratory Medicine Maite Dennis P.A.-C. [address] [place] [address] [phone] 01/31/2022 Appointment Radiology Maite Dennis P.A.-C. [address] [place] [phone] 01/31/2022 Office Visit Oncology Maite Dennis P.A.-C. [address] [place] [address] [phone] documented as of this encounter Visit Diagnoses Not on filedocumented in this encounter
--- OUTSIDE RECORDS SUMMARY | 2022-01-26 11:42 | XMS_ITS | Encounter Summary ---
:1950 Author Organization [facility] Address [address] [place] [address] Care Team Providers Name Role Phone Unavailable Primary Care Provider Unavailable Encounter Details Date Type Department Care Team Description 05/24/2016 Hospital Encounter HX NO MAPPING Dash Torres, Pharm.D., R.Ph. Social History Tobacco Use Types Packs/Day Years [...] Laboratory Medicine Maite Dennis P.A.-C. [address] [place] [phone] 01/31/2022 Appointment Radiology Maite Dennis P.A.-C. [address] [place] [phone] 01/31/2022 Office Visit Oncology Maite Dennis P.A.-C. [address] [place] [phone] documented as of this encounter Visit Diagnoses Not on filedocumented in this encounter
--- OUTSIDE RECORDS SUMMARY | 2022-01-26 11:42 | XMS_ITS | Encounter Summary ---
:1950 Author Organization [facility] Address [address] [place] [address] Care Team Providers Name Role Phone Unavailable Primary Care Provider Unavailable Encounter Details Date Type Department Care Team Description 08/25/2016 - Hospital Encounter HX RST PREV HYPERBARIC Ivonne Aguirre R, 09/01/2016 AHP R.N. [address] [place] [address] Social History Tobacco Use Types Packs/Day Years [...] Laboratory Medicine Maite Dennis P.A.-C. [address] [place] [phone] 01/31/2022 Appointment Radiology Miate Dennis P.A.-C. [address] [place] [phone] 01/31/2022 Office Visit Oncology Maite Dennis P.A.-C. [address] [place] [phone] documented as of this encounter Visit Diagnoses Not on filedocumented in this encounter
--- OUTSIDE RECORDS SUMMARY | 2022-01-26 11:42 | XMS_ITS | Encounter Summary ---
:1950 Author Organization [facility] Address [address] [place] [address] Care Team Providers Name Role Phone Unavailable Primary Care Provider Unavailable Encounter Details Date Type Department Care Team Description 07/11/2016 Hospital Encounter HX NO MAPPING Social History [...] Appointment Laboratory Medicine Maite Dennis P.A.-C. 200 [place] [phone] 01/31/2022 Appointment Radiology Maite Dennis P.A.-C. 200 [place] [phone] 01/31/2022 Office Visit Oncology Maite Dennis P.A.-C. [address] [place] [phone] documented as of this encounter Visit Diagnoses Not on filedocumented in this encounter
--- OUTSIDE RECORDS SUMMARY | 2022-01-26 11:42 | XMS_ITS | Encounter Summary ---
:1950 Author Organization [facility] Address [address] [place] [address] Care Team Providers Name Role Phone Unavailable Primary Care Provider Unavailable Encounter Details Date Type Department Care Team Description 08/26/2016 - Hospital Encounter HX RST PREV Whitney Moser, 09/02/2016 HYPERBARIC AHP R.N. [address] [place] [address] Social History Tobacco Use Types Packs/Day Years [...] Laboratory Medicine Maite Dennis P.A.-C. [address] [place] [phone] 01/31/2022 Appointment Radiology Maite Dennis P.A.-C. [address] [place] [address] [phone] 01/31/2022 Office Visit Oncology Maite Dennis P.A.-C. [address] [place] [address] [phone] documented as of this encounter Visit Diagnoses Not on filedocumented in this encounter
--- OUTSIDE RECORDS SUMMARY | 2022-01-26 11:42 | XMS_ITS | Encounter Summary ---
:1950 Author Organization [facility] Address [address] [place] [address] Care Team Providers Name Role Phone Unavailable Primary Care Provider Unavailable Encounter Details Date Type Department Care Team Description 08/31/2016 Hospital Encounter HX NO MAPPING Provider, Historical [...] Laboratory Medicine Maite Dennis P.A.-C. [address] [place] [phone] 01/31/2022 Appointment Radiology Maite Dennis P.A.-C. [address] [place] [phone] 01/31/2022 Office Visit Oncology Maite Dennis P.A.-C. [address] [place] [phone] documented as of this encounter Visit Diagnoses Not on filedocumented in this encounter
--- OUTSIDE RECORDS SUMMARY | 2022-01-26 11:42 | XMS_ITS | Encounter Summary ---
:1950 Author Organization [facility] Address [address] [place] [address] Care Team Providers Name Role Phone Unavailable Primary Care Provider Unavailable Encounter Details Date Type Department Care Team Description 09/01/2016 - Hospital Encounter HX RST PREV HYPERBARIC [place], Amb er 09/08/2016 Kita TAPIA.P., R.N. [address] [place] [address] Social History Tobacco Use Types Packs/Day Years [...] Laboratory Medicine Maite Dennis P.A.-C. [address] [place] [address] [phone] 01/31/2022 Appointment Radiology Maite Dennis P.A.-C. [address] [place] [address] [phone] 01/31/2022 Office Visit Oncology Maite Dennis P.A.-C. [address] [place] [phone] documented as of this encounter Visit Diagnoses Not on filedocumented in this encounter
--- OUTSIDE RECORDS SUMMARY | 2022-01-26 11:42 | XMS_ITS | Encounter Summary ---
:[address] [facility] Address [address] [place] [address] Care Team Providers Name Role Phone Unavailable Primary Care Provider Unavailable Encounter Details Date Type Department Care Team Description 09/25/2003 Hospital Encounter HX NO MAPPING Social History Tobacco Use Types Packs/Day Years Used Date Smoking Tobacco: Never Assessed Sex Assigned at Date Recorded Not on file documented as of this encounter Plan of Treatment Upcoming Encounters Date Type Specialty Care Team Description 01/27/2022 Clinical Communication Admitting/Central Scheduling 01/31/2022 Appointment Laboratory Medicine Maite Dennis P.A.-C. [address] [place] [phone] 01/31/2022 Appointment Radiology Maite Dennis P.A.-C. [address] [place] [phone] 01/31/2022 Office Visit Oncology Maite Dennis P.A.-C. [address] [place] [phone] documented as of this encounter Procedures Procedure Name Priority Date/Time Associated Diagnosis Comme nts BI BREAST SPECIMEN Routine 09/25/2003 11:49 AM Re sults for this CDT procedure are i n the results section. HXGENERAL PATHOLOGY Routine 09/25/2003 11:03 AM R esults for this REPORT CDT procedure are i n the results section. documented in this encounter Results BI BREAST SPECIMEN (09/25/2003 11:49 AM CDT) Anatomical Region Laterality Modality Mammography Specimen (Source) Anatomical Collection Method Collection Time Re ceived Time Location / / Volume Laterality 09/25/2003 11:49 AM CDT Narrative 09/25/2003 12:07 PM CDT 25-Sep-2003 11:49:00 ??Exam: L Mammo- Breast Specimen Indications: INTRA OP: ??wide local exci lizz left breast, biopsy-proven left breast carcinoma ORIGINAL REPORT - 25-Sep-2003 12:07:00 Specimen radiograph demonstrates the loc alization seed, biopsy clip and irregular mass within the specimen. Electronically signed by: ?? Rajat Malone MD. ??[id number] 25-Sep-2003 12: 07 Procedure Note Rama Malone M.D. - 06/28/2017For matting of this note might be different from the original. 25-Sep-2003 11:49:00 Exam: L Mammo- [address] st Specimen Indications: INTRA OP: wide local excisi on left breast, biopsy-proven left breast carcinoma ORIGINAL REPORT - 25-Sep-2003 12:07:00 Specimen radiograph demonstrates the loc alization seed, biopsy clip and irregular mass within the specimen. Electronically signed by: Rajat Malone MD. [id number] 25-Sep-2003 12:07 Roger Page Jr., M.D. IMG BI PROCEDURES Hx general Pathology Report (09/25/2003 11:03 AM CDT) Specimen Anatomical Collection Method Collection Time Receive d Time (Source) Location / / Volume Laterality 09/25/2003 11:03 09/25/2003 AM CDT 11:03 AM CDT Narrative [facility] - 09/25/2003 11:03 AM CDT ?09/25/2003 Surgical Pathology ?([id number]) ? Requested By: ??Mary Macdonald ??[id number] ? TISSUE DESCRIPTION: [id number] A1 A2 A3 B1 C1 D1 E1 E2 E3 E4 E5 E6 E7 E8 E9 E10 E11 E12 E13 E14 E15 E16 E17 E18 E19 ?? Left breast (wide local excision, 1.6 x 1.5 x 0.4 cm), and left axillary sentinel lymph nodes (No.1A, 0 .5 x 0.4 x 0.1 cm; No.1B, 1.5 x 1.0 x 0.2 cm; No.1C, 1.0 x 1.0 x 0.8 cm; No.2, 2.0 x 1.5 x 0.5 cm; No.3, 1.2 x 0.8 x 0.5 cm), and left axi llary non-sentinel lymph node. ?DIAGNOSIS: ?? Breast, left, wide local excision: ??Fa t necrosis and reactive fibroblastic proliferation consistent w ith prior core needle biopsy site. ??No residual tumor. ??All surgic al resection margins are negative for tumor. ??See comment. ? Lymph nodes, left axillary sentinel, ex cision: ??Multiple (5) left axillary sentinel lymph nodes are negat shanique for tumor. ??[AJCC pN0(i-)]. ??Blue dye is not identified in any of the five left axillary sentinel lymph nodes. ?? Immun ohistochemical cytokeratin stain was performed on the paraffin emb edded sentinel lymph node tissue and confirms the H&E impression. ?? Soft tissue, left axilla, excision: ??S pecimen labeled left axillary non-sentinel lymph node shows fat onl y. ?? FAXITRON DONE. ?? DIAGNOSIS COMMENT: Immunohistochemical stains were perform ed on the paraffin embedded tissue from the wide local excision and show that the spindle cells are negative for keratin supporting the above diagnosis. ?? The prior core needle biopsy ([id number]) was reviewed. ?? The invasive component measures at leas t 0.8 cm in greatest extent (Block 1B). ?? 09/26/03 ??Gina Cornejo M.D. [id number] ?? PRELIMINARY FROZEN SECTION CONSULTATION : Lymph nodes, left axillary sentinel, ex cision: ??Multiple (5) left axillary sentinel lymph nodes are negat shanique for tumor, and contain no blue dye. ??HOLD for special stains. ?? Specimen labeled non-sentinel lymph node shows fat only. ? Spindle cell proliferation, spindle mabel l carcinoma. ??Favor biopsy site reaction R/O. ??HOLD for special s tains. ? Procedure Note 06/17/2017 09/25/2003 Surgical Pathology ([id number]) Requested By: Roger Pgae M.D. [id number] TISSUE DESCRIPTION: [id number] A1 A2 A3 B1 C1 D1 E1 E2 E3 E4 E5 E6 E7 E8 E9 E10 E11 E12 E13 E14 E15 E16 E17 E18 E19 Left breast (wide local excision, 1.6 x 1.5 x 0.4 cm), and left axillary sentinel lymph nodes (No.1A, 0 .5 x 0.4 x 0.1 cm; No.1B, 1.5 x 1.0 x 0.2 cm; No.1C, 1.0 x 1.0 x 0.8 cm; No.2, 2.0 x 1.5 x 0.5 cm; No.3, 1.2 x 0.8 x 0.5 cm), and left axi llary non-sentinel lymph node. DIAGNOSIS: Breast, left, wide local excision: Fat necrosis and reactive fibroblastic proliferation consistent w ith prior core needle biopsy site. No residual tumor. All surgical r esection margins are negative for tumor. See comment. Lymph nodes, left axillary sentinel, ex cision: Multiple (5) left axillary sentinel lymph nodes are negat shanique for tumor. [AJCC pN0(i-)]. Blue dye is not identified in any of the five left axillary sentinel lymph nodes. Immunohi stochemical cytokeratin stain was performed on the paraffin emb edded sentinel lymph node tissue and confirms the H&E impression. Soft tissue, left axilla, excision: Spe cimen labeled left axillary non-sentinel lymph node shows fat onl y. FAXITRON DONE. DIAGNOSIS COMMENT: Immunohistochemical stains were perform ed on the paraffin embedded tissue from the wide local excision and show that the spindle cells are negative for keratin supporting the above diagnosis. The prior core needle biopsy ([id number]) was reviewed. The invasive component measures at leas t 0.8 cm in greatest extent (Block 1B). 09/26/03 Gina Cornejo M.D. [id number] PRELIMINARY FROZEN SECTION CONSULTATION : Lymph nodes, left axillary sentinel, ex cision: Multiple (5) left axillary sentinel lymph nodes are negat shanique for tumor, and contain no blue dye. HOLD for special stains. Spec imen labeled non-sentinel lymph node shows fat only. Spindle cell proliferation, spindle mabel l carcinoma. Favor biopsy site reaction R/O. HOLD for special sta ins. Historical Provider LAB PATHOLOGY/CYTOLOGY ORDER ABBEY Performing Organization Address City/State/ZIP Code Phon e Number [facility] - [address] [place], [place] [address] [facility] documented in this encounter Visit Diagnoses Not on filedocumented in this encounter
--- OUTSIDE RECORDS SUMMARY | 2022-01-26 11:42 | XMS_ITS | Encounter Summary ---
:1950 Author Organization [facility] Address [address] [place] [address] Care Team Providers Name Role Phone Unavailable Primary Care Provider Unavailable Encounter Details Date Type Department Care Team Description 06/10/2016 Historical Ophthalmology RST OPH Georgette Odonnell M.D. [address] [place], [place] [phone] (Wo rk) Social History Tobacco Use Types Packs/Day Years Used Date Smoking Tobacco: Never Assessed Sex Assigned at Date Recorded Not on file documented as of this encounter Progress Notes Miguel Odonnell M.D. - 06/10/2016 10:20 AM CDT Eye General CHIEF COMPLAINT floaters HISTORY OF PRESENT ILLNESS History of floaters in RT since 01/2015. Had eye exam at that time and was told to expect same symptoms in other eye at some point. Floaters in LT since 02/09. Was not examined again due to other medical problems. Slight change in vision, notes at near in both eyes at near, worse in dimmer light. IMPRESSION / REPORT / PLAN #1 refractive error rx given #[address], hole, tear. fu prn #2 cataracts mild, no rx yet DIAGNOSIS #1 refractive error #2 history of floaters #2 cataracts CDM Reports - EYEGEN Id: [id number] Status: Fnl documented in this encounter Plan of Treatment Upcoming Encounters Date Type Specialty Care Team Description 01/27/2022 Clinical Communication Admitting/Central Scheduling 01/31/2022 Appointment Laboratory Medicine Maite Dennis P.A.-C. [address] [place] [phone] 01/31/2022 Appointment Radiology Maite Dennis P.A.-C. [address] [place] [phone] 01/31/2022 Office Visit Oncology Maite Dennis P.A.-C. [address] [place] [phone] documented as of this encounter Visit Diagnoses Not on filedocumented in this encounter
--- OUTSIDE RECORDS SUMMARY | 2022-01-26 11:42 | XMS_ITS | Encounter Summary ---
:1950 Author Organization [facility] Address [address] [place] [address] Care Team Providers Name Role Phone Unavailable Primary Care Provider Unavailable Encounter Details Date Type Department Care Team Description 09/07/2016 Hospital Encounter HX NO MAPPING Provider, Historical [...] Appointment Laboratory Medicine Maite Dennis P.A.-C. [address] [place] [phone] 01/31/2022 Appointment Radiology Maite Dennis P.A.-C. [address] [place] [phone] 01/31/2022 Office Visit Oncology Maite Dennis P.A.-C. [address] [place] [phone] documented as of this encounter Visit Diagnoses Not on filedocumented in this encounter
--- OUTSIDE RECORDS SUMMARY | 2022-01-26 11:42 | XMS_ITS | Encounter Summary ---
:1950 Author Organization [facility] Address [address] [place] [address] Care Team Providers Name Role Phone Unavailable Primary Care Provider Unavailable Encounter Details Date Type Department Care Team Description 08/30/2016 - Hospital Encounter HX RST PREV Whitney Moser, 09/06/2016 HYPERBARIC AHP R.N. [address] [place] [address] Social History Tobacco Use Types Packs/Day Years [...] Laboratory Medicine Maite Dennis P.A.-C. [address] [place] [phone] 01/31/2022 Appointment Radiology Maite Dennis P.A.-C. [address] [place] [address] [phone] 01/31/2022 Office Visit Oncology Maite Dennis P.A.-C. [address] [place] [address] [phone] documented as of this encounter Visit Diagnoses Not on filedocumented in this encounter
--- OUTSIDE RECORDS SUMMARY | 2022-01-26 11:42 | XMS_ITS | Encounter Summary ---
:1950 Author Organization [facility] Address [address] [place] [address] Care Team Providers Name Role Phone Unavailable Primary Care Provider Unavailable Encounter Details Date Type Department Care Team Description 08/24/2016 Hospital Encounter HX RST PREV HYPERLuan Kan PREV M.D. Social History Tobacco Use Types [...] Appointment Laboratory Medicine Maite Dennis P.A.-C. [address] [place] [phone] 01/31/2022 Appointment Radiology Maite Dennis P.A.-C. [address] [place] [address] [phone] 01/31/2022 Office Visit Oncology Maite Dennis P.A.-C. [address] [place] [phone] documented as of this encounter Visit Diagnoses Not on filedocumented in this encounter
--- OUTSIDE RECORDS SUMMARY | 2022-01-26 11:42 | XMS_ITS | Encounter Summary ---
:1950 Author Organization [facility] Address [address] [place] [address] Care Team Providers Name Role Phone Unavailable Primary Care Provider Unavailable Encounter Details Date Type Department Care Team Description 08/24/2016 - Hospital Encounter HX RST PREV HYPERBARIC Luan Woodward, 08/31/2016 PREV M.DDeven Social History Tobacco Use Types [...] Laboratory Medicine Maite Dennis P.A.-C. [address] [place] [address] [phone] 01/31/2022 Appointment Radiology Maite Dennis P.A.-C. [address] [place] [phone] 01/31/2022 Office Visit Oncology Maite Dennis P.A.-C. [address] [place] [address] [phone] documented as of this encounter Visit Diagnoses Not on filedocumented in this encounter
--- OUTSIDE RECORDS SUMMARY | 2022-01-26 11:42 | XMS_ITS | Encounter Summary ---
:1950 Author Organization [facility] Address [address] [place] [address] Care Team Providers Name Role Phone Unavailable Primary Care Provider Unavailable Encounter Details Date Type Department Care Team Description 08/24/2016 - Hospital Encounter HX RST PREV Whitney Moser, 08/31/2016 HYPERBARIC AHP R.N. [address] [place] [address] Social History Tobacco Use Types Packs/Day Years [...] Appointment Laboratory Medicine Maite Dennis P.A.-C. [address] [place] [phone] 01/31/2022 Appointment Radiology Maite Dennis P.A.-C. [address] [place] [address] [phone] 01/31/2022 Office Visit Oncology Maite Dennis P.A.-C. [address] [place] [address] [phone] documented as of this encounter Visit Diagnoses Not on filedocumented in this encounter
--- OUTSIDE RECORDS SUMMARY | 2022-01-26 11:42 | XMS_ITS | Encounter Summary ---
:1950 Author Organization [facility] Address [address] [place] [address] Care Team Providers Name Role Phone Unavailable Primary Care Provider Unavailable Encounter Details Date Type Department Care Team Description 07/14/2016 Hospital Encounter HX NO MAPPING Social History [...] Appointment Laboratory Medicine Maite Dennis P.A.-C. [address] [place] [phone] 01/31/2022 Appointment Radiology Maite Dennis P.A.-C. [address] [place] [phone] 01/31/2022 Office Visit Oncology Maite Dennis P.A.-C. [address] [place] [phone] documented as of this encounter Visit Diagnoses Not on filedocumented in this encounter
--- OUTSIDE RECORDS SUMMARY | 2022-01-26 11:42 | XMS_ITS | Encounter Summary ---
:1950 Author Organization [facility] Address [address] [place] [address] Care Team Providers Name Role Phone Unavailable Primary Care Provider Unavailable Encounter Details Date Type Department Care Team Description 09/01/2016 - Hospital Encounter HX RST PREV HYPERBARIC Maria EugeniaHank, 09/08/2016 PREV M.D. [address] [place] [address] Social History Tobacco Use Types Packs/Day Years [...] Laboratory Medicine Maite Dennis P.A.-C. [address] [place] [address] [phone] 01/31/2022 Appointment Radiology Maite Dennis P.A.-C. [address] [place] [address] [phone] 01/31/2022 Office Visit Oncology Maite Dennis P.A.-C. [address] [place] [address] [phone] documented as of this encounter Visit Diagnoses Not on filedocumented in this encounter
--- OUTSIDE RECORDS SUMMARY | 2022-01-26 11:42 | XMS_ITS | Encounter Summary ---
:1950 Author Organization [facility] Address [address] [place] [address] Care Team Providers Name Role Phone Unavailable [...] Admitting/Central Scheduling 01/31/2022 Appointment Laboratory Medicine Maite Dnenis P.A.-C. [address] [place] [address] [phone] 01/31/2022 Appointment Radiology Maite Dennis P.A.-C. [address] [place] [phone] 01/31/2022 Office Visit Oncology Maite Dennis P.A.-C. [address] [place] [address] [phone] documented as of this encounter Visit Diagnoses Not on filedocumented in this encounter
--- OUTSIDE RECORDS SUMMARY | 2022-01-26 11:42 | XMS_ITS | Encounter Summary ---
:1950 Author Organization [facility] Address [address] [place] [address] Care Team Providers Name Role Phone Unavailable Primary Care Provider Unavailable Encounter Details Date Type Department Care Team Description 09/05/2016 - Hospital Encounter HX RST PREV HYPERBARIC Luan Woodward, 09/12/2016 PREV M.DDeven Social History Tobacco Use Types [...] Laboratory Medicine Maite Dennis P.A.-C. [address] [place] [address] [phone] 01/31/2022 Appointment Radiology Maite Dennis P.A.-C. [address] [place] [phone] 01/31/2022 Office Visit Oncology Maite Dennis P.A.-C. [address] [place] [address] [phone] documented as of this encounter Visit Diagnoses Not on filedocumented in this encounter
--- OUTSIDE RECORDS SUMMARY | 2022-01-26 11:42 | XMS_ITS | Encounter Summary ---
:1950 Author Organization [facility] Address [address] [place] [address] Care Team Providers Name Role Phone Unavailable Primary Care Provider Unavailable Encounter Details Date Type Department Care Team Description 09/06/2016 - Hospital Encounter HX RST PREV Samanta Lyle 09/13/2016 HYPERBARIC AHP A, R.N., ACHRN Social History [...] Laboratory Medicine Maite Dennis P.A.-C. [address] [place] [address] [phone] 01/31/2022 Appointment Radiology Maite Dennis P.A.-C. [address] [place] [phone] 01/31/2022 Office Visit Oncology Maite Dennis P.A.-C. [address] [place] [phone] documented as of this encounter Visit Diagnoses Not on filedocumented in this encounter
--- OUTSIDE RECORDS SUMMARY | 2022-01-26 11:42 | XMS_ITS | Encounter Summary ---
:1950 Author Organization [facility] Address [address] [place] [address] Care Team Providers Name Role Phone Unavailable Primary Care Provider Unavailable Encounter Details Date Type Department Care Team Description 08/29/2016 - Hospital Encounter HX RST PREV HYPERBARIC Luan Woodward, 09/05/2016 PREV M.DDeven Social History Tobacco Use Types [...] Laboratory Medicine Maite Dennis P.A.-C. [address] [place] [address] [phone] 01/31/2022 Appointment Radiology Maite Dennis P.A.-C. [address] [place] [phone] 01/31/2022 Office Visit Oncology Maite Dennis P.A.-C. [address] [place] [address] [phone] documented as of this encounter Visit Diagnoses Not on filedocumented in this encounter
--- OUTSIDE RECORDS SUMMARY | 2022-01-26 11:42 | XMS_ITS | Encounter Summary ---
:[address] [facility] Address [address] [place] [address] Care Team Providers Name Role Phone Unavailable Primary Care Provider Unavailable Encounter Details Date Type Department Care Team Description 08/26/2016 - Hospital Encounter HX RST PREV Maurice Riley 09/02/2016 PREV Anai Deshpande [address] [place] [address] Social History Tobacco Use Types Packs/Day Years [...] Appointment Laboratory Medicine Maite Dennis P.A.-C. [address] [place] [address] [phone] 01/31/2022 Appointment Radiology Maite Dennis P.A.-C. [address] [place] [address] [phone] 01/31/2022 Office Visit Oncology Maite Dennis P.A.-C. [address] [place] [phone] documented as of this encounter Visit Diagnoses Not on filedocumented in this encounter
--- OUTSIDE RECORDS SUMMARY | 2022-01-26 11:42 | XMS_ITS | Encounter Summary ---
:1950 Author Organization [facility] Address [address] [place] [address] Care Team Providers Name Role Phone Unavailable Primary Care Provider Unavailable Encounter Details Date Type Department Care Team Description 08/31/2016 - Hospital Encounter HX RST Art Gore 09/07/2016 HYPERBARIC PREV Anai Norris [address] [place] [address] Social History Tobacco Use Types Packs/Day Years [...] Appointment Laboratory Medicine Maite Dennis P.A.-C. [address] [place] [address] [phone] 01/31/2022 Appointment Radiology Maite Dennis P.A.-C. [address] [place] [address] [phone] 01/31/2022 Office Visit Oncology Maite Dennis P.A.-C. [address] [place] [address] [phone] documented as of this encounter Visit Diagnoses Not on filedocumented in this encounter
--- OUTSIDE RECORDS SUMMARY | 2022-01-26 11:42 | XMS_ITS | Encounter Summary ---
:1950 Author Organization [facility] Address [address] [place] [address] Care Team Providers Name Role Phone Unavailable Primary Care Provider Unavailable Encounter Details Date Type Department Care Team Description 09/05/2016 - Hospital Encounter HX RST PREV HYPERBARIC Lesli Young , 09/12/2016 [facility] [address] [place] [address] Social History Tobacco Use Types Packs/Day Years [...] Appointment Laboratory Medicine Maite Dennis P.A.-C. [address] [place] [phone] 01/31/2022 Appointment Radiology Maite Dennis P.A.-C. [address] [place] [phone] 01/31/2022 Office Visit Oncology Maite Dennis P.A.-C. [address] [place] [phone] documented as of this encounter Visit Diagnoses Not on filedocumented in this encounter
--- OUTSIDE RECORDS SUMMARY | 2022-01-26 11:42 | XMS_ITS | Encounter Summary ---
:1950 Author Organization [facility] Address [address] [place] [address] Care Team Providers Name Role Phone Unavailable Primary Care Provider Unavailable Encounter Details Date Type Department Care Team Description 07/13/2016 Hospital Encounter HX NO MAPPING Whitley Downing, C.Ph.T. [address] [place] [address] [phone] Social History Tobacco Use Types Packs/Day Years [...] Appointment Laboratory Medicine Maite Dennis P.A.-C. [address] [place] [address] [phone] 01/31/2022 Appointment Radiology Maite Dennis P.A.-C. [address] [place] [phone] 01/31/2022 Office Visit Oncology Maite Dennis P.A.-C. [address] [place] [phone] documented as of this encounter Visit Diagnoses Not on filedocumented in this encounter
--- OUTSIDE RECORDS SUMMARY | 2022-01-26 11:42 | XMS_ITS | Encounter Summary ---
:1950 Author Organization [facility] Address [address] [place] [address] Care Team Providers Name Role Phone Unavailable Primary Care Provider Unavailable Encounter Details Date Type Department Care Team Description 09/06/2016 - Hospital Encounter HX RST PREV HYPERBARIC Luan Woodward, 09/13/2016 PREV M.DDeven Social History Tobacco Use Types [...] Laboratory Medicine Maite Dennis P.A.-C. [address] [place] [address] [phone] 01/31/2022 Appointment Radiology Maite Dennis P.A.-C. [address] [place] [phone] 01/31/2022 Office Visit Oncology Maite Dennis P.A.-C. [address] [place] [address] [phone] documented as of this encounter Visit Diagnoses Not on filedocumented in this encounter
--- OUTSIDE RECORDS SUMMARY | 2022-01-26 11:42 | XMS_ITS | Encounter Summary ---
:1950 Author Organization [facility] Address [address] [place] [address] Care Team Providers Name Role Phone Unavailable Primary Care Provider Unavailable Encounter Details Date Type Department Care Team Description 09/02/2016 - Hospital Encounter HX RST PREV Whitney Moser, 09/09/2016 HYPERBARIC AHP R.N. [address] [place] [address] Social History Tobacco Use Types Packs/Day Years [...] Laboratory Medicine Maite Dennis P.A.-C. [address] [place] [phone] 01/31/2022 Appointment Radiology Maite Dennis P.A.-C. [address] [place] [address] [phone] 01/31/2022 Office Visit Oncology Maite Dennis P.A.-C. [address] [place] [address] [phone] documented as of this encounter Visit Diagnoses Not on filedocumented in this encounter
--- OUTSIDE RECORDS SUMMARY | 2022-01-26 11:42 | XMS_ITS | Encounter Summary ---
:1950 Author Organization [facility] Address [address] [place] [address] Care Team Providers Name Role Phone Unavailable Primary Care Provider Unavailable Encounter Details Date Type Department Care Team Description 08/24/2016 Hospital Encounter HX RST PREV HYPERBARIC Ivonne Aguirre R, P R.N. [address] [place] [phone] Social History Tobacco Use Types Packs/Day Years [...] Laboratory Medicine Maite Dennis P.A.-C. [address] [place] [address] [phone] 01/31/2022 Appointment Radiology Maite Dennis P.A.-C. [address] [place] [phone] 01/31/2022 Office Visit Oncology Maite Dennis P.A.-C. [address] [place] [phone] documented as of this encounter Visit Diagnoses Not on filedocumented in this encounter
--- OUTSIDE RECORDS SUMMARY | 2022-01-26 11:42 | XMS_ITS | Encounter Summary ---
:1950 Author Organization [facility] Address [address] [place] [address] Care Team Providers Name Role Phone Unavailable Primary Care Provider Unavailable Encounter Details Date Type Department Care Team Description 08/31/2016 - Hospital Encounter HX RST PREV Whitney Moser, 09/07/2016 HYPERBARIC AHP R.N. [address] [place] [address] Social History Tobacco Use Types Packs/Day Years [...] Laboratory Medicine Maite Dennis P.A.-C. [address] [place] [phone] 01/31/2022 Appointment Radiology Maite Dennis P.A.-C. [address] [place] [address] [phone] 01/31/2022 Office Visit Oncology Maite Dennis P.A.-C. [address] [place] [address] [phone] documented as of this encounter Visit Diagnoses Not on filedocumented in this encounter
--- OUTSIDE RECORDS SUMMARY | 2022-01-26 11:42 | XMS_ITS | Encounter Summary ---
:1950 Author Organization [facility] Address [address] [place] [address] Care Team Providers Name Role Phone Unavailable Primary Care Provider Unavailable Encounter Details Date Type Department Care Team Description 08/31/2016 - Hospital Encounter HX RST Art Gore 09/07/2016 HYPERBARIC PREV Anai Norris [address] [place] [address] Social History Tobacco Use Types Packs/Day Years [...] Appointment Laboratory Medicine Maite Dennis P.A.-C. [address] [place] [address] [phone] 01/31/2022 Appointment Radiology Maite Dennis P.A.-C. [address] [place] [address] [phone] 01/31/2022 Office Visit Oncology Maite Dennis P.A.-C. [address] [place] [address] [phone] documented as of this encounter Visit Diagnoses Not on filedocumented in this encounter
--- OUTSIDE RECORDS SUMMARY | 2022-01-26 11:45 | XMS_ITS | Continuity of Care Document ---
:1950 Author Organization [facility] Address [address] [address] [place] [address] Phone Care Team Providers Name Role Phone Yanick Echevarria MD Unavailable Unavailable Allergies, Adverse Reactions, Alerts Substance Reaction Status Criticality No Known allergies Medications Medication Instructions Dosage Effective Status Comments Dates (start - stop) pravastatin 20 mg tablet take 1 tablet by 20 MG - Activ e ORAL route every day MiralaxBisacodylMagCit Use as directed - No Lo nger Colon Prep Active Procedures Procedure Date Colonoscopy Flex; Dx (sep Pro) Advance Directives Directive Yes / No Effective Date File Name Resuscitation Not Answered N/A N/A Life Support Not Answered N/A N/A Intubation Not Answered N/A N/A Antibiotics Not Answered N/A N/A IV Fluid Support Not Answered N/A N/A Tube Feed Not Answered N/A N/A Other Directive N/A N/A WARNING:The information contained in this section is historical and is provided for information onlyand does not constitute a legal document or any assurance that the information is still accurate. Please verify the information with the lawrence of the legal document before using it for clinical purposes. Encounters Encounter Practice Location Reason(s) Diagnoses Date Provider Provide rs Description For Visit Copied on Encounter [facility] Personal History [facility] Colon PolypsColon 5-201 Prov ider: Health PA, Endoscopy Cancer 4 Yanick. Johanna Thompson [address] [facility] [address], [address] [address], Hx GI Tract [place] [address] [place] [address] [place], [place], [place] Of [place], [place] [address], [id number], [address], [place], [place], [place] Of Colon[place] [address] 5. tel: Hx GI Tract [place], [place], tel: [phone] CancerPersonal [phone] History Colon , [place]. Polyps tel: [phone] [facility] No Information Maryam MORGAN Ref [facility] Provider: Count includes the [facility], 3 . [address], [address] [address] [place], [place], [place], [address], [address], [id number], [place], [place], [place], [address]. tel: [phone] tel:[phone] , [place]. [id number] tel: [phone] Family History Family Member Type Diagnosis Age At Onset No Information Payers Payer name Insurance type Covered green party ID Authorization(s ) [employer] Of [facility] [id number] Social History Type Description Quantity Date Captured Comments Alcohol Use Details Unknown Caffeine Use Details Unknown Tobacco Use Status No Information Smoking Status No Information Sex Female Chief Complaint And Reason For Visit No Information Reason For Referral Reason For Referral No Information Plan Of Treatment Date Type Action Status No Information History Of Present Illness Encounter Date Complaint History Of Present I llness No Information Functional Status Date Functional Assessment No Information Instructions Date Instruction Additional Informati on No Information Assessments Type Assessment Date No Information Patient Care Teams Name Effective Dates (start - stop) Status M chepe No Information
--- OUTSIDE RECORDS SUMMARY | 2022-01-26 11:45 | XMS_ITS | Clinical Summary ---
:1950 Author Organization [facility] [place] [address] Care Team Providers Name Role Phone Johanna Thompson MD Primary Care Provider Allergies No known active allergies Medications Medication Sig Dispensed Refills Start Date End Date Status aspirin 81 mg tablet Take 81 mg by 0 Active mouth once daily with a meal. albuterol HFA (PROAIR Inhale 2 Puffs 3 Inhaler 1 04/03/2014 Active HFA) 90 mcg/actuation by mouth 4 times inhaler daily if needed. fluticasone-salmeterol Inhale 1 Puff by 3 Inhaler 4 04/03/2014 Active (ADVAIR) 250-50 mouth 2 times mcg/Dose diskus inhaler daily. pravastatin (PRAVACHOL) Take 1 tablet by 90 tablet 4 5 Active 20 mg tablet mouth at bedtime. ergocalciferol (VITAMIN Take 1 capsule 24 capsule 0 04/07/2014 Active D2; DRISDOL) 50,000 by mouth every unit capsule Monday and . Active Problems Problem Noted Date Breast cancer 01/23/2012 Hyperlipemia 01/23/2012 Asthma 01/23/2012 Degenerative disk disease 01/23/2012 Overview: Cervical spine 3rd Benign positional vertigo Immunizations Name Administration Dates Next Due Influenza, High-dose Inactivated 12/26/2013 Influenza, IIV4 12/29/2012 Pneumococcal Poly,23-Valent (Pneumovax) 03/27/2009 Tdap 01/25/2012 Tetanus Toxoid 03/27/2005 Zoster (Zostavax-ZVL, live) 03/27/2009 Family History Medical History Relation Name Comments Heart Disease Father Hypertension Father Cancer-colon Mother Heart Disease Sister CAD with stent Relation Name Status Comments Daughter 1 Alive Daughter 2 Alive Father Maternal Grandfather Maternal Grandmother Mother Paternal Grandfather Paternal Grandmother Sister Alive Social History Tobacco Use Types Packs/Day Years Used Date Former Smoker Cigarettes 0.5 20 Quit: 08/29/19 12 Smokeless Tobacco: Never Used Alcohol Use Standard Drinks/Week Comments Yes 0 (1 standard drink = 0.6 oz pure alcoho l) 1-2 mixed drinks/week Alcohol Habits Answer Date Recorded How often do you have a drink containing alcohol? Not asked How many drinks containing alcohol do you have on Not asked a typical day when you are drinking? How often do you have six or more drinks on one Not asked occasion? 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 CLEANING MACHINE OPERATOR Height 150.5 cm (4' 11.25) 04/03/2014 9:45 AM ELECTRODE CLEANING MACHINE OPERATOR Body Mass Index 36.11 04/03/2014 9:45 AM ELECTRODE CLEANING MACHINE OPERATOR Plan of Treatment Health Maintenance Due Date Last Done Comments COVID-19 vaccine series (#1) 05/15/1951 Depression screening for age 12+ 1960 BMI (ht and wt on same day) for 1966 age 18+ Zoster (shingles) series for age 0205/22/2009 03/27/2009 50+ (2 of 3) Pneumococcal series for age 65+ (2 03/27/2010 03/27/2009 - PCV) DEXA/DXA scan for age 65+ 2013 Mammogram for age 45-75 04/01/2015 04/01/2014, 03/31/2014, 03/13/2013, Additional history exists Lipids for age 45-75 04/03/2019 04/03/2014, 06/07/2013, 03/15/2013, Additional history exists Influenza for age 65+ 11/25/2021 12/26/2013, 12/25/2013, 12/29/2012 Tetanus booster 01/24/2022 01/25/2012 Colonoscopy through age 75 05/30/2023 05/29/2013, 0 Tdap Completed 01/25/2012 Hepatitis C screening for age Completed 03/15/2013 16-79 Results Not on filefrom Last 3 Months Insurance Payer Benefit Plan / Subscriber ID Effective Dates Phone Addre ss Type Group MEDICARE - PB MEDICARE PB [id number] 2013-Present ATTN : CLAIMS USE ONLY ONLY [address] [place] [address] BLUE [employer]OSS BLUE [employer]OSS OF [id number] 2013-Present [address] [address] [place] [address] y (Home) [place] [address] Care Teams Metal Handler Relationship Specialty Start Date End Date Johanna Thompson MD PCP - General Internal Medicine 12/03/11
== END 2022-01-26 11:26 | disposition home or self-care (01) ==
PROVIDERS: PCP Internal Medicine; Visit Provider Internal Medicine
DX: Z12.31 Encounter for screening mammogram for malignant neoplasm of breast (principal)
CPT/HCPCS: 77063; 77067

== ENCOUNTER 2023-01-10 09:06 | Outpatient (CLI) | payer MEDICARE, SELFPAY | END 2023-01-10 09:07 | disposition home or self-care (01) | LOC: NFLDREF 19:08 | PROVIDERS: PCP Internal Medicine; Referring Provider Internal Medicine; Visit Provider Internal Medicine | DX: E78.5 Hyperlipidemia, unspecified (principal) | CPT/HCPCS: 80061 ==

== ENCOUNTER 2023-02-24 09:38 | Outpatient (CLI) | payer MEDICARE, SELFPAY ==
--- NOTE | 2023-02-24 10:15 | CRLHL7_ITS ---
For Patients: As a result of the Cures Act, medical imaging exams and procedure reports are released immediately into your electronic medical record. You may view this report before your referring provider. If you have questions, please contact your health care provider. UNILATERAL RIGHT SCREENING MAMMOGRAM WITH COMPUTER-AIDED DETECTION AND TOMOSYNTHESIS TECHNIQUE: CC and MLO views were obtained. These mammographic images have been obtained using full-field digital technique. These mammographic images were interpreted with the benefit of computer-aided detection. Breast Tomosynthesis was used in this interpretation. COMPARISON FILM: 01/26/22, 01/25/21, 01/13/20. FINDINGS: The breast is heterogeneously dense, which may obscure small masses IMPRESSION: There is no radiographic evidence for malignancy. ASSESSMENT: BI-RADS Category 1: Negative RECOMMENDATION: A lay language report of this examination will be provided to the patient. Onofre Loredo M.D. Diagnostic Radiologist [email or web address] JESSICA/trey Transcribed: 5:42 p.mDeven yang/Dictated by: Onofre Loredo MD @ 02/27/2023 12:33:00 PM (Electronically Signed)
== END 2023-02-24 09:39 | disposition home or self-care (01) ==
LOC: MAMMO 09:39
PROVIDERS: PCP Internal Medicine; Visit Provider Internal Medicine
DX: Z12.31 Encounter for screening mammogram for malignant neoplasm of breast (principal); R92.2 Inconclusive mammogram
CPT/HCPCS: 77063; 77067

== ENCOUNTER 2023-03-24 12:04 | Outpatient (CLI) | payer MEDICARE, SELFPAY ==
--- OUTSIDE RECORDS SUMMARY | 2023-04-03 19:54 | XMS_ITS ---
Author Name Unknown Organization [facility] Address [address] [place] [address] Care Team Providers Care Leather Whitener Name Role Phone Unavailable Unavailable Unavailable Surgery Details Not on file Complications Check Surgery Details section. Procedure Estimated Blood Loss Check Surgery Details section. Procedure Findings Check Surgery Details section. Procedure Specimens Taken Check Surgery Details section.
--- OUTSIDE RECORDS SUMMARY | 2023-04-03 19:54 | XMS_ITS | Referral Summary ---
Author Name Unknown Organization [facility] Address [address] [place] [address] Care Team Providers Care Deputy Building Guard Name Role Phone Elsewhere, Pcp Primary Care Provider Unavailabl e Source Comments Patient records contain information from all sites at [facility]. For routine questions regarding patient records, call [phone] during business hours, M-F 8:00 AM - 5:00 PM Central Time. Record requests for emergency care only can be directed to [phone] at any time.[facility] Encounters Date Type Department Care Team Description 01/25/2023 9:37 AM CDT - 01/25/2023 10:50 AM CDT Hospital Encounter Department of Laboratory Medicine and Pathology, [facility] in [place], [place] [address] [place] [address] Maite Dennis P.A.-C., M.S. 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 Care 01/25/2023 10:51 AM CDT - 01/25/2023 11:59 PM CDT Hospital Encounter Department of Radiology, [place], [place] [address] [place] [address] Maite Dennis P.A.-C., M.S. 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 Care 01/25/2023 2:00 PM CDT Office Visit Department of Oncology in [place], [place] [address] [place] [address] Maite Dennis P.A.-C., M.S. Angiosarcoma Soft Tissue (HCC) (Primary Dx) 01/23/2023 12:30 PM CDT Clinical Communication Virtual Review in [place], [place] [address] [place] [address] Pre-visit Intake from Last 3 Months Allergies Active Allergy Reactions Criticality Noted Date Comments Mold Wheezing (Reselect Reaction) 07/19/2017 Watery eyes and nose Pollen Extracts Wheezing (Reselect Reaction) 07/19/2017 Watery eyes and nose Medications Medication Sig Dispensed Refills Start Date End Date Status fluticasone (FLONASE ALLERGY RELIEF) 50 mcg/actuation nasal spray Administer 1 puff into affected nostril(s) 2 (two) times a day. 0 07/14/2016 Active albuterol 90 mcg/actuation inhaler Inhale 2 puffs every 6 (six) hours. 0 10/13/2021 Active pravastatin (PRAVACHOL) 10 mg tablet every evening. 0 10/15/2021 Active vitamins A,C,V-wfyv-vzjpbw (PRESERVISION AREDS) 7,160 Units-113 mg-100 Units per tablet Take 1 tablet by mouth daily. 0 Active cyanocobalamin (VITAMIN B12) 1,000 mcg tablet Take 1,000 mcg by mouth daily. 0 Active fluticasone propion-salmeteroL 250-50 mcg/dose diskus inhaler Inhale 1 puff 2 (two) times a day. 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 09/24/2003 Immunizations Name Administration Dates Next Due Influenza Split 11/26/2015 Social History Tobacco Use Types Packs/Day Years Used Date Smoking Tobacco: Former Cigarettes 1 30 0 11/25/1966 - 09/24/2003 Smokeless Tobacco: Never Alcohol Use Standard Drinks/Week Comments Yes 3 (1 standard drink = 0.6 oz pur e alcohol) 2-3 vodka/coke's per week PHQ-2 Answer Date Recorded PHQ-2 Score 0 08/25/2018 Nutrition Answer Date Recorded Nutrition: EVOO Fat Source Unknown 05/28 Nutrition: Servings of Fruits/Vegetables per Day Not on file 05/28/2020 Dental Answer Date Recorded Dental: Regular Dentist Unknown 05/29/19 21 Sex and Gender Information Value Date Recorded Sex Assigned at Female 01/20/2023 8:11 PM CDT Gender Identity Female 03/03/2017 6:11 AM MORTICIAN SUPPLIES SALES REPRESENTATIVE Sexual Orientation Straight 03/03/2017 6: 11 AM MORTICIAN SUPPLIES SALES REPRESENTATIVE Last Filed Vital Signs Vital Sign Reading Time Taken Comments Blood Pressure 121/71 01/25/2023 1:49 PM CDT Pulse 79 01/25/2023 1:49 PM CDT Temperature 37.6 ??C (99.7 ??F) 01/25/2023 1:49 PM CD T Respiratory Rate 16 01/25/2023 1:49 PM CDT Oxygen Saturation 94% 01/25/2023 1:49 PM CDT Inhaled Oxygen Concentration - - Weight 63.9 kg (140 lb 14 oz) 01/25/2023 1:49 PM CDT Height 147.3 cm (4' 9.99) 01/25/2023 1:49 PM CD T Body Mass Index 29.45 01/25/2023 1:49 PM CDT Plan of Treatment Not on file Medical Devices Implanted Type Area Fibre Composite Technician Device Identifier Shelf Expiration Date Model / Serial / Lot Conversions - Default Historical Implant Device Implanted:07/11 (Quantity not on file) Misc Other Left: Breast Description:Body Location - Breast L. Device Status Text - MiscOther. titanium marker. Procedures Procedure Name Priority Date/Time Associated Diagnosis Comments CT CHEST WITHOUT IV CONTRAST RAD - Routine (most inpatients and all outpatients) 01/25/2023 11:36 AM CDT Angiosarcoma Soft Tissue (HCC) COMPREHENSIVE METABOLIC PANEL, S/P Routine 01/25/2023 10:03 AM CDT Angiosarcoma Soft Tissue (HCC) CBC WITH DIFFERENTIAL, B Routine 01/25/2023 10:03 AM CDT Angiosarcoma Soft Tissue (HCC) from Last 3 Months Results * CT Chest without IV Contrast (01/25/2023 11:36 AM CDT) Anatomical Region Laterality Modality Chest, Thoracic RST LOS, Tho racic ARZ LOS, Thoracic FLA LOS N/A Computed Tomography, Compute d Tomography 01/25/2023 11:5 5 AM CDT Impressions 01/25/2023 12:06 PM CDT 1. New 1 mm solid noncalcified left lower lobe nodule is technically indeterminate for neoplasm. Attention at follow-up is recommended. 2. Several additional solid noncalcified subcentimeter lung nodules have been stable since 01/18/2016, should be benign. 3. Additional findings are detailed in the body of the report. Narrative 01/25/2023 12:06 PM CDT EXAM: CT CHEST WITHOUT IV CONTRAST COMPARISON: Multiple chest CTs from 01/18/2016 to 01/31/2022 ?? FINDINGS: The 1 mm solid noncalcified left lower lobe nodule on series 3 image 387 is new, indeterminate. Several additional solid noncalcified subcentimeter nodules on series 3 have been stable since 01/18/2016, allowing for differences in technique, for example, 2-3 mm left lower lobe nodule on image 383, 2 mm right middle lobe nodule on image 269, 3 mm posterior basal left lower lobe nodule on image 385. Mild diffuse bronchial wall thickening is unchanged. Left upper lobe subpleural coarse reticulations are stable, attributable to post radiation changes. The central tracheobronchial tree is patent. No pleural effusion or thickening identified. Stable subcentimeter nodes without thoracic adenopathy by size criteria. Left mastectomy, chest wall and axillary postoperative changes are stable. Moderate aortic and mitral annulus calcifications are again identified. Similar moderate coronary artery calcifications are also visualized. Small esophageal hiatal hernia is unchanged. Unchanged slight nodularity of the left adrenal gland. The visualized upper abdomen is otherwise unremarkable. Left anterior 6th rib sclerosis is unchanged, ascribed to post radiation in etiology. Similar mild degenerative changes of the spine. No new aggressive osseous lesions identified. Thank you for the consultation. 3D maximum intensity projection (MIP) images were created on a dependent workstation as ordered by the treating provider and reviewed by the radiologist to increase sensitivity for detection of pulmonary nodules. Procedure Note Maco Olson M.D. - 01/25/2023 EXAM: CT CHEST WITHOUT IV CONTRAST COMPARISON: Multiple chest CTs from 01/18/2016 to 01/31/2022 FINDINGS: The 1 mm solid noncalcified left lower lobe nodule on series 3 image 387is new, indeterminate. Several additional solid noncalcified subcentimeter nodules on series 3have been stable since 01/18/2016, allowing for differences in technique, for example, 2-3 mmleft lower lobe nodule on image 383, 2 mm right middle lobe nodule on image 269, 3 mm posteriorbasal left lower lobe nodule on image 385. Mild diffuse bronchial wall thickening is unchanged. Leftupper lobe subpleural coarse reticulations are stable, attributable to post radiation changes. Thecentral tracheobronchial tree is patent. No pleural effusion or thickening identified. Stable subcentimeter nodes without thoracic adenopathy by size criteria. Left mastectomy, chest wall and axillary postoperative changes arestable. Moderate aortic and mitral annulus calcifications are again identified.Similar moderate coronary artery calcifications are also visualized. Small esophageal hiatal hernia is unchanged. Unchanged slight nodularity of the left adrenal gland. The visualizedupper abdomen is otherwise unremarkable. Left anterior 6th rib sclerosis is unchanged, ascribed to post radiationin etiology. Similar mild degenerative changes of the spine. No new aggressive osseous lesionsidentified. Thank you for the consultation. 3D maximum intensity projection (MIP) images were created on a dependentworkstation as ordered by the treating provider and reviewed by the radiologist to increasesensitivity for detection of pulmonary nodules. IMPRESSION: 1. New 1 mm solid noncalcified left lower lobe nodule is technicallyindeterminate for neoplasm. Attention at follow-up is recommended. 2. Several additional solid noncalcified subcentimeter lung nodules havebeen stable since 01/18/2016, should be benign. 3. Additional findings are detailed in the body of the report. Maite Dennis P.A.-C. M.S. IMG CT PROCED URES * (ABNORMAL) CBC with Differential, Blood (01/25/2023 10:03 AM CDT) Hemoglobin 13.4 11.6 - 15.0 g/dL 01/25/2023 10:33 AM CDT DTL Hematocrit 40.3 35.5 - 44.9 % 01/25/2023 10:33 AM CDT DTL Erythrocytes 4.01 3.92 - 5.13 x10(12)/L 01/25/2023 10:33 AM CDT DTL MCV 100.5(H) 78.2 - 97.9 fL 01/25/2023 10:33 AM CDT DTL RBC Distrib Width 12.5 12.2 - 16.1 % 01/25/2023 10:33 AM CDT DTL Platelet Count 242 157 - 371 x10(9)/L 01/25/2023 10:33 AM CDT DTL Leukocytes 7.6 3.4 - 9.6 x10(9)/L 01/25/2023 10:33 AM CDT DTL Neutrophils 4.99 1.56 - 6.45 x10(9)/L 01/25/2023 10:33 AM CDT DHPM Lymphocytes 1.78 0.95 - 3.07 x10(9)/L 01/25/2023 10:33 AM CDT DTL Monocytes 0.58 0.26 - 0.81 x10(9)/L 01/25/2023 10:33 AM CDT DTL Eosinophils 0.17 0.03 - 0.48 x10(9)/L 01/25/2023 10:33 AM CDT DTL Basophils 0.03 0.01 - 0.08 x10(9)/L 01/25/2023 10:33 AM CDT DTL Blood (Blood, Venous) 01/25/2023 10:03 AM CDT 01/25/2023 10:22 AM CDT Maite Dennis P.A.-C., M.S. LAB BLOOD ADD -ON [facility] [address] [place] [address], [facility] DTL [facility] [address] [place] [address] [facility] [address] [place] [address] * (ABNORMAL) Comprehensive Metabolic Panel (01/25/2023 10:03 AM CDT) [facility] Potassium, S 4.3 3.6 - 5.2 mmol/L 01/25/2023 11:04 AM CDT DTL Sodium, S 140 135 - 145 mmol/L 01/25/2023 11:04 AM CDT DTL Chloride, S 105 98 - 107 mmol/L 01/25/2023 11:04 AM CDT DTL Bicarbonate, S 26 22 - 29 mmol/L 01/25/2023 11:04 AM CDT DTL Anion Gap 9 7 - 15 01/25/2023 11:04 AM CDT DTL BUN (Blood Urea Nitrogen), S 11 6 - 21 mg/dL 01/25/2023 11:04 AM CDT DTL Creatinine 0.74 0.59 - 1.04 mg/dL 01/25/2023 11:04 AM CDT DTL Estimated GFR (eGFR) 85 >=60 mL/min/BS A 01/25/2023 11:04 AM CDT DTL Comment: Estimated GFR calculated using the 2020 CKD_EPI creatinine equation. Calcium, Total, S 9.3 8.8 - 10.2 mg/dL 01/25/2023 11:04 AM CDT DTL Glucose, S 79 70 - 140 mg/dL 01/25/2023 11:04 AM CDT DTL Protein, Total, S 6.0(L) 6.3 - 7.9 g/dL 01/25/2023 11:04 AM CDT DTL Albumin, S 4.3 3.5 - 5.0 g/dL 01/25/2023 11:04 AM CDT DTL Aspartate Aminotransferase (AST), S 14 8 - 43 U/L 01/25/2023 11:04 AM CDT DTL Alkaline Phosphatase, S 66 35 - 104 U/L 01/25/2023 11:04 AM CDT DTL Alanine Aminotransferase (ALT), S 17 7 - 45 U/L 01/25/2023 11:04 AM CDT DTL Bilirubin, Total, S 0.3 0.0 - 1.2 mg/dL 01/25/2023 11:04 AM CDT DTL Blood (Blood, Venous) 01/25/2023 10:03 AM CDT 01/25/2023 10:37 AM CDT Maite Dennis P.A.-C. M.S. LAB BLOOD ADD -ON [facility] [address] [place] [address], [place] DTL [facility] [address] [place] [address] from Last 3 Months Advance Directives For more information, please contact: [phone] Documents on File Type Date Recorded Patient Shot Bagger Expl anation Advance Directives 03/01/2021 9:46 AM Vanessa Lora HCPOA/ADVOCATE/AGENT/R EPRESENTATIVE/SURROGAT E Advance Directives 01/19/2016 12:00 AM Monae haile document. See document viewer. Latest Code Status on File Code Status Date Activated Date Inactivated Comments Full Code 08/17/2018 3:01 PM 08/18/2018 2:20 PM Question Answer Comments Full Code: Discussed on admission Healthcare Agents on File Name Relationship Healthcare Agent Relationship Communication Vanessa YumiDeven Josselin Spouse Health Care Agent Nany Schwab Daughter First Alternate Health Care Agent Julienne Lora Daughter Second Alternate Health Care Agent Care Teams Deputy Building Guard Relationship Specialty Start Date End Date Elsewhere, Pcp PCP - General Internal Medicine 01/23/23
--- OUTSIDE RECORDS SUMMARY | 2023-04-03 19:54 | XMS_ITS | Encounter Summary ---
Author Name Unknown Organization [facility] Address [address] [place] [id number] Care Team Providers Care Buccaro Name Role Phone Elsewhere, Pcp Primary Care Provider Unavailabl e Reason for Visit * Reason Onset Date Comments Pre-visit Intake 01/23/2023 Encounter Details Date Type Department Care Team (Latest Contact Info) Description 01/23/2023 12:30 PM CDT Clinical Communication Virtual Review in [place], [place] [address] [place], [place] [id number] Pre-visit Intake Social History Tobacco Use Types Packs/Day Years [...] CDT Gender Identity Female 03/03/2017 6:11 AM 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
--- OUTSIDE RECORDS SUMMARY | 2023-04-03 19:54 | XMS_ITS | Clinical Summary ---
Author Name Unknown Organization [facility] Address [address] [facility] [place] [address] Care Team Providers Care Contract Implementation Analyst Name Role Phone [employer] [facility] Primary Care Provider Marichuy Meyers MD Unavailable [phone] Allergies No known active allergies Medications Medication Sig Dispensed Refills Start Date End Date Status fluticasone-salmetero l (ADVAIR DISKUS) 250-50 MCG/DOSE inhalerIndications:Mo derate persistent asthma without complication INHAL 1 PUFF BY MOUTH TWICE DAILY RINSE MOUTH AFTER EACH USE 180 each 1 06/09/2020 Active PROAIR RESPICLICK 108 (90 Base) MCG/ACT inhalerIndications:Mo derate persistent asthma without complication INHALE 2 PUFFS BY MOUTH EVERY 6 HOURS NEEDED FOR WHEEZE OR FOR SHORTNESS OF BREATH 1 each 1 10/13/2021 Active albuterol (PROAIR HFA/PROVENTIL HFA/VENTOLIN HFA) 108 (90 Base) MCG/ACT inhalerIndications:Mo derate persistent asthma without complication Inhale 2 puffs into the lungs every 6 hours 18 g 1 10/13/2021 Active pravastatin (PRAVACHOL) 10 MG tabletIndications:Hyp ercholesteremia TAKE 1 TABLET BY MOUTH EVERY DAY IN THE EVENING 90 tablet 0 10/15/2021 Active Active Problems Problem Noted Date Diagnosed Date Moderate persistent asthma without complication 07/04/2019 Hypercholesteremia 07/04/2019 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 Family history of colon cancer 07/04/2019 Encounters Date Type Department Care Team Description 01/01/2023 Refill [place] [address] [place] [address] Nitesh Buchanan MD Medication Refill from Last 3 Months Immunizations Name Administration Dates Next Due COVID-19 Monovalent 18+ (Moderna) 06/21/2020, Influenza (intradermal) 01/23/2019 Influenza Vaccine 65+ (FLUAD) 12/11/2019 Pneumo Conj 13-V (2010&after) 11/06/2018 Pneumococcal 23 valent 11/09/2019 Pneumococcal, Unspecified 07/03/2009 TDAP Vaccine (Adacel) 11/09/2019 Tdap (Adult) Unspecified Formulation 01/25/2012 Zoster recombinant adjuvanted (SHINGRIX) 020,12/11/2019 Zoster vaccine, live 03/27/2009 Family History Medical History Relation Comments Heart Failure Father Colon Cancer Maternal Grandmother Colon Cancer Mother Cerebrovascular Disease Paternal Grandfather mul t Heart Disease Sister Hypertension Sister Diabetes No family hx of Relation Status Comments Daughter 1 Alive Daughter 2 Alive Father (Age 85) Maternal Grandfather Maternal Grandmother (Age 99) Mother (Age 69) Paternal Grandfather (Age 84) Paternal Grandmother (Age 106) Sister Alive Son Social History Tobacco Use Types Packs/Day Years Used Date Smoking Tobacco: Former Cigarettes Q uit: 07/03/2002 Smokeless Tobacco: Never Alcohol Use Standard Drinks/Week Comments Yes 0 (1 standard drink = 0.6 oz pur e alcohol) rare PHQ-2 Answer Date Recorded PHQ-2 Score 0 10/12/2021 Adolescent Education Answer Date Record ed Getting School Help Needed Not on file 12/16 Sex and Gender Information Value Date Recorded Sex Assigned at Not on file Gender Identity Not on file Sexual Orientation Not on file Last Filed Vital Signs Vital Sign Reading Time Taken Comments Blood Pressure 102/61 01/06/2021 9:30 AM CDT Pulse 74 01/06/2021 9:30 AM CDT Temperature 36.8 ??C (98.3 ??F) 01/06/2021 8:39 AM CD T Respiratory Rate 16 01/06/2021 9:30 AM CDT [...] ASTHMA ACTION PLAN 1948 CT COLONOGRAPHY 1948 FIT 1948 FLEX SIG 1948 sDNA (Cologuard) 1948 HEPATITIS C SCREENING 1966 LUNG CANCER SCREENING 1998 RSV VACCINE ( & 60+) (1 - 1-dose 60+ series) 2008 ASTHMA CONTROL TEST 12/10/2020 06/09/2020, MEDICARE ANNUAL WELLNESS VISIT 06/09/2021 06/09/2020 PHQ-2 (once per calendar year) 2022 10/12/2021, 06/09/2020, 07/04/2019 FALL RISK ASSESSMENT 10/12/2022 10/12/2021, 06/09/2020, 07/04/2019 COVID-19 Vaccine ( season) 2022 08/25/2021, 02/02/2021, 06/21/2020, Additional history exists INFLUENZA VACCINE (#1) 2022 , 12/09/2020, 12/11/2019, Additional history exists MAMMO SCREENING 01/25/2023 01/25/2021, 01/13/2020 ADVANCE CARE PLANNING 06/09/2025 06/09/2020 COLONOSCOPY 01/06/2026 01/06/2021, 01/06/2021 COLORECTAL CANCER SCREENING 01/06/2026 LIPID 10/05/2026 10/05/2021 DTAP/TDAP/TD IMMUNIZATION (3 - Td or Tdap) 11/08/2029 11/09/2019, 01/25/2012 DEXA 08/28/2033 08/28/2018 Pneumococcal Vaccine: 65+ Years Completed 11/09/2019, 11/06/2018, 07/03/2009 ZOSTER IMMUNIZATION Completed 02/10/2020, 12/11/2019, 03/27/2009 HPV IMMUNIZATION Aged Out No longer e ligible based on patient's age to complete this topic IPV IMMUNIZATION Aged Out No longer e ligible based on patient's age to complete this topic MENINGITIS IMMUNIZATION Aged Out No l onger eligible based on patient's age to complete this topic RSV MONOCLONAL ANTIBODY Aged Out No l onger eligible based on patient's age to complete this topic Care Teams Contract Implementation Analyst Relationship Specialty Start Date End Date Clinic - [facility] [address] [place], [place] [id number] PCP - General Internal Medicine 07/03/19 Marichuy Meyers MD [address] [facility] [address] [place], [place] [id number] Assigned PCP 05/21/22
--- OUTSIDE RECORDS SUMMARY | 2023-04-03 19:54 | XMS_ITS | Referral Summary ---
Author Name Unknown Organization [facility] Address [address] [place] [address] Care Team Providers Care High School Director Name Role Phone [facility] Primary Care Provider Marichuy Meyers MD Unavailable [phone] Encounters Date Type Department Care Team Description [facility] [address] [place] [address] Nitesh Buchanan MD Medication Refill from Last 3 Months Allergies No known active allergies Medications Medication [...] 07/04/2019 Immunizations Name Administration Dates Next Due COVID-19 Monovalent 18+ (Moderna) 06/21/2020, Influenza (intradermal) 01/23/2019 Influenza Vaccine 65+ (FLUAD) 12/11/2019 Pneumo Conj 13-V (2010&after) 11/06/2018 Pneumococcal 23 valent 11/09/2019 Pneumococcal, Unspecified 07/03/2009 TDAP Vaccine (Adacel) 11/09/2019 Tdap (Adult) Unspecified Formulation 01/25/2012 Zoster recombinant adjuvanted (SHINGRIX) 020,12/11/2019 Zoster vaccine, live 03/27/2009 Social History Tobacco Use Types Packs/Day Years [...] 01/06/2021 8:23 AM CDT Plan of Treatment Not on file Care Teams High School Director Relationship Specialty Start Date End Date Clinic - [facility] [address] [place] [address] PCP - General Internal Medicine 07/03/19 Marichuy Meyers MD [address] [facility] [address] [place] [address] Assigned PCP 05/21/22
--- OUTSIDE RECORDS SUMMARY | 2023-04-03 19:54 | XMS_ITS | Encounter Summary ---
Author Name Unknown Organization [place] Address [address] [place] [address] Care Team Providers Care Quarry Supervisor Name Role Phone Clinic - [facility] Primary Care Provider Marichuy Meyers MD Unavailable Reason for Visit * Reason Comments Medication Refill Encounter Details Date Type Department Care Team (Late st Contact Info) Description 01/01/2023 [facility] [address] [facility] [address] [place] [address] Nitesh Buchanan MD [address] [place] [address] Medication Refill Social History Tobacco Use Types Packs/Day Years [...] on file Sexual Orientation Not on file documented as of this encounter Miscellaneous Notes * Telephone Encounter - Isela Estes RN - 01/02/2023 9:13 AM CDT Pending Prescriptions: Disp Refills PROAIR RESPICLICK 108 (90 Base) MCG/ACT in* 1 Sig: INHALE 2 PUFFS BY MOUTH EVERY 6 HOURS NEEDED FOR WHEEZE OR FOR SHORTNESS OF BREATH VENTOLIN HFA 108 (90 Base) MCG/ACT inhaler* 1 Sig: INHALE 2 PUFFS INTO THE LUNGS EVERY 6 HOURS documented in this encounter Plan of Treatment Not on file documented as of this encounter Visit Diagnoses Diagnosis Moderate persistent asthma without complication Unspecified asthma documented in this encounter Care Teams Quarry Supervisor Relationship Specialty Start Date End Date Clinic - [facility] [address] [place] [address] PCP - General Internal Medicine 07/03/19 Marichuy Meyers MD [address] [facility] [address] [place] [address] Assigned PCP 05/21/22 documented as of this encounter
--- OUTSIDE RECORDS SUMMARY | 2023-04-03 19:54 | XMS_ITS | Encounter Summary ---
Author Name Unknown Organization [facility] Address [address] [place] [address] Care Team Providers Care Haz Tech Name Role Phone Elsewhere, Pcp Primary Care Provider Unavailabl e Reason for Referral * MRI/CAT/PET Scan (Routine) - Closed Specialty Diagnoses / Procedures Referred By Contac t Referred To Contact Radiology Diagnoses Angiosarcoma Soft Tissue (HCC) Procedures CT Chest without IV Contrast Maite Dennis P.A.-C., M.S. [address] [place] [phone] [facility] Referral ID Status Reason Start Date Expiration Date Visits Re quested Visits Authorized [id number] Closed 02/18/2022 02/18/2023 1 1 Reason for Visit * MRI/CAT/PET Scan (Routine) - Closed Specialty Diagnoses / Procedures Referred By Contac t Referred To Contact Radiology Diagnoses Angiosarcoma Soft Tissue (HCC) Procedures CT Chest without IV Contrast Maite Dennis P.A.-C., M.S. [address] [place] [phone] [facility] Referral ID Status Reason Start Date Expiration Date Visits Re quested Visits Authorized [id number] Closed 02/18/2022 02/18/2023 1 1 Encounter Details Date Type Department Care Team (Latest Contact Info) Description 01/25/2023 10:51 AM CDT - 01/25/2023 11:59 PM CDT Hospital Encounter Department of Radiology, [facility], in [place], [place] [address] [place] [address] Maite Dennis P.A.-C., M.S. 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 0 10/13/2021 cyanocobalamin (VITAMIN B12) 1,000 mcg tablet Take 1,000 mcg by mouth daily. 0 fluticasone (FLONASE ALLERGY RELIEF) 50 mcg/actuation nasal spray Administer 1 puff into affected nostril(s) 2 (two) times a day. 0 07/14/2016 fluticasone propion-salmeteroL 250-50 mcg/dose diskus inhaler Inhale 1 puff 2 (two) times a day. 0 01/17/2023 pravastatin (PRAVACHOL) 10 mg tablet every evening. 0 10/15/2021 vitamins A,C,L-obai-glakoy (PRESERVISION AREDS) 7,160 Units-113 mg-100 Units per tablet Take 1 tablet by mouth daily. 0 documented as of this encounter Plan of Treatment Not on file documented as of this encounter Procedures Procedure Name Priority Date/Time Associated Diagnosis Comments CT CHEST WITHOUT IV CONTRAST RAD - Routine (most inpatients and all outpatients) 01/25/2023 11:36 AM CDT Angiosarcoma Soft Tissue (HCC) documented in this encounter Results * CT Chest without IV Contrast [...] the body of the report. Maite Dennis P.A.-C., M.S. IMG CT PROCED URES documented in this encounter Visit Diagnoses Diagnosis Angiosarcoma Soft Tissue (HCC) documented in this encounter Additional Health Concerns Assessment Noted Time PHQ-9 Depression Total Score: 1 08/18/19 19 6:47 PM CDT documented as of this encounter Care Teams Haz Tech Relationship Specialty Start Date End Date Elsewhere, Pcp PCP - General Internal Medicine 01/23/23 documented as of this encounter
--- OUTSIDE RECORDS SUMMARY | 2023-04-03 19:54 | XMS_ITS | Encounter Summary ---
Author Name Unknown [facility] Address [address] [facility] [place] [address] Care Team Providers Care Metal Worker Name Role Phone [facility] Primary Care Provider Marichuy Meyers MD Unavailable [phone] Marichuy Meyers MD Unavailable [phone] Encounter Details Date Type Department Care Team (Late st Contact Info) Description 11/11/2020 [facility] Medical Advice [address] [place] [address] Clement Stevenson RN Social History Tobacco Use Types Packs/Day Years Used Date Smoking Tobacco: Former Cigarettes Q uit: 07/03/2002 Smokeless Tobacco: Never Alcohol Use Standard Drinks/Week Comments Yes 0 (1 standard drink = 0.6 oz pur e alcohol) rare PHQ-2 Answer Date Recorded PHQ-2 Score 0 06/09/2020 Sex and Gender Information Value Date Recorded Sex Assigned at Not on file Gender Identity Not on file Sexual Orientation Not on file documented as of this encounter Plan of Treatment Not on file documented as of this encounter Visit Diagnoses Not on filedocumented in this encounter Care Teams Metal Worker Relationship Specialty Start Date End Date [facility] [address] [place] [address] PCP - General Internal Medicine 07/03/19 Marichuy Meyers MD [address] [address] Assigned PCP 06/13/19 03/11/22 Marichuy Meyers MD [address] [facility] 200 [place] [address] Assigned PCP 05/21/22 documented as of this encounter
--- OUTSIDE RECORDS SUMMARY | 2023-04-03 19:54 | XMS_ITS | Encounter Summary ---
Author Name Unknown Organization [facility] Address [address] [place] [address] Care Team Providers Care Collar Setter Name Role Phone Elsewhere, Pcp Primary Care Provider Unavailabl e Encounter Details Date Type Department Care Team (Latest Contact Info) Description 01/25/2023 9:37 AM CDT - 01/25/2023 10:50 AM CDT Hospital Encounter Department of Laboratory Medicine and Pathology, [facility], in [place], [place] [address] [place] [address] Maite Dennis P.A.-C., M.S. [address] [place] [address] Angiosarcoma Soft Tissue (HCC) Discharge Disposition: Home [...] CDT Gender Identity Female 03/03/2017 6:11 AM TWISTER OPERATOR Sexual Orientation Straight 03/03/2017 6: 11 AM TWISTER OPERATOR documented as of this encounter Medications at [...] mg tablet every evening. 0 10/15/2021 vitamins A,C,P-yczp-tfpqrl (PRESERVISION AREDS) 7,160 Units-113 mg-100 Units per tablet Take 1 tablet by mouth daily. 0 documented as of this encounter Plan of Treatment Not on file documented as of this encounter Procedures Procedure Name Priority Date/Time Associated Diagnosis Comments CBC WITH DIFFERENTIAL, B Routine 01/25/2023 10:03 AM CDT Angiosarcoma Soft Tissue (HCC) COMPREHENSIVE METABOLIC PANEL, S/P Routine 01/25/2023 10:03 AM CDT Angiosarcoma Soft Tissue (HCC) documented in this encounter Results * (ABNORMAL) Comprehensive Metabolic Panel (01/25/2023 10:03 AM CDT) Potassium, S 4.3 3.6 - 5.2 mmol/L [...] CDT 01/25/2023 10:37 AM CDT Maite Dennis P.A.-C., M.S. LAB BLOOD ADD -ON [facility] [address] [place] [address], [facility] DTL [facility] [address] [place] [address] * (ABNORMAL) CBC with Differential, Blood (01/25/2023 [...] Dennis P.A.-C., M.S. LAB BLOOD ADD -ON [facility] [address] [place] [address], [facility] [address] [place] [address] [facility] [address] [place] [address] documented in this encounter Visit Diagnoses Diagnosis Angiosarcoma Soft Tissue (HCC) documented in this encounter Additional Health Concerns Assessment Noted Time PHQ-9 Depression Total Score: 1 08/18/19 19 6:47 PM CDT documented as of this encounter Care Teams Collar Setter Relationship Specialty Start Date End Date Elsewhere, Pcp PCP - General Internal Medicine 01/23/23 documented as of this encounter
--- OUTSIDE RECORDS SUMMARY | 2023-04-03 19:54 | XMS_ITS | Encounter Summary ---
Author Name Unknown Organization [place] Address [address] [facility] [place] [address] Care Team Providers Care Chief Deputy Court Clerk Name Role Phone [facility] Primary [facility] Provider Marichuy Meyers MD Unavailable [phone] Marichuy Meyers MD Unavailable [phone] Encounter Details Date Type Department Care Team (Late st Contact Info) Description 12/31/2020 My[facility] Medical Advice [place] Centralized Scheduling formerly [facility] [place] [address] Chetna Roger Social History Tobacco Use Types Packs/Day Years [...] on filedocumented in this encounter Care Teams Chief Deputy Court Clerk Relationship Specialty Start Date End Date [facility] [address] [place] [address] PCP - General Internal Medicine 07/03/19 Marichuy Meyers MD [address] [facility] [address] [place] [address] Assigned PCP 06/13/19 03/11/22 Marichuy Meyers MD [address] [facility] 200 [place] [address] Assigned PCP 05/21/22 documented as of this encounter
--- OUTSIDE RECORDS SUMMARY | 2023-04-03 19:54 | XMS_ITS | Encounter Summary ---
Author Name Unknown Organization [facility] Address [address] [place] [address] Care Team Providers Care Cross Cut Saw Operator Name Role Phone Elsewhere, Pcp Primary Care Provider Unavailabl e Reason for Referral * Outpatient (Routine) - Authorized Specialty Diagnoses / Procedures Referred By Contac t Referred To Contact Oncology Maite Dennis P.A.-C., M.S. [address] [place] [phone] [facility] Referral ID Status Reason Start Date Expiration Date V isits Requested Visits Authorized [id number] Authorized 02/08/2023 02/07/2026 1 1 CLE MECHANIC * MRI/CAT/PET Scan (Routine) - Authorized Specialty Diagnoses / Procedures Referred By Contac t Referred To Contact Radiology Diagnoses Angiosarcoma Soft Tissue (HCC) Procedures CT Chest without IV Contrast Maite Dennis P.A.-C., M.S. [address] [place] [phone] [facility] Referral ID Status Reason Start Date Expiration Date V isits Requested Visits Authorized [id number] Authorized 02/08/2023 02/08/2024 1 1 CLE MECHANIC Reason for Visit * Outpatient (Routine) - Closed Specialty Diagnoses / Procedures Referred By Sharonda hernandez Referred To Contact Oncology Maite Dennis P.A.-C., M.S. [address] [place] [address] [facility] Referral ID Status Reason Start Date Expiration Date Visits Re quested Visits Authorized [id number] Closed 02/18/2022 02/17/2025 1 1 Encounter Details Date Type Department Care Team (Late st Contact Info) Description 01/25/2023 2:00 PM CDT Office Visit Department of Oncology in [place], [place] [address] [place] [phone] Maite Dennis P.A.-C., M.S. 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 - 01/25/2023 2:00 PM CDT SUBJECTIVE PRIMARY ONCOLOGIST: Caio Pop M.D. Witter, Amy E, P.A.-C., M.S. 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 Here with repeat imaging today. HISTORY OF PRESENT ILLNESS Ms. Schwab is a 72 y.o. female with the following oncologic history: Oncology History Angiosarcoma Soft Tissue (HCC) 12/2015 Initial Diagnosis Radiation-associated Angiosarcoma of the left breast. 2004: Status post left lumpectomy and radiation therapy, six months of tamoxifen, and five years of aromatase inhibitor. No chemotherapy. July 2015: bumped her left breast and developed a bruise. November 2015: Lump continued to increase as wellas a separate lesion in the left breast. [...] was negative for residual sarcoma. INTERVAL HISTORY: This patient was last seen in the Medical Oncology [facility] on January 31, 2022 by me. Since that time, she has been doing great. She has established routine care with a local primary in [place]. No oncologic concerns over the past year. She remains active -- they have kids and grandkids who are active in sports so they are often spectators in the stands. Reports her appetite and oral intake as stable as is her weight. She denies any fevers, chills, night sweats, unintentional weight loss, or any new or enlarging masses anywhere. REVIEW OF SYSTEMS Pertinent items are noted in HPI; all other systems were reviewed and were negative. OBJECTIVE Vitals: 01/25/23 1349 BP: 121/71 BP Location: Right arm Patient Position: Sitting Cuff Size: Regular Pulse: 79 Resp: 16 Temp: 37.6 ??C TempSrc: Tympanic SpO2: 94% Weight: 63.9 kg Height: 147.3 cm No data recorded PHYSICAL EXAMINATION General: 72 y.o. female, in no acute distress. Vital signs as noted above. Lungs: unlabored respirations Neuro: alert and orientated; good historian; no focal deficits ECOG score 0 LABS: Reviewed in patients chart. Lab results were reviewed and are satisfactory. IMAGING: CT Chest without IV Contrast Result Date: 01/25/2023 Impression: 1. New 1 mm solid noncalcified left lower lobe nodule is technically indeterminate for neoplasm. Attention at follow-up is recommended. 2. Several additional solid noncalcified subcentimeter lung nodules have been stable since 01/18/2016, should be benign. 3. Additional findings are detailed in the body of the report. ASSESSMENT / PLAN #1 Angiosarcoma Soft Tissue (HCC) It was my pleasure seeing Ms. Schwab in clinic today. We were able to review the reports of her recent labs and scan(s). Labs are unremarkable. Her CT scan of her chest shows no evidence of recurrent disease. There is a new 1 mm LLL nodule that is way to tiny to characterize so observation is recommended and we will follow it on next set of scans. I do believe it is fine to see her back in 1 year unless she were to start to feel unwell or have concerning symptoms. Her surgical site has healed but does have a small punctate hole with intermittent discharge. She sees her primary care provider when this happens. It self resolves. She has not needed any wound care intervention. PLAN: -- She is now 6 years out and doing very well --- We will plan to see her back in approximately 1 year with repeat labs, imaging and office visit. Multiple questions were answered. Ms. Schwab has our contact information to get in touch with us with any issues, questions or concerns that may arise. Orders Placed This Encounter Procedures CT Chest without IV Contrast CBC with Differential, Blood Comprehensive Metabolic Panel Oncology office visit (clinic) PATIENT EDUCATION Ready to learn, no apparent learning barriers were identified; learning preferences include listening. Explained diagnosis and treatment plan; patient expressed understanding of the content. ADMINISTRATIVE BILLING I personally spent a total 25 minutes with regard to this patient in preparation, seeing the patient and providing counseling and discussion and/or coordination of care as described above. CLE MECHANIC documented in this encounter Plan of Treatment Scheduled Orders Name Type Priority Associated Diagnoses Order Schedule CT Chest without IV Contrast Imaging RAD - Routine (most inpatients and all outpatients) Angiosarcoma Soft Tissue (HCC) Expected: 01/26/2024 (Approximate), Expires: 02/09/2024 CBC with Differential, Blood Lab Routine Angiosarcoma Soft Tissue (HCC) Expected: 01/26/2024 (Approximate), Expires: 05/11/2024 Comprehensive Metabolic Panel Lab Routine Angiosarcoma Soft Tissue (HCC) Expected: 01/26/2024 (Approximate), Expires: 02/09/2024 Scheduled Referrals Name Type Priority Associated Diagnoses Orde r Schedule Oncology office visit (clinic) Outpatient Referral Routine Expected: 01/26/2024 (Approximate), Expires: 05/11/2024 documented as of this encounter Visit Diagnoses Diagnosis Angiosarcoma Soft Tissue (HCC)- Primary documented in this encounter Additional Health Concerns Assessment Noted Time PHQ-9 Depression Total Score: 1 08/18/19 19 6:47 PM CDT documented as of this encounter Care Teams Cross Cut Saw Operator Relationship Specialty Start Date End Date Elsewhere, Pcp PCP - General Internal Medicine 01/23/23 documented as of this encounter
--- OUTSIDE RECORDS SUMMARY | 2023-04-03 19:54 | XMS_ITS | Clinical Summary ---
Author Name Unknown Organization [facility] Address [address] [place] [address] Care Team Providers Care Principal Developer Name Role Phone Elsewhere, Pcp Primary Care Provider Unavailabl e Source Comments Patient records contain information from all sites at [facility]. For routine questions regarding patient records, call [phone] during business hours, M-F 8:00 AM - 5:00 PM Central Time. Record requests for emergency care only can be directed to [phone] at any time.[facility] Allergies Active Allergy Reactions Criticality Noted Date [...] tablet every evening. 0 10/15/2021 Active vitamins A,C,G-naok-redykp (PRESERVISION AREDS) 7,160 Units-113 mg-100 Units per [...] Burch R.N. on 04/15/2017 Malignant Neoplasm Of Unspec ified Site Of Laterality Unknown Female Breast 09/24/2003 Encounters Date Type Department Care Team Description 01/25/2023 2:00 PM CDT Office Visit Department of Oncology in [address] [phone] Maite Dennis P.A.-C., M.S. Angiosarcoma Soft Tissue (HCC) (Primary Dx) 01/25/2023 10:51 AM CDT - 01/25/2023 11:59 PM CDT Hospital Encounter Department of Radiology, [facility] in [address] [phone] Maite Dennis P.A.-C., M.S. 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 Care 01/25/2023 9:37 AM CDT - 01/25/2023 10:50 AM CDT Hospital Encounter Department of Laboratory Medicine and Pathology, [facility] in [address] [phone] Maite Dennis P.A.-C., M.S. 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 Care 01/23/2023 12:30 PM CDT Clinical Communication Virtual Review in [place], [place] [address] [place] [address] Pre-visit Intake from Last 3 Months Immunizations Name Administration Dates Next Due Influenza Split 11/26/2015 Family History Medical History Relation Name Comments Coronary artery disease Father Joey Doherty Heart failure Father Joey Doherty Colon cancer Maternal Grandmother Enma Dietrich Colon cancer Mother Daja Doherty Heart disease Paternal Grandfather Stent Sister Relation Name Status Comments Father Joey Doherty Maternal Grandmother Enma Dietrich Mother Daja Doherty Paternal Grandfather Sister Social History Tobacco Use [...] Date Recorded Dental: Regular Dentist Unknown 05/29/19 Sex and Gender Information Value Date Recorded Sex Assigned at Female 01/20/2023 8:11 PM CDT Gender Identity Female 03/03/2017 6:11 AM CLIENT CARE CONSULTANT Sexual Orientation Straight 03/03/2017 6: 11 AM CLIENT CARE CONSULTANT Last Filed Vital Signs Vital Sign Reading [...] 01/25/2023 1:49 PM CDT Plan of Treatment Health Maintenance Due Date Last Done Comments Bone Density Scan (Osteoporosis Screen) 1948 CT Colonography 1950 Cologuard 1950 Hepatitis C Screening 1950 Mammogram 07/20/2018 07/20/2017, 02/25, 11/02/2016 (Performed elsewhere), Additional history exists Depression Screening (Annual PHQ-2) 03/27/2022 Fall Risk Screen (Annual) 03/27/2022 Office Visit for Blood Pressure Check / Re-check 01/26/2024 01/25/2023 Colonoscopy 01/06/2026 01/06/2021, 09/2012 (Performed elsewhere) Colorectal Cancer Surveillance 01/06/2026 Fasting Glucose for Diabetes Screening 01/25/2026 01/25/2023, 01/31/2022, 10/05/2021, Additional history exists Lipid (Cholesterol) Screening 10/05/2026 10/05/2021, 06/05/2020, 08/18/2018, Additional history exists DTaP,Tdap,and Td Vaccines (4 - Td or Tdap) 11/08/2029 11/09/2019, 01/25/2012, 01/25/2012 Pneumococcal vaccine (65+ years) Completed 11/09/2019, 11/06/2018, 07/03/2009, Additional history exists Zoster Vaccines Completed 02/10/2020, 11/25, 03/27/2009 Influenza Vaccine Completed 12/12/2022, , 12/11/2019, Additional history exists COVID-19 Vaccine Completed 12/23/2022, 05/2022, 12/13/2021, Additional history exists Lung Cancer Screening Discontinued 01/25/2023 , 01/31/2022, 03/01/2021, Additional history exists HPV Vaccines Aged Out No longer eligi ble based on patient's age to complete this topic Medical Devices Implanted Type Area Dx Board Operator Device Identifier Shelf Expiration Date Model / [...] with Differential, Blood (01/25/2023 10:03 AM CDT) [facility] Hemoglobin 13.4 11.6 - 15.0 g/dL 01/25/2023 [...] AM CDT 01/25/2023 10:22 AM CDT Maite Dnenis P.A.-C., M.S. LAB BLOOD ADD -ON [facility] [address] [place] [address], [facility] DTL [facility] [address] [place] [address] [facility] [address] [place] [address] * (ABNORMAL) Comprehensive Metabolic Panel (01/25/2023 10:03 AM CDT) [facility] Potassium, S 4.3 3.6 - 5.2 [...] Dennis P.A.-C. M.S. LAB BLOOD ADD -ON [facility] [address] [place] [address], [place] DTL [facility] [address] [place] [address] from Last 3 Months Advance Directives For more information, please contact: [phone] Documents on File Type Date Recorded Patient [place] Guide Expl anation Advance Directives 03/01/2021 9:46 AM Vanessa Lora HCPOA/ADVOCATE/AGENT/R EPRESENTATIVE/SURROGAT E Advance Directives 01/19/2016 12:00 AM Monae haile document. See document viewer. Latest Code Status on File Code Status Date Activated Date Inactivated Comments Full Code 08/17/2018 3:01 PM 08/18/2018 2:20 PM Question Answer Comments Full Code: Discussed on admission Healthcare Agents on File Name Relationship Healthcare Agent Relationship Communication Vanessa Boyd Kishanamadeo Spouse Health Care Agent Nany Schwab Daughter First Alternate Health Care Agent Julienne Lora Daughter Second Alternate Health Care Agent Care Teams Principal Developer Relationship Specialty Start Date End Date Elsewhere, Pcp PCP - General Internal Medicine 01/23/23
--- OUTSIDE RECORDS SUMMARY | 2023-04-03 19:54 | XMS_ITS | Encounter Summary ---
Author Name Unknown Organization [facility] Address [address] [place] [address] Care Team Providers Care Front Desk Manager Name Role Phone Elsewhere, Pcp Primary Care Provider Unavailabl e Encounter Details Date Type Department Care Team (Late st Contact Info) Description 06/10/2016 Historical Ophthalmology RST OPH Miguel Odonnell M.D. [address] [place] [address] Social History Tobacco Use Types Packs/Day Years Used Date Smoking Tobacco: Never Assessed Sex and Gender Information Value Date Recorded Sex Assigned at Female 01/20/2023 8:11 PM CDT Gender Identity Female 03/03/2017 6:11 AM CUSHION COVER INSPECTOR Sexual Orientation Straight 03/03/2017 6: 11 AM CUSHION COVER INSPECTOR documented as of this encounter Progress Notes * Miguel Odonnell M.D. - 06/10/2016 10:20 AM [...] #2 cataracts CDM Reports - EYEGEN Id: [id number] Status: Fnl documented in this encounter Plan of Treatment Not on file documented as of this encounter Visit Diagnoses Not on filedocumented in this encounter Care Teams Front Desk Manager Relationship Specialty Start Date End Date Elsewhere, Pcp PCP - General Internal Medicine 01/23/23 documented as of this encounter
--- OUTSIDE RECORDS SUMMARY | 2023-04-03 19:55 | XMS_ITS | Encounter Summary ---
Author Name Unknown [facility] Address [address] [facility] [facility] [place] [address] Care Team Providers Care Medium Cycle Salesperson Name Role Phone [facility] Primary Care Provider Marichuy Meyers MD Unavailable [phone] Marichuy Meyers MD Unavailable [phone] Encounter Details Date Type Department Care Team (Late st Contact Info) Description 06/22/2020 Documentation Only INTERFACED REPORT Unknown, [...] on file Sexual Orientation Not on file COVID-19 Exposure Response Date Recorded In the last month, have you been in contact with someone who was confirmed or suspected to have Coronavirus / COVID-19? No / Unsure 06/09/2020 10:06 AM CDT documented as of this encounter Plan of Treatment Not on file documented as of this encounter Visit Diagnoses Not on filedocumented in this encounter Care Teams Medium Cycle Salesperson Relationship Specialty Start Date End Date [facility] [address] [place], [place] [address] PCP - General Internal Medicine 07/03/19 Marichuy Meyers MD [address] [place] [address] Assigned PCP 06/13/19 03/11/22 Marichuy Meyers MD [address] [facility] [address] [place] [address] Assigned PCP 05/21/22 documented as of this encounter
--- OUTSIDE RECORDS SUMMARY | 2023-04-03 19:55 | XMS_ITS | Continuity of Care Document ---
Author Name Unknown Organization [facility] Address [address] [address] [place] [address] Phone Care Team Providers Care Templer Head Name Role Phone Yanick Echevarria MD Unavailable Unavailable Allergies, Adverse Reactions, Alerts Substance Reaction Status Criticality No Known allergies Medications Medication Instructions Dosage Effective Dates (start - stop) Status Comments pravastatin 20 mg tablet take 1 tablet b y ORAL route every day 20 MG - Active MiralaxBisacodylMagCit Colon Prep Use as directed - No Longer Active Procedures Procedure Date Colonoscopy Flex; Dx (nov Pro) 14 Advance Directives Directive Yes / No Effective Date File Name Resuscitation Not Answered N/A N/A Life Support Not Answered N/A N/A Intubation Not Answered N/A N/A Antibiotics Not Answered N/A N/A IV Fluid Support Not Answered N/A N/A Tube Feed Not Answered N/A N/A Other Directive N/A N/A WARNING:The information contained in this section is historical and is provided for information only and does not constitute a legal document or any assurance that the information is still accurate. Please verify the information with the lawrence of the legal document before using it for clinical purposes. Encounters Encounter Description Practice Location Reason(s) For Visit Diagnoses Date Provider Providers Copied on Encounter [facility], [address] [address], [place], [id number], [place] tel:[phone] [facility] Personal History Colon PolypsColon Cancer ScreeningFamily Hx GI Tract CancerDiverticulo sis Of ColonDiverticulos is Of ColonFamily Hx GI Tract CancerPersonal History Colon Polyps [address] [place]. [address] [facility] [facility] [address], [place], [place], [id number] , [place]. [phone] Referring Provider: Johanna Norris, [address] [facility] [address], [place], [address]. tel:[phone] [facility], [address] [address], [place], [place], [id number], [place] tel:[phone] [facility] No Information 3 Maryam Peres . [address] [facility] [facility] [address], [place], [place], [id number] , [place]. tel:[phone] Referring Provider: Johanna Norris, [address] [facility] [address], [place], [address]. tel:[phone] Family History Family Member Type Diagnosis Age At Onset No Information Payers Payer name Insurance type Covered libertarian ID Authoriza tammytarik(s) [employer] Of [facility] [id number] Social History Type Description Quantity Date Captured Comments Alcohol Use Details Unknown Caffeine Use Details Unknown Tobacco Use Status No Information Smoking Status No Information Sex Female Chief Complaint And Reason For Visit No Information Reason For Referral Reason For Referral No Information History Of Present Illness Encounter Date Complaint History Of Prese nt Illness No Information Functional Status Date Functional Assessmen t No Information Instructions Date Instruction Additional Infor mation No Information Assessments Type Assessment Date No Information Patient Care Teams Name Effective Dates (start - stop) Status Members No Information
--- OUTSIDE RECORDS SUMMARY | 2023-04-03 19:55 | XMS_ITS | Clinical Summary ---
Author Name Unknown Organization [facility] Address [place], [place] [address] Care Team Providers Care Corporate Communications Specialist Name Role Phone Johanna Thompson MD Primary Care Provider Unavailab le Allergies No known active allergies Medications Medication Sig Dispensed Refills Start Date End Date Status aspirin 81 mg tablet Take 81 mg by mouth once daily with a meal. 0 Active albuterol HFA (PROAIR HFA) 90 mcg/actuation inhaler Inhale 2 Puffs by mouth 4 times daily if needed. 3 Inhaler 1 04/03/2014 Active fluticasone-salmeter ol (ADVAIR) 250-50 mcg/Dose diskus inhaler Inhale 1 Puff by mouth 2 times daily. 3 Inhaler 4 04/03/2014 Active pravastatin (PRAVACHOL) 20 mg tablet Take 1 tablet by mouth at bedtime. 90 tablet 4 04/03/2014 Active ergocalciferol (VITAMIN D2; DRISDOL) 50,000 unit capsule Take 1 capsule by mouth every Monday and . 24 capsule 0 04/07/2014 Active Active Problems Problem Noted Date Diagnosed Date Breast cancer 01/23/2012 Hyperlipemia 01/23/2012 Asthma 01/23/2012 Degenerative disk disease 01/23/2012 Overview: Cervical spine 3rd Benign positional vertigo Immunizations Name Administration Dates Next Due Influenza, High-dose Inactivated 12/26/2013 Influenza, IIV4 12/29/2012 Pneumococcal Poly,23-Valent (Pneumovax) 03/27/19 10 Tdap 01/25/2012 Tetanus Toxoid 03/27/2005 Zoster (Zostavax-ZVL, [...] Years Used Date Smoking Tobacco: Former Cigarettes 0.5 20 0 08/29/1991 - 08/29/2011 Smokeless Tobacco: Never Alcohol Use Standard Drinks/Week Comments Yes 0 (1 standard drink = 0.6 oz pur e alcohol) 1-2 mixed drinks/week Sex and Gender Information Value Date Recorded Sex Assigned at Not on file Gender Identity Not on file Sexual Orientation Not on file Obstetrics History Last Filed Vital Signs Vital Sign Reading Time Taken Comments Blood Pressure 116/78 04/03/2014 9:45 AM OPERATIONS SYSTEMS SPECIALIST Pulse 76 04/03/2014 9:45 AM OPERATIONS SYSTEMS SPECIALIST Temperature - - Respiratory Rate 18 06/07/2013 9:37 AM CDT Oxygen Saturation - - Inhaled Oxygen Concentration - - Weight 81.8 kg (180 lb 4.8 oz) 04/03/2014 9:45 A M OPERATIONS SYSTEMS SPECIALIST Height 150.5 cm (4' 11.25) 04/03/2014 9:[address] Body Mass Index 36.11 04/03/2014 9:45 AM OPERATIONS SYSTEMS SPECIALIST Plan of Treatment Health Maintenance Due Date Last Done Comments COVID-19 vaccine series (#1) 05/15/1951 Depression screening for age 12+ 1960 BMI (ht and wt on same day) for age 18+ 1966 Zoster (shingles) series for age 50+ (2 of 3) 05/22/2009 03/27/2009 DEXA/DXA scan for age 65+ 2013 Pneumococcal series for age 65+ (2 of 2 - PCV) 2013 03/27/2009 Mammogram for age 45-75 04/01/2015 04/01/19 15, 03/31/2014, 03/13/2013, Additional history exists Lipids for age 45-75 04/03/2019 04/03/2014, 06/07/2013, 03/15/2013, Additional history exists Tetanus booster 01/24/2022 01/25/2012 Influenza for age 65+ 11/25/2022 12/26/2013 , 12/25/2013, 12/29/2012 Colonoscopy through age 75 05/30/2023 05/29/2013, Tdap Completed 01/25/2012 Hepatitis C screening for ag e 18-79 Completed 03/15/2013 Care Teams Corporate Communications Specialist Relationship Specialty Start Date End Date Johanna Thompson MD PCP - General Internal Medicine 12/03/11
== END 2023-03-24 12:05 | disposition home or self-care (01) ==
LOC: NFLDREF 04-03 19:52
PROVIDERS: PCP Internal Medicine; Referring Provider Internal Medicine; Visit Provider Physician Assistant
DX: R35.0 Frequency of micturition (principal); N39.0 Urinary tract infection, site not specified
CPT/HCPCS: 87086; 87186

== ENCOUNTER 2023-03-30 17:52 | Outpatient (CLI) | payer MEDICARE, SELFPAY ==
--- OUTSIDE RECORDS SUMMARY | 2023-04-05 17:48 | XMS_ITS | Clinical Summary ---
Author Name Unknown Organization [facility] Address [address] [facility] [place] [address] Care Team Providers Care Art Display Maker Name Role Phone [facility] Primary Care Provider Marichuy Meyers MD Unavailable [phone] Allergies No known active allergies Medications Medication [...] series) 2008 ASTHMA CONTROL TEST 12/10/2020 06/09/2020, 0 MEDICARE ANNUAL WELLNESS VISIT 06/09/2021 06/09/2020 PHQ-2 [...] age to complete this topic Care Teams Art Display Maker Relationship Specialty Start Date End Date Clinic - [facility] [address] [place] [address] PCP - General Internal Medicine 07/03/19 Marichuy Meyers MD [address] [facility] [address] [place] [address] Assigned PCP 05/21/22
--- OUTSIDE RECORDS SUMMARY | 2023-04-05 17:48 | XMS_ITS | Encounter Summary ---
Author Name Unknown Organization [facility] Address [address] [place] [address] Care Team Providers Care Gas Maker Name Role Phone Elsewhere, Pcp Primary Care Provider Unavailabl e Reason for Referral * Outpatient (Routine) - Authorized Specialty Diagnoses / Procedures Referred By Contac t Referred To Contact Oncology Maite Dennis P.A.-C., M.S. [address] [place] [phone] [facility] Referral ID Status Reason Start Date Expiration Date V isits Requested Visits Authorized [id number] Authorized 02/08/2023 02/07/2026 1 1 TOR ENGINE MECHANIC * MRI/CAT/PET Scan (Routine) - Authorized Specialty Diagnoses / Procedures Referred By Contac t Referred To Contact Radiology Diagnoses Angiosarcoma Soft Tissue (HCC) Procedures CT Chest without IV Contrast Maite Dennis P.A.-C., M.S. [address] [place] [phone] [facility] Referral ID Status Reason Start Date Expiration Date V isits Requested Visits Authorized [id number] Authorized 02/08/2023 02/08/2024 1 1 TOR ENGINE MECHANIC Reason for Visit * Outpatient (Routine) - Closed Specialty Diagnoses / Procedures Referred By Sharonda hernandez Referred To Contact Oncology Maite Dennis P.A.-C., M.S. [address] [place] [address] [facility] Referral ID Status Reason Start Date Expiration Date Visits Re quested Visits Authorized [id number] Closed 02/18/2022 02/17/2025 1 1 Encounter Details Date Type Department Care Team (Late st Contact Info) Description 01/25/2023 2:00 PM CDT Office Visit Department of Oncology in [place], [place] [address] [place] [phone] Maite Dennis P.A.-C., M.S. [address] [place] [phone] Angiosarcoma Soft Tissue (HCC) (Primary Dx) Social [...] CDT Gender Identity Female 03/03/2017 6:11 AM TRACTOR ENGINE MECHANIC Sexual Orientation Straight 03/03/2017 6: 11 AM TRACTOR ENGINE MECHANIC documented as of this encounter Last [...] routine care with a local primary in [place]. No oncologic concerns over the past year. [...] and/or coordination of care as described above. TOR ENGINE MECHANIC documented in this encounter Plan of [...] documented as of this encounter Care Teams Gas Maker Relationship Specialty Start Date End Date Elsewhere, Pcp PCP - General Internal Medicine 01/23/23 documented as of this encounter
--- OUTSIDE RECORDS SUMMARY | 2023-04-05 17:48 | XMS_ITS | Encounter Summary ---
Author Name Unknown Organization [facility] Address [address] [place] [address] Care Team Providers Care Flooring Grader Name Role Phone Elsewhere, Pcp Primary Care Provider Unavailabl e Encounter Details Date Type Department Care Team (Latest Contact Info) Description 01/25/2023 9:37 AM CDT - 01/25/2023 10:50 AM CDT Hospital Encounter Department of Laboratory Medicine and Pathology, [facility], in [place], [place] [address] [place] [address] Maite Dennis P.A.-C., M.S. [address] [place] [address] Angiosarcoma Soft Tissue (HCC) Discharge Disposition: Home [...] CDT Gender Identity Female 03/03/2017 6:11 AM STANDPIPE TENDER Sexual Orientation Straight 03/03/2017 6: 11 AM STANDPIPE TENDER documented as of this encounter Medications at [...] mg tablet every evening. 0 10/15/2021 vitamins A,C,L-tmiv-aftgjm (PRESERVISION AREDS) 7,160 Units-113 mg-100 Units per [...] Dennis P.A.-C., M.S. LAB BLOOD ADD -ON [facility] [address] [place] [address], [facility] DTL [facility] [address] [place] [address] * (ABNORMAL) CBC with Differential, Blood (01/25/2023 [...] Dennis P.A.-C., M.S. LAB BLOOD ADD -ON [facility] [address] [place] [address], [facility] [address] [place] [address] [facility] [address] [place] [address] documented in this encounter Visit Diagnoses Diagnosis Angiosarcoma Soft Tissue (HCC) documented in this encounter Additional Health Concerns Assessment Noted Time PHQ-9 Depression Total Score: 1 08/18/19 19 6:47 PM CDT documented as of this encounter Care Teams Flooring Grader Relationship Specialty Start Date End Date Elsewhere, Pcp PCP - General Internal Medicine 01/23/23 documented as of this encounter
--- OUTSIDE RECORDS SUMMARY | 2023-04-05 17:48 | XMS_ITS | Encounter Summary ---
Author Name Unknown Organization [facility] Address [address] [place] [address] Care Team Providers Care Secretary Specialist Name Role Phone Elsewhere, Pcp Primary Care Provider Unavailabl e Reason for Referral * MRI/CAT/PET Scan (Routine) - Closed Specialty Diagnoses / Procedures Referred By Contac t Referred To Contact Radiology Diagnoses Angiosarcoma Soft Tissue (HCC) Procedures CT Chest without IV Contrast Maite Dennis P.A.-C., M.S. [address] [place] [phone] [facility] Referral ID Status Reason Start Date Expiration Date Visits Re quested Visits Authorized [id number] Closed 02/18/2022 02/18/2023 1 1 Reason for Visit * MRI/CAT/PET Scan (Routine) - Closed Specialty Diagnoses / Procedures Referred By Contac t Referred To Contact Radiology Diagnoses Angiosarcoma Soft Tissue (HCC) Procedures CT Chest without IV Contrast Maite Dennis P.A.-C., M.S. [address] [place] [phone] [facility] Referral ID Status Reason Start Date Expiration Date Visits Re quested Visits Authorized [id number] Closed 02/18/2022 02/18/2023 1 1 Encounter Details Date Type Department Care Team (Latest Contact Info) Description 01/25/2023 10:51 AM CDT - 01/25/2023 11:59 PM CDT Hospital Encounter Department of Radiology, [facility], in [place], [place] [address] [place] [address] Maite Dennis P.A.-C., M.S. [address] [place] [address] Angiosarcoma Soft Tissue (HCC) Discharge Disposition: Home [...] CDT Gender Identity Female 03/03/2017 6:11 AM FINISHER MACHINE Sexual Orientation Straight 03/03/2017 6: 11 AM FINISHER MACHINE documented as of this encounter Medications at [...] mg tablet every evening. 0 10/15/2021 vitamins A,C,R-kdxv-xiftzv (PRESERVISION AREDS) 7,160 Units-113 mg-100 Units per [...] documented as of this encounter Care Teams Secretary Specialist Relationship Specialty Start Date End Date Elsewhere, Pcp PCP - General Internal Medicine 01/23/23 documented as of this encounter
--- OUTSIDE RECORDS SUMMARY | 2023-04-05 17:48 | XMS_ITS | Referral Summary ---
Author Name Unknown Organization [facility] Address [address] [place] [address] Care Team Providers Care Mirror Silverer Name Role Phone Elsewhere, Pcp Primary Care Provider Unavailabl e Source Comments Patient records contain information from all sites at [facility]. For routine questions regarding patient records, call [phone] during business hours, M-F 8:00 AM - 5:00 PM Central Time. Record requests for emergency care only can be directed to [phone] at any time.[facility] Encounters Date Type Department Care Team Description 01/25/2023 9:37 AM CDT - 01/25/2023 10:50 AM CDT Hospital Encounter Department of Laboratory Medicine and Pathology, [facility] in [place], [place] [address] [place] [address] Maite Dennis P.A.-C., M.S. 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 Care 01/25/2023 10:51 AM CDT - 01/25/2023 11:59 PM CDT Hospital Encounter Department of Radiology, [facility] in [place], [place] [address] [place] [address] Maite Dennis P.A.-C., M.S. 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 Care 01/25/2023 2:00 PM CDT Office Visit Department of Oncology in [place], [place] [address] [place] [address] Maite Dennis P.A.-C., M.S. Angiosarcoma Soft Tissue (HCC) (Primary Dx) 01/23/2023 12:30 PM CDT Clinical Communication Virtual Review in [place], [place] [address] [place] [address] Pre-visit Intake from Last 3 Months Allergies [...] tablet every evening. 0 10/15/2021 Active vitamins A,C,J-pzpi-rfgaiv (PRESERVISION AREDS) 7,160 Units-113 mg-100 Units per [...] CDT Gender Identity Female 03/03/2017 6:11 AM BANBURY MIXER OPERATOR Sexual Orientation Straight 03/03/2017 6: 11 AM BANBURY MIXER OPERATOR Last Filed Vital Signs Vital Sign Reading [...] on file Medical Devices Implanted Type Area Heat Treat Technician Device Identifier Shelf Expiration Date Model [...] Dennis P.A.-C., M.S. LAB BLOOD ADD -ON [facility] [address] [place] [address], [facility] DTL [facility] [address] [place] [address] [facility] [address] [place] [address] * (ABNORMAL) Comprehensive Metabolic Panel (01/25/2023 10:03 AM CDT) [facility] Potassium, S 4.3 3.6 - 5.2 mmol/L [...] Dennis P.A.-C. M.S. LAB BLOOD ADD -ON [facility] [address] [place] [address], [place] DTL [facility] [address] [place] [address] from Last 3 Months Advance Directives For more information, please contact: [phone] Documents on File Type Date Recorded Patient Learning And Development Coordinator Expl anation Advance Directives 03/01/2021 9:46 AM [...] Second Alternate Health Care Agent Care Teams Mirror Silverer Relationship Specialty Start Date End Date Elsewhere, Pcp PCP - General Internal Medicine 01/23/23
--- OUTSIDE RECORDS SUMMARY | 2023-04-05 17:48 | XMS_ITS ---
Author Name Unknown Organization [facility] Address [address] [place] [address] Care Team Providers Care Installation Service Representative Name Role Phone Unavailable Unavailable Unavailable Surgery Details Not on file Complications Check Surgery Details section. Procedure Estimated Blood Loss Check Surgery Details section. Procedure Findings Check Surgery Details section. Procedure Specimens Taken Check Surgery Details section.
--- OUTSIDE RECORDS SUMMARY | 2023-04-05 17:48 | XMS_ITS | Encounter Summary ---
Author Name Unknown Organization [facility] Address [address] [place] [address] Care Team Providers Care Automobile Sales Consultant Name Role Phone Elsewhere, Pcp Primary Care Provider Unavailabl e Encounter Details Date Type Department Care Team (Late st Contact Info) Description 06/10/2016 Historical Ophthalmology RST OPH Miguel Odonnell M.D. [address] [place] [address] Social History Tobacco Use Types Packs/Day Years Used Date Smoking Tobacco: Never Assessed Sex and Gender Information Value Date Recorded Sex Assigned at Female 01/20/2023 8:11 PM CDT Gender Identity Female 03/03/2017 6:11 AM SUPERVISOR MIXING Sexual Orientation Straight 03/03/2017 6: 11 AM SUPERVISOR MIXING documented as of this encounter Progress Notes [...] #2 cataracts CDM Reports - EYEGEN Id: [id number] Status: Fnl documented in this encounter Plan of Treatment Not on file documented as of this encounter Visit Diagnoses Not on filedocumented in this encounter Care Teams Automobile Sales Consultant Relationship Specialty Start Date End Date Elsewhere, Pcp PCP - General Internal Medicine 01/23/23 documented as of this encounter
--- OUTSIDE RECORDS SUMMARY | 2023-04-05 17:48 | XMS_ITS | Encounter Summary ---
Author Name Unknown Organization [facility] Address [address] [place] [address] Care Team Providers Care Paint Spray Inspector Name Role Phone Elsewhere, Pcp Primary Care Provider Unavailabl e Reason for Visit * Reason Onset Date Comments Pre-visit Intake 01/23/2023 Encounter Details Date Type Department Care Team (Latest Contact Info) Description 01/23/2023 12:30 PM CDT Clinical Communication Virtual Review in [place], [place] [address] [place], [place] [address] Pre-visit Intake Social History Tobacco Use Types [...] CDT Gender Identity Female 03/03/2017 6:11 AM DIRECT RESPONSE CONSULTANT Sexual Orientation Straight 03/03/2017 6: 11 AM DIRECT RESPONSE CONSULTANT documented as of this encounter Plan of Treatment Not on file documented as of this encounter Visit Diagnoses Not on filedocumented in this encounter Additional Health Concerns Assessment Noted Time PHQ-9 Depression Total Score: 1 08/18/19 19 6:47 PM CDT documented as of this encounter Care Teams Paint Spray Inspector Relationship Specialty Start Date End Date Elsewhere, Pcp PCP - General Internal Medicine 01/23/23 documented as of this encounter
--- OUTSIDE RECORDS SUMMARY | 2023-04-05 17:48 | XMS_ITS | Clinical Summary ---
Author Name Unknown Organization [facility] Address [address] [place] [address] Care Team Providers Care Barker Operator Name Role Phone Elsewhere, Pcp Primary Care Provider Unavailabl e Source Comments Patient records contain information from all sites at [facility]. For routine questions regarding patient records, call [phone] during business hours, M-F 8:00 AM - 5:00 PM Central Time. Record requests for emergency care only can be directed to [phone] at any time.[facility] Allergies Active Allergy Reactions Criticality Noted Date [...] tablet every evening. 0 10/15/2021 Active vitamins A,C,K-uste-gzexjl (PRESERVISION AREDS) 7,160 Units-113 mg-100 Units per [...] Unknown(TX, NX, M0) - Signed by Lesli uBrch R.N. on 04/15/2017 Malignant Neoplasm Of Unspec ified Site Of Laterality Unknown Female Breast 09/24/2003 Encounters Date Type Department Care Team Description 01/25/2023 2:00 PM CDT Office Visit Department of Oncology in [address] [address] Maite Dennis P.A.-C., M.S. Angiosarcoma Soft Tissue (HCC) (Primary Dx) 01/25/2023 10:51 AM CDT - 01/25/2023 11:59 PM CDT Hospital Encounter Department of Radiology, [facility] in [address] [address] Maite Dennis P.A.-C., M.S. 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 Care 01/25/2023 9:37 AM CDT - 01/25/2023 10:50 AM CDT Hospital Encounter Department of Laboratory Medicine and Pathology, [facility] in [address] [address] Maite Dennis P.A.-C., M.S. 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 Care 01/23/2023 12:30 PM CDT Clinical Communication Virtual Review in [place], [place] [address] [place] [address] Pre-visit Intake from Last 3 Months Immunizations [...] CDT Gender Identity Female 03/03/2017 6:11 AM CUSTOMER CARE TEAM COACH Sexual Orientation Straight 03/03/2017 6: 11 AM CUSTOMER CARE TEAM COACH Last Filed Vital Signs Vital Sign Reading [...] this topic Medical Devices Implanted Type Area Border Patrol Agent Device Identifier Shelf Expiration Date Model / [...] with Differential, Blood (01/25/2023 10:03 AM CDT) [facility] Hemoglobin 13.4 11.6 - 15.0 g/dL 01/25/2023 [...] Dennis P.A.-C., M.S. LAB BLOOD ADD -ON [facility] [address] [place] [address], [facility] DTL [facility] [address] [place] [address] [facility] [address] [place] [address] * (ABNORMAL) Comprehensive Metabolic Panel (01/25/2023 10:03 AM CDT) [facility] Potassium, S 4.3 3.6 - 5.2 mmol/L [...] Dennis P.A.-C. M.S. LAB BLOOD ADD -ON [facility] [address] [place] [address], [place] DTL [facility] [address] [place] [address] from Last 3 Months Advance Directives For more information, please contact: [phone] Documents on File Type Date Recorded Patient District Ranger Expl anation Advance Directives 03/01/2021 9:46 AM [...] Second Alternate Health Care Agent Care Teams Barker Operator Relationship Specialty Start Date End Date Elsewhere, Pcp PCP - General Internal Medicine 01/23/23
--- OUTSIDE RECORDS SUMMARY | 2023-04-05 17:49 | XMS_ITS | Encounter Summary ---
Author Name Unknown Organization [place] Address [address] [facility] [place] [address] Care Team Providers Care Building Maintenance Supervisor Name Role Phone [facility] Primary Care Provider Marichuy Meyers MD Unavailable [phone] Reason for Visit * Reason Comments Medication Refill Encounter Details Date Type Department Care Team (Late st Contact Info) Description 01/01/2023 [facility] [address] [place] [address] Nitesh Buchanan MD [address] [place] [address] Medication Refill Social History Tobacco [...] asthma documented in this encounter Care Teams Building Maintenance Supervisor Relationship Specialty Start Date End Date Clinic - [facility] [address] [place] [address] PCP - General Internal Medicine 07/03/19 Marichuy Meyers MD [address] [facility] [address] [place] [address] Assigned PCP 05/21/22 documented as of this encounter
--- OUTSIDE RECORDS SUMMARY | 2023-04-05 17:49 | XMS_ITS | Encounter Summary ---
Author Name Unknown [facility] Address [address] [place] [address] Care Team Providers Care Geriatric Psychiatrist Name Role Phone [facility] Primary Care Provider Marichuy Meyers MD Unavailable [phone] Marichuy Meyers MD Unavailable [phone] Encounter Details Date Type Department Care Team [...] on filedocumented in this encounter Care Teams Geriatric Psychiatrist Relationship Specialty Start Date End Date [facility] [address] [place], [place] [address] PCP - General Internal Medicine 07/03/19 Marichuy Meyers MD [address] [place] [address] Assigned PCP 06/13/19 03/11/22 Marichuy Meyers MD [address] [facility] [address] [place] [address] Assigned PCP 05/21/22 documented as of this encounter
--- OUTSIDE RECORDS SUMMARY | 2023-04-05 17:49 | XMS_ITS | Referral Summary ---
Author Name Unknown Organization [place] Address [address] [facility] [address] Care Team Providers Care Development And Housing Director Name Role Phone [facility] Primary Care Provider Marichuy Meyers MD Unavailable [phone] Allergies No known active allergies Medications Medication [...] of Treatment Not on file Care Teams Development And Housing Director Relationship Specialty Start Date End Date Clinic - [facility] [address] [place] [address] PCP - General Internal Medicine 07/03/19 Marichuy Meyers MD [address] [facility] [address] [place] [address] Assigned PCP 05/21/22
--- OUTSIDE RECORDS SUMMARY | 2023-04-05 17:49 | XMS_ITS | Encounter Summary ---
Author Name Unknown Organization [place] Address [address] [facility] [place] [address] Care Team Providers Care Passenger Representative Name Role Phone [facility] Primary Care Provider Marichuy Meyers MD Unavailable [phone] Marichuy Meyers MD Unavailable [phone] Encounter Details Date Type Department Care Team (Late st Contact Info) Description 12/31/2020 MyC Medical Advice [place] Centralized Scheduling [facility] [place] [address] Chetna Roger Social History Tobacco [...] on filedocumented in this encounter Care Teams Passenger Representative Relationship Specialty Start Date End Date [facility] Ame [facility] [address] [place] [address] PCP - General Internal Medicine 07/03/19 Marichuy Meyers MD [address] [facility] [address] [place] [address] Assigned PCP 06/13/19 03/11/22 Marichuy Meyers MD [address] [facility] [address] [place] [address] Assigned PCP 05/21/22 documented as of this encounter
--- OUTSIDE RECORDS SUMMARY | 2023-04-05 17:49 | XMS_ITS | Encounter Summary ---
Author Name Unknown [facility] Address [address] [facility] [place] [address] Care Team Providers Care Field Installation Technician Name Role Phone [facility] Primary Care Provider Marichuy Meyers MD Unavailable [phone] Marichuy Meyers MD Unavailable [phone] Encounter Details Date Type Department Care Team (Late st Contact Info) Description 11/11/2020 MyC Medical Advice [address] [place] [address] Clement Stevenson RN Social [...] on filedocumented in this encounter Care Teams Field Installation Technician Relationship Specialty Start Date End Date [facility] [address] [place] [address] PCP - General Internal Medicine 07/03/19 Marichuy Meyers MD [address] [address] Assigned PCP 06/13/19 03/11/22 Marichuy Meyers MD [address] [facility] 200 [place] [address] Assigned PCP 05/21/22 documented as of this encounter
--- OUTSIDE RECORDS SUMMARY | 2023-04-05 17:49 | XMS_ITS | Clinical Summary ---
Author Name Unknown Organization [facility] Address [place], [place] [address] Care Team Providers Care Tool Repairer Name Role Phone Johanna Thompson MD Primary [...] Comments Blood Pressure 116/78 04/03/2014 9:45 AM CAREERS COUNSELLOR Pulse 76 04/03/2014 9:45 AM CAREERS COUNSELLOR Temperature - - Respiratory Rate 18 06/07/2013 9:37 AM CDT Oxygen Saturation - - Inhaled Oxygen Concentration - - Weight 81.8 kg (180 lb 4.8 oz) 04/03/2014 9:45 A M CAREERS COUNSELLOR Height 150.5 cm (4' 11.25) 04/03/2014 9:[address] Body Mass Index 36.11 04/03/2014 9:45 AM CAREERS COUNSELLOR Plan of Treatment Health Maintenance Due Date [...] ag e 18[birth year] Completed 03/15/2013 Care Teams Tool Repairer Relationship Specialty Start Date End Date Johanna Thompson MD PCP - General Internal Medicine 12/03/11
--- OUTSIDE RECORDS SUMMARY | 2023-04-05 17:49 | XMS_ITS | Continuity of Care Document ---
Author Name Unknown Organization [facility] Address [address] [address] [place] [address] Phone Care Team Providers Care Arc Welder Apprentice Name Role Phone Yanick Echevarria MD Unavailable [...] Diagnoses Date Provider Providers Copied on Encounter [facility], [address] [address], [place], [id number], [place] tel:[phone] [facility] Personal History Colon PolypsColon Cancer ScreeningFamily Hx GI Tract CancerDiverticulo sis Of ColonDiverticulos is Of ColonFamily Hx GI Tract CancerPersonal History Colon Polyps [address] [place]. [address] [facility], [facility] [address], [place], [place], [id number] , [place]. [phone] Referring Provider: Johanna Norris, [address] [facility] [address] [facility] [address], [place], [address]. tel:[phone] [facility], [address] [address], [place], [place], [id number], [place] tel:[phone] [facility] No Information 3 Maryam Peres . [address] [facility], [facility] [address], [place], [place], [id number] , [place]. [phone] Referring Provider: Johanna Norris, [address] [facility] [address], [place], [address]. tel:[phone] Family History Family Member Type Diagnosis Age At Onset No Information Payers Payer name Insurance type Covered alliance party ID Authoriza tammytarik(s) Blue [employer] Of [facility] [id number] Social History Type Description Quantity Date Captured [...]
== END 2023-03-30 17:53 | disposition home or self-care (01) ==
LOC: NFLDREF 04-05 17:46
PROVIDERS: PCP Internal Medicine; Referring Provider Internal Medicine; Visit Provider Nurse Practitioner Family
DX: R30.0 Dysuria (principal); N39.0 Urinary tract infection, site not specified; N30.90 Cystitis, unspecified without hematuria
CPT/HCPCS: 87086; 87186

== ENCOUNTER 2023-04-17 09:59 | Outpatient (CLI) | payer MEDICARE, SELFPAY ==
--- OUTSIDE RECORDS SUMMARY | 2023-04-18 06:51 | XMS_ITS | Referral Summary ---
Author Name Unknown Organization [facility] Address [address] [place] [address] Care Team Providers Care Inspector Watch Train Name Role Phone Elsewhere, Pcp Primary Care Provider Unavailabl e Source Comments Patient records contain information from all sites at [facility]. For routine questions regarding patient records, call [phone] during business hours, M-F 8:00 AM - 5:00 PM Central Time. Record requests for emergency care only can be directed to [phone] at any time.[facility] Encounters Date Type Department Care Team Description 01/25/2023 9:37 AM CDT - 01/25/2023 10:50 AM CDT Hospital Encounter Department of Laboratory Medicine and Pathology, [facility] in [place], [place] [address] [place] [address] Maite Dennis P.A.-C., M.S. 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 Angiosarcoma Soft Tissue (HCC) (Primary Dx) 01/23/2023 12:30 PM CDT Clinical Communication Virtual Review in [place], [place] [address] [place] [address] Pre-visit Intake from Last 3 Months Allergies [...] tablet every evening. 0 10/15/2021 Active vitamins A,C,N-eozw-zpnpxc (PRESERVISION AREDS) 7,160 Units-113 mg-100 Units per [...] CDT Gender Identity Female 03/03/2017 6:11 AM VIRTUAL CLASSROOM MANAGER Sexual Orientation Straight 03/03/2017 6: 11 AM VIRTUAL CLASSROOM MANAGER Last Filed Vital Signs Vital Sign Reading [...] on file Medical Devices Implanted Type Area Balance Wheel Facer Device Identifier Shelf Expiration Date Model / [...] Dennis P.A.-C., M.S. LAB BLOOD ADD -ON [facility] [address] [place] [address], [facility] DTL [facility] [address] [place] [address] [facility] [address] [place] [address] * (ABNORMAL) Comprehensive Metabolic Panel (01/25/2023 10:03 AM CDT) [facility] Potassium, S 4.3 3.6 - 5.2 mmol/L [...] Dennis P.A.-C. M.S. LAB BLOOD ADD -ON [facility] [address] [place] [address], [place] DTL [facility] [address] [place] [address] from Last 3 Months Advance Directives For more information, please contact: [phone] Documents on File Type Date Recorded Patient Scenic Artist Expl anation Advance Directives 03/01/2021 9:46 AM [...] Second Alternate Health Care Agent Care Teams Inspector Watch Train Relationship Specialty Start Date End Date Elsewhere, Pcp PCP - General Internal Medicine 01/23/23
--- OUTSIDE RECORDS SUMMARY | 2023-04-18 06:51 | XMS_ITS | Clinical Summary ---
Author Name Unknown Organization [facility] Address [address] [place] [address] Care Team Providers Care Spaghetti Machine Operator Name Role Phone Elsewhere, Pcp Primary Care Provider Unavailabl e Source Comments Patient records contain information from all sites at [facility]. For routine questions regarding patient records, call [phone] during business hours, M-F 8:00 AM - 5:00 PM Central Time. Record requests for emergency care only can be directed to [phone] at any time.[facility] Allergies Active Allergy Reactions Criticality Noted Date [...] tablet every evening. 0 10/15/2021 Active vitamins A,C,R-czea-nllvex (PRESERVISION AREDS) 7,160 Units-113 mg-100 Units per [...] CDT Office Visit Department of Oncology in [address] [address] Maite Dennis P.A.-C., M.S. Angiosarcoma Soft Tissue (HCC) (Primary Dx) 01/25/2023 10:51 AM CDT - 01/25/2023 11:59 PM CDT Hospital Encounter Department of Radiology, [facility] in [address] [address] Maite Dennis P.A.-C., M.S. 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 Care 01/23/2023 12:30 PM CDT Clinical Communication Virtual Review in [place], [place] 200 [place] [address] Pre-visit Intake from Last 3 Months Immunizations [...] CDT Gender Identity Female 03/03/2017 6:11 AM ADULT SPECIALIST Sexual Orientation Straight 03/03/2017 6: 11 AM ADULT SPECIALIST Last Filed Vital Signs Vital Sign Reading [...] Additional history exists Depression Screening (Annual PHQ-2) 03/27/2023 Fall Risk Screen (Annual) 03/27/2023 Office Visit for Blood Pressure Check / [...] this topic Medical Devices Implanted Type Area Aircraft Loadmaster Superintendent Device Identifier Shelf Expiration Date Model / [...] with Differential, Blood (01/25/2023 10:03 AM CDT) [facility] Hemoglobin 13.4 11.6 - 15.0 g/dL 01/25/2023 [...] Dennis P.A.-C., M.S. LAB BLOOD ADD -ON [facility] [address] [place] [address], [facility] DTL [facility] [address] [place] [address] [facility] [address] [place] [address] * (ABNORMAL) Comprehensive Metabolic Panel (01/25/2023 10:03 AM CDT) [facility] Potassium, S 4.3 3.6 - 5.2 mmol/L [...] Dennis P.A.-C. M.S. LAB BLOOD ADD -ON [facility] [place] [address] [place] [address], [place] DTL [facility] [address] [place] [address] from Last 3 Months Advance Directives For more information, please contact: [phone] Documents on File Type Date Recorded Patient Investment Strategist Expl anation Advance Directives 03/01/2021 9:46 AM [...] Second Alternate Health Care Agent Care Teams Spaghetti Machine Operator Relationship Specialty Start Date End Date Elsewhere, Pcp PCP - General Internal Medicine 01/23/23
--- OUTSIDE RECORDS SUMMARY | 2023-04-18 06:51 | XMS_ITS ---
Author Name Unknown Organization [facility] Address [address] [place] [address] Care Team Providers Care Primary Care Nurse Practitioner Name Role Phone Unavailable Unavailable Unavailable Surgery Details Not on file Complications Check Surgery Details section. Procedure Estimated Blood Loss Check Surgery Details section. Procedure Findings Check Surgery Details section. Procedure Specimens Taken Check Surgery Details section.
--- OUTSIDE RECORDS SUMMARY | 2023-04-18 06:52 | XMS_ITS | Encounter Summary ---
Author Name Unknown [facility] Address [address] [facility] [place] [address] Care Team Providers Care Photographic Laboratory Supervisor Name Role Phone [facility] Primary Care Provider Marichuy Meyers MD Unavailable [phone] Marichuy Meyers MD Unavailable [phone] Encounter Details Date Type Department Care Team (Late st Contact Info) Description 11/11/2020 MyC Medical Advice [address] [place] [address] Clement Stevenson RN Social History [...] on filedocumented in this encounter Care Teams Photographic Laboratory Supervisor Relationship Specialty Start Date End Date [facility] [address] [place] [address] PCP - General Internal Medicine 07/03/19 Marichuy Meyers MD [address] [address] Assigned PCP 06/13/19 03/11/22 Marichuy Meyers MD [address] [facility] 200 [place] [address] Assigned PCP 05/21/22 documented as of this encounter
--- OUTSIDE RECORDS SUMMARY | 2023-04-18 06:52 | XMS_ITS | Encounter Summary ---
Author Name Unknown Organization [place] Address [address] [place] [address] Care Team Providers Care Cardiology Rn Name Role Phone [facility] Primary Care Provider Marichuy Meyers MD Unavailable [phone] Marichuy Meyers MD Unavailable [phone] Encounter Details Date Type Department Care Team (Late st Contact Info) Description 12/31/2020 MyC Medical Advice [place] Centralized Scheduling [facility] [place] [address] Chetna Roger Social History Tobacco [...] on filedocumented in this encounter Care Teams Cardiology Rn Relationship Specialty Start Date End Date [facility] Ame [facility] [address] [place] [address] PCP - General Internal Medicine 07/03/19 Marichuy Meyers MD [address] [facility] [address] [place] [address] Assigned PCP 06/13/19 03/11/22 Marichuy Meyers MD [address] [facility] [address] [place] [address] Assigned PCP 05/21/22 documented as of this encounter
--- OUTSIDE RECORDS SUMMARY | 2023-04-18 06:52 | XMS_ITS | Encounter Summary ---
Author Name Unknown Organization [facility] Address [address] [place] [address] Care Team Providers Care Tourist Information Assistant Name Role Phone Elsewhere, Pcp Primary Care Provider Unavailabl e Reason for Referral * Outpatient (Routine) - Authorized Specialty Diagnoses / Procedures Referred By Contac t Referred To Contact Oncology Maite Dennis P.A.-C., M.S. [address] [place] [phone] [facility] Referral ID Status Reason Start Date Expiration Date V isits Requested Visits Authorized [id number] Authorized 02/08/2023 02/07/2026 1 1 MBLY ASSOCIATE * MRI/CAT/PET Scan (Routine) - Authorized Specialty Diagnoses / Procedures Referred By Contac t Referred To Contact Radiology Diagnoses Angiosarcoma Soft Tissue (HCC) Procedures CT Chest without IV Contrast Maite Dennis P.A.-C., M.S. [address] [place] [phone] [facility] Referral ID Status Reason Start Date Expiration Date V isits Requested Visits Authorized [id number] Authorized 02/08/2023 02/08/2024 1 1 MBLY ASSOCIATE Reason for Visit * Outpatient (Routine) - Closed Specialty Diagnoses / Procedures Referred By Sharonda hernandez Referred To Contact Oncology Maite Dennis P.A.-C., M.S. [address] [place] [address] [facility] Referral ID Status Reason Start Date Expiration Date Visits Re quested Visits Authorized [id number] Closed 02/18/2022 02/17/2025 1 1 Encounter Details Date Type Department Care Team (Late st Contact Info) Description 01/25/2023 2:00 PM CDT Office Visit Department of Oncology in [place], [place] [address] [place] [phone] Maite Dennis P.A.-C., M.S. [address] [place] [phone] Angiosarcoma Soft Tissue (HCC) (Primary Dx) Social [...] CDT Gender Identity Female 03/03/2017 6:11 AM ASSEMBLY ASSOCIATE Sexual Orientation Straight 03/03/2017 6: 11 AM ASSEMBLY ASSOCIATE documented as of this encounter Last Filed [...] routine care with a local primary in [place]. No oncologic concerns over the past year. [...] and/or coordination of care as described above. MBLY ASSOCIATE documented in this encounter Plan of Treatment [...] documented as of this encounter Care Teams Tourist Information Assistant Relationship Specialty Start Date End Date Elsewhere, Pcp PCP - General Internal Medicine 01/23/23 documented as of this encounter
--- OUTSIDE RECORDS SUMMARY | 2023-04-18 06:52 | XMS_ITS | Encounter Summary ---
Author Name Unknown Organization [facility] Address [address] [place] [address] Care Team Providers Care Geospatial Technologist Name Role Phone Elsewhere, Pcp Primary Care Provider Unavailabl e Reason for Referral * MRI/CAT/PET Scan (Routine) - Closed Specialty Diagnoses / Procedures Referred By Contac t Referred To Contact Radiology Diagnoses Angiosarcoma Soft Tissue (HCC) Procedures CT Chest without IV Contrast Maite Dennis P.A.-C., M.S. [address] [place] [phone] [facility] Referral ID Status Reason Start Date Expiration Date Visits Re quested Visits Authorized [id number] Closed 02/18/2022 02/18/2023 1 1 Reason for Visit * MRI/CAT/PET Scan (Routine) - Closed Specialty Diagnoses / Procedures Referred By Contac t Referred To Contact Radiology Diagnoses Angiosarcoma Soft Tissue (HCC) Procedures CT Chest without IV Contrast Maite Dennis P.A.-C., M.S. [address] [place] [phone] [facility] Referral ID Status Reason Start Date Expiration Date Visits Re quested Visits Authorized [id number] Closed 02/18/2022 02/18/2023 1 1 Encounter Details Date Type Department Care Team (Latest Contact Info) Description 01/25/2023 10:51 AM CDT - 01/25/2023 11:59 PM CDT Hospital Encounter Department of Radiology, [facility], in [place], [place] [address] [place] [address] Maite Dennis P.A.-C., M.S. [address] [place] [address] Angiosarcoma Soft Tissue (HCC) Discharge Disposition: Home [...] CDT Gender Identity Female 03/03/2017 6:11 AM MAINTENANCE ASSOCIATE Sexual Orientation Straight 03/03/2017 6: 11 AM MAINTENANCE ASSOCIATE documented as of this encounter Medications at [...] mg tablet every evening. 0 10/15/2021 vitamins A,C,D-jrrs-bgqgos (PRESERVISION AREDS) 7,160 Units-113 mg-100 Units per [...] documented as of this encounter Care Teams Geospatial Technologist Relationship Specialty Start Date End Date Elsewhere, Pcp PCP - General Internal Medicine 01/23/23 documented as of this encounter
--- OUTSIDE RECORDS SUMMARY | 2023-04-18 06:52 | XMS_ITS | Referral Summary ---
Author Name Unknown Organization [facility] Address [address] [facility] [place] [address] Care Team Providers Care Curtain Hemmer Automatic Name Role Phone [facility] Primary Care Provider Marichuy Meyers MD Unavailable [phone] Allergies No known active allergies Medications Medication [...] of Treatment Not on file Care Teams Curtain Hemmer Automatic Relationship Specialty Start Date End Date Clinic - [facility] [address] [place] [address] PCP - General Internal Medicine 07/03/19 Marichuy Meyers MD [address] [facility] [address] [place] [address] Assigned PCP 05/21/22
--- OUTSIDE RECORDS SUMMARY | 2023-04-18 06:52 | XMS_ITS | Encounter Summary ---
Author Name Unknown Organization [facility] Address [address] [place] [address] Care Team Providers Care Fruit Grader Operator Name Role Phone Elsewhere, Pcp Primary Care Provider Unavailabl e Encounter Details Date Type Department Care Team (Latest Contact Info) Description 01/25/2023 9:37 AM CDT - 01/25/2023 10:50 AM CDT Hospital Encounter Department of Laboratory Medicine and Pathology, [facility], in [place], [place] [address] [place] [address] Maite Dennis P.A.-C., M.S. [address] [place] [address] Angiosarcoma Soft Tissue (HCC) Discharge Disposition: Home [...] CDT Gender Identity Female 03/03/2017 6:11 AM POISER Sexual Orientation Straight 03/03/2017 6: 11 AM POISER documented as of this encounter Medications at [...] mg tablet every evening. 0 10/15/2021 vitamins A,C,F-grrf-drjzkp (PRESERVISION AREDS) 7,160 Units-113 mg-100 Units per [...] Dennis P.A.-C., M.S. LAB BLOOD ADD -ON [facility] [address] [place] [address], [facility] [address] [place] [address] * (ABNORMAL) CBC with Differential, Blood (01/25/2023 [...] Dennis P.A.-C., M.S. LAB BLOOD ADD -ON [facility] [address] [place] [address], [facility] [address] [place] [address] [facility] [address] [place] [address] documented in this encounter Visit Diagnoses Diagnosis Angiosarcoma Soft Tissue (HCC) documented in this encounter Additional Health Concerns Assessment Noted Time PHQ-9 Depression Total Score: 1 08/18/19 19 6:47 PM CDT documented as of this encounter Care Teams Fruit Grader Operator Relationship Specialty Start Date End Date Elsewhere, Pcp PCP - General Internal Medicine 01/23/23 documented as of this encounter
--- OUTSIDE RECORDS SUMMARY | 2023-04-18 06:52 | XMS_ITS | Encounter Summary ---
Author Name Unknown Organization [facility] Address [address] [place] [address] Care Team Providers Care Community Support Associate Name Role Phone Elsewhere, Pcp Primary Care Provider Unavailabl e Reason for Visit * Reason Onset Date Comments Pre-visit Intake 01/23/2023 Encounter Details Date Type Department Care Team (Latest Contact Info) Description 01/23/2023 12:30 PM CDT Clinical Communication Virtual Review in [place], [place] [address] [place], [place] [address] Pre-visit Intake Social History Tobacco Use Types [...] CDT Gender Identity Female 03/03/2017 6:11 AM INTERIOR DESIGN PROFESSOR Sexual Orientation Straight 03/03/2017 6: 11 AM INTERIOR DESIGN PROFESSOR documented as of this encounter Plan of Treatment Not on file documented as of this encounter Visit Diagnoses Not on filedocumented in this encounter Additional Health Concerns Assessment Noted Time PHQ-9 Depression Total Score: 1 08/18/19 19 6:47 PM CDT documented as of this encounter Care Teams Community Support Associate Relationship Specialty Start Date End Date Elsewhere, Pcp PCP - General Internal Medicine 01/23/23 documented as of this encounter
--- OUTSIDE RECORDS SUMMARY | 2023-04-18 06:52 | XMS_ITS | Encounter Summary ---
Author Name Unknown Organization [facility] Address [address] [place] [address] Care Team Providers Care Mattress Renovator Name Role Phone Elsewhere, Pcp Primary Care Provider Unavailabl e Encounter Details Date Type Department Care Team (Late st Contact Info) Description 06/10/2016 Historical Ophthalmology [facility] Miguel Odonnell M.D. [address] [place] [address] Social History Tobacco Use Types Packs/Day Years Used Date Smoking Tobacco: Never Assessed Sex and Gender Information Value Date Recorded Sex Assigned at Female 01/20/2023 8:11 PM CDT Gender Identity Female 03/03/2017 6:11 AM TECHNICAL PLANNER Sexual Orientation Straight 03/03/2017 6: 11 AM TECHNICAL PLANNER documented as of this encounter Progress Notes [...] #2 cataracts CDM Reports - EYEGEN Id: [id number] Status: Fnl documented in this encounter Plan of Treatment Not on file documented as of this encounter Visit Diagnoses Not on filedocumented in this encounter Care Teams Mattress Renovator Relationship Specialty Start Date End Date Elsewhere, Pcp PCP - General Internal Medicine 01/23/23 documented as of this encounter
--- OUTSIDE RECORDS SUMMARY | 2023-04-18 06:52 | XMS_ITS | Clinical Summary ---
Author Name Unknown Organization [place] Address [address] [facility] [place] [address] Care Team Providers Care Utility Sales Representative Name Role Phone [facility] Primary Care Provider Marichuy Meyers MD Unavailable [phone] Allergies No known active allergies Medications Medication [...] 0 MEDICARE ANNUAL WELLNESS VISIT 06/09/2021 06/09/2020 FALL RISK ASSESSMENT 10/12/2022 10/12/2021, 06/09/2020, 07/04/2019 COVID-19 Vaccine (2022-24 season) 2022 08/25/2021, 02/02/2021, 06/21/2020, Additional history exists INFLUENZA VACCINE (#1) 2022 2, 12/09/2020, 12/11/2019, Additional history exists MAMMO SCREENING 01/25/2023 01/25/2021, 01/13/2020 PHQ-2 (once per calendar year) 2023 10/12/2021, 06/09/2020, 07/04/2019 ADVANCE CARE PLANNING 06/09/2025 06/09/2020 COLONOSCOPY 01/06/2026 [...] age to complete this topic Care Teams Utility Sales Representative Relationship Specialty Start Date End Date Clinic - [facility] [address] [place] [address] PCP - General Internal Medicine 07/03/19 Marichuy Meyers MD [address] [facility] [address] [place] [address] Assigned PCP 05/21/22
--- OUTSIDE RECORDS SUMMARY | 2023-04-18 06:52 | XMS_ITS | Encounter Summary ---
Author Name Unknown [facility] Address [address] [facility] [place] [address] Care Team Providers Care Quad Stayer Name Role Phone [facility] Primary Care Provider Marichuy Meyers MD Unavailable [phone] Marichuy Meyers MD Unavailable [phone] Encounter Details Date Type Department Care Team [...] on filedocumented in this encounter Care Teams Quad Stayer Relationship Specialty Start Date End Date [facility] [address] [place], [place] [address] PCP - General Internal Medicine 07/03/19 Marichuy Meyers MD [address] [place] [address] Assigned PCP 06/13/19 03/11/22 Marichuy Meyers MD [address] [facility] [address] [place] [address] Assigned PCP 05/21/22 documented as of this encounter
--- OUTSIDE RECORDS SUMMARY | 2023-04-18 06:52 | XMS_ITS | Clinical Summary ---
Author Name Unknown Organization [facility] Address [place], [place] [address] Care Team Providers Care Health Information Coder Name Role Phone Johanna Thompson MD Primary [...] Comments Blood Pressure 116/78 04/03/2014 9:45 AM ANGLE DOZER OPERATOR Pulse 76 04/03/2014 9:45 AM ANGLE DOZER OPERATOR Temperature - - Respiratory Rate 18 06/07/2013 9:37 AM CDT Oxygen Saturation - - Inhaled Oxygen Concentration - - Weight 81.8 kg (180 lb 4.8 oz) 04/03/2014 9:45 A M ANGLE DOZER OPERATOR Height 150.5 cm (4' 11.25) 04/03/2014 9:[address] Body Mass Index 36.11 04/03/2014 9:45 AM ANGLE DOZER OPERATOR Plan of Treatment Health Maintenance Due [...] ag e 18-79 Completed 03/15/2013 Care Teams Health Information Coder Relationship Specialty Start Date End Date Johanna Thompson MD PCP - General Internal Medicine 12/03/11
--- OUTSIDE RECORDS SUMMARY | 2023-04-18 06:52 | XMS_ITS | Encounter Summary ---
Author Name Unknown Organization [place] Address [address] [facility] [place] [address] Care Team Providers Care Embedded Engineer Name Role Phone Clinic - [facility] Primary Care Provider Marichuy Meyers MD Unavailable [phone] Reason for Visit * Reason Comments Medication Refill Encounter Details Date Type Department Care Team (Late st Contact Info) Description 01/01/2023 [facility] [address] [facility] [address] [place] [address] Nitesh Buchanan MD [address] [place] [address] Medication Refill Social History Tobacco [...] asthma documented in this encounter Care Teams Embedded Engineer Relationship Specialty Start Date End Date Clinic - [facility] [address] [place] [address] PCP - General Internal Medicine 07/03/19 Marichuy Meyers MD [address] [facility] [address] [place] [address] Assigned PCP 05/21/22 documented as of this encounter
== END 2023-04-17 10:00 | disposition home or self-care (01) ==
LOC: NFLDREF 04-18 06:49
PROVIDERS: PCP Internal Medicine; Referring Provider Internal Medicine; Visit Provider Registered Nurse
DX: N39.0 Urinary tract infection, site not specified (principal); Z78.9 Other specified health status
CPT/HCPCS: 87086; 87186

== ENCOUNTER 2023-05-05 16:36 | Outpatient (CLI) | payer MEDICARE, SELFPAY ==
--- OUTSIDE RECORDS SUMMARY | 2023-05-08 08:18 | XMS_ITS | Encounter Summary ---
Author Name Unknown Organization [facility] Address [address] [place] [address] Care Team Providers Care Electric Refrigerator Preparer Name Role Phone Elsewhere, Pcp Primary Care Provider Unavailabl e Reason for Referral * Outpatient (Routine) - Authorized Specialty Diagnoses / Procedures Referred By Contac t Referred To Contact Oncology Maite Dennis P.A.-C., M.S. [address] [place] [phone] [facility] Referral ID Status Reason Start Date Expiration Date V isits Requested Visits Authorized [id number] Authorized 02/08/2023 02/07/2026 1 1 GARAGE ATTENDANT * MRI/CAT/PET Scan (Routine) - Authorized Specialty Diagnoses / Procedures Referred By Contac t Referred To Contact Radiology Diagnoses Angiosarcoma Soft Tissue (HCC) Procedures CT Chest without IV Contrast Maite Dennis P.A.-C., M.S. [address] [place] [phone] [facility] Referral ID Status Reason Start Date Expiration Date V isits Requested Visits Authorized [id number] Authorized 02/08/2023 02/08/2024 1 1 GARAGE ATTENDANT Reason for Visit * Outpatient (Routine) - Closed Specialty Diagnoses / Procedures Referred By Sharonda hernandez Referred To Contact Oncology Maite Dennis P.A.-C., M.S. [address] [place] [address] [facility] Referral ID Status Reason Start Date Expiration Date Visits Re quested Visits Authorized [id number] Closed 02/18/2022 02/17/2025 1 1 Encounter Details Date Type Department Care Team (Late st Contact Info) Description 01/25/2023 2:00 PM CDT Office Visit Department of Oncology in [place], [place] [address] [place] [phone] Maite Dennis P.A.-C., M.S. [address] [place] [phone] Angiosarcoma Soft Tissue (HCC) (Primary Dx) Social [...] CDT Gender Identity Female 03/03/2017 6:11 AM AUTO GARAGE ATTENDANT Sexual Orientation Straight 03/03/2017 6: 11 AM AUTO GARAGE ATTENDANT documented as of this encounter Last Filed [...] routine care with a local primary in [place]. No oncologic concerns over the past year. [...] and/or coordination of care as described above. GARAGE ATTENDANT documented in this encounter Plan of Treatment [...] documented as of this encounter Care Teams Electric Refrigerator Preparer Relationship Specialty Start Date End Date Elsewhere, Pcp PCP - General Internal Medicine 01/23/23 documented as of this encounter
--- OUTSIDE RECORDS SUMMARY | 2023-05-08 08:18 | XMS_ITS | Clinical Summary ---
Author Name Unknown Organization [facility] Address [address] [place] [address] Care Team Providers Care Cheese Wrapper Name Role Phone Elsewhere, Pcp Primary Care Provider Unavailabl e Source Comments Patient records contain information from all sites at [facility]. For routine questions regarding patient records, call [phone] during business hours, M-F 8:00 AM - 5:00 PM Central Time. Record requests for emergency care only can be directed to [phone] at any time.[facility] Allergies Active Allergy Reactions Criticality Noted Date [...] tablet every evening. 0 10/15/2021 Active vitamins A,C,N-eiyj-usinyc (PRESERVISION AREDS) 7,160 Units-113 mg-100 Units per [...] Gender Identity Female 03/03/2017 6:11 AM CUSTOMER SUCCESS ADVOCATE Sexual Orientation Straight 03/03/2017 6: 11 AM CUSTOMER SUCCESS ADVOCATE Last Filed Vital Signs Vital Sign Reading [...] Cologuard 1950 Hepatitis C Screening 1950 Mammogram 01/25/2022 01/25/2021, 12/25, 07/20/2017, Additional history exists Depression Screening (Annual PHQ-2) [...] this topic Medical Devices Implanted Type Area Biologist Aide Device Identifier Shelf Expiration Date Model / Serial / Lot Conversions - Default Historical Implant Device Implanted:07/11 (Quantity not on file) Misc Other Left: Breast Description:Body Location - Breast L. Device Status Text - MiscOther. titanium marker. Advance Directives For more information, please contact: [phone] Documents on File Type Date Recorded Patient Marking Clerk Expl anation Advance Directives 03/01/2021 9:46 AM [...] Second Alternate Health Care Agent Care Teams Cheese Wrapper Relationship Specialty Start Date End Date Elsewhere, Pcp PCP - General Internal Medicine 01/23/23
--- OUTSIDE RECORDS SUMMARY | 2023-05-08 08:18 | XMS_ITS | Clinical Summary ---
Author Name Unknown Organization [place] Address [address] [facility] [place] [address] Care Team Providers Care Extract Operator Name Role Phone [facility] Primary Care Provider Marichuy Meyers MD Unavailable [phone] Allergies No known active allergies Medications Medication [...] 06/09/2020, MEDICARE ANNUAL WELLNESS VISIT 06/09/2021 06/09/2020 MAMMO SCREENING 01/25/2022 01/25/2021, 01/13/2020 FALL RISK ASSESSMENT 10/12/2022 10/12/2021, 06/09/2020, 07/04/2019 COVID-19 Vaccine ( season) 2022 08/25/2021, 02/02/2021, 06/21/2020, Additional history exists INFLUENZA VACCINE (#1) 2022 , 12/09/2020, 12/11/2019, Additional history exists PHQ-2 (once per calendar year) 2023 10/12/2021, 06/09/2020, 07/04/2019 GLUCOSE 10/05/2024 10/05/2021 ADVANCE CARE PLANNING 06/09/2025 06/09/2020 COLONOSCOPY 01/06/2026 [...] age to complete this topic Care Teams Extract Operator Relationship Specialty Start Date End Date Clinic - [facility] [address] [place], [place] [address] PCP - General Internal Medicine 07/03/19 Marichuy Meyers MD [address] [facility] [address] [place], [place] [id number] Assigned PCP 05/21/22
--- OUTSIDE RECORDS SUMMARY | 2023-05-08 08:18 | XMS_ITS | Encounter Summary ---
Author Name Unknown Organization [place] Address [address] [facility] [place] [address] Care Team Providers Care Toy Department Manager Name Role Phone [facility] Primary Care Provider Marichuy Meyers MD Unavailable [phone] Marichuy eMyers MD Unavailable [phone] Encounter Details Date Type Department Care Team (Late st Contact Info) Description 12/31/2020 MyC Medical Advice [place] Centralized Scheduling [facility] [place] [address] Chetna Roger Social History Tobacco [...] on filedocumented in this encounter Care Teams Toy Department Manager Relationship Specialty Start Date End Date [facility] [address] [place] [address] PCP - General Internal Medicine 07/03/19 Marichuy Meyers MD [address] [facility] [address] [place] [address] Assigned PCP 06/13/19 03/11/22 Marichuy Meyers MD [address] [facility] [address] [place] [address] Assigned PCP 05/21/22 documented as of this encounter
--- OUTSIDE RECORDS SUMMARY | 2023-05-08 08:18 | XMS_ITS | Encounter Summary ---
Author Name Unknown Organization [place] Address [address] [facility] [place] [address] Care Team Providers Care Powerhouse Mechanic Helper Name Role Phone [facility] Primary Care Provider Marichuy Meyers MD Unavailable Reason for Visit * Reason Comments Medication Refill Encounter Details Date Type Department Care Team (Late st Contact Info) Description 01/01/2023 [facility] 303 [facility] [address] [place] [address] Nitesh Buchanan MD [address] [place] [address] Medication Refill Social History Tobacco [...] asthma documented in this encounter Care Teams Powerhouse Mechanic Helper Relationship Specialty Start Date End Date Clinic - [facility] [address] [place] [address] PCP - General Internal Medicine 07/03/19 Marichuy Meyers MD [address] [facility] [address] [place] [address] Assigned PCP 05/21/22 documented as of this encounter
--- OUTSIDE RECORDS SUMMARY | 2023-05-08 08:18 | XMS_ITS | Encounter Summary ---
Author Name Unknown Organization [facility] Address [address] [place] [address] Care Team Providers Care Traffic Manager Name Role Phone Elsewhere, Pcp Primary Care Provider Unavailabl e Reason for Referral * MRI/CAT/PET Scan (Routine) - Closed Specialty Diagnoses / Procedures Referred By Contac t Referred To Contact Radiology Diagnoses Angiosarcoma Soft Tissue (HCC) Procedures CT Chest without IV Contrast Maite Dennis P.A.-C., M.S. [address] [place] [phone] [facility] Referral ID Status Reason Start Date Expiration Date Visits Re quested Visits Authorized [id number] Closed 02/18/2022 02/18/2023 1 1 Reason for Visit * MRI/CAT/PET Scan (Routine) - Closed Specialty Diagnoses / Procedures Referred By Contac t Referred To Contact Radiology Diagnoses Angiosarcoma Soft Tissue (HCC) Procedures CT Chest without IV Contrast Maite Dennis P.A.-C., M.S. [address] [place] [phone] [facility] Referral ID Status Reason Start Date Expiration Date Visits Re quested Visits Authorized [id number] Closed 02/18/2022 02/18/2023 1 1 Encounter Details Date Type Department Care Team (Latest Contact Info) Description 01/25/2023 10:51 AM CDT - 01/25/2023 11:59 PM CDT Hospital Encounter Department of Radiology, [facility], in [place], [place] [address] [place] [address] Maite Dennis P.A.-C., M.S. [address] [place] [address] Angiosarcoma Soft Tissue (HCC) Discharge Disposition: Home [...] CDT Gender Identity Female 03/03/2017 6:11 AM BUSINESS INSURANCE AGENT Sexual Orientation Straight 03/03/2017 6: 11 AM BUSINESS INSURANCE AGENT documented as of this encounter Medications at [...] mg tablet every evening. 0 10/15/2021 vitamins A,C,H-sihd-wpcuwq (PRESERVISION AREDS) 7,160 Units-113 mg-100 Units per [...] documented as of this encounter Care Teams Traffic Manager Relationship Specialty Start Date End Date Elsewhere, Pcp PCP - General Internal Medicine 01/23/23 documented as of this encounter
--- OUTSIDE RECORDS SUMMARY | 2023-05-08 08:18 | XMS_ITS | Referral Summary ---
Author Name Unknown Organization [place] Address [address] [place] [address] Care Team Providers Care Delinquency Prevention Officer Name Role Phone [facility] Primary Care Provider Marichuy Meyers MD Unavailable Allergies No known [...] of Treatment Not on file Care Teams Delinquency Prevention Officer Relationship Specialty Start Date End Date Clinic - [facility] [address] [place] [address] PCP - General Internal Medicine 07/03/19 Marichuy Meyers MD [address] [facility] [address] [place] [address] Assigned PCP 05/21/22
--- OUTSIDE RECORDS SUMMARY | 2023-05-08 08:18 | XMS_ITS ---
Author Name Unknown Organization [facility] Address [address] [place] [address] Care Team Providers Care Wheel Cutter Name Role Phone Unavailable Unavailable Unavailable Surgery Details Not on file Complications Check Surgery Details section. Procedure Estimated Blood Loss Check Surgery Details section. Procedure Findings Check Surgery Details section. Procedure Specimens Taken Check Surgery Details section.
--- OUTSIDE RECORDS SUMMARY | 2023-05-08 08:18 | XMS_ITS | Encounter Summary ---
Author Name Unknown [facility] Address [address] [facility] [place] [address] Care Team Providers Care Mgmt Consultant Name Role Phone [facility] Primary Care Provider Marichuy Meyers MD Unavailable [phone] Marichuy Meyers MD Unavailable [phone] Encounter Details Date Type Department Care Team [...] on filedocumented in this encounter Care Teams Mgmt Consultant Relationship Specialty Start Date End Date [facility] [address] [place], [place] [address] PCP - General Internal Medicine 07/03/19 Marichuy Meyers MD [address] [place] [address] Assigned PCP 06/13/19 03/11/22 Marichuy Meyers MD [address] [facility] [address] [place] [address] Assigned PCP 05/21/22 documented as of this encounter
--- OUTSIDE RECORDS SUMMARY | 2023-05-08 08:18 | XMS_ITS | Referral Summary ---
Author Name Unknown Organization [facility] Address [address] [place] [address] Care Team Providers Care Ground Water Contractor Name Role Phone Elsewhere, Pcp Primary Care Provider Unavailabl e Source Comments Patient records contain information from all sites at [facility]. For routine questions regarding patient records, call [phone] during business hours, M-F 8:00 AM - 5:00 PM Central Time. Record requests for emergency care only can be directed to [phone] at any time.[facility] Allergies Active Allergy Reactions Criticality Noted Date [...] tablet every evening. 0 10/15/2021 Active vitamins A,C,P-dmxo-ljlpga (PRESERVISION AREDS) 7,160 Units-113 mg-100 Units per [...] CDT Gender Identity Female 03/03/2017 6:11 AM GLASS BELT SANDER Sexual Orientation Straight 03/03/2017 6: 11 AM GLASS BELT SANDER Last Filed Vital Signs Vital Sign Reading [...] on file Medical Devices Implanted Type Area Change Attendant Device Identifier Shelf Expiration Date Model / Serial / Lot Conversions - Default Historical Implant Device Implanted:07/11 (Quantity not on file) Misc Other Left: Breast Description:Body Location - Breast L. Device Status Text - MiscOther. titanium marker. Advance Directives For more information, please contact: [phone] Documents on File Type Date Recorded Patient Pharmacy Sales Representative Expl anation Advance Directives 03/01/2021 9:46 AM Vanessa Lora HCPOA/ADVOCATE/AGENT/R EPRESENTATIVE/SURROGAT E Advance Directives 01/19/2016 12:00 AM Monae haile document. See document viewer. Latest Code Status on File Code Status Date Activated Date Inactivated Comments Full Code 08/17/2018 3:01 PM 08/18/2018 2:20 PM Question Answer Comments Full Code: Discussed on admission Healthcare Agents on File Name Relationship Healthcare Agent Relationship Communication Vanessa Schwab Spouse Health Care Agent Nany Schwab Daughter First Alternate Health Care Agent Julienne Lora Daughter Second Alternate Health Care Agent Care Teams Ground Water Contractor Relationship Specialty Start Date End Date Elsewhere, Pcp PCP - General Internal Medicine 01/23/23
--- OUTSIDE RECORDS SUMMARY | 2023-05-08 08:18 | XMS_ITS | Encounter Summary ---
Author Name Unknown Organization [facility] Address [address] [place] [address] Care Team Providers Care Strategic Partnership Manager Name Role Phone Elsewhere, Pcp Primary Care Provider Unavailabl e Encounter Details Date Type Department Care Team (Latest Contact Info) Description 01/25/2023 9:37 AM CDT - 01/25/2023 10:50 AM CDT Hospital Encounter Department of Laboratory Medicine and Pathology, [facility], in [place], [place] [address] [place] [address] Maite Dennis P.A.-C., M.S. [address] [place] [address] Angiosarcoma Soft Tissue (HCC) Discharge Disposition: Home [...] CDT Gender Identity Female 03/03/2017 6:11 AM WATER RESOURCES BUSINESS SEGMENT LEADER Sexual Orientation Straight 03/03/2017 6: 11 AM WATER RESOURCES BUSINESS SEGMENT LEADER documented as of this encounter Medications at [...] mg tablet every evening. 0 10/15/2021 vitamins A,C,L-acle-vjbqup (PRESERVISION AREDS) 7,160 Units-113 mg-100 Units per [...] [facility] [address] [place] [address], [facility] DTL [facility] [address] [place] [address] * (ABNORMAL) CBC with Differential, Blood (01/25/2023 [...] [facility] [address] [place] [address], [facility] [address] [place] [address] [facility] [address] [place] [address] documented in this encounter Visit Diagnoses Diagnosis Angiosarcoma Soft Tissue (HCC) documented in this encounter Additional Health Concerns Assessment Noted Time PHQ-9 Depression Total Score: 1 08/18/19 19 6:47 PM CDT documented as of this encounter Care Teams Strategic Partnership Manager Relationship Specialty Start Date End Date Elsewhere, Pcp PCP - General Internal Medicine 01/23/23 documented as of this encounter
--- OUTSIDE RECORDS SUMMARY | 2023-05-08 08:18 | XMS_ITS | Clinical Summary ---
Author Name Unknown Organization [facility] Address [place], [place] [address] Care Team Providers Care Waste Disposal Attendant Name Role Phone Johanna Thompson MD Primary [...] Comments Blood Pressure 116/78 04/03/2014 9:45 AM TRANSCRIPTION SPECIALIST Pulse 76 04/03/2014 9:45 AM TRANSCRIPTION SPECIALIST Temperature - - Respiratory Rate 18 06/07/2013 9:37 AM CDT Oxygen Saturation - - Inhaled Oxygen Concentration - - Weight 81.8 kg (180 lb 4.8 oz) 04/03/2014 9:45 A M TRANSCRIPTION SPECIALIST Height 150.5 cm (4' 11.25) 04/03/2014 9:[address] Body Mass Index 36.11 04/03/2014 9:45 AM TRANSCRIPTION SPECIALIST Plan of Treatment Health Maintenance Due [...] ag e 18-79 Completed 03/15/2013 Care Teams Waste Disposal Attendant Relationship Specialty Start Date End Date Johanna Thompson MD PCP - General Internal Medicine 12/03/11
--- OUTSIDE RECORDS SUMMARY | 2023-05-08 08:18 | XMS_ITS | Encounter Summary ---
Author Name Unknown [facility] [place] Address [address] [facility] [place] [address] Care Team Providers Care Cinder Dump Crane Operator Name Role Phone [facility] Primary Care Provider Marichuy Meyers MD Unavailable [phone] Marichuy Meyers MD Unavailable [phone] Encounter Details Date Type Department Care Team (Late st Contact Info) Description 11/11/2020 MyC Medical Advice [address] [place] [address] Clement Stevesnon RN Social History Tobacco Use Types Packs/Day [...] on filedocumented in this encounter Care Teams Cinder Dump Crane Operator Relationship Specialty Start Date End [facility] [address] [place] [address] PCP - General Internal Medicine 07/03/19 Marichuy Meyers MD [address] [address] Assigned PCP 06/13/19 03/11/22 Marichuy Meyers MD [address] [facility] [address] [place] [address] Assigned PCP 05/21/22 documented as of this encounter
--- OUTSIDE RECORDS SUMMARY | 2023-05-08 08:18 | XMS_ITS | Encounter Summary ---
Author Name Unknown Organization [facility] Address [address] [place] [address] Care Team Providers Care Director Women Name Role Phone Elsewhere, Pcp Primary Care Provider Unavailabl e Encounter Details Date Type Department Care Team (Late st Contact Info) Description 06/10/2016 Historical Ophthalmology [facility] Miguel Odonnell M.D. [address] [place] [address] Social History Tobacco Use Types Packs/Day Years Used Date Smoking Tobacco: Never Assessed Sex and Gender Information Value Date Recorded Sex Assigned at Female 01/20/2023 8:11 PM CDT Gender Identity Female 03/03/2017 6:11 AM SUPERINTENDENT PRESSURE Sexual Orientation Straight 03/03/2017 6: 11 AM SUPERINTENDENT PRESSURE documented as of this encounter Progress Notes [...] #2 cataracts CDM Reports - EYEGEN Id: [id number] Status: Fnl documented in this encounter Plan of Treatment Not on file documented as of this encounter Visit Diagnoses Not on filedocumented in this encounter Care Teams Director Women Relationship Specialty Start Date End Date Elsewhere, Pcp PCP - General Internal Medicine 01/23/23 documented as of this encounter
--- OUTSIDE RECORDS SUMMARY | 2023-05-08 08:18 | XMS_ITS | Encounter Summary ---
Author Name Unknown Organization [facility] Address [address] [place] [address] Care Team Providers Care Copier Operator Name Role Phone Elsewhere, Pcp Primary Care Provider Unavailabl e Reason for Visit * Reason Onset Date Comments Pre-visit Intake 01/23/2023 Encounter Details Date Type Department Care Team (Latest Contact Info) Description 01/23/2023 12:30 PM CDT Clinical Communication Virtual Review in [place], [place] [address] [place], [place] [address] Pre-visit Intake Social History Tobacco Use Types [...] CDT Gender Identity Female 03/03/2017 6:11 AM PASTA MAKER Sexual Orientation Straight 03/03/2017 6: 11 AM PASTA MAKER documented as of this encounter Plan of Treatment Not on file documented as of this encounter Visit Diagnoses Not on filedocumented in this encounter Additional Health Concerns Assessment Noted Time PHQ-9 Depression Total Score: 1 08/18/19 19 6:47 PM CDT documented as of this encounter Care Teams Copier Operator Relationship Specialty Start Date End Date Elsewhere, Pcp PCP - General Internal Medicine 01/23/23 documented as of this encounter
== END 2023-05-05 16:37 | disposition home or self-care (01) ==
LOC: NFLDREF 05-08 08:12
PROVIDERS: PCP Internal Medicine; Referring Provider Internal Medicine; Visit Provider Physician Assistant
DX: N39.0 Urinary tract infection, site not specified (principal); B96.20 Unspecified Escherichia coli [E. coli] as the cause of diseases classified elsewhere
CPT/HCPCS: 87086; 87186

== ENCOUNTER 2023-06-05 18:26 | Outpatient (CLI) | payer MEDICARE, SELFPAY | END 2023-06-05 18:27 | disposition home or self-care (01) | LOC: NFLDREF 06-07 07:21 | PROVIDERS: PCP Internal Medicine; Referring Provider Internal Medicine; Visit Provider Physician Assistant | DX: N89.8 Other specified noninflammatory disorders of vagina (principal); R39.9 Unspecified symptoms and signs involving the genitourinary system | CPT/HCPCS: 87086; 87186 ==

== ENCOUNTER 2023-07-17 13:45 | Outpatient (CLI) | payer MEDICARE, SELFPAY ==
--- OUTSIDE RECORDS SUMMARY | 2023-07-19 11:29 | XMS_ITS | Encounter Summary ---
Author Name Unknown Organization [facility] Address [address] [place] [address] Care Team Providers Care Cook Pressure Name Role Phone Elsewhere, Pcp Primary Care Provider Unavailabl e Encounter Details Date Type Department Care Team (Late st Contact Info) Description 06/10/2016 Historical Ophthalmology [facility] Miguel Odonnell M.D. [address] [place] [address] Social History Tobacco Use Types Packs/Day Years Used Date Smoking Tobacco: Never Assessed Sex and Gender Information Value Date Recorded Sex Assigned at Female 01/20/2023 8:11 PM CDT Gender Identity Female 03/03/2017 6:11 AM FILTERING MACHINE TENDER Sexual Orientation Straight 03/03/2017 6: 11 AM FILTERING MACHINE TENDER documented as of this encounter Progress Notes [...] #2 cataracts CDM Reports - EYEGEN Id: [id number] Status: Fnl documented in this encounter Plan of Treatment Not on file documented as of this encounter Visit Diagnoses Not on filedocumented in this encounter Care Teams Cook Pressure Relationship Specialty Start Date End Date Elsewhere, Pcp PCP - General Internal Medicine 01/23/23 documented as of this encounter
--- OUTSIDE RECORDS SUMMARY | 2023-07-19 11:29 | XMS_ITS | Referral Summary ---
Author Name Unknown Organization [facility] Address [address] [facility] [place] [address] Care Team Providers Care Piece Maker Name Role Phone [facility] Primary Care Provider Marichuy Meyers MD Unavailable [phone] Allergies No known active allergies Medications Medication [...] EVERY DAY IN THE EVENING 90 tablet 10/15/2021 Active Active Problems Problem Noted Date [...] CDT Plan of Treatment Not on file Procedures Procedure Name Priority Date/Time Associated Diagnosis Comments COMPREHENSIVE METABOLIC PANEL Routine 10/05/2021 8:04 AM CDT Preventative health care LIPID PROFILE Routine 10/05/2021 8:04 AM CDT Preventative health care MA SCREENING RIGHT W/ NGA Routine 01/25/2021 10:55 AM CDT Encounter for screening mammogram for breast cancer COLONOSCOPY Routine 01/06/2021 8:34 AM CDT DEXA - HIM SCAN 08/28/2018 12:00 AM CDT from Last 3 Months or Most Recently Relevant to Health Maintenance Results * Lipid Profile (Chol, Trig, HDL, LDL calc) (10/05/2021 8:04 AM CDT) Pathologist [facility] Cholesterol 161 <200 mg/dL 10/06/2021 4:10 PM CDT [facility] Triglycerides 112 <150 mg/dL 10/06/2021 4:10 PM CDT [facility] Direct Measure HDL 65 >=50 mg/dL 2021 4:10 PM CDT [facility] LDL Cholesterol Calculated 74 <=100 mg/dL 10/06/2021 4:10 PM CDT [facility] Non HDL Cholesterol 96 <130 mg/dL 10/06/2021 4:10 PM CDT [facility] Patient Fasting > 8hrs? Yes 10/06/2021 4:10 PM CDT [facility] Blood BLOOD SPECIMEN / Unknown Venipuncture / Unknown 10/05/2021 8:04 AM CDT 10/05/2021 8:[address] [facility] - 10/06/2021 4:10 PM CDT Cholesterol Desirable: ??<200 mg/dL Triglycerides Normal: ??Less than 150 mg/dL Borderline High: ??150-199 mg/dL High: ??200-499 mg/dL Very High: ??Greater than or equal to 500 mg/dL Direct Measure HDL Female: ??Greater than or equal to 50 mg/dL Male: ??Greater than or equal to 40 mg/dL LDL Cholesterol Desirable: ??<100mg/dL Above Desirable: ??100-129 mg/dL Borderline High: ??130-159 mg/dL High: ??160-189 mg/dL Very High: ??>= 190 mg/dL Non HDL Cholesterol Desirable: ??130 mg/dL Above Desirable: ??130-159 mg/dL Borderline High: ??160-189 mg/dL High: ??190-219 mg/dL Very High: ??Greater than or equal to 220 mg/dL Marichuy Meyers MD LAB - BLOOD ORDERAB LES [facility] [address] [facility] [place] [address], [place] [phone] [facility] [address] Lab (no room number, 1st floor of clinic) [place] [address], [place] [phone] * (ABNORMAL) Comprehensive metabolic panel (BMP + Alb, Alk Phos, ALT, AST, Total. Bili, TP) (10/05/2021 8:04 AM CDT) Sodium 140 133 - 144 mmol/L 10/06/2021 4:21 PM [facility] Potassium 4.7 3.4 - 5.3 mmol/L 10/06/2021 4:21 PM [facility] Comment:Specimen slightly he molyzed, potassium may be falsely elevated. Chloride 111(H) 94 - 109 mmol/L 10/06/2021 4:21 PM [facility] Carbon Dioxide (CO2) 20 20 - 32 mmol/L 10/06/2021 4:21 PM [facility] Anion Gap 9 3 - 14 mmol/L 10/06/2021 4:21 PM [facility] Urea Nitrogen 12 7 - 30 mg/dL 10/06/2021 4:21 PM [facility] Creatinine 0.53 0.52 - 1.04 mg/dL 10/06/2021 4:21 PM [facility] Calcium 9.3 8.5 - 10.1 mg/dL 10/06/2021 4:21 PM [facility] Glucose 77 70 - 99 mg/dL 10/06/2021 4:21 PM [facility] Alkaline Phosphatase 77 40 - 150 U/L 10/06/2021 4:21 PM [facility] AST 17 0 - 45 U/L 10/06/2021 4:21 PM [facility] Comment:Specimen is hemolyze d which can falsely elevate AST. Analysis of a non-hemolyzed specimen may result in a lower value. ALT 22 0 - 50 U/L 10/06/2021 4:21 PM CDT [facility] Protein Total 7.1 6.8 - 8.8 g/dL 10/06/2021 4:21 PM CDT [facility] Albumin 3.9 3.4 - 5.0 g/dL 10/06/2021 4:21 PM CDT [facility] Bilirubin Total 0.6 0.2 - 1.3 mg/dL 10/06/2021 4:21 PM CDT [facility] GFR Estimate >90 >60 mL/min/1.7 3m2 10/06/2021 4:21 PM CDT [facility] Comment:Effective February 252020 eGFRcr in adults is calculated using the 2020 CKD-EPI creatinine equation which includes age and gender (Ching et al., NEJM, DOI: 10.1056/LIUKzm4801654) Blood BLOOD SPECIMEN / Unknown Venipuncture / Unknown 10/05/2021 8:04 AM CDT 10/05/2021 8:13 AM CDT Marichuy Meyers MD LAB - BLOOD ORDERAB LES [facility] [facility]. [address] [place] [address] [phone] * MA Screen Right w/Nga (01/25/2021 10:55 AM CDT) Anatomical Region Laterality Modality Breast Bilateral Mammography Narrative 01/27/2021 7:31 AM CDT RIGHT FULL FIELD DIGITAL SCREENING MAMMOGRAM WITH TOMOSYNTHESIS Performed on: 01/25/21 Compared to: 01/13/2020 Technique: ??This study was evaluated with the assistance of Computer-Aided Detection. ??Breast Tomosynthesis was used in interpretation. Findings: The patient is status post left mastectomy. The breast has scattered areas of fibroglandular density. ??There is no radiographic evidence of malignancy. IMPRESSION: ACR BI-RADS Category 1: Negative RECOMMENDED FOLLOW-UP: Annual routine screening mammogram The results and recommendations of this examination will be communicated to the patient. Marichuy Meyers MD IMG MAMMOGRAPHY ORD ERABLES * COLONOSCOPY (01/06/2021 8:34 AM CDT) COLONOSCOPY [facility] Patient Name: Jennifer Schwab ? Procedure Date: 01/06/2021 8:34 AM ? Date of : 1950 ?Admit Type: Outpatient Age: 70 ? Gender: Female Attending MD: Gabriel Forde MD ?? Total Sedation Time: 16_minutes continuous bedside 1:1 Instrument Name: 222 - Adult Colonoscope Procedure: ?Colonoscopy Indications: ?Screening patient at increased risk: Family history ?of colorectal cancer in multiple 1st-degree ?relatives Providers: ?Gabriel Forde MD (Doctor) Referring MD: ? Medicines: ?Midazolam 1 mg IV, Fentanyl 50 micrograms IV [...] continuously. The ?Olympus Adult Colonoscope, Model # CF-CN925I, ?[place] # 222, SN # [id number] was introduced through ?the anus and advanced to the cecum, identified by ?appendiceal orifice and ileocecal valve. The ?colonoscopy was performed without difficulty. The ?patient tolerated the procedure well. The quality ?of the bowel preparation was good. ? Findings: ? The perianal and digital rectal examinations were normal. ? Many small and large-mouthed diverticula were found in the sigmoid colon. ? The exam was otherwise without abnormality on direct and retroflexion ? views. ? Impression: ? - Diverticulosis in the sigmoid colon. ?- The examination was otherwise normal on direct ?and retroflexion views. ?- No specimens collected. Recommendation: ? - Repeat colonoscopy in 5 years for surveillance. ? Procedure Code(s): ? --- Professional --- ? G0105, Colorectal cancer screening; colonoscopy on individual at high ? risk Diagnosis Code(s): ? --- Professional --- ? Z80.0, Family history of malignant neoplasm of digestive organs CPT copyright 2019 [employer]. All rights reserved. The codes documented in this report are preliminary and upon hospital internship review may be revised to meet current compliance requirements. Electronically signed by Gabriel Forde MD __ Gabriel Forde MD 01/06/2021 9:08:19 AM I was physically present for the entire viewing portion of the exam. Gabriel Forde MD Number of Addenda: 0 Note Initiated On: 01/06/2021 8:34 AM MRN: ?[id number] Procedure Date: ? 01/06/2021 8:34:55 AM Scope Withdrawal Time: 0 hours 7 minutes 37 seconds Total Procedure Duration: 0 hours 14 minutes 57 seconds Estimated Blood Loss: ? Scope In: 8:44:51 AM Scope Out: 8:59:48 AM RADIOLOGY RESULTS 01/06/2021 8:34 AM CDT Gabriel Forde MD PROCEDURES RADIOLOGY RESULTS * DEXA - HIM SCAN (08/28/2018 12:00 AM CDT) Anatomical Region Laterality Modality Other 08/28/2018 Provider Outside IMG DEXA ORDERABLES from Last 3 Months or Most Recently Relevant to Health Maintenance Care Teams Piece Maker Relationship Specialty Start Date End Date Clinic - [facility] [address] [place], [place] [address] PCP - General Internal Medicine 07/03/19 Marichuy Meyers MD [address] [facility] [address] [place], [place] [address] Assigned PCP 05/21/22
--- OUTSIDE RECORDS SUMMARY | 2023-07-19 11:29 | XMS_ITS | Clinical Summary ---
Author Name Unknown Organization [facility] Address [address] [place] [address] Care Team Providers Care Plastics Patternmaker Name Role Phone Elsewhere, Pcp Primary Care Provider Unavailabl e Source Comments Patient records contain information from all sites at [facility]. For routine questions regarding patient records, call [phone] during business hours, M-F 8:00 AM - 5:00 PM Central Time. Record requests for emergency care only can be directed to [phone] at any time.[facility] Allergies Active Allergy Reactions Criticality Noted Date Comments Mold Wheezing (Reselect Reaction) 07/19/2017 Watery eyes and nose Pollen Extracts Wheezing (Reselect Reaction) 07/19/2017 Watery eyes and nose Medications Medication Sig Dispensed Refills Start Date End Date Status fluticasone (FLONASE ALLERGY RELIEF) 50 mcg/actuation nasal spray Administer 1 puff into affected nostril(s) 2 (two) times a day. 07/14/2016 Active albuterol 90 mcg/actuation inhaler Inhale 2 puffs every 6 (six) hours. 10/13/2021 Active pravastatin (PRAVACHOL) 10 mg tablet every evening. 10/15/2021 Active vitamins A,C,G-rekf-mfmqsq (PRESERVISION AREDS) 7,160 Units-113 mg-100 Units per tablet Take 1 tablet by mouth daily. Active cyanocobalamin (VITAMIN B12) 1,000 mcg tablet Take 1,000 mcg by mouth daily. Active fluticasone propion-salmeteroL 250-50 mcg/dose diskus inhaler Inhale 1 puff 2 (two) times a day. 01/17/2023 Active Active Problems Problem Noted Date [...] Used Date Smoking Tobacco: Former Cigarettes 1 36.8 0 11/25/1966 - 09/24/2003 Smokeless Tobacco: Never [...] CDT Gender Identity Female 03/03/2017 6:11 AM CISCO CERTIFIED NETWORK ASSOCIATE Sexual Orientation Straight 03/03/2017 6: 11 AM CISCO CERTIFIED NETWORK ASSOCIATE Last Filed Vital Signs Vital Sign Reading [...] 01/25/2022 01/25/2021, 12/25, 07/20/2017, Additional history exists COVID-19 Vaccine ( season) 2023 12/23/2022, 07/27/2022, 12/13/2021, Additional history exists Depression Screening (Annual PHQ-2) [...] Completed 12/12/2022, , 12/11/2019, Additional history exists Lung Cancer Screening Discontinued 01/25/2023 , 01/31/2022, 03/01/2021, Additional history exists HPV Vaccines Aged Out No longer eligi ble based on patient's age to complete this topic Medical Devices Implanted Type Area Field Application Engineer Device Identifier Shelf Expiration Date Model / [...] 10:03 AM CDT Angiosarcoma Soft Tissue (HCC) EXTI LIPID PANEL, S Routine 10/05/2021 8 :04 AM CDT BI BREAST SCREENING RIGHT Routine 01/25/2021 10:55 AM CDT from Last 3 Months or Most Recently Relevant to Health Maintenance Results * CT Chest without IV Contrast [...] M.S. IMG CT PROCED URES * (ABNORMAL) Comprehensive Metabolic Panel (01/25/2023 10:03 [...] -ON [facility] [address] [place] [address], [facility] [address] [place] [address] from Last 3 Months or Most Recently Relevant to Health Maintenance Advance Directives For more information, please contact: [phone] Documents on File Type Date Recorded Patient Hose Turner Expl anation Advance Directives 03/01/2021 9:46 AM Vanessa Lal Guido HCPOA/ADVOCATE/AGENT/R EPRESENTATIVE/SURROGAT E Advance Directives 01/19/2016 12:00 AM Monae haile document. See document viewer. * Full Code (Latest Code Status on File) Date Activated Date Inactivated Comments 08/17/2018 3:01 PM 08/18/2018 2:20 PM Question Answer Comments Full Code: Discussed on admission Healthcare Agents on File Name Relationship Healthcare Agent Relationship Communication Vanessa Deb Schwab Spouse Health Care Agent Nany Schwab Daughter First Alternate Health Care Agent Julienne Lora Daughter Second Alternate Health Care Agent Care Teams Plastics Patternmaker Relationship Specialty Start Date End Date Elsewhere, Pcp PCP - General Internal Medicine 01/23/23
--- OUTSIDE RECORDS SUMMARY | 2023-07-19 11:29 | XMS_ITS | Clinical Summary ---
Author Name Unknown Organization [place] Address [address] [facility] [place] [address] Care Team Providers Care Grocery Packer Name Role Phone [facility] Primary Care Provider Marichuy Meyers MD Unavailable [phone] Allergies No known active allergies Medications Medication [...] 0 MEDICARE ANNUAL WELLNESS VISIT 06/09/2021 06/09/2020 MAMMO SCREENING 01/25/2022 01/25/2021, 01/13/2020 LIPID 10/05/2022 10/05/2021 FALL RISK ASSESSMENT 10/12/2022 10/12/2021, 06/09/2020, 07/04/2019 COVID-19 Vaccine ( season) 2022 08/25/2021, 02/02/2021, 06/21/2020, Additional history exists INFLUENZA VACCINE (#1) 2022 , 12/09/2020, 12/11/2019, Additional history exists PHQ-2 (once per calendar year) 2023 10/12/2021, 06/09/2020, 07/04/2019 GLUCOSE 10/05/2024 10/05/2021 ADVANCE CARE PLANNING 06/09/2025 06/09/2020 COLONOSCOPY 01/06/2026 01/06/2021, 01/06/2021 COLORECTAL CANCER SCREENING 01/06/2026 DTAP/TDAP/TD IMMUNIZATION (3 - Td or Tdap) [...] on patient's age to complete this topic Procedures Procedure Name Priority Date/Time Associated Diagnosis [...] HDL, LDL calc) (10/05/2021 8:04 AM CDT) Cholesterol 161 <200 mg/dL 10/06/2021 4:10 PM CDT [facility] Triglycerides 112 <150 mg/dL 10/06/2021 4:10 PM CDT [facility] Direct Measure HDL 65 >=50 mg/dL 2021 4:10 PM CDT [facility] LDL Cholesterol Calculated 74 <=100 mg/dL 10/06/2021 4:10 PM CDT [facility] Non HDL Cholesterol 96 <130 mg/dL 10/06/2021 4:10 PM CDT [facility] Patient Fasting > 8hrs? Yes 10/06/2021 4:10 PM CDT [facility] Blood BLOOD SPECIMEN / Unknown Venipuncture / Unknown 10/05/2021 8:04 AM CDT 10/05/2021 8:13 AM CDT Narrative [facility] - 10/06/2021 [...] Meyers MD LAB - BLOOD ORDERAB LES [facility] [address] [facility]. [address] [place] [address], [facility] [phone] [facility] [address] Lab (no room number, 1st floor of clinic) [place] [address], [place] [phone] * (ABNORMAL) Comprehensive metabolic panel (BMP + Alb, Alk Phos, ALT, AST, Total. Bili, TP) (10/05/2021 8:04 AM CDT) Sodium 140 133 - 144 mmol/L 10/06/2021 4:21 PM [facility] Potassium 4.7 3.4 - 5.3 mmol/L 10/06/2021 4:21 PM [facility] Comment:Specimen slightly he molyzed, potassium may be falsely elevated. Chloride 111(H) 94 - 109 mmol/L 10/06/2021 4:21 PM [facility] Carbon Dioxide (CO2) 20 20 - 32 mmol/L 10/06/2021 4:21 PM [facility] Anion Gap 9 3 - 14 mmol/L 10/06/2021 4:21 PM [facility] Urea Nitrogen 12 7 - 30 mg/dL 10/06/2021 4:21 PM [facility] Creatinine 0.53 0.52 - 1.04 mg/dL 10/06/2021 4:21 PM [facility] Calcium 9.3 8.5 - 10.1 mg/dL 10/06/2021 4:21 PM [facility] Glucose 77 70 - 99 mg/dL 10/06/2021 4:21 PM [facility] Alkaline Phosphatase 77 40 - 150 U/L 10/06/2021 4:21 PM [facility] AST 17 0 - 45 U/L 10/06/2021 4:21 PM [facility] Comment:Specimen is hemolyze d which can falsely elevate AST. Analysis of a non-hemolyzed specimen may result in a lower value. ALT 22 0 - 50 U/L 10/06/2021 4:21 PM [facility] Protein Total 7.1 6.8 - 8.8 g/dL 10/06/2021 4:21 PM [facility] Albumin 3.9 3.4 - 5.0 g/dL 10/06/2021 4:21 PM [facility] Bilirubin Total 0.6 0.2 - 1.3 mg/dL 10/06/2021 4:21 PM [facility] GFR Estimate >90 >60 mL/min/1.7 3m2 10/06/2021 4:21 PM [facility] Comment:Effective February 252020 eGFRcr in adults is calculated using the 2020 CKD-EPI creatinine equation which includes age and gender (Ching et al., NEJM, DOI: 10.1056/PYTRih1236502) Blood BLOOD SPECIMEN / Unknown Venipuncture / Unknown 10/05/2021 8:04 AM CDT 10/05/2021 8:13 AM CDT Marichuy Meyers MD LAB - BLOOD ORDERAB LES [facility] [facility]. [address] [place] [address], [facility] [phone] * MA Screen Right w/Nga (01/25/2021 10:55 [...] ERABLES * COLONOSCOPY (01/06/2021 8:34 AM CDT) [facility] Patient Name: Jennifer Schwab ? Procedure Date: [...] continuously. The ?Olympus Adult Colonoscope, Model # CF-TJ595E, ?Endora # [id number], SN # [id number] was introduced through ?the anus and advanced [...] neoplasm of digestive organs CPT copyright 2019 [employer]. All rights reserved. The codes documented in this report are preliminary and upon television inspector review may be revised to meet current compliance requirements. Electronically signed by Gabriel Forde MD __ Gabriel Forde MD 01/06/2021 9:08:19 AM I was physically present for the entire viewing portion of the exam. Gabriel Forde MD Number of Addenda: 0 Note Initiated On: 01/06/2021 8:34 AM MRN: ?[id number] Procedure Date: ? 01/06/2021 8:34:55 AM Scope [...] Recently Relevant to Health Maintenance Care Teams Grocery Packer Relationship Specialty Start Date End Date Clinic - [facility] [address] [place], [place] [address] PCP - General Internal Medicine 07/03/19 Marichuy Meyers MD [address] [facility] [address] [place], [place] [address] Assigned PCP 05/21/22
--- OUTSIDE RECORDS SUMMARY | 2023-07-19 11:29 | XMS_ITS | Encounter Summary ---
Author Name Unknown Organization [place] Address [address] [facility] [place] [address] Care Team Providers Care Granulator Name Role Phone [facility] Primary Care Provider Marichuy Meyers MD Unavailable Reason for Visit * Reason Comments Medication Refill Encounter Details Date Type Department Care Team (Late st Contact Info) Description 01/01/2023 [facility] [address] [facility] [address] [place] [address] Nitesh Buchanan MD [address] [place] [address] Medication Refill Social History Tobacco [...] asthma documented in this encounter Care Teams Granulator Relationship Specialty Start Date End Date Clinic - [facility] [address] [place] [address] PCP - General Internal Medicine 07/03/19 Marichuy Meyers MD [address] [facility] [address] [place] [address] Assigned PCP 05/21/22 documented as of this encounter
--- OUTSIDE RECORDS SUMMARY | 2023-07-19 11:29 | XMS_ITS | Encounter Summary ---
Author Name Unknown Organization [place] Address [address] [facility] [place] [address] Care Team Providers Care County Home Demonstrator Name Role Phone [facility] Primary Care Provider Marichuy Meyers MD Unavailable [phone] Marichuy Meyers MD Unavailable [phone] Encounter Details Date Type Department Care Team (Late st Contact Info) Description 12/31/2020 MyC Medical Advice [place] Centralized Scheduling [facility] [place] [address] Chetna Roger Social History Tobacco [...] filedocumented in this encounter Care Teams County Home Demonstrator Relationship Specialty Start Date End Date [facility] [address] [place] [address] PCP - General Internal Medicine 07/03/19 Marichuy Meyers MD [address] [facility] [address] [place] [address] Assigned PCP 06/13/19 03/11/22 Marichuy Meyers MD [address] [facility] [address] [place] [address] Assigned PCP 05/21/22 documented as of this encounter
--- OUTSIDE RECORDS SUMMARY | 2023-07-19 11:29 | XMS_ITS | Referral Summary ---
Author Name Unknown Organization [facility] Address [address] [place] [address] Care Team Providers Care Ax Survey Worker Name Role Phone Elsewhere, Pcp Primary Care Provider Unavailabl e Source Comments Patient records contain information from all sites at [facility]. For routine questions regarding patient records, call [phone] during business hours, M-F 8:00 AM - 5:00 PM Central Time. Record requests for emergency care only can be directed to [phone] at any time.[facility] Allergies Active Allergy Reactions Criticality Noted [...] mg tablet every evening. 10/15/2021 Active vitamins A,C,K-ylvj-virert (PRESERVISION AREDS) 7,160 Units-113 mg-100 Units per [...] CDT Gender Identity Female 03/03/2017 6:11 AM HIGH SCHOOL SPORTS COACH Sexual Orientation Straight 03/03/2017 6: 11 AM HIGH SCHOOL SPORTS COACH Last Filed Vital Signs Vital Sign [...] on file Medical Devices Implanted Type Area Preparator Device Identifier Shelf Expiration Date Model / [...] Dennis P.A.-C., M.S. IMG CT PROCED URES * (ABNORMAL) [...] Dennis P.A.-C., M.S. LAB BLOOD ADD -ON [facility] [address] [place] [address], [facility] [address] [place] [address] from Last 3 Months or Most Recently Relevant to Health Maintenance Advance Directives For more information, please contact: [phone] Documents on File Type Date Recorded Patient Military Pay Clerk Expl anation Advance Directives 03/01/2021 9:46 AM Vanessa Lora HCPOA/ADVOCATE/AGENT/R EPRESENTATIVE/SURROGAT E Advance Directives 01/19/2016 12:00 AM Monae haile document. See document viewer. * Full Code (Latest Code Status on File) Date Activated Date Inactivated Comments 08/17/2018 3:01 PM 08/18/2018 2:20 PM Question Answer Comments Full Code: Discussed on admission Healthcare Agents on File Name Relationship Healthcare Agent Relationship Communication Vanessamiriam Schwab Spouse Health Care Agent Nany Schwab Daughter First Alternate Health Care Agent Julienne Lora Daughter Second Alternate Health Care Agent Care Teams Ax Survey Worker Relationship Specialty Start Date End Date Elsewhere, Pcp PCP - General Internal Medicine 01/23/23
--- OUTSIDE RECORDS SUMMARY | 2023-07-19 11:29 | XMS_ITS ---
Author Name Unknown Organization [facility] Address [address] [place] [address] Care Team Providers Care Heel Nail Rasper Name Role Phone Unavailable Unavailable Unavailable Surgery Details Not on file Complications Check Surgery Details section. Procedure Estimated Blood Loss Check Surgery Details section. Procedure Findings Check Surgery Details section. Procedure Specimens Taken Check Surgery Details section.
--- OUTSIDE RECORDS SUMMARY | 2023-07-19 11:30 | XMS_ITS | Continuity of Care Document ---
Author Name Unknown Organization [facility] Address [address] [address] [place] [address] Phone Care Team Providers Care Fiscal Clerk Name Role Phone Yanick Echevarria MD Unavailable [...] Date Provider Providers Copied on Encounter [facility], [address] [address], [place], [id number], [place] tel:[phone] [facility] Personal History Colon PolypsColon Cancer ScreeningFamily Hx GI Tract CancerDiverticulo sis Of ColonDiverticulos is Of ColonFamily Hx GI Tract CancerPersonal History Colon Polyps [address]. [address] [facility] [facility] [address], [place], [place], [id number] , [place]. [phone] Referring Provider: Johanna Norris, [address] [facility] [address], [place], [address]. tel:[phone] [facility], [address] [address], [place], [place], [id number], [place] tel:[phone] [facility] No Information 3 Maryam Peres . [address] [facility] [address], [place], [place], [id number] , [place]. tel:[phone] Referring Provider: Johanna Norris, [address] [facility] [address], [place], [address]. tel:[phone] Family History Family Member Type Diagnosis Age At Onset No Information Payers Payer name Insurance type Covered democrat ID Authoriza [id number](s) Blue Cross Of [facility] [id number] Social History Type Description Quantity Date Captured [...]
--- OUTSIDE RECORDS SUMMARY | 2023-07-19 11:30 | XMS_ITS | Clinical Summary ---
Author Name Unknown Organization [facility] Address [place], [place] [address] Care Team Providers Care Safe Deposit Clerk Name Role Phone Johanna Thompson MD Primary Care Provider Unavailab le Allergies No known active allergies Medications Medication Sig Dispensed Refills Start Date End Date Status aspirin 81 mg tablet Take 81 mg by mouth once daily with a meal. Active albuterol HFA (PROAIR HFA) 90 mcg/actuation [...] Comments Blood Pressure 116/78 04/03/2014 9:45 AM SPECIAL SERVICES DIRECTOR Pulse 76 04/03/2014 9:45 AM SPECIAL SERVICES DIRECTOR Temperature - - Respiratory Rate 18 06/07/2013 9:37 AM CDT Oxygen Saturation - - Inhaled Oxygen Concentration - - Weight 81.8 kg (180 lb 4.8 oz) 04/03/2014 9:45 A M SPECIAL SERVICES DIRECTOR Height 150.5 cm (4' 11.25) 04/03/2014 9:[address] Body Mass Index 36.11 04/03/2014 9:45 AM SPECIAL SERVICES DIRECTOR Plan of Treatment Health Maintenance Due Date Last Done Comments Depression screening for age 12+ 1960 BMI [...] Additional history exists Tetanus booster 01/24/2022 01/25/2012 COVID-19 vaccine series (2022- season) 2022 Colonoscopy through age 75 05/30/2023 05/29/2013, Influenza for age 65+ 11/26/2023 12/26/2013 , 12/25/2013, 12/29/2012 Tdap Completed 01/25/2012 Hepatitis C screening for ag e 18-79 Completed 03/15/2013 Procedures Procedure Name Priority Date/Time Associated Diagnosis Comments LIPID PANEL W REFLEX MEASURED LDL Routine 04/03/2014 10:36 AM SPECIAL SERVICES DIRECTOR Hyperlipemia SCAN-MAMMOGRAPHY REPORT 03/31/2014 12:00 AM SPECIAL SERVICES DIRECTOR COLONOSCOPY SCREENING Routine 05/29/2013 12:00 AM SPECIAL SERVICES DIRECTOR Colon cancer screening ANTI HCV Routine 03/15/2013 11:15 AM SPECIAL SERVICES DIRECTOR Need for hepatitis C screening test from Last 3 Months or Most Recently Relevant to Health Maintenance Results * (ABNORMAL) LIPID PANEL W REFLEX MEASURED LDL (04/03/2014 10:36 AM SPECIAL SERVICES DIRECTOR) CHOLESTEROL,TOTAL 194 100 - 199 mg/dL 04/03/2014 2:48 PM SPECIAL SERVICES DIRECTOR [facility] TRIGLYCERIDES 153(H) <150 mg/dL 04/03/2014 2:48 PM SPECIAL SERVICES DIRECTOR [facility] HDL CHOLESTEROL 59 >40 mg/dL 5 2:48 PM SPECIAL SERVICES DIRECTOR [facility] NON-HDL CHOLESTEROL 135 <145 mg/dl 04/03/2014 2:48 PM SPECIAL SERVICES DIRECTOR [facility] CHOL/HDL RATIO 3.29 <4.50 04/03/2014 2:48 PM SPECIAL SERVICES DIRECTOR [facility] LDL CHOLESTEROL 104 <=130 mg/dL 04/03/2014 2:48 PM SPECIAL SERVICES DIRECTOR [facility] PATIENT STATUS FASTING 04/03/2014 2:48 PM SPECIAL SERVICES DIRECTOR [facility] Blood specimen (specimen) BLOOD SPECIMEN / Unknown Butterfly / Unknown 04/03/2014 10:36 AM SPECIAL SERVICES DIRECTOR 04/03/2014 10:36 AM SPECIAL SERVICES DIRECTOR Johanna Thompson MD [facility] [address] [place] [address], [place] * SCAN-MAMMOGRAPHY REPORT (03/31/2014 12:00 AM SPECIAL SERVICES DIRECTOR) Anatomical Region Laterality Modality Other Narrative 04/03/2014 3:50 PM SPECIAL SERVICES DIRECTOR Procedure Note Scanner - 03/31/2014 12:00 AM CST Scanner OTHER * COLONOSCOPY SCREENING (05/29/2013 12:00 AM SPECIAL SERVICES DIRECTOR) Narrative 05/29/2013 12:00 AM SPECIAL SERVICES DIRECTOR Procedure Note Scanner - 05/29/2013 12:00 AM CST Johanna Thompson MD GI PROCEDURE ORD * ANTI HCV [64007.2] (03/15/2013 11:15 AM SPECIAL SERVICES DIRECTOR) ANTI HCV Non-reacti ve [facility] Blood specimen (specimen) BLOOD SPECIMEN / Unknown 03/15/2013 11:15 AM SPECIAL SERVICES DIRECTOR 03/15/2013 11:09 AM SPECIAL SERVICES DIRECTOR Johanna Thompson MD SEND OUTS [facility] INTERNAL ZIP [address] [place] [address] from Last 3 Months or Most Recently Relevant to Health Maintenance Care Teams Safe Deposit Clerk Relationship Specialty Start Date End Date Johanna Thompson MD PCP - General Internal Medicine 12/03/11
--- OUTSIDE RECORDS SUMMARY | 2023-07-19 11:30 | XMS_ITS | Encounter Summary ---
Author Name Unknown [facility] Address [address] [facility] [place] [address] Care Team Providers Care Loan Consultant Name Role Phone [facility] Primary Care Provider Marichuy Meyers MD Unavailable [phone] Marichuy Meyers MD Unavailable [phone] Encounter Details Date Type Department Care Team (Late st Contact Info) Description 11/11/2020 MyC Medical Advice [address] [place] [address] Clement Stevenson RN Social History [...] on filedocumented in this encounter Care Teams Loan Consultant Relationship Specialty Start Date End Date [facility] [address] [place] [address] PCP - General Internal Medicine 07/03/19 Marichuy Meyers MD [address] [address] Assigned PCP 06/13/19 03/11/22 Marichuy Meyers MD [address] [facility] [address] [place] [address] Assigned PCP 05/21/22 documented as of this encounter
--- OUTSIDE RECORDS SUMMARY | 2023-07-19 11:30 | XMS_ITS | Encounter Summary ---
Author Name Unknown [facility] Address [address] [facility] [place] [address] Care Team Providers Care Kohinoor Operator Name Role Phone [facility] Primary Care Provider Marichuy Meyers MD Unavailable [phone] Marichuy Meyers MD Unavailable [phone] Encounter Details Date Type Department Care Team [...] on filedocumented in this encounter Care Teams Kohinoor Operator Relationship Specialty Start Date End Date [facility] [address] [place], [place] [address] PCP - General Internal Medicine 07/03/19 Marichuy Meyers MD [address] [place] [address] Assigned PCP 06/13/19 03/11/22 Marichuy Meyers MD [address] [facility] [address] [place] [address] Assigned PCP 05/21/22 documented as of this encounter
== END 2023-07-17 13:46 | disposition home or self-care (01) ==
LOC: NFLDREF 07-19 11:22
PROVIDERS: PCP Internal Medicine; Referring Provider Internal Medicine; Visit Provider Physician Assistant
DX: N39.0 Urinary tract infection, site not specified (principal)
CPT/HCPCS: 87086; 87186

== ENCOUNTER 2023-10-17 17:00 | Outpatient (CLI) | payer MEDICARE, SELFPAY ==
--- OUTSIDE RECORDS SUMMARY | 2023-10-18 11:01 | XMS_ITS | Encounter Summary ---
Author Organization [place] Address [facility] [place] [address] Care Team Providers Care Waiter/Waitress First Class Name Role Phone [facility] Primary Care Provider Marichuy Meyers MD Unavailable [phone] Marichuy Meyers MD Unavailable [phone] Encounter Details Date Type Department Care Team (Late st Contact Info) Description 11/11/2020 MyC Medical Advice [facility] [address] [facility] [address] [place] [address] Clement Stevenson RN Social History [...] on filedocumented in this encounter Care Teams Waiter/Waitress First Class Relationship Specialty Start Date End Date [facility] [address] [place] [address] PCP - General Internal Medicine 07/03/19 Marichuy Meyers MD [address] [address] Assigned PCP 06/13/19 03/11/22 Marichuy Meyers MD [address] [facility] [address] [place] [address] Assigned PCP 05/21/22 07/17/23 documented as of this encounter
--- OUTSIDE RECORDS SUMMARY | 2023-10-18 11:01 | XMS_ITS | Clinical Summary ---
Author Organization [facility] Address [address] [place] [address] Care Team Providers Care Certified Travel Counselor Name Role Phone Elsewhere, Pcp Primary Care Provider Unavailabl e Source Comments Patient records contain information from all sites at [facility]. For routine questions regarding patient records, call [phone] during business hours, M-F 8:00 AM - 5:00 PM Central Time. Record requests for emergency care only can be directed to [phone] at any time.[facility] Allergies Active Allergy Reactions Criticality Noted Date [...] mg tablet every evening. 10/15/2021 Active vitamins A,C,P-piag-hvgivi (PRESERVISION AREDS) 7,160 Units-113 mg-100 Units per [...] CDT Gender Identity Female 03/03/2017 6:11 AM SHIP'S CARPENTER Sexual Orientation Straight 03/03/2017 6: 11 AM SHIP'S CARPENTER Last Filed Vital Signs Vital Sign Reading [...] Hepatitis C Screening 1950 Mammogram 01/25/2022 01/25/2021, 03/2020, 01/13/2020, Additional history exists Depression Screening (Annual PHQ-2) 03/27/2023 Fall Risk Screen (Annual) 03/27/2023 Influenza Vaccine (#1) 2023 , 11/30/2021, 12/11/2019, Additional history exists Office Visit for Blood Pressure Check / Re-check 01/26/2024 01/25/2023 Colonoscopy 01/06/2026 01/06/2021, 07/2013, 04/02/2012 (Performed elsewhere) Colorectal Cancer Surveillance 01/06/2026 Fasting Glucose for Diabetes Screening 01/25/2026 01/25/2023, 01/31/2022, 10/05/2021, Additional history exists Lipid (Cholesterol) Screening 10/05/2026 10/05/2021, 06/05/2020, 08/18/2018, Additional history exists DTaP,Tdap,and Td Vaccines (4 - Td or Tdap) 11/08/2029 11/09/2019, 01/25/2012, 01/25/2012 Pneumococcal vaccine (65+ years) Completed 11/09/2019, 11/06/2018, 07/03/2009, Additional history exists Zoster Vaccines Completed 02/10/2020, 11/25, 03/27/2009 Lung Cancer Screening Discontinued 01/25/2023 , 01/31/2022, 03/01/2021, Additional history exists COVID-19 Vaccine Completed 06/02/2023, , 07/27/2022, Additional history exists HPV Vaccines Aged Out No longer eligi ble based on patient's age to complete this topic Medical Devices Implanted Type Area Education Department Registrar Device Identifier Shelf Expiration Date Model / [...] 10:03 AM CDT Angiosarcoma Soft Tissue (HCC) LIPID PANEL, S Routine 06/05/2020 7:40 AM SHIP'S CARPENTER Angiosarcoma Soft Tissue (HCC) MR BREAST UNILATERAL Routine 07/20/2017 10:28 AM CDT from Last 3 Months or [...] Dennis P.A.-C., M.S. LAB BLOOD ADD -ON [facility] [address] [address], [address] [address] * Lipid Panel (06/05/2020 7:40 AM SHIP'S CARPENTER) [facility] Cholesterol, Total 180 mg/dL 2020 8:40 AM SHIP'S CARPENTER DTL Comment: ----REFERENCE VALUE---- Desirable: < 200 Borderline high: 200 - 239 High: > or = 240 Triglycerides 113 mg/dL 06/05/2020 8:40 AM SHIP'S CARPENTER DTL Comment: ----REFERENCE VALUE---- Normal: <150 Borderline high: 150-199 High: 200-499 Very high: > or =500 Cholesterol, HDL, S 63 >=50 mg/dL 06/05/2020 8:40 AM SHIP'S CARPENTER DTL Calculated LDL 94 mg/dL 06/05/2020 8:40 AM SHIP'S CARPENTER DTL Comment: ----REFERENCE VALUE---- Desirable: <100 Above Desirable: 100-129 Borderline high: 130-159 High: 160-189 Very high: > or =190 Cholesterol, Non-HDL, Calculated 117 mg/dL 06/05/2020 8:40 AM SHIP'S CARPENTER DTL Comment: ----REFERENCE VALUE---- Desirable: <130 Above Desirable: 130-159 Borderline high: 160-189 High: 190-219 Very high: > or =220 Blood (Blood, Venous) 06/05/2020 7:40 AM SHIP'S CARPENTER 06/05/2020 8:01 AM SHIP'S CARPENTER Maite Dennis P.A.-C., M.S. LAB BLOOD ADD -ON [facility] [address] [place] [address], [place] [address] [address] * MR Breast (07/20/2017 10:28 AM CDT) Anatomical Region Laterality Modality Breast Magnetic Resonan ce 07/20/2017 10:2 8 AM CDT Impressions 07/20/2017 2:13 PM CDT 1. Postoperative/post radiation changes in the left mastectomy bed, not definitely changed from prior examination. No evidence for recurrent or residual disease. 2. No MRI findings of malignancy in the right breast. Examination somewhat limited secondary to patient's arm movement/positioning. RECOMMENDATION: Screening as appropriate given personal risk of breast cancer. BI-RADS ASSESSMENT: 2: Benign. Electronically signed by: ?? Cordelia Costa MD [phone] 20-Jul-2017 14:13 ?Rajat Malone MD. ??[phone] 20-Jul-2017 14:13 Narrative 07/20/2017 2:13 PM CDT 20-Jul-2017 10:28:00 ??Exam: MRI BREAST, BILATERAL Indications: Angiosarcoma Skin Primary ORIGINAL REPORT - 20-Jul-2017 14:13:00 EXAM: MRI BREAST, BILATERAL INDICATION: High risk screening. HISTORY: Left breast cancer in 2004 for which she underwent breast conservation treatment. 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 HORMONAL STATUS: Postmenopausal. No hormone replacement therapy. COMPARISON: Breast MRI 03/15/2017, 07/11/2016, 04/26/2016. Chest CT 12/21/2016. TECHNIQUE: Dynamic enhanced protocol using IV contrast administration with T1 and T2 weighted images and CAD image analysis. FIBROGLANDULAR TISSUE: b. Scattered fibroglandular tissue. BACKGROUND PARENCHYMAL ENHANCEMENT: b. Mild. FINDINGS: There is moderate artifact on today's MRI secondary to limited left arm movement and positioning which limits examination. RIGHT BREAST: ?No suspicious mass, architectural distortion, or abnormal enhancement. RIGHT AXILLA: No lymphadenopathy. LEFT BREAST: Status post left mastectomy. Stable edema and enhancement in the left mastectomy bed involving the left chest wall and extending to the skin, not definitely changed from prior exam, likely postoperative/postradiation. LEFT AXILLA: No lymphadenopathy. Stable small level 3 lymph node, unchanged from prior MRI. CHEST WALL: No internal mammary lymphadenopathy. Small stable left supraclavicular lymph nodes, unchanged compared to CT chest 12/21/2016. Procedure Note Rama Malone M.D. - 07/24/2017 20-Jul-2017 10:28:00 Exam: MRI BREAST, BILATERAL Indications: Angiosarcoma Skin Primary ORIGINAL REPORT - 20-Jul-2017 14:13:00 EXAM: MRI BREAST, BILATERAL INDICATION: High risk screening. HISTORY: Left breast cancer in 2003 for which she underwent breastconservation treatment. 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 HORMONAL STATUS: Postmenopausal. No hormone replacement therapy. COMPARISON: Breast MRI 03/15/2017, 07/11/2016, 04/26/2016. Chest CT12/21/2016. TECHNIQUE: Dynamic enhanced protocol using IV contrast administration withT1 and T2 weighted images and CAD image analysis. FIBROGLANDULAR TISSUE: b. Scattered fibroglandular tissue. BACKGROUND PARENCHYMAL ENHANCEMENT: b. Mild. FINDINGS: There is moderate artifact on today's MRI secondary to limited left armmovement and positioning which limits examination. RIGHT BREAST: No suspicious mass, architectural distortion, or abnormalenhancement. RIGHT AXILLA: No lymphadenopathy. LEFT BREAST: Status post left mastectomy. Stable edema and enhancement inthe left mastectomy bed involving the left chest wall and extending to theskin, not definitely changed from prior exam, likelypostoperative/postradiation. LEFT AXILLA: No lymphadenopathy. Stable small level 3 lymph node,unchanged from prior MRI. CHEST WALL: No internal mammary lymphadenopathy. Small stable leftsupraclavicular lymph nodes, unchanged compared to CT chest 12/21/2016. IMPRESSION: 1. Postoperative/post radiation changes in the left mastectomy bed, notdefinitely changed from prior examination. No evidence for recurrent orresidual disease. 2. No MRI findings of malignancy in the right breast. Examination somewhat limited secondary to patient's armmovement/positioning. RECOMMENDATION: Screening as appropriate given personal risk of breastcancer. BI-RADS ASSESSMENT: 2: Benign. Electronically signed by: Cordelia Costa MD [phone] 20-Jul-2017 14:13 Rajat Malone MD. [id number] 14:13 Abdi Alvarez M.D. IMG MRI PROCEDURES from Last 3 Months or Most Recently Relevant to Health Maintenance Advance Directives For more information, please contact: [phone] Documents on File Type Date Recorded Patient Tail Board Worker Expl anation Advance Directives 03/01/2021 9:46 AM [...] Second Alternate Health Care Agent Care Teams Certified Travel Counselor Relationship Specialty Start Date End Date Elsewhere, Pcp PCP - General Internal Medicine 01/23/23
--- OUTSIDE RECORDS SUMMARY | 2023-10-18 11:01 | XMS_ITS | Referral Summary ---
Author Organization [facility] Address [facility], [facility] [place] [address] Care Team Providers Care Supervisor Print Line Name Role Phone [facility] Primary Care Provider Allergies No known active [...] 65 >=50 mg/dL 2021 4:10 PM CDT [facility] LDL Cholesterol Calculated 74 <=100 mg/dL 10/06/2021 4:10 PM CDT [facility] Non HDL Cholesterol 96 <130 mg/dL 10/06/2021 4:10 PM CDT [facility] Patient Fasting > 8hrs? Yes 10/06/2021 4:10 PM [facility] Blood BLOOD SPECIMEN / Unknown Venipuncture / Unknown 10/05/2021 8:04 AM CDT 10/05/2021 8:13 AM CDT Narrative [facility] - 10/06/2021 4:10 PM CDT Cholesterol [...] Meyers MD LAB - BLOOD ORDERAB LES [facility] [address] [facility]. [address] [place] [address], [place] [phone] LABORATORY [facility] [address] Lab (no room number, 1st floor of clinic) [place] [address], [place] [phone] * (ABNORMAL) Comprehensive metabolic panel (BMP + Alb, Alk Phos, ALT, AST, Total. Bili, TP) (10/05/2021 8:04 AM CDT) Sodium 140 133 - 144 mmol/L 10/06/2021 4:21 PM T [facility] Potassium 4.7 3.4 - 5.3 mmol/L 10/06/2021 4:21 PM [facility] Comment:Specimen slightly he molyzed, potassium may be falsely elevated. Chloride 111(H) 94 - 109 mmol/L 10/06/2021 4:21 PM [facility] Carbon Dioxide (CO2) 20 20 - 32 mmol/L 10/06/2021 4:21 PM T [facility] Anion Gap 9 3 - 14 mmol/L 10/06/2021 4:21 PM [facility] Urea Nitrogen 12 7 - 30 mg/dL 10/06/2021 4:21 PM [facility] Creatinine 0.53 0.52 - 1.04 mg/dL 10/06/2021 4:21 PM [facility] Calcium 9.3 8.5 - 10.1 mg/dL 10/06/2021 4:21 PM [facility] Glucose 77 70 - 99 mg/dL 10/06/2021 4:21 PM T [facility] Alkaline Phosphatase 77 40 - 150 U/L 10/06/2021 4:21 PM [facility] AST 17 0 - 45 U/L 10/06/2021 4:21 PM [facility] Comment:Specimen is hemolyze d which can falsely elevate AST. Analysis of a non-hemolyzed specimen may result in a lower value. ALT 22 0 - 50 U/L 10/06/2021 4:21 PM CDT [facility] Protein Total 7.1 6.8 - 8.8 g/dL 10/06/2021 4:21 PM CDT [facility] Albumin 3.9 3.4 - 5.0 g/dL 10/06/2021 4:21 PM CDT [facility] Bilirubin Total 0.6 0.2 - 1.3 mg/dL 10/06/2021 4:21 PM CDT [facility] GFR Estimate >90 >60 mL/min/1.7 3m2 10/06/2021 4:21 PM T [facility] Comment:Effective February 252020 eGFRcr in adults is calculated using the 2020 CKD-EPI creatinine equation which includes age and gender (Ching et al., NEJ, DOI: 10.1056/QTMWbn6194271) Blood BLOOD SPECIMEN / Unknown Venipuncture / Unknown 10/05/2021 8:04 AM CDT 10/05/2021 8:13 AM CDT Marichuy Meyers MD LAB - BLOOD ORDERAB LES [facility] [address] [facility] [address] [facility]. [address] [place] [address], [facility] [phone] * [place] Screen Right w/Nga (01/25/2021 10:55 [...] * COLONOSCOPY (01/06/2021 8:34 AM CDT) COLONOSCOPY [facility] Patient Name: Jennifer Schwab ? Procedure Date: [...] continuously. The ?Olympus Adult Colonoscope, Model # CF-EG898L, ?[place]ora # 222, SN # [id number] was introduced through ?the anus and advanced [...] neoplasm of digestive organs CPT copyright 2019 [employer]. All rights reserved. The codes documented in this report are preliminary and upon guide rail cleaner review may be revised to meet current compliance requirements. Electronically signed by Gabriel Forde MD __ Gabriel Forde MD 01/06/2021 9:08:19 AM I was physically present for the entire viewing portion of the exam. Gabriel Forde MD Number of Addenda: 0 Note Initiated On: 01/06/2021 8:34 AM MRN: ?[id number] Procedure Date: ? 01/06/2021 8:34:55 AM Scope [...] Recently Relevant to Health Maintenance Care Teams Supervisor Print Line Relationship Specialty Start Date End Date Clinic - [address] [address] PCP - General Internal Medicine 07/03/19
--- OUTSIDE RECORDS SUMMARY | 2023-10-18 11:01 | XMS_ITS | Clinical Summary ---
Author Organization [facility] Address [place], [place] [address] Care Team Providers Care Drug Worker Name Role Phone Johanna Thompson MD Primary [...] Comments Blood Pressure 116/78 04/03/2014 9:45 AM GOLF SALES ASSOCIATE Pulse 76 04/03/2014 9:45 AM GOLF SALES ASSOCIATE Temperature - - Respiratory Rate 18 06/07/2013 9:37 AM CDT Oxygen Saturation - - Inhaled Oxygen Concentration - - Weight 81.8 kg (180 lb 4.8 oz) 04/03/2014 9:45 A M GOLF SALES ASSOCIATE Height 150.5 cm (4' 11.25) 04/03/2014 9:[address] Body Mass Index 36.11 04/03/2014 9:45 AM GOLF SALES ASSOCIATE Plan of Treatment Health Maintenance Due Date [...] Tetanus booster 01/24/2022 01/25/2012 COVID-19 vaccine series (2022-24 season) 2022 Colonoscopy through age 75 05/30/2023 05/29/2013, Influenza for age 65+ 11/26/2023 12/26/2013 , 12/25/2013, 12/29/2012 Tdap Completed 01/25/2012 Hepatitis C screening for ag e 18-79 Completed 03/15/2013 Procedures Procedure Name Priority Date/Time Associated Diagnosis Comments LIPID PANEL W REFLEX MEASURED LDL Routine 04/03/2014 10:36 AM GOLF SALES ASSOCIATE Hyperlipemia SCAN-MAMMOGRAPHY REPORT 03/31/2014 12:00 AM GOLF SALES ASSOCIATE COLONOSCOPY SCREENING Routine 05/29/2013 12:00 AM GOLF SALES ASSOCIATE Colon cancer screening ANTI HCV Routine 03/15/2013 11:15 AM GOLF SALES ASSOCIATE Need for hepatitis C screening test from Last 3 Months or Most Recently Relevant to Health Maintenance Results * (ABNORMAL) LIPID PANEL W REFLEX MEASURED LDL (04/03/2014 10:36 AM GOLF SALES ASSOCIATE) CHOLESTEROL,TOTAL 194 100 - 199 mg/dL 04/03/2014 2:48 PM GOLF SALES ASSOCIATE [facility] TRIGLYCERIDES 153(H) <150 mg/dL 04/03/2014 2:48 PM GOLF SALES ASSOCIATE [facility] HDL CHOLESTEROL 59 >40 mg/dL 5 2:48 PM GOLF SALES ASSOCIATE [facility] NON-HDL CHOLESTEROL 135 <145 mg/dl 04/03/2014 2:48 PM GOLF SALES ASSOCIATE [facility] CHOL/HDL RATIO 3.29 <4.50 04/03/2014 2:48 PM GOLF SALES ASSOCIATE [facility] LDL CHOLESTEROL 104 <=130 mg/dL 04/03/2014 2:48 PM GOLF SALES ASSOCIATE [facility] PATIENT STATUS FASTING 04/03/2014 2:48 PM GOLF SALES ASSOCIATE [facility] Blood specimen (specimen) BLOOD SPECIMEN / Unknown Butterfly / Unknown 04/03/2014 10:36 AM GOLF SALES ASSOCIATE 04/03/2014 10:36 AM GOLF SALES ASSOCIATE Johanna Thompson MD [facility] [address] [place] [address], [place] * SCAN-MAMMOGRAPHY REPORT (03/31/2014 12:00 AM GOLF SALES ASSOCIATE) Anatomical Region Laterality Modality Other Narrative 04/03/2014 3:50 PM GOLF SALES ASSOCIATE Procedure Note Scanner - 03/31/2014 12:00 AM CST Scanner OTHER * COLONOSCOPY SCREENING (05/29/2013 12:00 AM GOLF SALES ASSOCIATE) Narrative 05/29/2013 12:00 AM GOLF SALES ASSOCIATE Procedure Note Scanner - 05/29/2013 12:00 AM CST Johanna Thompson MD GI PROCEDURE ORD * ANTI HCV [03069.2] (03/15/2013 11:15 AM GOLF SALES ASSOCIATE) ANTI HCV Non-reacti ve [facility] Blood specimen (specimen) BLOOD SPECIMEN / Unknown 03/15/2013 11:15 AM GOLF SALES ASSOCIATE 03/15/2013 11:09 AM GOLF SALES ASSOCIATE Johanna Thompson MD SEND OUTS [facility] INTERNAL ZIP [address] [place] [id number] from Last 3 Months or Most Recently Relevant to Health Maintenance Care Teams Drug Worker Relationship Specialty Start Date End Date Johanna Thompson MD PCP - General Internal Medicine 12/03/11
--- OUTSIDE RECORDS SUMMARY | 2023-10-18 11:01 | XMS_ITS | Encounter Summary ---
Author Organization [facility] Address [address] [place] [address] Care Team Providers Care Machine Engraver Name Role Phone Elsewhere, Pcp Primary Care Provider Unavailabl e Encounter Details Date Type Department Care Team (Late st Contact Info) Description 06/10/2016 Historical Ophthalmology [facility] Miguel Odonnell M.D. [address] [place] [address] Social History Tobacco Use Types Packs/Day Years Used Date Smoking Tobacco: Never Assessed Sex and Gender Information Value Date Recorded Sex Assigned at Female 01/20/2023 8:11 PM CDT Gender Identity Female 03/03/2017 6:11 AM MANAGER HAIR Sexual Orientation Straight 03/03/2017 6: 11 AM MANAGER HAIR documented as of this encounter Progress Notes [...] #2 cataracts CDM Reports - EYEGEN Id: [id number] Status: Fnl documented in this encounter Plan of Treatment Not on file documented as of this encounter Visit Diagnoses Not on filedocumented in this encounter Care Teams Machine Engraver Relationship Specialty Start Date End Date Elsewhere, Pcp PCP - General Internal Medicine 01/23/23 documented as of this encounter
--- OUTSIDE RECORDS SUMMARY | 2023-10-18 11:01 | XMS_ITS | Encounter Summary ---
Author Organization [facility] Address [facility]0 [facility] [place] [address] Care Team Providers Care Fixed Interest Dealer Name Role Phone Clinic - Georgette Mccloud [facility] Primary Care Provider Marichuy Meyers MD Unavailable Reason for Visit * Reason Comments Medication Refill Encounter Details Date Type Department Care Team (Late st Contact Info) Description 01/01/2023 [facility] [address] [facility] [address] [place] [address] Nitesh Buchanan MD [address] [place] [address] Medication Refill Social History Tobacco [...] asthma documented in this encounter Care Teams Fixed Interest Dealer Relationship Specialty Start Date End Date Clinic - [facility] [address] [place] [address] PCP - General Internal Medicine 07/03/19 Marichuy Meyers MD [address] [facility] [address] [place] [address] Assigned PCP 05/21/22 07/17/23 documented as of this encounter
--- OUTSIDE RECORDS SUMMARY | 2023-10-18 11:01 | XMS_ITS | Encounter Summary ---
Author Organization [facility] Address [address] [facility] [place] [address] Care Team Providers Care Senior Android Developer Name Role Phone [facility] Primary Care Provider Marichuy Meyers MD Unavailable [phone] Marichuy Meyers MD Unavailable [phone] Encounter Details Date Type Department Care Team [...] on filedocumented in this encounter Care Teams Senior Android Developer Relationship Specialty Start Date End Date [facility] [address] [place], [place] [address] PCP - General Internal Medicine 07/03/19 Marichuy Meyers MD [address] [place] [address] Assigned PCP 06/13/19 03/11/22 Marichuy Meyers MD [address] [place] [address] Assigned PCP 05/21/22 07/17/23 documented as of this encounter
--- OUTSIDE RECORDS SUMMARY | 2023-10-18 11:01 | XMS_ITS | Referral Summary ---
Author Organization [facility] Address [address] [place] [address] Care Team Providers Care Postal Delivery Officer Name Role Phone Elsewhere, Pcp Primary Care Provider Unavailabl e Source Comments Patient records contain information from all sites at [facility]. For routine questions regarding patient records, call [phone] during business hours, M-F 8:00 AM - 5:00 PM Central Time. Record requests for emergency care only can be directed to [phone] at any time.[facility] Allergies Active Allergy Reactions Criticality Noted [...] mg tablet every evening. 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 LAB BLOOD ADD -ON [facility] [place] [address], [facility] [place] [address] * Lipid Panel (06/05/2020 7:40 AM LEAD DENTAL ASSISTANT) [facility] Cholesterol, Total 180 mg/dL 2020 8:40 AM LEAD DENTAL ASSISTANT DTL Comment: ----REFERENCE VALUE---- Desirable: < 200 Borderline high: 200 - 239 High: > or = 240 Triglycerides 113 mg/dL 06/05/2020 8:40 AM LEAD DENTAL ASSISTANT DTL Comment: ----REFERENCE VALUE---- Normal: <150 Borderline high: 150-199 High: 200-499 Very high: > or =500 Cholesterol, HDL, S 63 >=50 mg/dL 06/05/2020 8:40 AM LEAD DENTAL ASSISTANT DTL Calculated LDL 94 mg/dL 06/05/2020 8:40 AM LEAD DENTAL ASSISTANT DTL Comment: ----REFERENCE VALUE---- Desirable: <100 Above Desirable: 100-129 Borderline high: 130-159 High: 160-189 Very high: > or =190 Cholesterol, Non-HDL, Calculated 117 mg/dL 06/05/2020 8:40 AM LEAD DENTAL ASSISTANT DTL Comment: ----REFERENCE VALUE---- Desirable: <130 Above Desirable: 130-159 Borderline high: 160-189 High: 190-219 Very high: > or =220 Blood (Blood, Venous) 06/05/2020 7:40 AM LEAD DENTAL ASSISTANT 06/05/2020 8:01 AM LEAD DENTAL ASSISTANT Maite Dennis P.A.-C., M.S. LAB BLOOD ADD -ON [facility] [address] [place] [address], [facility] [address] [place] [address] * MR Breast (07/20/2017 10:28 AM CDT) [...] Electronically signed by: ?? Cordelia Costa MD [phone] 20-Jul-2017 14:13 ?Rajat Malone MD. ??[phone] 20-Jul-2017 [...] Benign. Electronically signed by: Cordelia Costa MD [phone] 20-Jul-2017 14:13 Rajat Malone MD. [id number] 14:13 Abdi Alvarez M.D. IMG MRI PROCEDURES from Last 3 Months or Most Recently Relevant to Health Maintenance Advance Directives For more information, please contact: [phone] Documents on File Type Date Recorded Patient Semi Conductor Assembler Expl anation Advance Directives 03/01/2021 9:46 AM [...] Second Alternate Health Care Agent Care Teams Postal Delivery Officer Relationship Specialty Start Date End Date Elsewhere, Pcp PCP - General Internal Medicine 01/23/23
--- OUTSIDE RECORDS SUMMARY | 2023-10-18 11:01 | XMS_ITS | Clinical Summary ---
Author Organization [place] Address [facility] [place] [address] Care Team Providers Care Clinical Laboratory Technician Name Role Phone [facility] Primary Care Provider Allergies No known [...] 2022 08/25/2021, 02/02/2021, 06/21/2020, Additional history exists PHQ-2 (once per calendar year) 2023 10/12/2021, 06/09/2020, 07/04/2019 INFLUENZA VACCINE (#1) 2023 , 12/09/2020, 12/11/2019, Additional history exists GLUCOSE 10/05/2024 10/05/2021 ADVANCE CARE PLANNING 06/09/2025 [...] Meyers MD LAB - BLOOD ORDERAB LES [facility] [address] [facility]. Room # [address] [place] [address], [facility] [phone] [facility] [address] Lab (no room number, 1st floor of clinic) [place] [address], [facility] [phone] * (ABNORMAL) Comprehensive metabolic panel (BMP + Alb, Alk Phos, ALT, AST, Total. Bili, TP) (10/05/2021 8:04 AM CDT) Sodium 140 133 - 144 mmol/L 10/06/2021 4:21 PM [facility] Potassium 4.7 3.4 - 5.3 mmol/L 10/06/2021 4:21 PM [facility] Comment:Specimen slightly he molyzed, potassium may be falsely elevated. Chloride 111(H) 94 - 109 mmol/L 10/06/2021 4:21 PM [facility] Carbon Dioxide (CO2) 20 20 - 32 mmol/L 10/06/2021 4:21 PM [facility] Anion Gap 9 3 - 14 mmol/L 10/06/2021 4:21 PM [facility] Urea Nitrogen 12 7 - 30 mg/dL 10/06/2021 4:21 PM [facility] Creatinine 0.53 0.52 - 1.04 mg/dL 10/06/2021 4:21 PM [facility] Calcium 9.3 8.5 - 10.1 mg/dL 10/06/2021 4:21 PM [facility] Glucose 77 70 - 99 mg/dL 10/06/2021 4:21 PM [facility] Alkaline Phosphatase 77 40 - 150 U/L 10/06/2021 4:21 PM [facility] AST 17 0 - 45 U/L 10/06/2021 4:21 PM [facility] Comment:Specimen is hemolyze d which can falsely elevate AST. Analysis of a non-hemolyzed specimen may result in a lower value. ALT 22 0 - 50 U/L 10/06/2021 4:21 PM [facility] Protein Total 7.1 6.8 - 8.8 g/dL 10/06/2021 4:21 PM [facility] Albumin 3.9 3.4 - 5.0 g/dL 10/06/2021 4:21 PM [facility] Bilirubin Total 0.6 0.2 - 1.3 mg/dL 10/06/2021 4:21 PM [facility] GFR Estimate >90 >60 mL/min/1.7 3m2 10/06/2021 4:21 PM [facility] Comment:Effective February 252020 eGFRcr in adults is calculated using the 2020 CKD-EPI creatinine equation which includes age and gender (Ching et al., NEJM, DOI: 10.1056/JFUCfc3356192) Blood BLOOD SPECIMEN / Unknown Venipuncture / Unknown 10/05/2021 8:04 AM CDT 10/05/2021 8:13 AM CDT Marichuy Meyers MD LAB - BLOOD ORDERAB LES [facility] Acute [facility] Lab [facility]. Room # [address] [place] [address], [facility] [phone] * MA Screen Right w/Nga (01/25/2021 10:55 [...] ERABLES * COLONOSCOPY (01/06/2021 8:34 AM CDT) [facility] Patient Name: Jennifer Schwab ? [...] continuously. The ?Olympus Adult Colonoscope, Model # CF-XA682W, ?Endora # 222, SN # [id number] was introduced through ?the anus and advanced [...] neoplasm of digestive organs CPT copyright 2019 [employer]. All rights reserved. The codes documented in this report are preliminary and upon principal android developer review may be revised to meet current compliance requirements. Electronically signed by Gabriel Forde MD __ Gabriel Forde MD 01/06/2021 9:08:19 AM I was physically present for the entire viewing portion of the exam. Gabriel Forde MD Number of Addenda: 0 Note Initiated On: 01/06/2021 8:34 AM MRN: ?[id number] Procedure Date: ? 01/06/2021 8:34:55 AM Scope [...] Recently Relevant to Health Maintenance Care Teams Clinical Laboratory Technician Relationship Specialty Start Date End Date Clinic - [facility] [address] [address] PCP - General Internal Medicine 07/03/19
--- OUTSIDE RECORDS SUMMARY | 2023-10-18 11:01 | XMS_ITS | Encounter Summary ---
Author Organization [place] Address [facility] [place] [address] Care Team Providers Care Dining Room Captain Name Role Phone [facility] Primary Care Provider Marichuy Meyers MD Unavailable [phone] Marichuy Meyers MD Unavailable [phone] Encounter Details Date Type Department Care Team (Late st Contact Info) Description 12/31/2020 MyC Medical Advice [place] Centralized Scheduling [address] [place] [phone] Chetna Roger Social History Tobacco Use [...] on filedocumented in this encounter Care Teams Dining Room Captain Relationship Specialty Start Date End Date [facility] [address] [place] [address] PCP - General Internal Medicine 07/03/19 Marichuy Meyers MD [address] [facility] [address] [place] [address] Assigned PCP 06/13/19 03/11/22 Marichuy Meyers MD [address] [facility] [address] [place] [address] Assigned PCP 05/21/22 07/17/23 documented as of this encounter
--- OUTSIDE RECORDS SUMMARY | 2023-10-18 11:01 | XMS_ITS ---
Author Organization [facility] Address [address] [place] [address] Care Team Providers Care Hot Dog Vender Name Role Phone Unavailable Unavailable Unavailable Surgery Details Not on file Complications Check Surgery Details section. Procedure Estimated Blood Loss Check Surgery Details section. Procedure Findings Check Surgery Details section. Procedure Specimens Taken Check Surgery Details section.
== END 2023-10-17 17:01 | disposition home or self-care (01) ==
LOC: NFLDREF 10-18 10:56
PROVIDERS: PCP Internal Medicine; Referring Provider Internal Medicine; Visit Provider Family Medicine
DX: N39.0 Urinary tract infection, site not specified (principal); B37.31 Acute candidiasis of vulva and vagina; R39.9 Unspecified symptoms and signs involving the genitourinary system
CPT/HCPCS: 87086

== ENCOUNTER 2024-01-09 08:35 | Outpatient (CLI) | payer MEDICARE, SELFPAY ==
--- OUTSIDE RECORDS SUMMARY | 2024-01-10 10:33 | XMS_ITS | Encounter Summary ---
Author Organization [place] Address [facility] [place] [address] Care Team Providers Care Rope Tow Operator Name Role Phone [facility] Primary Care Provider Marichuy Meyers MD Unavailable [phone] Marichuy Meyers MD Unavailable [phone] Encounter Details Date Type Department Care Team (Late st Contact Info) Description 12/31/2020 MyC Medical Advice [place] Centralized Scheduling [address] [place] [id number] Chetna Roger Social History Tobacco Use [...] on filedocumented in this encounter Care Teams Rope Tow Operator Relationship Specialty Start Date End Date [facility] [address] [place] [address] PCP - General Internal Medicine 07/03/19 Marichuy Meyers MD [address] [facility] [address] [place] [address] Assigned PCP 06/13/19 03/11/22 Marichuy Meyers MD [address] [facility] [address] [place] [address] Assigned PCP 05/21/22 07/17/23 documented as of this encounter
--- OUTSIDE RECORDS SUMMARY | 2024-01-10 10:33 | XMS_ITS | Encounter Summary ---
Author Organization [place] Address [facility]0 [facility] [place] [address] Care Team Providers Care Asset Management Analyst Name Role Phone Clinic - [facility] Primary Care Provider Marichuy Meyers MD Unavailable Reason for Visit * Reason Comments Medication Refill Encounter Details Date Type Department Care Team (Late st Contact Info) Description 01/01/2023 [facility] [address] [facility] [address] [place] [address] Nitesh Buchanan MD [address] [place] [address] Medication Refill Social History Tobacco [...] asthma documented in this encounter Care Teams Asset Management Analyst Relationship Specialty Start Date End Date Clinic - [facility] [address] [place] [address] PCP - General Internal Medicine 07/03/19 Marichuy Meyers MD [address] [facility] [address] [place] [address] Assigned PCP 05/21/22 07/17/23 documented as of this encounter
--- OUTSIDE RECORDS SUMMARY | 2024-01-10 10:33 | XMS_ITS | Clinical Summary ---
Author Organization [place] Address [facility] [place] [address] Care Team Providers Care Media Services Director Name Role Phone [facility] Primary Care Provider Allergies No [...] SCREENING 1998 ASTHMA CONTROL TEST 12/10/2020 06/09/2020, MEDICARE ANNUAL WELLNESS VISIT 06/09/2021 06/09/2020 MAMMO SCREENING 01/25/2022 01/25/2021, 01/13/2020 LIPID 10/05/2022 10/05/2021 FALL RISK ASSESSMENT 10/12/2022 10/12/2021, 06/09/2020, 07/04/2019 PHQ-2 (once per calendar year) 2023 10/12/2021, 06/09/2020, 07/04/2019 RSV VACCINE (1 - 1-dose 75+ series) 11/13/2023 COVID-19 Vaccine ( - 2023- season) 2023 08/25/2021, 02/02/2021, 06/21/2020, Additional history exists INFLUENZA VACCINE (#1) 2023 , 12/09/2020, 12/11/2019, [...] Meyers MD LAB - BLOOD ORDERAB LES [facility] Lab [address] [facility]. Room [address] [place] [address], [place] [phone] [facility] [employer] [facility] [address] Lab (no room number, 1st floor of clinic) [place] [address], [place] [phone] * (ABNORMAL) Comprehensive metabolic panel (BMP + Alb, Alk Phos, ALT, AST, Total. Bili, TP) (10/05/2021 8:04 AM CDT) Sodium 140 133 - 144 mmol/L 10/06/2021 4:21 PM [facility] Potassium 4.7 3.4 - 5.3 mmol/L 10/06/2021 4:21 PM [facility] Comment:Specimen slightly he molyzed, potassium may be falsely elevated. Chloride 111(H) 94 - 109 mmol/L 10/06/2021 4:21 PM [facility] Carbon Dioxide (CO2) 20 20 - 32 mmol/L 10/06/2021 4:21 PM [facility] Anion Gap 9 3 - 14 mmol/L 10/06/2021 4:21 PM [facility] Urea Nitrogen 12 7 - 30 mg/dL 10/06/2021 4:21 PM [facility] Creatinine 0.53 0.52 - 1.04 mg/dL 10/06/2021 4:21 PM [facility] Calcium 9.3 8.5 - 10.1 mg/dL 10/06/2021 4:21 PM [facility] Glucose 77 70 - 99 mg/dL 10/06/2021 4:21 PM [facility] Alkaline Phosphatase 77 40 - 150 U/L 10/06/2021 4:21 PM [facility] AST 17 0 - 45 U/L 10/06/2021 4:21 PM [facility] Comment:Specimen is hemolyze d which can falsely elevate AST. Analysis of a non-hemolyzed specimen may result in a lower value. ALT 22 0 - 50 U/L 10/06/2021 4:21 PM [facility] Protein Total 7.1 6.8 - 8.8 g/dL 10/06/2021 4:21 PM [facility] Albumin 3.9 3.4 - 5.0 g/dL 10/06/2021 4:21 PM [facility] Bilirubin Total 0.6 0.2 - 1.3 mg/dL 10/06/2021 4:21 PM [facility] GFR Estimate >90 >60 mL/min/1.7 3m2 10/06/2021 4:21 PM [facility] Comment:Effective February 252020 eGFRcr in adults is calculated using the 2020 CKD-EPI creatinine equation which includes age and gender (Ching et al., NEJM, DOI: 10.1056/IUFPtm2676596) Blood BLOOD SPECIMEN / Unknown Venipuncture / Unknown 10/05/2021 8:04 AM CDT 10/05/2021 8:13 AM CDT Marichuy Meyers MD LAB - BLOOD ORDERAB LES [facility] Lab [address] [facility]. Room [address] [place] [address], [facility] [phone] * MA Screen Right w/Nga (01/25/2021 10:55 AM CDT) Anatomical Region Laterality Modality Breast Bilateral Mammography Narrative 01/27/2021 7:31 AM CDT RIGHT FULL FIELD DIGITAL SCREENING MAMMOGRAM WITH TOMOSYNTHESIS Performed on: 11/1/21 Compared to: 01/13/2020 Technique: ??This study was [...] ERABLES * COLONOSCOPY (01/06/2021 8:34 AM CDT) [facility] Patient Name: Jennifer Schwab ? Procedure [...] continuously. The ?Olympus Adult Colonoscope, Model # CF-KO673S, ?Endora # 222, SN # [id number] was introduced through ?the anus and advanced [...] neoplasm of digestive organs CPT copyright 2019 [employer]. All rights reserved. The codes documented in this report are preliminary and upon wood club neck whipper review may be revised to meet current compliance requirements. Electronically signed by Gabriel Forde MD __ Gabriel Forde MD 01/06/2021 9:08:19 AM I was physically present for the entire viewing portion of the exam. Gabriel Forde MD Number of Addenda: 0 Note Initiated On: 01/06/2021 8:34 AM MRN: ?[id number] Procedure Date: ? 01/06/2021 8:34:55 AM Scope [...] Recently Relevant to Health Maintenance Care Teams Media Services Director Relationship Specialty Start Date End Date Clinic - [address] [id number] PCP - General Internal Medicine 07/03/19
--- OUTSIDE RECORDS SUMMARY | 2024-01-10 10:33 | XMS_ITS | Encounter Summary ---
Author Organization [place] Address [address] [facility] [place] [address] Care Team Providers Care Cataract Lens Generator Name Role Phone [facility] Primary Care Provider Marichuy Meyers MD Unavailable [phone] Marichuy Meyers MD Unavailable [phone] Encounter Details Date Type Department Care Team [...] on filedocumented in this encounter Care Teams Cataract Lens Generator Relationship Specialty Start Date End Date [facility] [address] [place], [place] [address] PCP - General Internal Medicine 07/03/19 Marichuy Meyers MD [address] [place] [address] Assigned PCP 06/13/19 03/11/22 Marichuy Meyers MD [address] [place] [address] Assigned PCP 05/21/22 07/17/23 documented as of this encounter
--- OUTSIDE RECORDS SUMMARY | 2024-01-10 10:33 | XMS_ITS | Referral Summary ---
Author Organization [place] Address [facility] [place] [address] Care Team Providers Care Gas Welding Machine Operator Name Role Phone [facility] Primary Care Provider Allergies No known active [...] 65 >=50 mg/dL 2021 4:10 PM CDT [facility] LDL Cholesterol Calculated 74 <=100 mg/dL 10/06/2021 4:10 PM CDT [facility] Non HDL Cholesterol 96 <130 mg/dL 10/06/2021 4:10 PM CDT [facility] Patient Fasting > 8hrs? Yes 10/06/2021 4:10 PM [facility] LABORATORY Blood BLOOD SPECIMEN / Unknown Venipuncture / Unknown 10/05/2021 8:04 AM CDT 10/05/2021 8:13 AM CDT Narrative [facility] - 10/06/2021 4:10 PM CDT Cholesterol [...] Meyers MD LAB - BLOOD ORDERAB LES [facility] Lab [address] [facility]. Room [address] [place] [address], [place] [phone] [facility] [address] Lab (no room number, 1st floor of clinic) [place] [address], [place] [phone] * (ABNORMAL) Comprehensive metabolic panel (BMP + Alb, Alk Phos, ALT, AST, Total. Bili, TP) (10/05/2021 8:04 AM CDT) Sodium 140 133 - 144 mmol/L 10/06/2021 4:21 PM [facility] Potassium 4.7 3.4 - 5.3 mmol/L 10/06/2021 4:21 PM [facility] Comment:Specimen slightly he molyzed, potassium may be falsely elevated. Chloride 111(H) 94 - 109 mmol/L 10/06/2021 4:21 PM [facility] Carbon Dioxide (CO2) 20 20 - 32 mmol/L 10/06/2021 4:21 PM [facility] Anion Gap 9 3 - 14 mmol/L 10/06/2021 4:21 PM [facility] Urea Nitrogen 12 7 - 30 mg/dL 10/06/2021 4:21 PM [facility] Creatinine 0.53 0.52 - 1.04 mg/dL 10/06/2021 4:21 PM [facility] Calcium 9.3 8.5 - 10.1 mg/dL 10/06/2021 4:21 PM [facility] Glucose 77 70 - 99 mg/dL 10/06/2021 4:21 PM [facility] Alkaline Phosphatase 77 40 - 150 U/L 10/06/2021 4:21 PM [facility] AST 17 0 - 45 U/L 10/06/2021 4:21 PM [facility] Comment:Specimen is hemolyze d which can falsely elevate AST. Analysis of a non-hemolyzed specimen may result in a lower value. ALT 22 0 - 50 U/L 10/06/2021 4:21 PM CDT [facility] Protein Total 7.1 6.8 - 8.8 g/dL 10/06/2021 4:21 PM CDT [facility] Albumin 3.9 3.4 - 5.0 g/dL 10/06/2021 4:21 PM CDT [facility] Bilirubin Total 0.6 0.2 - 1.3 mg/dL 10/06/2021 4:21 PM CDT [facility] GFR Estimate >90 >60 mL/min/1.7 3m2 10/06/2021 4:21 PM [facility] Comment:Effective February 252020 eGFRcr in adults is calculated using the 2020 CKD-EPI creatinine equation which includes age and gender (Ching et al., NEJ, DOI: 10.1056/YEGXtr2314386) Blood BLOOD SPECIMEN / Unknown Venipuncture / Unknown 10/05/2021 8:04 AM CDT 10/05/2021 8:13 AM CDT Marichuy Meyers MD LAB - BLOOD ORDERAB LES [facility] Acute Care Lab [address] [facility]. Room [address] [place] [address], [facility] [phone] * MA Screen Right w/Nga (01/25/2021 10:55 [...] * COLONOSCOPY (01/06/2021 8:34 AM CDT) COLONOSCOPY [facility] Patient Name: Jennifer [...] continuously. The ?Olympus Adult Colonoscope, Model # CF-[id number], ?Endora # 222, SN # [id number] was introduced through ?the anus and advanced [...] neoplasm of digestive organs CPT copyright 2019 [employer]. All rights reserved. The codes documented in this report are preliminary and upon choir leader review may be revised to meet current compliance requirements. Electronically signed by Gabriel Forde MD __ Gabriel Forde MD 01/06/2021 9:08:19 AM I was physically present for the entire viewing portion of the exam. Gabriel Forde MD Number of Addenda: 0 Note Initiated On: 01/06/2021 8:34 AM MRN: ?[id number] Procedure Date: ? 01/06/2021 8:34:55 AM Scope [...] Recently Relevant to Health Maintenance Care Teams Gas Welding Machine Operator Relationship Specialty Start Date End Date Clinic - [address] [address] PCP - General Internal Medicine 07/03/19
--- OUTSIDE RECORDS SUMMARY | 2024-01-10 10:33 | XMS_ITS | Clinical Summary ---
Author Organization [facility] [facility] Address [place], [place] [address] Care Team Providers Care Worm Sorter Name Role Phone Johanna Thompson MD Primary [...] 01/23/2012 Asthma 01/23/2012 Degenerative disk disease 01/23/2012 Overview (01/23/2012): Cervical spine 3rd Benign positional vertigo Immunizations [...] Comments Blood Pressure 116/78 04/03/2014 9:45 AM PAINTER SIGN MAINTENANCE Pulse 76 04/03/2014 9:45 AM PAINTER SIGN MAINTENANCE Temperature - - Respiratory Rate 18 06/07/2013 9:37 AM CDT Oxygen Saturation - - Inhaled Oxygen Concentration - - Weight 81.8 kg (180 lb 4.8 oz) 04/03/2014 9:45 A M PAINTER SIGN MAINTENANCE Height 150.5 cm (4' 11.25) 04/03/2014 9:[address] Body Mass Index 36.11 04/03/2014 9:45 AM PAINTER SIGN MAINTENANCE Plan of Treatment Health Maintenance Due Date Last Done Comments Depression screening for age 12+ 1960 BMI (ht and wt on same day) for age 18+ 1966 Zoster (shingles) series for age 50+ (2 of 3) 05/22/2009 03/27/2009 DEXA/DXA scan for age 65+ 2013 Pneumococcal series for age 65+ (2 of 2 - PCV) 2013 03/27/2009 Lipids for age 45-75 04/03/2019 04/03/2014, 06/07/2013, 03/15/2013, Additional history exists Tetanus booster 01/24/2022 01/25/2012 Colonoscopy through age 75 05/30/2023 05/29/2013, RSV vaccine for adults or (1 - 1-dose 75+ series) 11/13/2023 COVID-19 vaccine series ( - 2023- season) 2023 Influenza for age 65+ 11/26/2023 12/26/2013 , 12/25/2013, 12/29/2012 Tdap Completed 01/25/2012 Hepatitis C screening for ag e 18-79 Completed 03/15/2013 Procedures Procedure Name Priority Date/Time Associated Diagnosis Comments LIPID PANEL W REFLEX MEASURED LDL Routine 04/03/2014 10:36 AM PAINTER SIGN MAINTENANCE Hyperlipemia COLONOSCOPY SCREENING Routine 05/29/2013 12:00 AM PAINTER SIGN MAINTENANCE Colon cancer screening ANTI HCV Routine 03/15/2013 11:15 AM PAINTER SIGN MAINTENANCE Need for hepatitis C screening test from Last 3 Months or Most Recently Relevant to Health Maintenance Results * (ABNORMAL) LIPID PANEL W REFLEX MEASURED LDL (04/03/2014 10:36 AM PAINTER SIGN MAINTENANCE) CHOLESTEROL,TOTAL 194 100 - 199 mg/dL 04/03/2014 2:48 PM PAINTER SIGN MAINTENANCE [facility] TRIGLYCERIDES 153(H) <150 mg/dL 04/03/2014 2:48 PM PAINTER SIGN MAINTENANCE [facility] HDL CHOLESTEROL 59 >40 mg/dL 5 2:48 PM PAINTER SIGN MAINTENANCE [facility] NON-HDL CHOLESTEROL 135 <145 mg/dl 04/03/2014 2:48 PM PAINTER SIGN MAINTENANCE [facility] CHOL/HDL RATIO 3.29 <4.50 04/03/2014 2:48 PM PAINTER SIGN MAINTENANCE [facility] LDL CHOLESTEROL 104 <=130 mg/dL 04/03/2014 2:48 PM PAINTER SIGN MAINTENANCE [facility] PATIENT STATUS FASTING 04/03/2014 2:48 PM PAINTER SIGN MAINTENANCE [facility] Blood specimen (specimen) BLOOD SPECIMEN / Unknown Butterfly / Unknown 04/03/2014 10:36 AM PAINTER SIGN MAINTENANCE 04/03/2014 10:36 AM PAINTER SIGN MAINTENANCE Johanna Thompson MD [facility] [address] [place] [address], * COLONOSCOPY SCREENING (05/29/2013 12:00 AM PAINTER SIGN MAINTENANCE) Narrative 05/29/2013 12:00 AM PAINTER SIGN MAINTENANCE Procedure Note Scanner - 05/29/2013 12:00 AM CST Johanna Thompson MD GI PROCEDURE ORD * ANTI HCV [69829.2] (03/15/2013 11:15 AM PAINTER SIGN MAINTENANCE) ANTI HCV Non-reacti ve [facility] Blood specimen (specimen) BLOOD SPECIMEN / Unknown 03/15/2013 11:15 AM PAINTER SIGN MAINTENANCE 03/15/2013 11:09 AM PAINTER SIGN MAINTENANCE Johanna Thompson MD SEND OUTS [facility] INTERNAL ZIP [phone] [address] from Last 3 Months or Most Recently Relevant to Health Maintenance Care Teams Worm Sorter Relationship Specialty Start Date End Date Johanna Thompson MD PCP - General Internal Medicine 12/03/11
--- OUTSIDE RECORDS SUMMARY | 2024-01-10 10:33 | XMS_ITS | Encounter Summary ---
Author Organization [place] Address [facility] [place] [address] Care Team Providers Care Hot Baller Name Role Phone [facility] Primary Care Provider Marichuy Meyers MD Unavailable [phone] Marichuy Meyers MD Unavailable [phone] Encounter Details Date Type Department Care Team (Late st Contact Info) Description 11/11/2020 MyC Medical Advice [facility] [address] [facility] [address] [place] [address] Clement Stevenson RN Social History [...] on filedocumented in this encounter Care Teams Hot Baller Relationship Specialty Start Date End Date [facility] [address] [place] [address] PCP - General Internal Medicine 07/03/19 Marichuy Meyers MD [address] [address] Assigned PCP 06/13/19 03/11/22 Marichuy Meyers MD [address] [facility] [address] [place] [address] Assigned PCP 05/21/22 07/17/23 documented as of this encounter
--- OUTSIDE RECORDS SUMMARY | 2024-01-10 10:33 | XMS_ITS | Clinical Summary ---
Author Organization [facility] Address [address] [place] [address] Care Team Providers Care Invoicing Machine Operator Name Role Phone Elsewhere, Pcp Primary Care Provider Unavailabl e Source Comments Patient records contain information from all sites at [facility]. For routine questions regarding patient records, call [phone] during business hours, M-F 8:00 AM - 5:00 PM Central Time. Record requests for emergency care only can be directed to [phone] at any time.[facility] Allergies Active Allergy Reactions Criticality Noted Date Comments Mold Wheezing (Reselect Reaction) 07/19/2017 Watery eyes and nose Pollen Extracts Wheezing (Reselect Reaction) 07/19/2017 Watery eyes and nose Medications fluticasone (FLONASE ALLERGY RELIEF) 50 mcg/actuation nasal spray Administer 1 puff into affected nostril(s) 2 (two) times a day. 7 Active albuterol 90 mcg/actuation inhaler Inhale 2 puffs every 6 (six) hours. 2 Active pravastatin (PRAVACHOL) 10 mg tablet every evening. 2 Active vitamins A,C,E-zinc-shauna er (PRESERVISION AREDS) 7,160 Units-113 mg-100 Units per tablet Take 1 tablet by mouth daily. Active cyanocobalamin (VITAMIN B12) 1,000 mcg tablet Take 1,000 mcg by mouth daily. Active fluticasone propion-salmete roL 250-50 mcg/dose diskus inhaler Inhale 1 puff 2 (two) times a day. 3 Active Active Problems Problem Noted Date Diagnosed [...] Recorded Dental: Regular Dentist Unknown 05/29/19 21 Comments Unknown Sex and Gender Information Value Date Recorded Sex Assigned at Female 01/20/2023 8:11 PM CDT Legal Sex Female 5:58 AM MANAGER TECHNICAL Gender Identity Female 03/03/2017 6:11 AM MANAGER TECHNICAL Sexual Orientation Straight 03/03/2017 6: 11 AM MANAGER TECHNICAL Last Filed Vital Signs Vital Sign Reading [...] 01/25/2023 1:49 PM CDT Plan of Treatment Upcoming Encounters Date Type Department Care Team (Latest Contact Info) Description 02/05/2024 9:15 AM MANAGER TECHNICAL Clinical Communication Virtual Review in [address] [address] 02/06/2024 10:20 AM MANAGER TECHNICAL Appointment Department of Laboratory Medicine and Pathology, [facility] in [address] [address] Maite Dennis P.A.-C., M.S. [address] [place] [phone] 02/06/2024 11:30 AM MANAGER TECHNICAL Appointment Department of Radiology, [facility], in [address] [address] Maite Dennis P.A.-C., M.S. [address] [place] [phone] 02/06/2024 2:00 PM MANAGER TECHNICAL Office Visit Department of Oncology in [address] [address] Maite Dennis P.A.-C., M.S. [address] [place] [phone] Health Maintenance Due Date Last Done Comments Bone Density Scan (Osteoporosis Screen) 1948 CT Colonography 1948 Cologuard 1948 Hepatitis C Screening 1950 Mammogram 01/25/2022 01/25/2021, 1103/2020, 01/13/2020, Additional history exists Depression Screening (Annual PHQ-2) 03/27/2023 Fall Risk Screen (Annual) 03/27/2023 COVID-19 Vaccine ( season) 2023 06/02/2023, 12/23/2022, 07/27/2022, Additional history exists Influenza Vaccine (#1) 2023 , 11/30/2021, 12/11/2019, [...] exists Zoster Vaccines Completed 02/10/2020, 11/25, 03/27/2009 RSV vaccine - (32-36 weeks) or 60+ years Completed 12/12/2022 Lung Cancer Screening Discontinued 01/25/2023 , 01/31/2022, 03/01/2021, Additional history exists HPV Vaccines Aged Out No longer eligi ble based on patient's age to complete this topic Medical Devices Implanted Type Area Android Ios Developer Device Identifier Shelf Expiration Date Model / [...] LIPID PANEL, S Routine 06/05/2020 7:40 AM MANAGER TECHNICAL 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 us Maite Dennis P.A.-C. M.S. IMG CT PROCEDURES Fin al Result * (ABNORMAL) Comprehensive Metabolic Panel (01/25/2023 10:03 AM CDT) Pathologist [facility] Potassium, S 4.3 3.6 - 5.2 [...] CDT Maite Dennis P.A.-C., M.S. LAB BLOOD ADD-ON Andreina l Result [facility] [address] [place] [address], [facility] [address] [place] [address] * Lipid Panel (06/05/2020 7:40 AM MANAGER TECHNICAL) Cholesterol, Total 180 mg/dL 2020 8:40 AM MANAGER TECHNICAL DTL Comment: ----REFERENCE VALUE---- Desirable: < 200 Borderline high: 200 - 239 High: > or = 240 Triglycerides 113 mg/dL 06/05/2020 8:40 AM MANAGER TECHNICAL DTL Comment: ----REFERENCE VALUE---- Normal: <150 Borderline high: 150-199 High: 200-499 Very high: > or =500 Cholesterol, HDL, S 63 >=50 mg/dL 06/05/2020 8:40 AM MANAGER TECHNICAL DTL Calculated LDL 94 mg/dL 06/05/2020 8:40 AM MANAGER TECHNICAL DTL Comment: ----REFERENCE VALUE---- Desirable: <100 Above Desirable: 100-129 Borderline high: 130-159 High: 160-189 Very high: > or =190 Cholesterol, Non-HDL, Calculated 117 mg/dL 06/05/2020 8:40 AM MANAGER TECHNICAL DTL Comment: ----REFERENCE VALUE---- Desirable: <130 Above Desirable: 130-159 Borderline high: 160-189 High: 190-219 Very high: > or =220 Blood (Blood, Venous) 06/05/2020 7:40 AM MANAGER TECHNICAL 06/05/2020 8:01 AM MANAGER TECHNICAL Maite Dennis P.A.-C. MDevenS. LAB BLOOD ADD-ON Andreina l Result [facility] [address] [place] [address], [facility] DTL [facility] [address] [place] [address] * MR Breast (07/20/2017 10:28 AM CDT) [...] Electronically signed by: ?? Cordelia Costa MD [phone] 20-Jul-2017 14:13 ?Rajat Malone MD. ??[id number] 20-Jul-2017 [...] Benign. Electronically signed by: Cordelia Costa MD [phone] 20-Jul-2017 14:13 Rajat Malone MD. [id number] 14:13 Abdi Alvarez M.D. IMG MRI PROCEDURES Final Resu lt from Last 3 Months or Most Recently Relevant to Health Maintenance Insurance [facility] Advance Directives For more information, please contact: [phone] Documents on File Type Date Recorded Patient Librarian Assistant Expl anation Advance Directives 03/01/2021 9:46 AM [...] Second Alternate Health Care Agent Care Teams Invoicing Machine Operator Relationship Specialty Start Date End Date Elsewhere, Pcp PCP - General Internal Medicine 01/23/23
--- OUTSIDE RECORDS SUMMARY | 2024-01-10 10:33 | XMS_ITS | Referral Summary ---
Author Organization [facility] Address [address] [place] [address] Care Team Providers Care Water Sander Name Role Phone Elsewhere, Pcp Primary Care Provider Unavailabl e Source Comments Patient records contain information from all sites at [facility]. For routine questions regarding patient records, call [phone] during business hours, M-F 8:00 AM - 5:00 PM Central Time. Record requests for emergency care only can be directed to [phone] at any time.[facility] Allergies Active Allergy Reactions Criticality Noted Date [...] PM CDT Legal Sex Female 5:58 AM QUALITY SUPERVISOR Gender Identity Female 03/03/2017 6:11 AM QUALITY SUPERVISOR Sexual Orientation Straight 03/03/2017 6: 11 AM QUALITY SUPERVISOR Last Filed Vital Signs Vital Sign Reading [...] (Latest Contact Info) Description 02/05/2024 9:15 AM QUALITY SUPERVISOR Clinical Communication Virtual Review in [place], [place] [address] [place] [address] 02/06/2024 10:20 AM QUALITY SUPERVISOR Appointment Department of Laboratory Medicine and Pathology, [address] [phone] Maite Dennis P.A.-C., M.S. [address] [place] [phone] 02/06/2024 11:30 AM QUALITY SUPERVISOR Appointment Department of Radiology, [facility] in [address] [address] Maite Dennis P.A.-C., M.S. [address] [place] [phone] 02/06/2024 2:00 PM QUALITY SUPERVISOR Office Visit Department of Oncology in [address] [address] Maite Dennis P.A.-C., M.S. 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 LAB BLOOD ADD-ON Andreina l Result [facility] [address] [place] [address], [facility] [address] [place] [address] * Lipid Panel (06/05/2020 7:40 AM QUALITY SUPERVISOR) [facility] Cholesterol, Total 180 mg/dL 2020 8:40 AM QUALITY SUPERVISOR DTL Comment: ----REFERENCE VALUE---- Desirable: < 200 Borderline high: 200 - 239 High: > or = 240 Triglycerides 113 mg/dL 06/05/2020 8:40 AM QUALITY SUPERVISOR DTL Comment: ----REFERENCE VALUE---- Normal: <150 Borderline high: 150-199 High: 200-499 Very high: > or =500 Cholesterol, HDL, S 63 >=50 mg/dL 06/05/2020 8:40 AM QUALITY SUPERVISOR DTL Calculated LDL 94 mg/dL 06/05/2020 8:40 AM QUALITY SUPERVISOR DTL Comment: ----REFERENCE VALUE---- Desirable: <100 Above Desirable: 100-129 Borderline high: 130-159 High: 160-189 Very high: > or =190 Cholesterol, Non-HDL, Calculated 117 mg/dL 06/05/2020 8:40 AM QUALITY SUPERVISOR DTL Comment: ----REFERENCE VALUE---- Desirable: <130 Above Desirable: 130-159 Borderline high: 160-189 High: 190-219 Very high: > or =220 Blood (Blood, Venous) 06/05/2020 7:40 AM QUALITY SUPERVISOR 06/05/2020 8:01 AM QUALITY SUPERVISOR Maite Dennis P.A.-C. M.S. LAB BLOOD ADD-ON Andreina l Result [facility] [address] [place] [address], [place] [facility] [address] [place] [address] * MR Breast (07/20/2017 10:28 AM CDT) [...] Electronically signed by: ?? Cordelia Costa MD [phone] 20-Jul-2017 14:13 ?Rajat Malone MD. ??[id number] 20-Jul-2017 [...] Benign. Electronically signed by: Cordelia Costa MD [phone] 20-Jul-2017 14:13 Rajat Malone MD. [id number] 14:13 Abdi Alvarez M.D. IMG MRI PROCEDURES Final Resu lt from Last 3 Months or Most Recently Relevant to Health Maintenance Insurance [facility] Advance Directives For more information, please contact: [phone] Documents on File Type Date Recorded Patient Awning Maker And Installer Expl anation Advance Directives 03/01/2021 9:46 AM [...] Second Alternate Health Care Agent Care Teams Water Sander Relationship Specialty Start Date End Date Elsewhere, Pcp PCP - General Internal Medicine 01/23/23
--- OUTSIDE RECORDS SUMMARY | 2024-01-10 10:33 | XMS_ITS ---
Author Organization [facility] Address [address] [place] [address] Care Team Providers Care Laborer Landscape Name Role Phone Unavailable Unavailable Unavailable Surgery Details Not on file Complications Check Surgery Details section. Procedure Estimated Blood Loss Check Surgery Details section. Procedure Findings Check Surgery Details section. Procedure Specimens Taken Check Surgery Details section.
--- OUTSIDE RECORDS SUMMARY | 2024-01-10 10:33 | XMS_ITS | Encounter Summary ---
Author Organization [facility] Address [address] [place] [address] Care Team Providers Care Nuclear Power Plant Engineer Name Role Phone Elsewhere, Pcp Primary Care Provider Unavailabl e Encounter Details Date Type Department Care Team (Late st Contact Info) Description 06/10/2016 Historical Ophthalmology [facility] Miguel Odonnell M.D. [address] [place] [address] Social History Tobacco Use Types Packs/Day Years Used Date Smoking Tobacco: Never Assessed Comments Unknown Sex and Gender Information Value Date Recorded Sex Assigned at Female 01/20/2023 8:11 PM CDT Legal Sex Female 5:58 AM SPORTS AGENT Gender Identity Female 03/03/2017 6:11 AM SPORTS AGENT Sexual Orientation Straight 03/03/2017 6: 11 AM SPORTS AGENT documented as of this encounter Progress Notes [...] #2 cataracts CDM Reports - EYEGEN Id: [id number] Status: Fnl documented in this encounter Plan of Treatment Upcoming Encounters Date Type Department Care Team (Latest Contact Info) Description 02/05/2024 9:15 AM SPORTS AGENT Clinical Communication Virtual Review in [place], [place] [address] [place] [address] 02/06/2024 10:20 AM SPORTS AGENT Appointment Department of Laboratory Medicine and Pathology, [facility] in [address] [address] Maite Dennis P.A.Vic., M.S. [address] [place] [phone] 02/06/2024 11:30 AM SPORTS AGENT Appointment Department of Radiology, [facility] in [address] [address] Maite Dennis P.A.Vic., M.S. [address] [place] [phone] 02/06/2024 2:00 PM SPORTS AGENT Office Visit Department of Oncology in [address] [phone] Maite Dennis P.A.Vic., M.S. [address] [place] [phone] documented as of this encounter Visit Diagnoses Not on filedocumented in this encounter Care Teams Nuclear Power Plant Engineer Relationship Specialty Start Date End Date Elsewhere, Pcp PCP - General Internal Medicine 01/23/23 documented as of this encounter
== END 2024-01-09 08:36 | disposition home or self-care (01) ==
LOC: NFLDREF 01-10 10:29
PROVIDERS: PCP Internal Medicine; Referring Provider Internal Medicine; Visit Provider Internal Medicine
DX: E78.5 Hyperlipidemia, unspecified (principal)
CPT/HCPCS: 80061

== ENCOUNTER 2024-02-27 09:25 | Outpatient (CLI) | payer MEDICARE, SELFPAY ==
--- OUTSIDE RECORDS SUMMARY | 2024-02-27 09:29 | XMS_ITS | Encounter Summary ---
Author Organization [place] Address [facility] [place] [address] Care Team Providers Care Product Engineering Manager Name Role Phone [facility] Primary Care Provider Marichuy Meyers MD Unavailable [phone] Marichuy Meyers MD Unavailable [phone] Encounter Details Date Type Department Care Team (Late st Contact Info) Description 11/11/2020 MyC Medical Advice [address] [place] [address] Clement Stevenson RN Social History Tobacco Use Types Packs/Day Years Used Date Smoking Tobacco: Former Cigarettes Q uit: 07/03/2002 Smokeless Tobacco: Never Alcohol Use Standard Drinks/Week Comments Yes 0 (1 standard drink = 0.6 oz pur e alcohol) rare PHQ-2 Answer Date Recorded PHQ-2 Score 0 06/09/2020 Comments No Sex and Gender Information Value Date Recorded Sex Assigned at Not on file Legal Sex Female 9:04 AM BACK END WEB DEVELOPER Gender Identity Not on file Sexual Orientation Not on file documented as of this encounter Plan of Treatment Not on file documented as of this encounter Visit Diagnoses Not on filedocumented in this encounter Care Teams Product Engineering Manager Relationship Specialty Start Date End Date [facility] [address] [place], [place] [id number] PCP - General Internal Medicine 07/03/19 Marichuy Meyers MD [address] [place] [address] Assigned PCP 06/13/19 03/11/22 Marichuy Meyers MD [address] [place] [address] Assigned PCP 05/21/22 07/17/23 documented as of this encounter
--- OUTSIDE RECORDS SUMMARY | 2024-02-27 09:29 | XMS_ITS | Referral Summary ---
Author Organization [facility] Address [address] [place] [address] Care Team Providers Care Production Control Analyst Name Role Phone Elsewhere, Pcp Primary Care Provider Unavailabl e Source Comments Patient records contain information from all sites at [facility]. For routine questions regarding patient records, call [phone] during business hours, M-F 8:00 AM - 5:00 PM Central Time. Record requests for emergency care only can be directed to [phone] at any time.[facility] Encounters Date Type Department Care Team Description 02/06/2024 10:04 AM ASSISTANT INFANT TODDLER TEACHER - 02/06/2024 10:59 AM ASSISTANT INFANT TODDLER TEACHER Hospital Encounter Department of Laboratory Medicine and Pathology, [facility] in [place], [place] [address] [place] [address] Maite Dennis P.A.-C., M.S. 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 Care 02/06/2024 11:00 AM ASSISTANT INFANT TODDLER TEACHER - 02/06/2024 11:59 PM ASSISTANT INFANT TODDLER TEACHER Hospital Encounter Department of Radiology, [facility] in [place], [place] [address] [place] [address] Maite Dennis P.A.-C., M.S. 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 Care 02/06/2024 2:00 PM ASSISTANT INFANT TODDLER TEACHER Office Visit Department of Oncology in [place], [place] [address] [place] [address] Maite Dennis P.A.-C., M.S. 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) from Last 3 Months Allergies Active Allergy [...] Answer Date Recorded Nutrition: EVOO Fat Source 13 12/09 Nutrition: Servings of Fruits/Vegetables per Day Not on file 12/10/2019 Dental Answer Date Recorded Dental: Regular Dentist Unknown 05/29/19 21 Comments Unknown Sex and Gender Information Value Date Recorded Sex Assigned at Female 01/20/2023 8:11 PM CDT Legal Sex Female 5:58 AM ASSISTANT INFANT TODDLER TEACHER Gender Identity Female 03/03/2017 6:11 AM ASSISTANT INFANT TODDLER TEACHER Sexual Orientation Straight 03/03/2017 6: 11 AM ASSISTANT INFANT TODDLER TEACHER Last Filed Vital Signs Vital Sign Reading Time Taken Comments Blood Pressure 126/69 02/06/2024 2:04 PM ASSISTANT INFANT TODDLER TEACHER Pulse 81 02/06/2024 2:04 PM ASSISTANT INFANT TODDLER TEACHER Temperature 37.2 C (99 F) 02/06/2024 2:04 PM ASSISTANT INFANT TODDLER TEACHER Respiratory Rate 14 02/06/2024 2:04 PM ASSISTANT INFANT TODDLER TEACHER Oxygen Saturation 96% 02/06/2024 2:04 PM ASSISTANT INFANT TODDLER TEACHER Inhaled Oxygen Concentration - - Weight 66.7 kg (147 lb 0.8 oz) 02/06/2024 2:04 P M ASSISTANT INFANT TODDLER TEACHER Height 147.3 cm (4' 9.99) 01/25/2023 1:49 PM CD T Body Mass Index 30.74 01/25/2023 1:49 PM CDT Plan of Treatment Not on file Medical Devices Implanted Type Area Tunnel Mucker Device Identifier Shelf Expiration Date Model / Serial / Lot Conversions - Default Historical Implant Device Implanted:07/11 (Quantity not on file) Misc Other Left: Breast Description:Body Location - Breast L. Device Status Text - MiscOther. titanium marker. Procedures Procedure Name Priority Date/Time Associated Diagnosis Comments CT CHEST WITHOUT IV CONTRAST RAD - Routine (most inpatients and all outpatients) 02/06/2024 11:11 AM ASSISTANT INFANT TODDLER TEACHER Angiosarcoma Soft Tissue (HCC) COMPREHENSIVE METABOLIC PANEL, S/P Routine 02/06/2024 10:23 AM ASSISTANT INFANT TODDLER TEACHER Angiosarcoma Soft Tissue (HCC) CBC WITH DIFFERENTIAL, B Routine 02/06/2024 10:23 AM ASSISTANT INFANT TODDLER TEACHER Angiosarcoma Soft Tissue (HCC) LIPID PANEL, S Routine 06/05/2020 7:40 AM ASSISTANT INFANT TODDLER TEACHER Angiosarcoma Soft Tissue (HCC) MR BREAST UNILATERAL Routine 07/20/2017 10:28 AM CDT from Last 3 Months or Most Recently Relevant to Health Maintenance Results * CT Chest without IV Contrast (02/06/2024 11:11 AM ASSISTANT INFANT TODDLER TEACHER) Anatomical Region Laterality Modality Chest, Thoracic RST LOS, Tho racic ARZ LOS, Thoracic FLA LOS N/A Computed Tomography, Compute d Tomography Impressions 02/06/2024 12:43 PM ASSISTANT INFANT TODDLER TEACHER Stable chest CT findings with no new or enlarging findings suggestive of metastatic disease. Narrative 02/06/2024 12:43 PM ASSISTANT INFANT TODDLER TEACHER EXAM: CT CHEST WITHOUT IV CONTRAST COMPARISON: 01/25/2023 FINDINGS: Stable less than 1 mm tiny micronodule in the central left lower lobe (series 3/image 394) which was new on 01/25/2023. There are additional micronodules which are stable. For example left lower lobe (3/390). No definite new or enlarging pulmonary nodules. No lymphadenopathy. Aortic, coronary artery and mitral annulus calcification. No pericardial or pleural effusion. Stable surgical changes left mastectomy with associated chest wall and axillary post operative changes. Stable slight nodularity of the left adrenal gland. Slices through the upper abdomen otherwise negative. Stable left anterior sixth rib sclerosis which may be secondary to post radiation treatment. Mild degenerative changes of the spine. No aggressive osseous lesions. 3D maximum intensity projection (MIP) images were created on a dependent workstation as ordered by the treating provider and reviewed by the radiologist to increase sensitivity for detection of pulmonary nodules. Procedure Note Cm King M.D. - 02/06/2024 EXAM: CT CHEST WITHOUT IV CONTRAST COMPARISON: 01/25/2023 FINDINGS: Stable less than 1 mm tiny micronodule in the central left lower lobe(series 3/image 394) which was new on 01/25/2023. There are additionalmicronodules which are stable. For example left lower lobe (3/390). Nodefinite new or enlarging pulmonary nodules. No lymphadenopathy. Aortic, coronary artery and mitral annulus calcification. No pericardialor pleural effusion. Stable surgical changes left mastectomy with associated chest wall andaxillary post operative changes. Stable slight nodularity of the left adrenal gland. Slices through theupper abdomen otherwise negative. Stable left anterior sixth rib sclerosis which may be secondary to postradiation treatment. Mild degenerative changes of the spine. No aggressiveosseous lesions. 3D maximum intensity projection (MIP) images were created on a dependentworkstation as ordered by the treating provider and reviewed by theradiologist to increase sensitivity for detection of pulmonary nodules. IMPRESSION: Stable chest CT findings with no new or enlarging findings suggestive ofmetastatic disease. us Maite Dennis P.A.-C., M.S. IMG CT PROCEDURES Fin al Result * (ABNORMAL) CBC with Differential, Blood (02/06/2024 10:23 AM ASSISTANT INFANT TODDLER TEACHER) Hemoglobin 13.2 11.6 - 15.0 g/dL 02/06/2024 11:16 AM ASSISTANT INFANT TODDLER TEACHER DTL Hematocrit 40.5 35.5 - 44.9 % 02/06/2024 11:16 AM ASSISTANT INFANT TODDLER TEACHER DTL Erythrocytes 4.01 3.92 - 5.13 x10(12)/L 02/06/2024 11:16 AM ASSISTANT INFANT TODDLER TEACHER DTL MCV 101.0(H) 78.2 - 97.9 fL 02/06/2024 11:16 AM ASSISTANT INFANT TODDLER TEACHER DTL RBC Distrib Width 13.1 12.2 - 16.1 % 02/06/2024 11:16 AM ASSISTANT INFANT TODDLER TEACHER DTL Platelet Count 259 157 - 371 x10(9)/L 02/06/2024 11:16 AM ASSISTANT INFANT TODDLER TEACHER DTL Leukocytes 7.5 3.4 - 9.6 x10(9)/L 02/06/2024 11:16 AM ASSISTANT INFANT TODDLER TEACHER DTL Neutrophils 4.86 1.56 - 6.45 x10(9)/L 02/06/2024 11:16 AM ASSISTANT INFANT TODDLER TEACHER DHPM Lymphocytes 1.75 0.95 - 3.07 x10(9)/L 02/06/2024 11:16 AM ASSISTANT INFANT TODDLER TEACHER DTL Monocytes 0.65 0.26 - 0.81 x10(9)/L 02/06/2024 11:16 AM ASSISTANT INFANT TODDLER TEACHER DTL Eosinophils 0.22 0.03 - 0.48 x10(9)/L 02/06/2024 11:16 AM ASSISTANT INFANT TODDLER TEACHER DTL Basophils 0.04 0.01 - 0.08 x10(9)/L 02/06/2024 11:16 AM ASSISTANT INFANT TODDLER TEACHER DTL Blood (Blood, Venous) 02/06/2024 10:23 AM ASSISTANT INFANT TODDLER TEACHER 02/06/2024 10:44 AM ASSISTANT INFANT TODDLER TEACHER Maite Dennis P.A.-C., M.S. LAB BLOOD ADD-ON Andreina l Result [facility] [address] [place] [address], [facility] DTL [facility] [address] [place] [address] [facility] [address] [place] [address] * (ABNORMAL) Comprehensive Metabolic Panel (02/06/2024 10:23 AM ASSISTANT INFANT TODDLER TEACHER) Pathologist [facility] Potassium, S 5.0 3.6 - 5.2 mmol/L 02/06/2024 11:26 AM ASSISTANT INFANT TODDLER TEACHER DTL Sodium, S 142 135 - 145 mmol/L 02/06/2024 11:26 AM ASSISTANT INFANT TODDLER TEACHER DTL Chloride, S 108(H) 98 - 107 mmol/L 02/06/2024 11:26 AM ASSISTANT INFANT TODDLER TEACHER DTL Bicarbonate, S 26 22 - 29 mmol/L 02/06/2024 11:26 AM ASSISTANT INFANT TODDLER TEACHER DTL Anion Gap 8 7 - 15 02/06/2024 11:26 AM ASSISTANT INFANT TODDLER TEACHER DTL BUN (Blood Urea Nitrogen), S 19 6 - 21 mg/dL 02/06/2024 11:26 AM ASSISTANT INFANT TODDLER TEACHER DTL Creatinine 0.85 0.59 - 1.04 mg/dL 02/06/2024 11:26 AM ASSISTANT INFANT TODDLER TEACHER DTL Estimated GFR (eGFR) 71 >=60 mL/min/BS A 02/06/2024 11:26 AM ASSISTANT INFANT TODDLER TEACHER DTL Comment: Estimated GFR calculated using the 2020 CKD_EPI creatinine equation. Calcium, Total, S 9.8 8.8 - 10.2 mg/dL 02/06/2024 11:26 AM ASSISTANT INFANT TODDLER TEACHER DTL Glucose, S 90 70 - 140 mg/dL 02/06/2024 11:26 AM ASSISTANT INFANT TODDLER TEACHER DTL Protein, Total, S 6.2(L) 6.3 - 7.9 g/dL 02/06/2024 11:26 AM ASSISTANT INFANT TODDLER TEACHER DTL Albumin, S 4.4 3.5 - 5.0 g/dL 02/06/2024 11:26 AM ASSISTANT INFANT TODDLER TEACHER DTL Aspartate Aminotransferase (AST), S 15 8 - 43 U/L 02/06/2024 11:26 AM ASSISTANT INFANT TODDLER TEACHER DTL Alkaline Phosphatase, S 71 35 - 104 U/L 02/06/2024 11:26 AM ASSISTANT INFANT TODDLER TEACHER DTL Alanine Aminotransferase (ALT), S 12 7 - 45 U/L 02/06/2024 11:26 AM ASSISTANT INFANT TODDLER TEACHER DTL Bilirubin, Total, S 0.3 0.0 - 1.2 mg/dL 02/06/2024 11:26 AM ASSISTANT INFANT TODDLER TEACHER DTL Blood (Blood, Venous) 02/06/2024 10:23 AM ASSISTANT INFANT TODDLER TEACHER 02/06/2024 11:08 AM ASSISTANT INFANT TODDLER TEACHER us Maite Dennis P.A.-C., M.S. LAB BLOOD ADD-ON Andreina l Result [facility] [address] [address], [place] [address] * Lipid Panel (06/05/2020 7:40 AM ASSISTANT INFANT TODDLER TEACHER) [facility] Cholesterol, Total 180 mg/dL 2020 8:40 AM ASSISTANT INFANT TODDLER TEACHER DTL Comment: ----REFERENCE VALUE---- Desirable: < 200 Borderline high: 200 - 239 High: > or = 240 Triglycerides 113 mg/dL 06/05/2020 8:40 AM ASSISTANT INFANT TODDLER TEACHER DTL Comment: ----REFERENCE VALUE---- Normal: <150 Borderline high: 150-199 High: 200-499 Very high: > or =500 Cholesterol, HDL, S 63 >=50 mg/dL 06/05/2020 8:40 AM ASSISTANT INFANT TODDLER TEACHER DTL Calculated LDL 94 mg/dL 06/05/2020 8:40 AM ASSISTANT INFANT TODDLER TEACHER DTL Comment: ----REFERENCE VALUE---- Desirable: <100 Above Desirable: 100-129 Borderline high: 130-159 High: 160-189 Very high: > or =190 Cholesterol, Non-HDL, Calculated 117 mg/dL 06/05/2020 8:40 AM ASSISTANT INFANT TODDLER TEACHER DTL Comment: ----REFERENCE VALUE---- Desirable: <130 Above Desirable: 130-159 Borderline high: 160-189 High: 190-219 Very high: > or =220 Blood (Blood, Venous) 06/05/2020 7:40 AM ASSISTANT INFANT TODDLER TEACHER 06/05/2020 8:01 AM ASSISTANT INFANT TODDLER TEACHER Maite Dennis P.A.-C., M.S. LAB BLOOD ADD-ON Andreina l Result [facility] [address] [place] [address], [facility] [address] [place] [address] * MR Breast (07/20/2017 10:28 AM CDT) [...] Benign. Electronically signed by: Cordelia Costa MD [phone] 20-Jul-2017 14:13 Rajat Malone MD. [phone] 20-Jul-2017 14:13 Narrative 07/20/2017 2:13 PM CDT 20-Jul-2017 10:28:00 Exam: MRI BREAST, BILATERAL Indications: [...] BREAST: No suspicious mass, architectural distortion, or abnormal enhancement. [...] cancer in 2004 for which she underwent breastconservation treatment. In [...] Benign. Electronically signed by: Cordelia Costa MD [phone] 20-Jul-2017 14:13 Rajat Malone MD. [id number] 14:13 Abdi Alvarez M.D. IMG MRI PROCEDURES Final Resu lt from Last 3 Months or Most Recently Relevant to Health Maintenance Insurance [facility] Advance Directives For more information, please contact: [phone] Documents on File Type Date Recorded Patient Seasonal Recruiter Expl anation Advance Directives 03/01/2021 9:46 AM [...] Second Alternate Health Care Agent Care Teams Production Control Analyst Relationship Specialty Start Date End Date Elsewhere, Pcp PCP - General Internal Medicine 01/23/23
--- OUTSIDE RECORDS SUMMARY | 2024-02-27 09:29 | XMS_ITS | Referral Summary ---
Author Organization [facility] Address [address] [facility] [place] [address] Care Team Providers Care Mine Analyst Name Role Phone [facility] Primary Care Provider Allergies No known active allergies Medications fluticasone-salme terol (ADVAIR DISKUS) 250-50 MCG/DOSE inhalerIndication s:Moderate persistent asthma without complication INHAL 1 PUFF BY MOUTH TWICE DAILY RINSE MOUTH AFTER EACH USE 180 each 1 1 Active PROAIR RESPICLICK 108 (90 Base) MCG/ACT inhalerIndication s:Moderate persistent asthma without complication INHALE 2 PUFFS BY MOUTH EVERY 6 HOURS NEEDED FOR WHEEZE OR FOR SHORTNESS OF BREATH 1 each 1 2 Active albuterol (PROAIR HFA/PROVENTIL HFA/VENTOLIN HFA) 108 (90 Base) MCG/ACT inhalerIndication s:Moderate persistent asthma without complication Inhale 2 puffs into the lungs every 6 hours 18 g 1 2 Active pravastatin (PRAVACHOL) 10 MG tabletIndications :Hypercholesterem ia TAKE 1 TABLET BY MOUTH EVERY DAY IN THE EVENING 90 tablet 2 Active Active Problems Problem Noted Date Diagnosed [...] School Help Needed Not on file 12/16 Comments No Sex and Gender Information Value Date Recorded Sex Assigned at Not on file Legal Sex Female 9:04 AM COURTESY BOOTH CASHIER Gender Identity Not on file Sexual Orientation Not on file Last Filed Vital Signs Vital Sign Reading Time Taken Comments Blood Pressure 102/61 01/06/2021 9:30 AM CDT Pulse 74 01/06/2021 9:30 AM CDT Temperature 36.8 C (98.3 F) 01/06/2021 8:39 AM CDT Respiratory Rate 16 [...] LDL calc) (10/05/2021 8:04 AM CDT) Pathologist [facility] Cholesterol 161 <200 mg/dL 10/06/2021 4:10 [...] AM CDT 10/05/2021 8:13 AM CDT Narrative [facility] - 10/06/2021 4:10 PM CDT Cholesterol Desirable: <200 mg/dL Triglycerides Normal: Less than 150 mg/dL Borderline High: 150-199 mg/dL High: 200-499 mg/dL Very High: Greater than or equal to 500 mg/dL Direct Measure HDL Female: Greater than or equal to 50 mg/dL Male: Greater than or equal to 40 mg/dL LDL Cholesterol Desirable: <100mg/dL Above Desirable: 100-129 mg/dL Borderline High: 130-159 mg/dL High: 160-189 mg/dL Very High: >= 190 mg/dL Non HDL Cholesterol Desirable: 130 mg/dL Above Desirable: 130-159 mg/dL Borderline High: 160-189 mg/dL High: 190-219 mg/dL Very High: Greater than or equal to 220 mg/dL Marichuy Meyers MD LAB - BLOOD ORDERABLES Andreina skyler Result [facility] [address] [facility] [place] [address], [place] [phone] [facility] [address] Lab (no room number, 1st floor of clinic) [place] [address], [place] [phone] * (ABNORMAL) Comprehensive metabolic panel (BMP + Alb, Alk Phos, ALT, AST, Total. Bili, TP) (10/05/2021 8:04 AM CDT) Sodium 140 133 - 144 mmol/L 10/06/2021 4:21 PM [facility] Potassium 4.7 3.4 - 5.3 mmol/L 10/06/2021 4:21 PM [facility] Comment:Specimen slightly he molyzed, potassium may be falsely elevated. Chloride 111(H) 94 - 109 mmol/L 10/06/2021 4:21 PM [facility] Carbon Dioxide (CO2) 20 20 - 32 mmol/L 10/06/2021 4:21 PM [facility] Anion Gap 9 3 - 14 mmol/L 10/06/2021 4:21 PM [facility] Urea Nitrogen 12 7 - 30 mg/dL 10/06/2021 4:21 PM [facility] Creatinine 0.53 0.52 - 1.04 mg/dL 10/06/2021 4:21 PM [facility] Calcium 9.3 8.5 - 10.1 mg/dL 10/06/2021 4:21 PM [facility] Glucose 77 70 - 99 mg/dL 10/06/2021 4:21 PM [facility] Alkaline Phosphatase 77 40 - 150 U/L 10/06/2021 4:21 PM [facility] AST 17 0 - 45 U/L 10/06/2021 4:21 PM [facility] Comment:Specimen is hemolyze d which can falsely elevate AST. Analysis of a non-hemolyzed specimen may result in a lower value. ALT 22 0 - 50 U/L 10/06/2021 4:21 PM CDT [facility] Protein Total 7.1 6.8 - 8.8 g/dL 10/06/2021 4:21 PM CDT [facility] Albumin 3.9 3.4 - 5.0 g/dL 10/06/2021 4:21 PM CDT [facility] Bilirubin Total 0.6 0.2 - 1.3 mg/dL 10/06/2021 4:21 PM CDT [facility] GFR Estimate >90 >60 mL/min/1.7 3m2 10/06/2021 4:21 PM CDT [facility] Comment:Effective February 252020 eGFRcr in adults is calculated using the 2020 CKD-EPI creatinine equation which includes age and gender (Ching et al., NEJM, DOI: 10.1056/CMFYag7100124) Blood BLOOD SPECIMEN / Unknown Venipuncture / Unknown 10/05/2021 8:04 AM CDT 10/05/2021 8:13 AM CDT Marichuy Meyers MD LAB - BLOOD ORDERABLES Andreina l Result [facility] [address] [facility]. [address] [place] [address], [facility] [phone] * MA Screen Right w/Nga (01/25/2021 10:55 AM CDT) Anatomical Region Laterality Modality Breast Bilateral Mammography Narrative 01/27/2021 7:31 AM CDT RIGHT FULL FIELD DIGITAL SCREENING MAMMOGRAM WITH TOMOSYNTHESIS Performed on: 01/25/21 Compared to: 01/13/2020 Technique: This study was evaluated with the assistance of Computer-Aided Detection. Breast Tomosynthesis was used in interpretation. Findings: The patient is status post left mastectomy. The breast has scattered areas of fibroglandular density. There is no radiographic evidence of malignancy. IMPRESSION: ACR BI-RADS Category 1: Negative RECOMMENDED FOLLOW-UP: Annual routine screening mammogram The results and recommendations of this examination will be communicated to the patient. Marichuy Meyers MD IMG MAMMOGRAPHY ORDERABLES Final Result * COLONOSCOPY (01/06/2021 8:34 AM CDT) COLONOSCOPY [facility] [place] Patient Name: Jennifer Schwab Procedure Date: 01/06/2021 8:34 AM Date of : 1950 Admit Type: Outpatient Age: 70 Gender: Female Attending MD: Gabriel Forde MD Total Sedation Time: 16_minutes continuous bedside 1:1 Instrument Name: 222 - Adult Colonoscope Procedure: Colonoscopy Indications: Screening patient at increased risk: Family history of colorectal cancer in multiple 1st-degree relatives Providers: Gabriel Forde MD (Doctor) Referring MD: Medicines: Midazolam 1 mg IV, Fentanyl 50 micrograms IV Complications: No immediate complications. Procedure: Pre-Anesthesia Assessment: - Prior to the procedure, a History and Physical was performed, and patient medications and allergies were reviewed. The patient is competent. The risks and benefits of the procedure and the sedation options and risks were discussed with the patient. All questions were answered and informed consent was obtained. Patient identification and proposed procedure were verified by the physician. Mental Status Examination: alert and oriented. Airway Examination: normal oropharyngeal airway and neck mobility. Respiratory Examination: clear to auscultation. CV Examination: normal. Prophylactic Antibiotics: The patient does not require prophylactic antibiotics. Prior Anticoagulants: The patient has taken no previous anticoagulant or antiplatelet agents. ASA Grade Assessment: II - A patient with mild systemic disease. After reviewing the risks and benefits, the patient was deemed in satisfactory condition to undergo the procedure. The anesthesia plan was to use moderate sedation / analgesia (conscious sedation). Immediately prior to administration of medications, the patient was re-assessed for adequacy to receive sedatives. The heart rate, respiratory rate, oxygen saturations, blood pressure, adequacy of pulmonary ventilation, and response to care were monitored throughout the procedure. The physical status of the patient was re-assessed after the procedure. After obtaining informed consent, the colonoscope was passed under direct vision. Throughout the procedure, the patient's blood pressure, pulse, and oxygen saturations were monitored continuously. The Olympus Adult Colonoscope, Model # [id number], Endora # 222, SN # [id number] was introduced through the anus and advanced to the cecum, identified by appendiceal orifice and ileocecal valve. The colonoscopy was performed without difficulty. The patient tolerated the procedure well. The quality of the bowel preparation was good. Findings: The perianal and digital rectal examinations were normal. Many small and large-mouthed diverticula were found in the sigmoid colon. The exam was otherwise without abnormality on direct and retroflexion views. Impression: - Diverticulosis in the sigmoid colon. - The examination was otherwise normal on direct and retroflexion views. - No specimens collected. Recommendation: - Repeat colonoscopy in 5 years for surveillance. Procedure Code(s): --- Professional --- G0105, Colorectal cancer screening; colonoscopy on individual at high risk Diagnosis Code(s): --- Professional --- Z80.0, Family history of malignant neoplasm of digestive organs CPT copyright 2019 [employer]. All rights reserved. The codes documented in this report are preliminary and upon retail banker review may be revised to meet current compliance requirements. Electronically signed by Gabriel Forde MD __ Gabriel Forde MD 01/06/2021 9:08:19 AM I was physically present for the entire viewing portion of the exam. Gabriel Forde MD Number of Addenda: 0 Note Initiated On: 01/06/2021 8:34 AM Procedure Date: 01/06/2021 8:34:55 AM Scope Withdrawal Time: 0 hours 7 minutes 37 seconds Total Procedure Duration: 0 hours 14 minutes 57 seconds Estimated Blood Loss: Scope In: 8:44:51 AM Scope Out: 8:59:48 AM RADIOLOGY RESULTS 01/06/2021 8:34 AM CDT us Gabriel Forde MD PROCEDURES Final Result RADIOLOGY RESULTS * DEXA - HIM SCAN (08/28/2018 12:00 AM CDT) Anatomical Region Laterality Modality Other 08/28/2018 us Provider Outside IMG DEXA ORDERABLES Final Resul t from Last 3 Months or Most Recently Relevant to Health Maintenance Insurance [facility] MEDICARE ADVANTAGE Care Teams Mine Analyst Relationship Specialty Start Date End Date [facility] - [address] [address] PCP - General Internal Medicine 07/03/19
--- OUTSIDE RECORDS SUMMARY | 2024-02-27 09:29 | XMS_ITS | Clinical Summary ---
Author Organization [place] Address [address] [facility] 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 Room # 2[address] [place] [address], [place] [phone] [facility] [address] Lab (no room number, 1st floor of clinic) [place] [address], [place] [phone] * (ABNORMAL) Comprehensive metabolic panel (BMP + Alb, Alk Phos, ALT, AST, Total. Bili, TP) (10/05/2021 8:04 AM CDT) Sodium 140 133 - 144 mmol/L 10/06/2021 4:21 PM [facility] Potassium 4.7 3.4 - 5.3 mmol/L 10/06/2021 4:21 PM [facility] Comment:Specimen slightly he molyzed, potassium may be falsely elevated. Chloride 111(H) 94 - 109 mmol/L 10/06/2021 4:21 PM [facility] Carbon Dioxide (CO2) 20 20 - 32 mmol/L 10/06/2021 4:21 PM [facility] Anion Gap 9 3 - 14 mmol/L 10/06/2021 4:21 PM [facility] Urea Nitrogen 12 7 - 30 mg/dL 10/06/2021 4:21 PM [facility] Creatinine 0.53 0.52 - 1.04 mg/dL 10/06/2021 4:21 PM [facility] Calcium 9.3 8.5 - 10.1 mg/dL 10/06/2021 4:21 PM [facility] Glucose 77 70 - 99 mg/dL 10/06/2021 4:21 PM [facility] Alkaline Phosphatase 77 40 - 150 U/L 10/06/2021 4:21 PM [facility] AST 17 0 - 45 U/L 10/06/2021 4:21 PM [facility] Comment:Specimen is hemolyze d which can falsely elevate AST. Analysis of a non-hemolyzed specimen may result in a lower value. ALT 22 0 - 50 U/L 10/06/2021 4:21 PM [facility] Protein Total 7.1 6.8 - 8.8 g/dL 10/06/2021 4:21 PM [facility] Albumin 3.9 3.4 - 5.0 g/dL 10/06/2021 4:21 PM [facility] Bilirubin Total 0.6 0.2 - 1.3 mg/dL 10/06/2021 4:21 PM [facility] GFR Estimate >90 >60 mL/min/1.7 3m2 10/06/2021 4:21 PM [facility] Comment:Effective February 252020 eGFRcr in adults is calculated using the 2020 CKD-EPI creatinine equation which includes age and gender (Ching et al., NEJM, DOI: 10.1056/AKMXpd3734666) Blood BLOOD SPECIMEN / Unknown Venipuncture / Unknown 10/05/2021 8:04 AM CDT 10/05/2021 8:13 AM CDT us Marichuy Meyers MD LAB - BLOOD ORDERABLES Andreina holland Result [facility] [address] [facility]. Room # [address] [place] [address], [facility] [phone] * MA Screen Right w/Nga (01/25/2021 10:55 [...] examination will be communicated to the patient. Mraichuy Meyers MD IM MAMMOGRAPHY ORDERABLES Final Result * COLONOSCOPY (01/06/2021 8:34 AM CDT) COLONOSCOPY [facility] Patient Name: Jennifer Schwab Procedure Date: 01/06/2021 [...] continuously. The Olympus Adult Colonoscope, Model # CF-EC017E, Endora # 222, SN # [id number] was introduced through the anus and advanced [...] neoplasm of digestive organs CPT copyright 2019 [employer] [place] [employer]. All rights reserved. The codes documented in this report are preliminary and upon human resources director review may be revised to meet current [...] Most Recently Relevant to Health Maintenance Insurance [facility] MEDICARE ADVANTAGE Care Teams Facility Maintenance Technician Relationship Specialty Start Date End Date [facility] - [address] [address] PCP - General Internal Medicine 07/03/19
--- OUTSIDE RECORDS SUMMARY | 2024-02-27 09:29 | XMS_ITS | Encounter Summary ---
Author Organization [place] Address Counts include 234 beds at the [facility] 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
--- OUTSIDE RECORDS SUMMARY | 2024-02-27 09:29 | XMS_ITS | Encounter Summary ---
Author Organization [facility] Address [address] [place] [address] Care Team Providers Care Appeals Nurse Name Role Phone Elsewhere, Pcp Primary Care Provider Unavailabl e Encounter Details Date Type Department Care Team (Latest Contact Info) Description 02/06/2024 10:04 AM KINDERGARTEN PARAPROFESSIONAL - 02/06/2024 10:59 AM [facility] Hospital Encounter Department of Laboratory Medicine and Pathology, [facility], in [place], [place] [address] [place] [address] Maite Dennis, P.A.-C., M.S. [address] [place] [address] Angiosarcoma Soft Tissue (HCC) Discharge Disposition: Home [...] PM CDT Legal Sex Female 5:58 AM KINDERGARTEN PARAPROFESSIONAL Gender Identity Female 03/03/2017 6:11 AM KINDERGARTEN PARAPROFESSIONAL Sexual Orientation Straight 03/03/2017 6: 11 AM KINDERGARTEN PARAPROFESSIONAL documented as of this encounter Medications at Time of Discharge albuterol 90 mcg/actuation inhaler Inhale 2 puffs every 6 (six) hours. 10/13/2021 cyanocobalamin (VITAMIN B12) 1,000 mcg tablet Take 1,000 mcg by mouth daily. fluticasone (FLONASE ALLERGY RELIEF) 50 mcg/actuation nasal spray Administer 1 puff into affected nostril(s) 2 (two) times a day. 07/14/2016 fluticasone propion-salmeter oL 250-50 mcg/dose diskus inhaler Inhale 1 puff 2 (two) times a day. 01/17/2023 pravastatin (PRAVACHOL) 10 mg tablet every evening. 10/15/2021 vitamins A,C,X-kcva-joaig r (PRESERVISION AREDS) 7,160 Units-113 mg-100 Units per tablet Take 1 tablet by mouth daily. documented as of this encounter Plan of Treatment Not on file documented as of this encounter Procedures Procedure Name Priority Date/Time Associated Diagnosis Comments CBC WITH DIFFERENTIAL, B Routine 02/06/2024 10:23 AM KINDERGARTEN PARAPROFESSIONAL Angiosarcoma Soft Tissue (HCC) COMPREHENSIVE METABOLIC PANEL, S/P Routine 02/06/2024 10:23 AM KINDERGARTEN PARAPROFESSIONAL Angiosarcoma Soft Tissue (HCC) documented in this encounter Results * (ABNORMAL) Comprehensive Metabolic Panel (02/06/2024 10:23 AM KINDERGARTEN PARAPROFESSIONAL) Potassium, S 5.0 3.6 - 5.2 mmol/L 02/06/2024 11:26 AM KINDERGARTEN PARAPROFESSIONAL DTL Sodium, S 142 135 - 145 mmol/L 02/06/2024 11:26 AM KINDERGARTEN PARAPROFESSIONAL DTL Chloride, S 108(H) 98 - 107 mmol/L 02/06/2024 11:26 AM KINDERGARTEN PARAPROFESSIONAL DTL Bicarbonate, S 26 22 - 29 mmol/L 02/06/2024 11:26 AM KINDERGARTEN PARAPROFESSIONAL DTL Anion Gap 8 7 - 15 02/06/2024 11:26 AM KINDERGARTEN PARAPROFESSIONAL DTL BUN (Blood Urea Nitrogen), S 19 6 - 21 mg/dL 02/06/2024 11:26 AM KINDERGARTEN PARAPROFESSIONAL DTL Creatinine 0.85 0.59 - 1.04 mg/dL 02/06/2024 11:26 AM KINDERGARTEN PARAPROFESSIONAL DTL Estimated GFR (eGFR) 71 >=60 mL/min/BS A 02/06/2024 11:26 AM KINDERGARTEN PARAPROFESSIONAL DTL Comment: Estimated GFR calculated using the 2020 CKD_EPI creatinine equation. Calcium, Total, S 9.8 8.8 - 10.2 mg/dL 02/06/2024 11:26 AM KINDERGARTEN PARAPROFESSIONAL DTL Glucose, S 90 70 - 140 mg/dL 02/06/2024 11:26 AM KINDERGARTEN PARAPROFESSIONAL DTL Protein, Total, S 6.2(L) 6.3 - 7.9 g/dL 02/06/2024 11:26 AM KINDERGARTEN PARAPROFESSIONAL DTL Albumin, S 4.4 3.5 - 5.0 g/dL 02/06/2024 11:26 AM KINDERGARTEN PARAPROFESSIONAL DTL Aspartate Aminotransferase (AST), S 15 8 - 43 U/L 02/06/2024 11:26 AM KINDERGARTEN PARAPROFESSIONAL DTL Alkaline Phosphatase, S 71 35 - 104 U/L 02/06/2024 11:26 AM KINDERGARTEN PARAPROFESSIONAL DTL Alanine Aminotransferase (ALT), S 12 7 - 45 U/L 02/06/2024 11:26 AM KINDERGARTEN PARAPROFESSIONAL DTL Bilirubin, Total, S 0.3 0.0 - 1.2 mg/dL 02/06/2024 11:26 AM KINDERGARTEN PARAPROFESSIONAL DTL Blood (Blood, Venous) 02/06/2024 10:23 AM KINDERGARTEN PARAPROFESSIONAL 02/06/2024 11:08 AM KINDERGARTEN PARAPROFESSIONAL Maite Dennis P.A.-C., M.S. LAB BLOOD ADD-ON Andreina l Result [facility] [address] [place] [address], [facility] DTL [facility] [address] [place] [address] * (ABNORMAL) CBC with Differential, Blood (02/06/2024 10:23 AM KINDERGARTEN PARAPROFESSIONAL) Hemoglobin 13.2 11.6 - 15.0 g/dL 02/06/2024 11:16 AM KINDERGARTEN PARAPROFESSIONAL DTL Hematocrit 40.5 35.5 - 44.9 % 02/06/2024 11:16 AM KINDERGARTEN PARAPROFESSIONAL DTL Erythrocytes 4.01 3.92 - 5.13 x10(12)/L 02/06/2024 11:16 AM KINDERGARTEN PARAPROFESSIONAL DTL MCV 101.0(H) 78.2 - 97.9 fL 02/06/2024 11:16 AM KINDERGARTEN PARAPROFESSIONAL DTL RBC Distrib Width 13.1 12.2 - 16.1 % 02/06/2024 11:16 AM KINDERGARTEN PARAPROFESSIONAL DTL Platelet Count 259 157 - 371 x10(9)/L 02/06/2024 11:16 AM KINDERGARTEN PARAPROFESSIONAL DTL Leukocytes 7.5 3.4 - 9.6 x10(9)/L 02/06/2024 11:16 AM KINDERGARTEN PARAPROFESSIONAL DTL Neutrophils 4.86 1.56 - 6.45 x10(9)/L 02/06/2024 11:16 AM KINDERGARTEN PARAPROFESSIONAL DHPM Lymphocytes 1.75 0.95 - 3.07 x10(9)/L 02/06/2024 11:16 AM KINDERGARTEN PARAPROFESSIONAL DTL Monocytes 0.65 0.26 - 0.81 x10(9)/L 02/06/2024 11:16 AM KINDERGARTEN PARAPROFESSIONAL DTL Eosinophils 0.22 0.03 - 0.48 x10(9)/L 02/06/2024 11:16 AM KINDERGARTEN PARAPROFESSIONAL DTL Basophils 0.04 0.01 - 0.08 x10(9)/L 02/06/2024 11:16 AM KINDERGARTEN PARAPROFESSIONAL DTL Blood (Blood, Venous) 02/06/2024 10:23 AM KINDERGARTEN PARAPROFESSIONAL 02/06/2024 10:44 AM KINDERGARTEN PARAPROFESSIONAL Maite Dennis P.A.-C., M.S. LAB BLOOD ADD-ON Andreina l Result [facility] [address] [place] [address], [facility] DTL [facility] [address] [place] [address] [facility] [address] [place] [address] documented in this encounter Visit Diagnoses Diagnosis Angiosarcoma Soft Tissue (HCC) documented in this encounter Additional Health Concerns Assessment Noted Time PHQ-9 Depression Total Score: 1 08/18/19 19 6:47 PM CDT documented as of this encounter Care Teams Appeals Nurse Relationship Specialty Start Date End Date Elsewhere, Pcp PCP - General Internal Medicine 01/23/23 documented as of this encounter
--- OUTSIDE RECORDS SUMMARY | 2024-02-27 09:29 | XMS_ITS | Clinical Summary ---
Author Organization [facility] Address [place], [place] [address] Care Team Providers Care [place] Ordinary Name Role Phone Johanna Thompson MD Primary [...] Comments Blood Pressure 116/78 04/03/2014 9:45 AM MARKETING CONTENT SPECIALIST Pulse 76 04/03/2014 9:45 AM MARKETING CONTENT SPECIALIST Temperature - - Respiratory Rate 18 06/07/2013 9:37 AM CDT Oxygen Saturation - - Inhaled Oxygen Concentration - - Weight 81.8 kg (180 lb 4.8 oz) 04/03/2014 9:45 A M MARKETING CONTENT SPECIALIST Height 150.5 cm (4' 11.25) 04/03/2014 9:[address] Body Mass Index 36.11 04/03/2014 9:45 AM MARKETING CONTENT SPECIALIST Plan of Treatment Health Maintenance Due [...] REFLEX MEASURED LDL Routine 04/03/2014 10:36 AM MARKETING CONTENT SPECIALIST Hyperlipemia COLONOSCOPY SCREENING Routine 05/29/2013 12:00 AM MARKETING CONTENT SPECIALIST Colon cancer screening ANTI HCV Routine 03/15/2013 11:15 AM MARKETING CONTENT SPECIALIST Need for hepatitis C screening test from Last 3 Months or Most Recently Relevant to Health Maintenance Results * (ABNORMAL) LIPID PANEL W REFLEX MEASURED LDL (04/03/2014 10:36 AM MARKETING CONTENT SPECIALIST) CHOLESTEROL,TOTAL 194 100 - 199 mg/dL 04/03/2014 2:48 PM MARKETING CONTENT SPECIALIST [facility] TRIGLYCERIDES 153(H) <150 mg/dL 04/03/2014 2:48 PM MARKETING CONTENT SPECIALIST [facility] HDL CHOLESTEROL 59 >40 mg/dL 5 2:48 PM MARKETING CONTENT SPECIALIST [facility] NON-HDL CHOLESTEROL 135 <145 mg/dl 04/03/2014 2:48 PM MARKETING CONTENT SPECIALIST [facility] CHOL/HDL RATIO 3.29 <4.50 04/03/2014 2:48 PM MARKETING CONTENT SPECIALIST [facility] LDL CHOLESTEROL 104 <=130 mg/dL 04/03/2014 2:48 PM MARKETING CONTENT SPECIALIST [facility] PATIENT STATUS FASTING 04/03/2014 2:48 PM MARKETING CONTENT SPECIALIST [facility] Blood specimen (specimen) BLOOD SPECIMEN / Unknown Butterfly / Unknown 04/03/2014 10:36 AM MARKETING CONTENT SPECIALIST 04/03/2014 10:36 AM MARKETING CONTENT SPECIALIST Johanna Thompson MD [facility] [address] [place] [address], * COLONOSCOPY SCREENING (05/29/2013 12:00 AM MARKETING CONTENT SPECIALIST) Narrative 05/29/2013 12:00 AM MARKETING CONTENT SPECIALIST Procedure Note Scanner - 05/29/2013 12:00 AM CST Johanna Thompson MD GI PROCEDURE ORD * ANTI HCV [[id number]] (03/15/2013 11:15 AM MARKETING CONTENT SPECIALIST) ANTI HCV Non-reacti ve [facility] Blood specimen (specimen) BLOOD SPECIMEN / Unknown 03/15/2013 11:15 AM MARKETING CONTENT SPECIALIST 03/15/2013 11:09 AM MARKETING CONTENT SPECIALIST Johanna Thompson MD SEND OUTS [facility] [place]NAL ZIP [address] [address] [place] [address] from Last 3 Months or Most Recently Relevant to Health Maintenance Care Teams [place] Ordinary Relationship Specialty Start Date End Date Johanna Thompson MD PCP - General Internal Medicine 12/03/11
--- OUTSIDE RECORDS SUMMARY | 2024-02-27 09:29 | XMS_ITS | Encounter Summary ---
Author Organization [facility] Address [address] [place] [address] Care Team Providers Care Public Works Laborer Name Role Phone Elsewhere, Pcp Primary Care Provider Unavailabl e Reason for Referral * Outpatient (Routine) - Authorized Specialty Diagnoses / Procedures Referred By Contac t Referred To Contact Oncology Maite Dennis P.A.-C., M.S. [address] [place] [phone] Phone: tel: fax: [facility] Referral ID Status Reason Start Date Expiration Date V isits Requested Visits Authorized [id number] Authorized 02/07/2024 08/08/2025 1 1 OR LANDSCAPE ARCHITECT * MRI/CAT/PET Scan (Routine) - Authorized Specialty Diagnoses / Procedures Referred By Contac t Referred To Contact Radiology Diagnoses Angiosarcoma Soft Tissue (HCC) Procedures CT Chest without IV Contrast Maite Dennis P.A.-C., M.S. [address] [place] [phone] Phone: tel: fax: [facility] Referral ID Status Reason Start Date Expiration Date V isits Requested Visits Authorized [id number] Authorized 02/07/2024 02/06/2025 1 1 OR LANDSCAPE ARCHITECT Reason for Visit * Outpatient (Routine) - Closed Specialty Diagnoses / Procedures Referred By Sharodna t Referred To Contact Oncology Maite Dennis P.A.-C., M.S. [address] [place] [phone] Phone: tel: fax: [facility] Referral ID Status Reason Start Date Expiration Date Visits Re quested Visits Authorized [id number] Closed 02/08/2023 02/07/2026 1 1 Encounter Details Date Type Department Care Team (Late st Contact Info) Description 02/06/2024 2:00 PM SENIOR LANDSCAPE ARCHITECT Office Visit Department of Oncology in [place], [place] [address] [place] [phone] Maite Dennis P.A.-C., M.S. 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) Social History Tobacco Use Types Packs/Day Years [...] PM CDT Legal Sex Female 5:58 AM SENIOR LANDSCAPE ARCHITECT Gender Identity Female 03/03/2017 6:11 AM SENIOR LANDSCAPE ARCHITECT Sexual Orientation Straight 03/03/2017 6: 11 AM SENIOR LANDSCAPE ARCHITECT documented as of this encounter Last Filed Vital Signs Vital Sign Reading Time Taken Comments Blood Pressure 126/69 02/06/2024 2:04 PM SENIOR LANDSCAPE ARCHITECT Pulse 81 02/06/2024 2:04 PM SENIOR LANDSCAPE ARCHITECT Temperature 37.2 C (99 F) 02/06/2024 2:04 PM SENIOR LANDSCAPE ARCHITECT Respiratory Rate 14 02/06/2024 2:04 PM SENIOR LANDSCAPE ARCHITECT Oxygen Saturation 96% 02/06/2024 2:04 PM SENIOR LANDSCAPE ARCHITECT Inhaled Oxygen Concentration - - Weight 66.7 kg (147 lb 0.8 oz) 02/06/2024 2:04 P M SENIOR LANDSCAPE ARCHITECT Height - - Body Mass Index 30.74 01/25/2023 1:49 PM CDT documented in this encounter Progress Notes * Maite Dennis P.A.-C., M.S. - 02/06/2024 2:00 PM CST SUBJECTIVE PRIMARY ONCOLOGIST: Caio Pop M.D. Witter, Amy E, P.A.-C., M.S. 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 Surveillance visit. HISTORY OF PRESENT ILLNESS Ms. Schwab is a 73 y.o. female with the following oncologic history: [...] in the [facility] on 01/25/2023 by me. Since that time, she has been doing very well. No new oncologic concerns. Her prior wound site that took an extremely long time to heal (close) has not reopened and her ROM in her left arm has improved. She has actually been able to swing a golf club without any problem. She had an annual physical with her primary care provider in [place] and there were no concerning issues noted. REVIEW OF SYSTEMS Pertinent items are noted in HPI; all other systems were reviewed and were negative. OBJECTIVE Vitals: 02/06/24 1404 BP: 126/69 BP Location: Right arm Patient Position: Sitting Cuff Size: Regular Pulse: 81 Resp: 14 Temp: 37.2 ??C TempSrc: Tympanic SpO2: 96% Weight: 66.7 kg PHYSICAL EXAMINATION General: 73 y.o. female, in no acute distress. Vital signs as noted above. Eyes: anicteric Lungs: unlabored respirations Neuro: alert and orientated; good historian ECOG score 0 LABS: Reviewed in patients chart. Lab results were reviewed and are satisfactory. No intervention needed. IMAGING: CT Chest without IV Contrast Result Date: 02/06/2024 Impression: Stable chest CT findings with no new or enlarging findings suggestive of metastatic disease. 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 Schwab in clinic today. She was accompanied by her . She continues to do extremely well and is now out 7.5 years from her treatment without recurrence. This is great news. We were able to review the reports of her recent labs and scan(s). Labs look good and her scan is negative. PLAN: We will plan to see her back in approximately 1 year (December 2024) with repeat labs, imaging and office visit. [...] and/or coordination of care as described above. OR LANDSCAPE ARCHITECT documented in this encounter Plan of Treatment Scheduled Orders Name Type Priority Associated Diagnoses Order Schedule CT Chest without IV Contrast Imaging RAD - Routine (most inpatients and all outpatients) Angiosarcoma Soft Tissue (HCC) Expected: 12/25/2024 (Approximate), Expires: 02/06/2025 CBC with Differential, Blood Lab Routine Angiosarcoma Soft Tissue (HCC) Expected: 12/25/2024 (Approximate), Expires: 05/09/2025 Comprehensive Metabolic Panel Lab Routine Angiosarcoma Soft Tissue (HCC) Expected: 12/25/2024 (Approximate), Expires: 02/06/2025 Scheduled Referrals Name Type Priority Associated Diagnoses Orde r Schedule Oncology office visit (clinic) Outpatient Referral Routine Expected: 12/25/2024 (Approximate), Expires: 05/09/2025 documented as of this encounter Visit Diagnoses Diagnosis Angiosarcoma Soft Tissue (HCC)- Primary 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
--- OUTSIDE RECORDS SUMMARY | 2024-02-27 09:29 | XMS_ITS | Clinical Summary ---
Author Organization [facility] Address [address] [place] [address] Care Team Providers Care Forming Machine Operator Name Role Phone Elsewhere, Pcp Primary Care Provider Unavailabl e Source Comments Patient records contain information from all sites at [facility]. For routine questions regarding patient records, call [phone] during business hours, M-F 8:00 AM - 5:00 PM Central Time. Record requests for emergency care only can be directed to [phone] at any time.[facility] Allergies Active Allergy Reactions Criticality Noted [...] Date Type Department Care Team Description 02/06/2024 2:00 PM OPTO MECHANICAL ENGINEER Office Visit Department of Oncology in [place], [place] [address] [place] [phone] Maite Dennis P.A.-C., M.S. 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 Care 02/06/2024 10:04 AM OPTO MECHANICAL ENGINEER - 02/06/2024 10:59 AM OPTO MECHANICAL ENGINEER Hospital Encounter Department of Laboratory Medicine and Pathology, [facility] in [place], [place] [address] [place] [address] Maite Dennis P.A.-C., M.S. 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 Care from Last 3 Months Immunizations Name Administration [...] PM CDT Legal Sex Female 5:58 AM OPTO MECHANICAL ENGINEER Gender Identity Female 03/03/2017 6:11 AM OPTO MECHANICAL ENGINEER Sexual Orientation Straight 03/03/2017 6: 11 AM OPTO MECHANICAL ENGINEER Last Filed Vital Signs Vital Sign Reading Time Taken Comments Blood Pressure 126/69 02/06/2024 2:04 PM OPTO MECHANICAL ENGINEER Pulse 81 02/06/2024 2:04 PM OPTO MECHANICAL ENGINEER Temperature 37.2 C (99 F) 02/06/2024 2:04 PM OPTO MECHANICAL ENGINEER Respiratory Rate 14 02/06/2024 2:04 PM OPTO MECHANICAL ENGINEER Oxygen Saturation 96% 02/06/2024 2:04 PM OPTO MECHANICAL ENGINEER Inhaled Oxygen Concentration - - Weight 66.7 kg (147 lb 0.8 oz) 02/06/2024 2:04 P M OPTO MECHANICAL ENGINEER Height 147.3 cm (4' 9.99) 01/25/2023 1:49 PM CD T Body Mass Index 30.74 01/25/2023 1:49 PM CDT Plan of Treatment Health Maintenance Due Date Last Done Comments CT Colonography 1950 Cologuard 1950 Hepatitis C Screening 1950 Mammogram 01/25/2022 01/25/2021, 1103/2020, 01/13/2020, Additional history exists Depression Screening (Annual PHQ-2) 03/27/2023 Fall Risk Screen (Annual) 03/27/2023 Office Visit for Blood Pressure Check / Re-check 02/05/2025 02/06/2024 Colonoscopy 01/06/2026 01/06/2021, 03/0 07/2013, 04/02/2012 (Performed elsewhere) Colorectal Cancer Surveillance 01/06/2026 Lipid (Cholesterol) Screening 10/05/2026 10/05/2021, 06/05/2020, 08/18/2018, Additional history exists Fasting Glucose for Diabetes Screening 02/05/2027 02/06/2024, 01/25/2023, 01/31/2022, Additional history exists DTaP,Tdap,and Td Vaccines (4 - Td or Tdap) 11/08/2029 11/09/2019, 01/25/2012, 01/25/2012 Bone Density Scan (Osteoporosis Screen) Discontinued 09/21/2015 Pneumococcal vaccine (65+ years) Completed 11/09/2019, 11/06/2018, 07/03/2009, Additional history exists Zoster Vaccines Completed 02/10/2020, 11/25, 03/27/2009 RSV vaccine - (32-36 weeks) or 60+ years Completed 12/12/2022 COVID-19 Vaccine Completed 12/26/2023, 10/2023, 12/23/2022, Additional history exists Influenza Vaccine Completed 12/26/2023, , 11/30/2021, Additional history exists Lung Cancer Screening Discontinued 02/06/2024 , 01/25/2023, 01/31/2022, Additional history exists HPV Vaccines Aged Out No longer eligi ble based on patient's age to complete this topic IPV Vaccines Aged Out No longer eligi ble based on patient's age to complete this topic Medical Devices Implanted Type Area Light Bulb Assembler Device Identifier Shelf Expiration Date Model / Serial / Lot Conversions - Default Historical Implant Device Implanted:07/11 (Quantity not on file) Misc Other Left: Breast Description:Body Location - Breast L. Device Status Text - MiscOther. titanium marker. Procedures Procedure Name Priority Date/Time Associated Diagnosis Comments CT CHEST WITHOUT IV CONTRAST RAD - Routine (most inpatients and all outpatients) 02/06/2024 11:11 AM OPTO MECHANICAL ENGINEER Angiosarcoma Soft Tissue (HCC) COMPREHENSIVE METABOLIC PANEL, S/P Routine 02/06/2024 10:23 AM OPTO MECHANICAL ENGINEER Angiosarcoma Soft Tissue (HCC) CBC WITH DIFFERENTIAL, B Routine 02/06/2024 10:23 AM OPTO MECHANICAL ENGINEER Angiosarcoma Soft Tissue (HCC) LIPID PANEL, S Routine 06/05/2020 7:40 AM OPTO MECHANICAL ENGINEER Angiosarcoma Soft Tissue (HCC) MR BREAST UNILATERAL Routine 07/20/2017 10:28 AM CDT from Last 3 Months or Most Recently Relevant to Health Maintenance Results * CT Chest without IV Contrast (02/06/2024 11:11 AM OPTO MECHANICAL ENGINEER) Anatomical Region Laterality Modality Chest, Thoracic RST LOS, Tho racic ARZ LOS, Thoracic FLA LOS N/A Computed Tomography, Compute d Tomography Impressions 02/06/2024 12:43 PM OPTO MECHANICAL ENGINEER Stable chest CT findings with no new or enlarging findings suggestive of metastatic disease. Narrative 02/06/2024 12:43 PM OPTO MECHANICAL ENGINEER EXAM: CT CHEST WITHOUT IV CONTRAST COMPARISON: [...] CBC with Differential, Blood (02/06/2024 10:23 AM OPTO MECHANICAL ENGINEER) Hemoglobin 13.2 11.6 - 15.0 g/dL 02/06/2024 11:16 AM OPTO MECHANICAL ENGINEER DTL Hematocrit 40.5 35.5 - 44.9 % 02/06/2024 11:16 AM OPTO MECHANICAL ENGINEER DTL Erythrocytes 4.01 3.92 - 5.13 x10(12)/L 02/06/2024 11:16 AM OPTO MECHANICAL ENGINEER DTL MCV 101.0(H) 78.2 - 97.9 fL 02/06/2024 11:16 AM OPTO MECHANICAL ENGINEER DTL RBC Distrib Width 13.1 12.2 - 16.1 % 02/06/2024 11:16 AM OPTO MECHANICAL ENGINEER DTL Platelet Count 259 157 - 371 x10(9)/L 02/06/2024 11:16 AM OPTO MECHANICAL ENGINEER DTL Leukocytes 7.5 3.4 - 9.6 x10(9)/L 02/06/2024 11:16 AM OPTO MECHANICAL ENGINEER DTL Neutrophils 4.86 1.56 - 6.45 x10(9)/L 02/06/2024 11:16 AM OPTO MECHANICAL ENGINEER DHPM Lymphocytes 1.75 0.95 - 3.07 x10(9)/L 02/06/2024 11:16 AM OPTO MECHANICAL ENGINEER DTL Monocytes 0.65 0.26 - 0.81 x10(9)/L 02/06/2024 11:16 AM OPTO MECHANICAL ENGINEER DTL Eosinophils 0.22 0.03 - 0.48 x10(9)/L 02/06/2024 11:16 AM OPTO MECHANICAL ENGINEER DTL Basophils 0.04 0.01 - 0.08 x10(9)/L 02/06/2024 11:16 AM OPTO MECHANICAL ENGINEER DTL Blood (Blood, Venous) 02/06/2024 10:23 AM OPTO MECHANICAL ENGINEER 02/06/2024 10:44 AM OPTO MECHANICAL ENGINEER Maite Dennis P.A.-C., M.S. LAB BLOOD ADD-ON Andreina l Result [facility] [address] [place] [address], [facility] DTL [facility] [address] [place] [address] [facility] [address] [place] [address] * (ABNORMAL) Comprehensive Metabolic Panel (02/06/2024 10:23 AM OPTO MECHANICAL ENGINEER) Pathologist [facility] Potassium, S 5.0 3.6 - 5.2 mmol/L 02/06/2024 11:26 AM OPTO MECHANICAL ENGINEER DTL Sodium, S 142 135 - 145 mmol/L 02/06/2024 11:26 AM OPTO MECHANICAL ENGINEER DTL Chloride, S 108(H) 98 - 107 mmol/L 02/06/2024 11:26 AM OPTO MECHANICAL ENGINEER DTL Bicarbonate, S 26 22 - 29 mmol/L 02/06/2024 11:26 AM OPTO MECHANICAL ENGINEER DTL Anion Gap 8 7 - 15 02/06/2024 11:26 AM OPTO MECHANICAL ENGINEER DTL BUN (Blood Urea Nitrogen), S 19 6 - 21 mg/dL 02/06/2024 11:26 AM OPTO MECHANICAL ENGINEER DTL Creatinine 0.85 0.59 - 1.04 mg/dL 02/06/2024 11:26 AM OPTO MECHANICAL ENGINEER DTL Estimated GFR (eGFR) 71 >=60 mL/min/BS A 02/06/2024 11:26 AM OPTO MECHANICAL ENGINEER DTL Comment: Estimated GFR calculated using the 2020 CKD_EPI creatinine equation. Calcium, Total, S 9.8 8.8 - 10.2 mg/dL 02/06/2024 11:26 AM OPTO MECHANICAL ENGINEER DTL Glucose, S 90 70 - 140 mg/dL 02/06/2024 11:26 AM OPTO MECHANICAL ENGINEER DTL Protein, Total, S 6.2(L) 6.3 - 7.9 g/dL 02/06/2024 11:26 AM OPTO MECHANICAL ENGINEER DTL Albumin, S 4.4 3.5 - 5.0 g/dL 02/06/2024 11:26 AM OPTO MECHANICAL ENGINEER DTL Aspartate Aminotransferase (AST), S 15 8 - 43 U/L 02/06/2024 11:26 AM OPTO MECHANICAL ENGINEER DTL Alkaline Phosphatase, S 71 35 - 104 U/L 02/06/2024 11:26 AM OPTO MECHANICAL ENGINEER DTL Alanine Aminotransferase (ALT), S 12 7 - 45 U/L 02/06/2024 11:26 AM OPTO MECHANICAL ENGINEER DTL Bilirubin, Total, S 0.3 0.0 - 1.2 mg/dL 02/06/2024 11:26 AM OPTO MECHANICAL ENGINEER DTL Blood (Blood, Venous) 02/06/2024 10:23 AM OPTO MECHANICAL ENGINEER 02/06/2024 11:08 AM OPTO MECHANICAL ENGINEER Maite Dennis P.A.-C., M.S. LAB BLOOD ADD-ON Andreina l Result [facility] [address] [place] [address], [facility] [address] [place] [address] * Lipid Panel (06/05/2020 7:40 AM OPTO MECHANICAL ENGINEER) [facility] Cholesterol, Total 180 mg/dL 2020 8:40 AM OPTO MECHANICAL ENGINEER DTL Comment: ----REFERENCE VALUE---- Desirable: < 200 Borderline high: 200 - 239 High: > or = 240 Triglycerides 113 mg/dL 06/05/2020 8:40 AM OPTO MECHANICAL ENGINEER DTL Comment: ----REFERENCE VALUE---- Normal: <150 Borderline high: 150-199 High: 200-499 Very high: > or =500 Cholesterol, HDL, S 63 >=50 mg/dL 06/05/2020 8:40 AM OPTO MECHANICAL ENGINEER DTL Calculated LDL 94 mg/dL 06/05/2020 8:40 AM OPTO MECHANICAL ENGINEER DTL Comment: ----REFERENCE VALUE---- Desirable: <100 Above Desirable: 100-129 Borderline high: 130-159 High: 160-189 Very high: > or =190 Cholesterol, Non-HDL, Calculated 117 mg/dL 06/05/2020 8:40 AM OPTO MECHANICAL ENGINEER DTL Comment: ----REFERENCE VALUE---- Desirable: <130 Above Desirable: 130-159 Borderline high: 160-189 High: 190-219 Very high: > or =220 Blood (Blood, Venous) 06/05/2020 7:40 AM OPTO MECHANICAL ENGINEER 06/05/2020 8:01 AM OPTO MECHANICAL ENGINEER Maite Dennis P.A.-C., M.S. LAB BLOOD ADD-ON Andreina l Result [facility] [address] [place] [address], [facility] [address] [place] [address] * MR Breast (07/20/2017 10:28 AM CDT) [...] Benign. Electronically signed by: Cordelia Costa MD [phone] 20-Jul-2017 14:13 Rajat Malone MD. [id number] 20-Jul-2017 14:13 Narrative 07/20/2017 2:13 PM CDT 20-Jul-2017 10:28:00 Exam: MRI BREAST, BILATERAL Indications: Angiosarcoma Skin Primary ORIGINAL REPORT - 20-Jul-2017 14:13:00 EXAM: MRI BREAST, BILATERAL INDICATION: High risk screening. HISTORY: Left breast cancer in 2003 for which she underwent breast conservation treatment. [...] Benign. Electronically signed by: Cordelia Costa MD [phone] 20-Jul-2017 14:13 Rajat Malone MD. [id number] 14:13 Abdi Alvarez M.D. IM MRI PROCEDURES Final Resu lt from Last 3 Months or Most Recently Relevant to Health Maintenance Insurance [facility] Advance Directives For more information, please contact: [phone] Documents on File Type Date Recorded Patient Vehicle Sales Professional Expl anation Advance Directives 03/01/2021 9:46 AM Vanessa Lora HCPOA/ADVOCATE/AGENT/R EPRESENTATIVE/SURROGAT E Advance Directives 01/19/2016 12:00 AM Monae haile document. See document viewer. * Full Code (Latest Code Status on File) Date Activated Date Inactivated Comments 08/17/2018 3:01 PM 08/18/2018 2:20 PM Question Answer Comments Full Code: Discussed on admission Healthcare Agents on File Name Relationship Healthcare Agent Relationship Communication Vanessa YumiDeven Schwab Spouse Health Care Agent Nany Schwab Daughter First Alternate Health Care Agent Julienne Lora Daughter Second Alternate Health Care Agent Care Teams Forming Machine Operator Relationship Specialty Start Date End Date Elsewhere, Pcp PCP - General Internal Medicine 01/23/23
--- OUTSIDE RECORDS SUMMARY | 2024-02-27 09:29 | XMS_ITS | Encounter Summary ---
Author Organization [facility] Address [address] [place] [address] Care Team Providers Care Postpartum Nurse Name Role Phone Elsewhere, Pcp Primary Care Provider Unavailabl e Encounter Details Date Type Department Care Team (Late st Contact Info) Description 06/10/2016 Historical Ophthalmology [facility] Miguel Odonnell M.D. [address] [place] [address] Social History Tobacco Use Types Packs/Day Years Used Date Smoking Tobacco: Never Assessed Comments Unknown Sex and Gender Information Value Date Recorded Sex Assigned at Female 01/20/2023 8:11 PM CDT Legal Sex Female 5:58 AM GEOPHYSICAL E LOGGER Gender Identity Female 03/03/2017 6:11 AM GEOPHYSICAL E LOGGER Sexual Orientation Straight 03/03/2017 6: 11 AM GEOPHYSICAL E LOGGER documented as of this encounter Progress Notes [...] #2 cataracts CDM Reports - EYEGEN Id: [id number] Status: Fnl documented in this encounter Plan of Treatment Not on file documented as of this encounter Visit Diagnoses Not on filedocumented in this encounter Care Teams Postpartum Nurse Relationship Specialty Start Date End Date Elsewhere, Pcp PCP - General Internal Medicine 01/23/23 documented as of this encounter
--- OUTSIDE RECORDS SUMMARY | 2024-02-27 09:29 | XMS_ITS | Encounter Summary ---
Author Organization [place] Address [facility] [place] [address] Care Team Providers Care Precision Dyer Name Role Phone [facility] Primary Care Provider Marichuy Meyers MD Unavailable [phone] Marichuy Meyers MD Unavailable [phone] Encounter Details Date Type Department Care Team [...] on file Legal Sex Female 9:04 AM LINEN TECH Gender Identity Not on file Sexual Orientation [...] on filedocumented in this encounter Care Teams Precision Dyer Relationship Specialty Start Date End Date [address] [address] PCP - General Internal Medicine 4/8/20 Marichuy Meyers MD [address] [facility] [address] [place] [address] Assigned PCP 06/13/19 03/11/22 Marichuy Meyers MD [address] [facility] [facility] [address] [place] [address] Assigned PCP 05/21/22 07/17/23 documented as of this encounter
--- OUTSIDE RECORDS SUMMARY | 2024-02-27 09:29 | XMS_ITS | Encounter Summary ---
Author Organization [place] Address [facility] 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 Gender Identity Not on file Sexual Orientation Not on file documented as of this encounter Plan of Treatment Not on file documented as of this encounter Visit Diagnoses Not on filedocumented in this encounter Care Teams Wheel Braider Relationship Specialty Start Date End Date [facility] [address] [place] [address] PCP - General Internal Medicine 07/03/19 Marichuy Meyers MD [address] [place] [address] [facility] [address] [place] [address] Assigned PCP 06/13/19 03/11/22 Marichuy Meyers MD [address] [facility] [address] [place] [address] Assigned PCP 05/21/22 07/17/23 documented as of this encounter
--- OUTSIDE RECORDS SUMMARY | 2024-02-27 09:29 | XMS_ITS ---
Author Organization [facility] Address [address] [place] [address] Care Team Providers Care Cooky Machine Operator Name Role Phone Unavailable Unavailable Unavailable Surgery Details Not on file Complications Check Surgery Details section. Procedure Estimated Blood Loss Check Surgery Details section. Procedure Findings Check Surgery Details section. Procedure Specimens Taken Check Surgery Details section.
--- OUTSIDE RECORDS SUMMARY | 2024-02-27 09:29 | XMS_ITS | Encounter Summary ---
Author Organization [facility] Address [address] [place] [address] Care Team Providers Care Director Of Income Tax Name Role Phone Elsewhere, Pcp Primary Care Provider Unavailabl e Reason for Referral * MRI/CAT/PET Scan (Routine) - Closed Specialty Diagnoses / Procedures Referred By Sharonda t Referred To Contact Radiology Diagnoses Angiosarcoma Soft Tissue (HCC) Procedures CT Chest without IV Contrast Maite Dennis P.A.-C., M.S. [address] [place] [phone] Phone: tel: fax: [facility] Referral ID Status Reason Start Date Expiration Date Visits Re quested Visits Authorized [id number] Closed 02/08/2023 02/08/2024 1 1 STRIAL EDUCATION INSTRUCTOR Reason for Visit * MRI/CAT/PET Scan (Routine) - Closed Specialty Diagnoses / Procedures Referred By Contac t Referred To Contact Radiology Diagnoses Angiosarcoma Soft Tissue (HCC) Procedures CT Chest without IV Contrast Maite Dennis P.A.-C., M.S. [address] [place] [phone] Phone: tel: fax: [facility] Referral ID Status Reason Start Date Expiration Date Visits Re quested Visits Authorized [id number] Closed 02/08/2023 02/08/2024 1 1 Encounter Details Date Type Department Care Team (Latest Contact Info) Description 02/06/2024 11:00 AM INDUSTRIAL EDUCATION INSTRUCTOR - 02/06/2024 11:59 PM INDUSTRIAL EDUCATION INSTRUCTOR Hospital Encounter Department of Radiology, [facility], in [place], [place] [address] [place] [address] Maite Dennis P.A.-C., M.S. [address] [place] [address] Angiosarcoma Soft Tissue (HCC) Discharge Disposition: Home [...] PM CDT Legal Sex Female 5:58 AM INDUSTRIAL EDUCATION INSTRUCTOR Gender Identity Female 03/03/2017 6:11 AM INDUSTRIAL EDUCATION INSTRUCTOR Sexual Orientation Straight 03/03/2017 6: 11 AM INDUSTRIAL EDUCATION INSTRUCTOR documented as of this encounter Medications at [...] 10 mg tablet every evening. 10/15/2021 vitamins A,C,R-tzof-vmyik r (PRESERVISION AREDS) 7,160 Units-113 mg-100 Units per tablet Take 1 tablet by mouth daily. documented as of this encounter Plan of Treatment Not on file documented as of this encounter Procedures Procedure Name Priority Date/Time Associated Diagnosis Comments CT CHEST WITHOUT IV CONTRAST RAD - Routine (most inpatients and all outpatients) 02/06/2024 11:11 AM INDUSTRIAL EDUCATION INSTRUCTOR Angiosarcoma Soft Tissue (HCC) documented in this encounter Results * CT Chest without IV Contrast (02/06/2024 11:11 AM INDUSTRIAL EDUCATION INSTRUCTOR) Anatomical Region Laterality Modality Chest, Thoracic RST LOS, Tho racic ARZ LOS, Thoracic FLA LOS N/A Computed Tomography, Compute d Tomography Impressions 02/06/2024 12:43 PM INDUSTRIAL EDUCATION INSTRUCTOR Stable chest CT findings with no new or enlarging findings suggestive of metastatic disease. Narrative 02/06/2024 12:43 PM INDUSTRIAL EDUCATION INSTRUCTOR EXAM: CT CHEST WITHOUT IV CONTRAST COMPARISON: [...] new or enlarging findings suggestive ofmetastatic disease. Maite Dennis P.A.-C., M.S. IMG CT PROCEDURES Fin al Result documented in this encounter Visit Diagnoses Diagnosis Angiosarcoma Soft Tissue (HCC) documented in this encounter Additional Health Concerns Assessment Noted Time PHQ-9 Depression Total Score: 1 08/18/19 19 6:47 PM CDT documented as of this encounter Care Teams Director Of Income Tax Relationship Specialty Start Date End Date Elsewhere, Pcp PCP - General Internal Medicine 01/23/23 documented as of this encounter
--- NOTE | 2024-02-27 10:15 | CRLHL7_ITS ---
For Patients: As a result of the Century Cures Act, medical imaging exams and procedure reports are released immediately into your electronic medical record. You may view this report before your referring provider. If you have questions, please contact your health care provider. BILATERAL SCREENING MAMMOGRAM WITH COMPUTER-AIDED DETECTION AND TOMOSYNTHESIS TECHNIQUE: CC and MLO views were obtained. These mammographic images have been obtained using full-field digital technique. These mammographic images were interpreted with the benefit of computer-aided detection. Breast Tomosynthesis was used in this interpretation. COMPARISON FILM: 02/24/23, 01/26/22, 01/25/21. FINDINGS: There are scattered areas of fibroglandular density. IMPRESSION: There is no radiographic evidence for malignancy. ASSESSMENT: BI-RADS Category 1: Negative RECOMMENDATION: Routine screening mammogram in 1 year. A lay language report of this examination will be provided to the patient. Onofre Loredo M.D. Diagnostic Radiologist [email or web address] SP/Dictated by: Onofre Loredo MD @ 02/28/2024 11:27:00 AM (Electronically Signed)
== END 2024-02-27 09:26 | disposition home or self-care (01) ==
LOC: MAMMO 09:26
PROVIDERS: PCP Internal Medicine; Visit Provider Internal Medicine
DX: Z12.31 Encounter for screening mammogram for malignant neoplasm of breast (principal)
CPT/HCPCS: 77063; 77067

== ENCOUNTER 2025-01-14 08:06 | Outpatient (CLI) | payer MEDICARE, SELFPAY | END 2025-01-14 08:07 | disposition home or self-care (01) | LOC: NFLDREF 01-17 09:58 | PROVIDERS: PCP Internal Medicine; Referring Provider Internal Medicine; Visit Provider Internal Medicine | DX: E78.5 Hyperlipidemia, unspecified (principal) | CPT/HCPCS: 80061 ==

== ENCOUNTER 2025-02-27 11:12 | Outpatient (CLI) | payer MEDICARE, SELFPAY ==
--- NOTE | 2025-02-27 11:30 | CRLHL7_ITS ---
For Patients: As a result of the Century Cures Act, medical imaging exams and procedure reports are released immediately into your electronic medical record. You may view this report before your referring provider. If you have questions, please contact your health care provider. INDICATION: UNILATERAL RIGHT SCREENING MAMMOGRAM, ASYMPTOMATIC 74 Y/O FEMALE COMPARISON: 02/27/2024, 02/24/2023, 01/26/2022 TECHNIQUE: Digital mammogram in CC and MLO projections including computer-aided detection (CAD) and tomosynthesis. BREAST COMPOSITION: There are scattered areas of fibroglandular density. FINDINGS: No suspicious findings. ASSESSMENT: BI-RADS 1 Negative RECOMMENDATION: Annual screening mammogram. A lay language report of this examination will be provided to the patient. Dictated by: Onofre Loredo MD @ 02/27/2025 11:57:45 (Electronically Signed)
== END 2025-02-27 11:13 | disposition home or self-care (01) ==
LOC: MAMMO 11:12
PROVIDERS: PCP Internal Medicine; Visit Provider Internal Medicine
DX: Z12.31 Encounter for screening mammogram for malignant neoplasm of breast (principal)
CPT/HCPCS: 77063; 77067